=== PATIENT | male | born 1945 | race Native Hawaiian/Other Pacific Islander ===

== ENCOUNTER 2018-11-18 10:58 | Inpatient (IN) | payer BC, MEDICARE ==
[2018-11-18] MEDS ORDERED: SODIUM CHLORIDE 0.9% 1,000 ML IV STA (11:31)
[2018-11-18] MEDS ORDERED: MORPHINE SULFATE 4 MG/ML SYRINGE IVP STA (11:33)
[2018-11-18] MEDS ORDERED: FAMOTIDINE 20 MG/2 ML VIAL IV STA (11:36)
--- NOTE | 2018-11-18 11:38 | ED ---
General Adult HPI - General Chief complaint: Abdominal Pain Stated complaint: WEAKNESS, ABDOMINAL PAIN, Hx STOMACH ULCER Time Seen by Provider: 11/18/18 11:01 Source: patient, RN notes reviewed Mode of arrival: EMS Limitations: no limitations - History of Present Illness Initial comments: 72-year-old male with a past medical history of gastric ulcers presents to the emergency department for a chief complaint of abdominal pain. Patient has had generalized abdominal pain for the past 4 days that is worse than normal. Patient states he has not been able to eat or drink anything for 4 days and feels very dry. States he has been vomiting several times daily as well. Denies diarrhea. He admits he is feeling somewhat weak. He denies any chest pain or shortness of breath. Denies any fevers or chills. Patient has no other complaints at this time including shortness of breath, chest pain, headache, or visual changes. - Related Data Home Medications Medication Instructions Recorded Confirmed Atorvastatin [Lipitor] 20 mg PO DAILY 11/18/18 11/18/18 Doxazosin [Cardura] 4 mg PO DAILY 11/18/18 11/18/18 Losartan Potassium 100 mg PO DAILY 11/18/18 11/18/18 Multivitamins, Thera [Multivitamin 1 tab PO DAILY 11/18/18 11/18/18 (formulary)] Allergies Allergy/AdvReac Type Severity Reaction Status Date / Time No Known Allergies Allergy Verified 11/18/18 11:18 Review of Systems ROS Statement: Those systems with pertinent positive or pertinent negative responses have been documented in the HPI. ROS Other: All systems not noted in ROS Statement are negative. Past Medical History Additional Past Medical History / Comment(s): gastric ulcer History of Any Multi-Drug Resistant Organisms: None Reported Past Surgical History: No Surgical Hx Reported Past Psychological History: No Psychological Hx Reported Smoking Status: Current every day smoker Past Alcohol Use History: None Reported Past Drug Use History: Marijuana General Exam Limitations: no limitations General appearance: alert, in no apparent distress Head exam: Present: atraumatic, normocephalic, normal inspection Eye exam: Present: normal appearance, PERRL, EOMI. Absent: scleral icterus, conjunctival injection, periorbital swelling ENT exam: Present: normal exam, mucous membranes dry. Absent: mucous membranes moist (dry) Neck exam: Present: normal inspection, full ROM. Absent: tenderness, meningismus, lymphadenopathy Respiratory exam: Present: normal lung sounds bilaterally. Absent: respiratory distress, wheezes, rales, rhonchi, stridor Cardiovascular Exam: Present: regular rate, normal rhythm, normal heart sounds. Absent: systolic murmur, diastolic murmur, rubs, gallop, clicks GI/Abdominal exam: Present: soft, tenderness (epigastric and RLQ tenderness on exam), normal bowel sounds. Absent: distended, guarding, rebound, rigid Neurological exam: Present: alert, oriented X3, CN II-XII intact Psychiatric exam: Present: normal affect, normal mood Course Vital Signs 11/18/18 11/18/18 11/18/18 11:06 12:04 12:50 Temperature 98 F 98.7 F Pulse Rate 85 70 61 Respiratory 18 18 18 Rate Blood Pressure 137/86 155/78 151/87 O2 Sat by Pulse 100 100 99 Oximetry Medical Decision Making - Medical Decision Making 72-year-old male with a past medical history of peptic ulcer disease presents to the emergency department for abdominal pain and nausea and vomiting 4 days. Patient states he has had worsening abdominal pain over the past several days to the point where he has been unable to eat or drink anything. States that he tries he is vomiting. Denies any fevers or chills. On exam patient does have generalized abdominal tenderness worse in the right lower quadrant. Patients mucuous membranes appear very dry, does appear dehydrated. CBC did show white count of 15.4, likely reactive to vomiting. CMP unremarkable however BUN is somewhat elevated at 25. CT does show possible esophagitis, patient will be on a PPI. Urinary bladder distention noted. Given inability to tolerate oral intake patient will be admitted for intractable nausea vomiting. - Lab Data Result diagrams: 11/18/18 11:13 11/18/18 11:13 Lab Results 11/18/18 11/18/18 11/18/18 Range/Units 11:13 11:13 12:47 WBC 15.4 H (3.8-10.6) k/uL RBC 5.03 (4.30-5.90) m/uL Hgb 15.1 (13.0-17.5) gm/dL Hct 45.1 (39.0-53.0) % MCV 89.5 (80.0-100.0) fL MCH 30.1 (25.0-35.0) pg MCHC 33.6 (31.0-37.0) g/dL RDW 14.8 (11.5-15.5) % Plt Count 284 (150-450) k/uL Neutrophils % 78 % Lymphocytes % 15 % Monocytes % 5 % Eosinophils % 1 % Basophils % 0 % Neutrophils # 11.9 H (1.3-7.7) k/uL Lymphocytes # 2.3 (1.0-4.8) k/uL Monocytes # 0.8 (0-1.0) k/uL Eosinophils # 0.1 (0-0.7) k/uL Basophils # 0.0 (0-0.2) k/uL Sodium 137 (137-145) mmol/L Potassium 3.6 (3.5-5.1) mmol/L Chloride 102 (98-107) mmol/L Carbon Dioxide 23 (22-30) mmol/L Anion Gap 12 mmol/L BUN 25 H (9-20) mg/dL Creatinine 0.77 (0.66-1.25) mg/dL Est GFR (CKD-EPI)AfAm >90 (>60 ml/min/1.73 sqM) Est GFR (CKD-EPI)NonAf >90 (>60 ml/min/1.73 sqM) Glucose 125 H (74-99) mg/dL Calcium 9.5 (8.4-10.2) mg/dL Magnesium 2.0 (1.6-2.3) mg/dL Total Bilirubin 1.0 (0.2-1.3) mg/dL AST 17 (17-59) U/L ALT 18 L (21-72) U/L Alkaline Phosphatase 44 (38-126) U/L Total Protein 6.6 (6.3-8.2) g/dL Albumin 3.9 (3.5-5.0) g/dL Amylase 54 (30-110) U/L Lipase 46 (23-300) U/L Urine Color Yellow Urine Appearance Clear (Clear) Urine pH 6.5 (5.0-8.0) Ur Specific [place] 1.017 (1.001-1.035) Urine Protein Trace H (Negative) Urine Glucose (UA) Trace H (Negative) Urine Ketones 2+ H (Negative) Urine Blood Negative (Negative) Urine Nitrite Negative (Negative) Urine Bilirubin Negative (Negative) Urine Urobilinogen <2.0 (<2.0) mg/dL Ur Leukocyte Esterase Negative (Negative) Disposition Clinical Impression: Dehydration, Intractable nausea and vomiting Disposition: ADMITTED IP TO THIS HOSP Condition: Fair Is patient prescribed a controlled substance at d/c from ED?: No Referrals: Javier Montes MD [Primary Care Provider] - 1-2 days Time of Disposition: 14:16
[2018-11-18 11:55] LABS: Basophils % (A) 0 %; Eosinophils # (A) 0.1 k/uL (0-0.7); Eosinophils % (A) 1 %; HCT 45.1 % (39.0-53.0); HGB 15.1 gm/dL (13.0-17.5); Lymphocytes # (A) 2.3 k/uL (1.0-4.8); Lymphocytes % (A) 15 %; MCH 30.1 pg (25.0-35.0); MCHC 33.6 g/dL (31.0-37.0); MCV 89.5 fL (80.0-100.0); Mean Platelet Volume 8.6; Monocytes # (A) 0.8 k/uL (0-1.0); Monocytes % (A) 5 %; Neutrophils # (A) 11.9 k/uL (1.3-7.7); Neutrophils % (A) 78 %; Platelet Count 284 k/uL (150-450); RBC 5.03 m/uL (4.30-5.90); RDW 14.8 % (11.5-15.5); WBC 15.4 k/uL (3.8-10.6)
[2018-11-18 12:15] LABS: ALT 18 U/L (21-72); AST 17 U/L (17-59); African American GFR (CKD) >90 (>60 ml/min/1.73 sqM); Albumin 3.9 g/dL (3.5-5.0); Alkaline Phosphatase 44 U/L (38-126); Amylase 54 U/L (30-110); Anion Gap 12 mmol/L; Blood Urea Nitrogen 25 mg/dL (9-20); Calcium 9.5 mg/dL (8.4-10.2); Carbon Dioxide 23 mmol/L (22-30); Chloride 102 mmol/L (98-107); Glucose 125 mg/dL (74-99); Lipase 46 U/L (23-300); Potassium 3.6 mmol/L (3.5-5.1); Sodium 137 mmol/L (137-145); Total Protein 6.6 g/dL (6.3-8.2)
[2018-11-18 12:58] LABS: Appearance,Urine Clear (Clear); Bilirubin,Urine Negative (Negative); Blood,Urine Negative (Negative); Color,Urine Yellow; Glucose,Urine (UA) Trace (Negative); Ketones,Urine 2+ (Negative); Leukocyte Esterase,Urine Negative (Negative); Nitrite,Urine Negative (Negative); PH, Urine 6.5 (5.0-8.0); Protein,Urine Trace (Negative); Specific Gravity,Urine 1.017 (1.001-1.035); Urobilinogen,Urine <2.0 mg/dL (<2.0)
--- NOTE | 2018-11-18 13:52 | CT ---
EXAMINATION TYPE: CT abdomen pelvis w con DATE OF EXAM: 11/18/2018 COMPARISON: 06/07/2014 HISTORY: Weakness, abdominal pain, Hx stomach ulcer CT DLP: 589.1 mGycm CONTRAST: CT scan of the abdomen and pelvis is performed without Oral Contrast and with IV Contrast, patient in jected with 100 ml mL of Isovue 300. FINDINGS: LUNG BASES-: No visible nodule. No infiltrate. Basilar compressive atelectasis. LIVER/GB: No calcified gallstones. No space occupying hepatic lesion. Biliary tree is of normal ca liber. PANCREAS: No inflammation. No distinct mass. SPLEEN: No splenic enlargement. No lesion seen. ADRENALS: No nodule. No thickening. KIDNEYS/BLADDER: No hydronephrosis. No nephrolithiasis. Renal cortical cysts noted. Distention of t he urinary bladder. Urinary bladder is otherwise unremarkable. BOWEL: There is distal esophageal thickening which may reflect esophagitis. Small amount of adjacent fluid noted. Normal appendix. Normal bowel caliber. No inflammation. GENITAL ORGANS: No gross abnormality. LYMPH NODES: No greater than 1cm abdominal or pelvic lymph nodes are appreciated. AORTA: No significant abnormality. OSSEOUS STRUCTURES: No significant abnormality is seen. OTHER: No significant additional abnormality is seen. IMPRESSION: 1. There is distal esophageal thickening which may reflect esophagitis. 2. Urinary bladder distention noted. 3. Renal cortical cysts.
[2018-11-18] MEDS ORDERED: NALOXONE 0.4 MG/ML 1 ML VIAL IV PRN (14:17)
[2018-11-18] MEDS ORDERED: LIDOCAINE URO-JET JELLY 2% 5 ML KIT URETHRAL ONE (14:24)
[2018-11-18] MEDS ORDERED: SODIUM CHLORIDE 0.9% 1,000 ML IV SCH (14:30)
[2018-11-18] MEDS: PANTOPRAZOLE 40 MG/10 ML VIAL IVP SCH ×2 (15:45→20:57)
[2018-11-18] MEDS: MORPHINE SULFATE 4 MG/ML SYRINGE IV PRN ×3 (15:47→21:46)
--- NOTE | 2018-11-18 21:41 | P.HPIM ---
History of Present Illness H&P Date: 11/18/18 Chief Complaint: Abdominal pain History of presenting complaint: This is a pleasant [address] rohit mosley. Chronic stable medical conditions include GERD, hypertension, hyperlipidemia, anxiety depression. Patient is [place]er-speaking percent somewhat limited as . Upper Sorbian explanation of the symptoms. Patient states for over 2 weeks has been having increasing abdominal pain. More so in the lower abdomen. Has bowel movement output is variable. Poor appetite. Able to keep any food down. Trouble eating. He has been losing weight. No fever or chills. He states she's been diagnosed with duodenal/gastric ulcer. Unable to state how that was diagnosed. I'll uncomfortable at rest. Review of systems: GEN.: Tired EYES: None HEENT: Try mouth NECK: None RESPIRATORY: None CARDIOVASCULAR: None GASTROINTESTINAL: As above] GENITOURINARY: None MUSCULOSKELETAL: Some pain in the joints anxious LYMPHATICS: None HEMATOLOGICAL: None PSYCHIATRY: None NEUROLOGICAL: None GERD, GI bleed, hyperlipidemia, hypertension, duodenal ulcer, lower GI bleed, 2 weeks ago had back pain is a deep inspiration diet controlled diabetes Social history: Smokes about 3 marijuana joints a day. No alcohol. Mrs. grandsons. No smoking. Family history: Diabetes mellitus type 2 Physical examination: VITAL SIGNS: 98, 85, 18, 137/86, 100% on room air GENERAL: Thin built, laying in bed somewhat uncomfortable. EYES: [Pupils equal. Conjunctiva pale l. HEENT: External appearance of nose and ears normal, oral cavity grossly dry. NECK: JVD not raised; masses not palpable. HEART: First and second heart sounds are normal; no edema. LUNGS: Respiratory rate normal; clear to auscultation. ABDOMEN: Soft, epigastric, liver spleen not palpable, no masses palpable. LYMPHATICS: No lymph nodes palpable in the axilla and neck. PSYCH: Alert and oriented x3; mood and affect anxiousl. NEUROLOGICAL: Cranial nerves grossly intact; no facial asymmetry, power and sensation grossly intact. Investigations reviewed the clinical context: White count 15.4 hemoglobin 15.1 platelets 284 potassium 3.6 BUN 25 creatinine 0.77 Computed tomography scan of the abdomen shows distal esophageal thickening Assessment: -This is a patient who states he's had duodenal/gastric ulcer presented with increasing pain for last 2 weeks. Not able to keep any food or liquids really down. Constipation. No fever no chills. Has good epigastric tenderness. No guarding or rigidity. Highly suspicious for gastric ulcer peptic ulcer and esophagitis. -GERD -Hypertension -Hyperlipidemia Plan: Patient is put on clear liquids given IV PPIs. Also get given liquid Tums. Put the patient on liquid diet. GI has been consulted. Will need EGD. Lovenox for DVT prophylaxis. Care was discussed with the patient.. Past Medical History Past Medical History: GERD/Reflux, GI Bleed, Hyperlipidemia, Hypertension Additional Past Medical History / Comment(s): Duodenal ulcer, lower GI bleed, past 2 weeks has back pain with deep inspiration, diet controlled diabetic. History of Any Multi-Drug Resistant Organisms: None Reported Past Surgical History: No Surgical Hx Reported Additional Past Surgical History / Comment(s): Laparotomy for duodenal ulcer repair, EGD/colonoscopy, nasal fracture with surgery. Past Anesthesia/Blood Transfusion Reactions: No Reported Reaction Smoking Status: Never smoker - Past Family History Father History Unknown: Yes Mother Family Medical History: Diabetes Mellitus Medications and Allergies Home Medications Medication Instructions Recorded Confirmed Type Atorvastatin [Lipitor] 20 mg PO DAILY 11/18/18 11/18/18 History Doxazosin [Cardura] 4 mg PO DAILY 11/18/18 11/18/18 History Losartan Potassium 100 mg PO DAILY 11/18/18 11/18/18 History Multivitamins, Thera [Multivitamin 1 tab PO DAILY 11/18/18 11/18/18 History (formulary)] Allergies Allergy/AdvReac Type Severity Reaction Status Date / Time No Known Allergies Allergy Verified 11/18/18 11:18 Physical Exam Vitals: Vital Signs Temp Pulse Pulse Resp BP BP Pulse Ox 11/18/18 17:21 98.0 F 67 20 166/79 100 11/18/18 17:18 18 11/18/18 16:58 99.8 F H 67 18 154/80 98 11/18/18 15:48 98.3 F 63 18 165/83 99 11/18/18 12:50 98.7 F 61 18 151/87 99 11/18/18 12:04 70 18 155/78 100 11/18/18 11:06 98 F 85 18 137/86 100 Intake and Output 11/18/18 11/18/18 11/18/18 06:59 14:59 22:59 Output Total 1200 Balance -1200 Output: Urine 1200 Uretheral (Sahu) 1200 Other: Voiding Method Indwelling Catheter Weight 63.049 kg Results CBC & Chem 7: 11/18/18 11:13 11/18/18 11:13 Labs: Abnormal Lab Results - Last 24 Hours (Table) 11/18/18 11/18/18 11/18/18 Range/Units 11:13 11:13 12:47 WBC 15.4 H (3.8-10.6) k/uL Neutrophils # 11.9 H (1.3-7.7) k/uL BUN 25 H (9-20) mg/dL Glucose 125 H (74-99) mg/dL ALT 18 L (21-72) U/L Urine Protein Trace H (Negative) Urine Glucose (UA) Trace H (Negative) Urine Ketones 2+ H (Negative) Thrombosis Risk Factor Assmnt - Choose All That Apply Any of the Below Risk Factors Present?: Yes Other Risk Factors: Yes Each Risk Factor Represents 2 Points: Age 61-74 years Other congenital or acquired thrombophilia - If yes, enter type in comment: No Thrombosis Risk Factor Assessment Total Risk Factor Score: 2 Thrombosis Risk Factor Assessment Level: Low Risk
[2018-11-18] MEDS: LACTATED RINGERS 1,000 ML IV SCH (21:51)
[2018-11-19] MEDS: LACTATED RINGERS 1,000 ML IV SCH ×3 (05:48→22:01)
[2018-11-19] MEDS: LOSARTAN 50 MG TAB PO SCH (07:57)
[2018-11-19] MEDS: MULTIVITAMINS, THERA 1 EACH TAB PO SCH (07:57)
[2018-11-19] MEDS: PANTOPRAZOLE 40 MG/10 ML VIAL IVP SCH ×2 (07:57→21:56)
[2018-11-19] MEDS: ATORVASTATIN 20 MG TAB PO SCH (07:57)
[2018-11-19] MEDS: DOXAZOSIN 4 MG TAB PO SCH (07:57)
[2018-11-19] MEDS: MORPHINE SULFATE 4 MG/ML SYRINGE IV PRN ×3 (07:58→21:56)
[2018-11-19] MEDS: CALCIUM CARBONATE LIQUID 500 MG/5 ML CUP PO SCH ×4 (08:19→21:56)
[2018-11-19 10:01] LABS: Basophils % (A) 0 %; Eosinophils # (A) 0.2 k/uL (0-0.7); Eosinophils % (A) 1 %; HCT 42.6 % (39.0-53.0); Lymphocytes # (A) 1.9 k/uL (1.0-4.8); Lymphocytes % (A) 15 %; MCH 30.2 pg (25.0-35.0); MCHC 32.8 g/dL (31.0-37.0); MCV 92.2 fL (80.0-100.0); Mean Platelet Volume 7.7; Monocytes # (A) 0.6 k/uL (0-1.0); Monocytes % (A) 5 %; Neutrophils # (A) 10.3 k/uL (1.3-7.7); Neutrophils % (A) 78 %; Platelet Count 271 k/uL (150-450); RBC 4.61 m/uL (4.30-5.90); RDW 13.2 % (11.5-15.5); WBC 13.3 k/uL (3.8-10.6)
--- NOTE | 2018-11-19 11:26 | P.CONS ---
History of Present Illness - Reason for Consult Consult date: 11/19/18 Abdominal pain Requesting physician: Lui Crespo - Chief Complaint Abdominal pain - History of Present Illness 72-year-old male with a past medical history peptic ulcer disease admitted with upper abdominal pain 4 days with decreased appetite and nausea vomiting without fever chills hematemesis hematochezia or melena. CT abdomen and pelvis distal esophageal thickening may reflect esophagitis. Patient reports taking NSAIDs ibuprofen at home for pain. No alcohol. No GI prophylaxis. Occasional over the counter Rolaids as needed. No recent EGD. White count 15.4. Hemoglobin 15.1. BUN 25. Creatinine 0.7. LFTs amylase lipase within normal limits. Review of Systems Constitutional: Denies fever, chills, sweats, weight gain, or loss. HEENT: Negative for migraines, blurred vision or loss, earaches, drainage, tinnitus, oral mucosal lesions, dysphagia, or odynophagia. Cardiac: Negative for chest pain, arrhythmias, or palpitation. Respiratory: Negative for shortness of breath, hemoptysis, cough, or sputum production. Gastrointestinal: See HPI for pertinent findings. Genitourinary: Negative for hematuria, urgency, frequency, polyuria, dysuria, or penile discharge. Musculoskeletal: Negative for muscle aches, swelling, arthritis, and arthralgias. Neurologic: Negative for stroke or TIA. Endocrine: Negative for thyroid problems. Skin: Negative for rash or itching. Psychiatric: Negative history for depression and anxiety Past Medical History Past Medical History: GERD/Reflux, GI Bleed, Hyperlipidemia, Hypertension Additional Past Medical History / Comment(s): Duodenal ulcer, lower GI bleed, past 2 weeks has back pain with deep inspiration, diet controlled diabetic. History of Any Multi-Drug Resistant Organisms: None Reported Past Surgical History: No Surgical Hx Reported Additional Past Surgical History / Comment(s): Laparotomy for duodenal ulcer repair, EGD/colonoscopy, nasal fracture with surgery. Past Anesthesia/Blood Transfusion Reactions: No Reported Reaction Smoking Status: Never smoker - Past Family History Father History Unknown: Yes Mother Family Medical History: Diabetes Mellitus Medications and Allergies Home Medications Medication Instructions Recorded Confirmed Type Atorvastatin [Lipitor] 20 mg PO DAILY 11/18/18 11/18/18 History Doxazosin [Cardura] 4 mg PO DAILY 11/18/18 11/18/18 History Losartan Potassium 100 mg PO DAILY 11/18/18 11/18/18 History Multivitamins, Thera [Multivitamin 1 tab PO DAILY 11/18/18 11/18/18 History (formulary)] Allergies Allergy/AdvReac Type Severity Reaction Status Date / Time No Known Allergies Allergy Verified 11/18/18 11:18 Physical Exam Vitals: Vital Signs Temp Pulse Pulse Resp BP BP BP 11/19/18 08:00 59 L 18 151/79 11/19/18 07:19 11/19/18 04:45 97.8 F 63 20 121/67 11/18/18 22:00 98 F 61 20 161/77 11/18/18 17:21 98.0 F 67 20 166/79 11/18/18 17:18 18 11/18/18 16:58 99.8 F H 67 18 154/80 11/18/18 15:48 98.3 F 63 18 165/83 11/18/18 12:50 98.7 F 61 18 151/87 11/18/18 12:04 70 18 155/78 11/18/18 11:06 98 F 85 18 137/86 Pulse Ox 11/19/18 08:00 99 11/19/18 07:19 98 11/19/18 04:45 99 11/18/18 22:00 98 11/18/18 17:21 100 11/18/18 17:18 11/18/18 16:58 98 11/18/18 15:48 99 11/18/18 12:50 99 11/18/18 12:04 100 11/18/18 11:06 100 Intake and Output 11/18/18 11/19/18 11/19/18 22:59 06:59 14:59 Intake Total 500 100 Output Total 1800 Balance 500 -1700 Intake: Intake, IV Titration 500 Amount Lactated Ringers 1,000 ml 500 @ 125 mls/hr IV .Q8H [facility] Rx#:[id number] Oral 100 Output: Urine 1800 Uretheral (Sahu) 900 Other: Voiding Method Indwelling Catheter Indwelling Catheter General appearance: The patient is alert, oriented, in no acute distress. HET: Head is normocephalic and atraumatic. Pupils are equal and reactive. Oropharynx is clear without lesions. Neck: Supple without lymphadenopathy. Trachea midline. Heart: S1 S2. Regular rate and rhythm. Lungs: No crackles or wheezes are heard. Abdomen: Soft, tenderness midepigastrium, nondistended with bowel sounds. No peritoneal signs. No palpable organomegaly or masses. Extremities: Normal skin color and turgor. No cyanosis, rash, ulceration, clubbing, or edema. Radial and pedal pulses are 2/4 bilaterally. Neurological: No focal deficits. Strength and sensation are grossly intact. Results CBC & Chem 7: 11/19/18 09:28 11/18/18 11:13 Labs: Abnormal Lab Results - Last 24 Hours (Table) 11/18/18 11/18/18 11/18/18 Range/Units 11:13 11:13 12:47 WBC 15.4 H (3.8-10.6) k/uL Neutrophils # 11.9 H (1.3-7.7) k/uL BUN 25 H (9-20) mg/dL Glucose 125 H (74-99) mg/dL ALT 18 L (21-72) U/L Urine Protein Trace H (Negative) Urine Glucose (UA) Trace H (Negative) Urine Ketones 2+ H (Negative) CT scan - abdomen: report reviewed (Dr. Ndiaye) Assessment and Plan (1) Abdominal pain Narrative/Plan: 72-year-old male with a history of peptic ulcer disease NSAID therapy admitted with epigastric pain nonbleeding nausea vomiting 4 days possible peptic ulcer disease possible exacerbation of GERD. CT reported distal esophageal thickening possible esophagitis. Current Visit: Yes Status: Acute Code(s): R10.9 - UNSPECIFIED ABDOMINAL PAIN SNOMED Code(s): 85361373 (2) Nausea & vomiting Current Visit: Yes Status: Acute Code(s): R11.2 - NAUSEA WITH VOMITING, UNSPECIFIED SNOMED Code(s): 62559624 Plan: 1. No NSAIDs. Protonix 40 mg twice daily. EGD evaluation. CBC BMP monitoring. 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 The patient has indicated understanding and acceptance of the risks and procedures discussed. Thank you for this kind referral and the opportunity to participate in the care of your patient. This consultation was discussed with Dr. Ndiaye. The impression and plan of care have been directed as dictated.
[2018-11-19 14:22] VITALS: BMI 20.5
--- NOTE | 2018-11-19 23:14 | P.PN ---
Progress Note - Text Progress Note Date: 11/19/18 Chief Complaint: Abdominal pain History of presenting complaint: This is a pleasant [address] rohit mosley. Chronic stable medical conditions include GERD, hypertension, hyperlipidemia, anxiety depression. Patient is [place]-speaking percent somewhat limited as . Vietnamese explanation of the symptoms. Patient states for over 2 weeks has been having increasing abdominal pain. More so in the lower abdomen. Has bowel movement output is variable. Poor appetite. Able to keep any food down. Trouble eating. He has been losing weight. No fever or chills. He states she's been diagnosed with duodenal/gastric ulcer. Unable to state how that was diagnosed. Today-laying in bed. Tired-appearing. Unable to eat much. Seen by GI. Nausea present. Abdominal pain present.. Review of systems: Was done for constitutional, cardiovascular, GI, pulmonary. relevant finding as above Current medications are reviewed and include: Downs, lactated Ringer's, IV Protonix etc. Physical examination: VITAL SIGNS: 98.1, 60, 16, 150/70, 97% room air GENERAL: laying in bed , uncomfortable. EYES: [Pupils equal. Conjunctiva pale l. HEENT: External appearance of nose and ears normal, oral cavity grossly dry. NECK: JVD not raised; masses not palpable. HEART: First and second heart sounds are normal; no edema. LUNGS: Respiratory rate normal; clear to auscultation. ABDOMEN: Soft, epigastric, liver spleen not palpable, no masses palpable. LYMPHATICS: No lymph nodes palpable in the axilla and neck. PSYCH: Alert and oriented x3; mood and affect anxiousl. NEUROLOGICAL: Cranial nerves grossly intact; no facial asymmetry, power and sensation grossly intact. Investigations reviewed the clinical context: White count 30.3, hemoglobin 14 Computed tomography scan of the abdomen shows distal esophageal thickening Assessment: -This is a patient who states he's had duodenal/gastric ulcer presented with increasing pain for last 2 weeks. Not able to keep any food or liquids really down. Constipation. No fever no chills. Has good epigastric tenderness. No guarding or rigidity. Highly suspicious for gastric ulcer peptic ulcer and esophagitis. -GERD -Hypertension -Hyperlipidemia Plan: Continue current medication treatment plan. Discussed with Karmen Jasmine from GI. Patient getting the EGD done. Care was discussed with the patient.
[2018-11-20] MEDS: LACTATED RINGERS 1,000 ML IV SCH ×3 (09:01→21:24)
[2018-11-20] MEDS: CALCIUM CARBONATE LIQUID 500 MG/5 ML CUP PO SCH ×4 (09:01→20:18)
[2018-11-20] MEDS: MULTIVITAMINS, THERA 1 EACH TAB PO SCH (09:02)
[2018-11-20] MEDS: LOSARTAN 50 MG TAB PO SCH (09:03)
[2018-11-20] MEDS: PANTOPRAZOLE 40 MG/10 ML VIAL IVP SCH ×2 (09:04→20:18)
[2018-11-20] MEDS: DOXAZOSIN 4 MG TAB PO SCH (09:04)
[2018-11-20] MEDS: ATORVASTATIN 20 MG TAB PO SCH (09:04)
[2018-11-20] MEDS ORDERED: PROPOFOL 10 MG/ML 20 ML VIAL IV ONE (11:54)
[2018-11-20] MEDS ORDERED: IV FLUID CONTINUATION 300 ML IV ONE (11:56)
--- NOTE | 2018-11-20 12:22 | P.PCN ---
Date of Procedure: 11/20/18 Description of Procedure: BRIEF HISTORY: 72-year-old male with a past medical history peptic ulcer disease admitted with upper abdominal pain 4 days with decreased appetite and nausea vomiting without fever chills hematemesis hematochezia or melena. CT abdomen and pelvis distal esophageal thickening may reflect esophagitis. Patient reports taking NSAIDs ibuprofen at home for pain. No alcohol. No GI prophylaxis. Occasional over the counter Rolaids as needed. No recent EGD. White count 15.4. Hemoglobin 15.1. BUN 25. Creatinine 0.7. LFTs amylase lipase within normal limits. PROCEDURE PERFORMED: Esophagogastroduodenoscopy with biopsy. PREOPERATIVE DIAGNOSIS: Abdominal pain, nausea and vomiting, abnormal computed tomography scan. ESTIMATED BLOOD LOSS: Minimal. IV sedation per anesthesia. PROCEDURE: After informed consent was obtained, the patient was brought into the endoscopy unit. IV sedation was administered by Anesthesia under continuous monitoring. Initially the Olympus GIF-190 video endoscope was inserted into the mouth. Esophagus intubated without any difficulty. It was gradually advanced into the stomach and duodenum and carefully examined. The bulb and the second part of the duodenum were significant for a nonbleeding duodenal bulb ulcer without high- risk stigmata for rebleeding with biopsies of the duodenal ulcer taken as well as of the bulb and second portion. The scope at this time was withdrawn to the stomach, adequately insufflated with air, and upon careful examination, mucosa of the antrum, body, cardia and the fundus were significant for diffuse punctate erythema suggestive of moderate gastritis with biopsies of antrum and body taken. A small hiatal hernia was noted. The scope was then withdrawn into the esophagus. The GE junction was located at 37 cm from the incisors. The esophagus was significant for 7 cm of LA grade D esophagitis in the distal esophagus with biopsies taken. There were no erosions or ulcerations seen and the patient tolerated the procedure well. IMPRESSION: 1. Nonbleeding duodenal bulb ulcer, biopsied. 2. Moderate gastritis, biopsies of antrum and body. 3. LA grade D esophagitis, biopsied. 4. Small hiatal hernia. 5. Duodenal biopsies. RECOMMENDATIONS: The findings of this examination were discussed with the patient. Would recommend Protonix twice daily. Will add Carafate 3 times a day before meals. Avoid NSAIDs. Await pathology from biopsies. Okay for diet.
[2018-11-20] MEDS: SUCRALFATE 1 GM TAB PO SCH ×3 (13:07→20:18)
--- NOTE | 2018-11-20 22:56 | P.PN ---
Progress Note - Text Progress Note Date: 11/20/18 Chief Complaint: Abdominal pain interval history: This is a pleasant [address] rohit mosley. Chronic stable medical conditions include GERD, hypertension, hyperlipidemia, anxiety depression. Patient is Martiniquais-speaking percent somewhat limited as . Spanish explanation of the symptoms. Patient states for over 2 weeks has been having increasing abdominal pain. More so in the lower abdomen. Has bowel movement output is variable. Poor appetite. Able to keep any food down. Trouble eating. He has been losing weight. No fever or chills. He states she's been diagnosed with duodenal/gastric ulcer. Unable to state how that was diagnosed. Today-laying in bed. looks shade better. Having epigastric and some back pain. Tired appearing less nausea vomiting. Awaiting endoscopy. Review of systems: Was done for constitutional, cardiovascular, GI, pulmonary. relevant finding as above Current medications are reviewed and include: lactated Ringer's, IV Protonix etc. Physical examination: VITAL SIGNS: 98.4, 83, 18, 1 27 x 68, 96% room air GENERAL: laying in bed , uncomfortable. EYES: [Pupils equal. Conjunctiva pale l. HEENT: External appearance of nose and ears normal, oral cavity grossly dry. NECK: JVD not raised; masses not palpable. HEART: First and second heart sounds are normal; no edema. LUNGS: Respiratory rate normal; clear to auscultation. ABDOMEN: Soft, epigastric, liver spleen not palpable, no masses palpable. PSYCH: Alert and oriented x3; mood and affect anxiousl. Investigations reviewed the clinical context: white count 13.3, hemoglobin 14 Computed tomography scan of the abdomen shows distal esophageal thickening Assessment: -This is a patient who states he's had duodenal/gastric ulcer presented with increasing pain for last 2 weeks. Not able to keep any food or liquids really down. Constipation. No fever no chills. Has good epigastric tenderness. No guarding or rigidity. Highly suspicious for gastric ulcer peptic ulcer and esophagitis. -GERD -Hypertension -Hyperlipidemia Plan: care was discussed with the patient. Awaiting EGD. No new issues. Repeat labs in the morning.
[2018-11-21 06:44] VITALS: RESP 16; TEMP 98.8
[2018-11-21] MEDS: LOSARTAN 50 MG TAB PO SCH (09:02)
[2018-11-21] MEDS: ATORVASTATIN 20 MG TAB PO SCH (09:02)
[2018-11-21] MEDS: CALCIUM CARBONATE LIQUID 500 MG/5 ML CUP PO SCH ×3 (09:02→16:39)
[2018-11-21] MEDS: MULTIVITAMINS, THERA 1 EACH TAB PO SCH (09:02)
[2018-11-21] MEDS: LACTATED RINGERS 1,000 ML IV SCH ×2 (09:02→13:33)
[2018-11-21] MEDS: DOXAZOSIN 4 MG TAB PO SCH (09:02)
[2018-11-21] MEDS: PANTOPRAZOLE 40 MG/10 ML VIAL IVP SCH (09:02)
[2018-11-21] MEDS: SUCRALFATE 1 GM TAB PO SCH ×3 (09:02→16:39)
[2018-11-21 09:55] LABS: Basophils % (A) 0 %; Eosinophils # (A) 0.2 k/uL (0-0.7); Eosinophils % (A) 2 %; HCT 38.9 % (39.0-53.0); HGB 12.8 gm/dL (13.0-17.5); Lymphocytes # (A) 1.4 k/uL (1.0-4.8); Lymphocytes % (A) 16 %; MCV 90.8 fL (80.0-100.0); Mean Platelet Volume 8.5; Monocytes # (A) 0.4 k/uL (0-1.0); Monocytes % (A) 4 %; Neutrophils # (A) 6.9 k/uL (1.3-7.7); Neutrophils % (A) 76 %; Platelet Count 255 k/uL (150-450); RBC 4.28 m/uL (4.30-5.90); RDW 14.8 % (11.5-15.5)
[2018-11-21] MEDS ORDERED: TAMSULOSIN 0.4 MG CAP.ER.24H PO SCH (11:00)
[2018-11-21 14:41] VITALS: BP 137/73; PULSE 71
--- NOTE | 2018-11-21 21:42 | P.DS ---
Providers Date of admission: 11/20/18 10:13 Expected date of discharge: 11/21/18 Attending physician: Lui Crespo Primary care physician: Javier Montes Hospital Course: Discharge diagnoses: -Duodenal bulb ulcer . LA grade D esophagitis -Moderate gastritis -GERD -Hypertension -Hyperlipidemia Hospital course: This is a pleasant [address] montes medicine. Chronic stable medical conditions include GERD, hypertension, hyperlipidemia, anxiety depression. Patient is Persian-speaking percent somewhat limited as . Faroese explanation of the symptoms. Patient states for over 2 weeks has been having increasing abdominal pain. More so in the lower abdomen. Has bowel movement output is variable. Poor appetite. Able to keep any food down. Trouble eating. He has been losing weight. No fever or chills. He states she's been diagnosed with duodenal/gastric ulcer. Unable to state how that was diagnosed. Patient did undergo EGD. That showed nonbleeding duodenal bulb ulcer, moderate gastritis and a LAgrade D esophagitis Physical examination: VITAL SIGNS: 98.8, 71, 16, 137/73, 99% room air GENERAL: laying in bed , uncomfortable. EYES: [Pupils equal. Conjunctiva pale l. HEENT: External appearance of nose and ears normal, oral cavity grossly dry. NECK: JVD not raised; masses not palpable. HEART: First and second heart sounds are normal; no edema. LUNGS: Respiratory rate normal; clear to auscultation. ABDOMEN: Soft, minimal epigastric tenderness , liver spleen not palpable, no masses palpable. PSYCH: Alert and oriented x3; mood and affect anxiousl. Consultation: GI Investigations reviewed the clinical context: Hemoglobin 12.8 Computed tomography scan of the abdomen shows distal esophageal thickening Disposition: Home Patient Condition at Discharge: Fair Plan - Discharge Summary Discharge Rx Participant: No New Discharge Prescriptions: New Tamsulosin [Flomax] 0.4 mg PO HS #30 cap.er.24h Omeprazole [PriLOSEC] 20 mg PO AC-BID #60 cap Continue Multivitamins, Thera [Multivitamin (formulary)] 1 tab PO DAILY Losartan Potassium 100 mg PO DAILY Atorvastatin [Lipitor] 20 mg PO DAILY Doxazosin [Cardura] 4 mg PO DAILY Discharge Medication List Atorvastatin [Lipitor] 20 mg PO DAILY 11/18/18 [History] Doxazosin [Cardura] 4 mg PO DAILY 11/18/18 [History] Losartan Potassium 100 mg PO DAILY 11/18/18 [History] Multivitamins, Thera [Multivitamin (formulary)] 1 tab PO DAILY 11/18/18 [History] Omeprazole [PriLOSEC] 20 mg PO AC-BID #60 cap 11/21/18 [Rx] Tamsulosin [Flomax] 0.4 mg PO HS #30 cap.er.24h 11/21/18 [Rx] Follow up Appointment(s)/Referral(s): David Cortez MD [STAFF PHYSICIAN] - 1 Week (urinary retention. Follow-up about damon catheter. ) Javier Montes MD [Primary Care Provider] - 1 Week (patient to make appointments related to late discharge) Eliezer Ndiaye MD [STAFF PHYSICIAN] - 2 Weeks (patient to make appointments related to late discharge) Patient Instructions/Handouts: Urinary Retention in Men (GEN), Damon Catheter Placement and Care (DC) Discharge Disposition: HOME SELF-CARE
== END 2018-11-21 18:34 | disposition home or self-care (01) | DRG 384 ==
LOC: EC 10:58 → 4MS4W 14:17 → OBSVTOIN 11-20 10:13
PROVIDERS: ADMIT Hospitalist; ATTEND Hospitalist
PROC: 0DB78ZX Excision of Stomach, Pylorus, Via Natural or Artificial Opening Endoscopic, Diagnostic (ICD-10-PCS; 2018-11-20)
PROC: 0DB58ZX Excision of Esophagus, Via Natural or Artificial Opening Endoscopic, Diagnostic (ICD-10-PCS; 2018-11-20)
PROC: 0DB98ZX Excision of Duodenum, Via Natural or Artificial Opening Endoscopic, Diagnostic (ICD-10-PCS; principal; 2018-11-20 12:00)
DX: K26.9 Duodenal ulcer, unspecified as acute or chronic, without hemorrhage or perforation (principal); F17.210 Nicotine dependence, cigarettes, uncomplicated; F41.8 Other specified anxiety disorders; I10 Essential (primary) hypertension; K21.0 Gastro-esophageal reflux disease with esophagitis; K29.70 Gastritis, unspecified, without bleeding; Z87.11 Personal history of peptic ulcer disease; E11.9 Type 2 diabetes mellitus without complications; E78.5 Hyperlipidemia, unspecified; E86.0 Dehydration; K44.9 Diaphragmatic hernia without obstruction or gangrene; K59.00 Constipation, unspecified; N32.89 Other specified disorders of bladder; Z79.899 Other long term (current) drug therapy; Z83.3 Family history of diabetes mellitus; F32.9 Major depressive disorder, single episode, unspecified; Z79.1 Long term (current) use of non-steroidal anti-inflammatories (NSAID)
CPT/HCPCS: 36415; 43239; 74177; 80053; 81003; 82150; 83690; 83735; 85025; 88305; 88312; 94760; 96361; 96374; 96375; 96376; 99285

== ENCOUNTER 2018-12-11 11:25 | Observation (INO) | payer MEDICARE ==
[2018-12-11] MEDS ORDERED: SODIUM CHLORIDE 0.9% 1,000 ML IV STA (12:01)
--- NOTE | 2018-12-11 12:59 | ED ---
Weakness HPI - General Chief complaint: Weakness Stated complaint: Unknown-Sent by Time Seen by Provider: 12/11/18 11:54 Source: patient, family, RN notes reviewed, old records reviewed Mode of arrival: ambulatory Limitations: no limitations - History of Present Illness Initial comments: This is a 73-year-old male the ER for evaluation presents today for evaluation regarding altered mental status. Patient presenting in condition unable to give history patient's brought to ER by his son, cyanotic bedside at present. Medical record is reviewed and noncontributory. History obtained from prior charting. MD Complaint: generalized weakness, lack of energy (Altered mental status) -: unknown Location: generalized Severity: moderate Severity scale (1-10): 6 Consistency: constant Improves with: none Worsens with: none Context: history of similar (Unknown history) Associated Symptoms: denies other symptoms - Related Data Home Medications Medication Instructions Recorded Confirmed Atorvastatin [Lipitor] 20 mg PO DAILY 11/18/18 12/11/18 Doxazosin [Cardura] 4 mg PO DAILY 11/18/18 12/11/18 Losartan Potassium 100 mg PO DAILY 11/18/18 12/11/18 Multivitamins, Thera [Multivitamin 1 tab PO DAILY 11/18/18 12/11/18 (formulary)] Previous Rx's Medication Instructions Recorded Omeprazole [PriLOSEC] 20 mg PO AC-BID #60 cap 11/21/18 Tamsulosin [Flomax] 0.4 mg PO HS #30 cap.er.24h 11/21/18 Allergies Allergy/AdvReac Type Severity Reaction Status Date / Time No Known Allergies Allergy Verified 12/11/18 12:01 Review of Systems ROS Statement: Those systems with pertinent positive or pertinent negative responses have been documented in the HPI. ROS Other: All systems not noted in ROS Statement are negative. Past Medical History Past Medical History: GERD/Reflux, GI Bleed, Hyperlipidemia, Hypertension Additional Past Medical History / Comment(s): Duodenal ulcer, lower GI bleed, past 2 weeks has back pain with deep inspiration, diet controlled diabetic. History of Any Multi-Drug Resistant Organisms: None Reported Past Surgical History: No Surgical Hx Reported Additional Past Surgical History / Comment(s): Laparotomy for duodenal ulcer repair, EGD/colonoscopy, nasal fracture with surgery. Past Anesthesia/Blood Transfusion Reactions: No Reported Reaction Past Psychological History: Anxiety, Depression Smoking Status: Never smoker - Past Family History Father History Unknown: Yes Mother Family Medical History: Diabetes Mellitus General Exam Limitations: no limitations General appearance: alert, in no apparent distress Head exam: Present: atraumatic, normocephalic, normal inspection Eye exam: Present: normal appearance, PERRL, EOMI. Absent: scleral icterus, conjunctival injection, periorbital swelling ENT exam: Present: normal exam, mucous membranes moist Neck exam: Present: normal inspection. Absent: tenderness, meningismus, l ymphadenopathy Respiratory exam: Present: normal lung sounds bilaterally. Absent: respiratory distress, wheezes, rales, rhonchi, stridor Cardiovascular Exam: Present: regular rate, normal rhythm, normal heart sounds. Absent: systolic murmur, diastolic murmur, rubs, gallop, clicks GI/Abdominal exam: Present: soft, normal bowel sounds. Absent: distended, tenderness, guarding, rebound, rigid Extremities exam: Present: normal inspection, full ROM, normal capillary refill. Absent: tenderness, pedal edema, joint swelling, calf tenderness Back exam: Present: normal inspection Neurological exam: Present: alert, oriented X3, CN II-XII intact Psychiatric exam: Present: normal affect, normal mood Skin exam: Present: warm, dry, intact, normal color. Absent: rash Course Vital Signs 12/11/18 12/11/18 12/11/18 11:42 12:58 14:34 Temperature 99.0 F Pulse Rate 98 58 L 56 L Respiratory 18 16 16 Rate Blood Pressure 163/82 161/85 161/85 O2 Sat by Pulse 97 99 99 Oximetry EKG Findings - EKG Comments: EKG Findings:: EKG shows sinus rhythm rate of 64, RI 124, QRS 04, QTc 455 Medical Decision Making - Medical Decision Making 73 male the ER for evaluation of altered mental status not feeling well. We'll admit patient for treatment of UTI and dehydration, monitoring of mental state - Lab Data Result diagrams: 12/11/18 12:57 12/11/18 12:57 Lab Results 12/11/18 12/11/18 12/11/18 Range/Units 12:57 12:57 12:57 WBC 8.9 (3.8-10.6) k/uL RBC 4.84 (4.30-5.90) m/uL Hgb 14.5 (13.0-17.5) gm/dL Hct 43.8 (39.0-53.0) % MCV 90.5 (80.0-100.0) fL MCH 30.0 (25.0-35.0) pg MCHC 33.1 (31.0-37.0) g/dL RDW 15.4 (11.5-15.5) % Plt Count 288 (150-450) k/uL Neutrophils % 73 % Lymphocytes % 20 % Monocytes % 5 % Eosinophils % 1 % Basophils % 0 % Neutrophils # 6.5 (1.3-7.7) k/uL Lymphocytes # 1.8 (1.0-4.8) k/uL Monocytes # 0.4 (0-1.0) k/uL Eosinophils # 0.1 (0-0.7) k/uL Basophils # 0.0 (0-0.2) k/uL PT (9.0-12.0) sec INR (<1.2) APTT (22.0-30.0) sec Sodium 144 (137-145) mmol/L Potassium 3.7 (3.5-5.1) mmol/L Chloride 108 H (98-107) mmol/L Carbon Dioxide 27 (22-30) mmol/L Anion Gap 9 mmol/L BUN 19 (9-20) mg/dL Creatinine 0.68 (0.66-1.25) mg/dL Est GFR (CKD-EPI)AfAm >90 (>60 ml/min/1.73 sqM) Est GFR (CKD-EPI)NonAf >90 (>60 ml/min/1.73 sqM) Glucose 121 H (74-99) mg/dL Plasma Lactic Acid Geraldo 1.3 (0.7-2.0) mmol/L Calcium 9.8 (8.4-10.2) mg/dL Phosphorus 3.6 (2.5-4.5) mg/dL Magnesium 2.2 (1.6-2.3) mg/dL Total Bilirubin 0.9 (0.2-1.3) mg/dL AST 14 L (17-59) U/L ALT 16 L (21-72) U/L Alkaline Phosphatase 51 (38-126) U/L Ammonia <9 (<30) umol/L Creatine Kinase 31 L (55-170) U/L Troponin I (0.000-0.034) ng/mL NT-Pro-B Natriuret Pep pg/mL Total Protein 7.4 (6.3-8.2) g/dL Albumin 4.4 (3.5-5.0) g/dL TSH 1.730 (0.465-4.680) mIU/L Urine Color Urine Appearance (Clear) Urine pH (5.0-8.0) Ur Specific [place] (1.001-1.035) Urine Protein (Negative) Urine Glucose (UA) (Negative) Urine Ketones (Negative) Urine Blood (Negative) Urine Nitrite (Negative) Urine Bilirubin (Negative) Urine Urobilinogen (<2.0) mg/dL Ur Leukocyte Esterase (Negative) Urine WBC (0-5) /hpf Urine Bacteria (None) /hpf Urine Mucus (None) /hpf Urine Yeast (Budding) (None) /hpf 12/11/18 12/11/18 12/11/18 Range/Units 12:57 12:57 12:57 WBC (3.8-10.6) k/uL RBC (4.30-5.90) m/uL Hgb (13.0-17.5) gm/dL Hct (39.0-53.0) % MCV (80.0-100.0) fL MCH (25.0-35.0) pg MCHC (31.0-37.0) g/dL RDW (11.5-15.5) % Plt Count (150-450) k/uL Neutrophils % % Lymphocytes % % Monocytes % % Eosinophils % % Basophils % % Neutrophils # (1.3-7.7) k/uL Lymphocytes # (1.0-4.8) k/uL Monocytes # (0-1.0) k/uL Eosinophils # (0-0.7) k/uL Basophils # (0-0.2) k/uL PT 10.4 (9.0-12.0) sec INR 1.0 (<1.2) APTT 23.8 (22.0-30.0) sec Sodium (137-145) mmol/L Potassium (3.5-5.1) mmol/L Chloride (98-107) mmol/L Carbon Dioxide (22-30) mmol/L Anion Gap mmol/L BUN (9-20) mg/dL Creatinine (0.66-1.25) mg/dL Est GFR (CKD-EPI)AfAm (>60 ml/min/1.73 sqM) Est GFR (CKD-EPI)NonAf (>60 ml/min/1.73 sqM) Glucose (74-99) mg/dL Plasma Lactic Acid Geraldo (0.7-2.0) mmol/L Calcium (8.4-10.2) mg/dL Phosphorus (2.5-4.5) mg/dL Magnesium (1.6-2.3) mg/dL Total Bilirubin (0.2-1.3) mg/dL AST (17-59) U/L ALT (21-72) U/L Alkaline Phosphatase (38-126) U/L Ammonia (<30) umol/L Creatine Kinase (55-170) U/L Troponin I <0.012 (0.000-0.034) ng/mL NT-Pro-B Natriuret Pep 328 pg/mL Total Protein (6.3-8.2) g/dL Albumin (3.5-5.0) g/dL TSH (0.465-4.680) mIU/L Urine Color Urine Appearance (Clear) Urine pH (5.0-8.0) Ur Specific [place] (1.001-1.035) Urine Protein (Negative) Urine Glucose (UA) (Negative) Urine Ketones (Negative) Urine Blood (Negative) Urine Nitrite (Negative) Urine Bilirubin (Negative) Urine Urobilinogen (<2.0) mg/dL Ur Leukocyte Esterase (Negative) Urine WBC (0-5) /hpf Urine Bacteria (None) /hpf Urine Mucus (None) /hpf Urine Yeast (Budding) (None) /hpf 12/11/18 Range/Units 14:30 WBC (3.8-10.6) k/uL RBC (4.30-5.90) m/uL Hgb (13.0-17.5) gm/dL Hct (39.0-53.0) % MCV (80.0-100.0) fL MCH (25.0-35.0) pg MCHC (31.0-37.0) g/dL RDW (11.5-15.5) % Plt Count (150-450) k/uL Neutrophils % % Lymphocytes % % Monocytes % % Eosinophils % % Basophils % % Neutrophils # (1.3-7.7) k/uL Lymphocytes # (1.0-4.8) k/uL Monocytes # (0-1.0) k/uL Eosinophils # (0-0.7) k/uL Basophils # (0-0.2) k/uL PT (9.0-12.0) sec INR (<1.2) APTT (22.0-30.0) sec Sodium (137-145) mmol/L Potassium (3.5-5.1) mmol/L Chloride (98-107) mmol/L Carbon Dioxide (22-30) mmol/L Anion Gap mmol/L BUN (9-20) mg/dL Creatinine (0.66-1.25) mg/dL Est GFR (CKD-EPI)AfAm (>60 ml/min/1.73 sqM) Est GFR (CKD-EPI)NonAf (>60 ml/min/1.73 sqM) Glucose (74-99) mg/dL Plasma Lactic Acid Geraldo (0.7-2.0) mmol/L Calcium (8.4-10.2) mg/dL Phosphorus (2.5-4.5) mg/dL Magnesium (1.6-2.3) mg/dL Total Bilirubin (0.2-1.3) mg/dL AST (17-59) U/L ALT (21-72) U/L Alkaline Phosphatase (38-126) U/L Ammonia (<30) umol/L Creatine Kinase (55-170) U/L Troponin I (0.000-0.034) ng/mL NT-Pro-B Natriuret Pep pg/mL Total Protein (6.3-8.2) g/dL Albumin (3.5-5.0) g/dL TSH (0.465-4.680) mIU/L Urine Color Yellow Urine Appearance Turbid (Clear) Urine pH 7.5 (5.0-8.0) Ur Specific [place] 1.014 (1.001-1.035) Urine Protein Trace H (Negative) Urine Glucose (UA) Negative (Negative) Urine Ketones 2+ H (Negative) Urine Blood Trace H (Negative) Urine Nitrite Negative (Negative) Urine Bilirubin Negative (Negative) Urine Urobilinogen <2.0 (<2.0) mg/dL Ur Leukocyte Esterase Negative (Negative) Urine WBC 19 H (0-5) /hpf Urine Bacteria Rare H (None) /hpf Urine Mucus Many H (None) /hpf Urine Yeast (Budding) Many H (None) /hpf - Radiology Data Radiology results: report reviewed (The brain and chest x-ray are negative for acute disease), image reviewed Disposition Clinical Impression: Dehydration, UTI (urinary tract infection), Altered mental status Disposition: ADMITTED IP TO THIS HOSP Condition: Good Is patient prescribed a controlled substance at d/c from ED?: No Referrals: Javier Montes MD [Primary Care Provider] - 1-2 days
[2018-12-11 13:12] LABS: Basophils % (A) 0 %; Eosinophils # (A) 0.1 k/uL (0-0.7); Eosinophils % (A) 1 %; HCT 43.8 % (39.0-53.0); HGB 14.5 gm/dL (13.0-17.5); Lymphocytes # (A) 1.8 k/uL (1.0-4.8); Lymphocytes % (A) 20 %; MCHC 33.1 g/dL (31.0-37.0); MCV 90.5 fL (80.0-100.0); Mean Platelet Volume 7.7; Monocytes # (A) 0.4 k/uL (0-1.0); Monocytes % (A) 5 %; Neutrophils # (A) 6.5 k/uL (1.3-7.7); Neutrophils % (A) 73 %; Platelet Count 288 k/uL (150-450); RBC 4.84 m/uL (4.30-5.90); RDW 15.4 % (11.5-15.5); WBC 8.9 k/uL (3.8-10.6)
[2018-12-11 13:19] LABS: Ammonia <9 umol/L (<30); Lactic Acid, Venous 1.3 mmol/L (0.7-2.0)
[2018-12-11 13:21] LABS: ALT 16 U/L (21-72); AST 14 U/L (17-59); African American GFR (CKD) >90 (>60 ml/min/1.73 sqM); Albumin 4.4 g/dL (3.5-5.0); Alkaline Phosphatase 51 U/L (38-126); Anion Gap 9 mmol/L; Blood Urea Nitrogen 19 mg/dL (9-20); Calcium 9.8 mg/dL (8.4-10.2); Carbon Dioxide 27 mmol/L (22-30); Chloride 108 mmol/L (98-107); Creatine Kinase 31 U/L (55-170); Glucose 121 mg/dL (74-99); Magnesium 2.2 mg/dL (1.6-2.3); Phosphorus 3.6 mg/dL (2.5-4.5); Potassium 3.7 mmol/L (3.5-5.1); Sodium 144 mmol/L (137-145); Total Bilirubin 0.9 mg/dL (0.2-1.3); Total Protein 7.4 g/dL (6.3-8.2)
[2018-12-11 13:24] LABS: Partial Thromboplastin Time 23.8 sec (22.0-30.0); Prothrombin Time 10.4 sec (9.0-12.0)
--- NOTE | 2018-12-11 13:25 | CT ---
EXAMINATION TYPE: CT brain wo con DATE OF EXAM: 12/11/2018 COMPARISON: None INDICATION: weakness, malnourishment, fatigue DLP: 1074.4 mGycm, Automated exposure control for dose reduction was used. CONTRAST: None CT of the brain is performed utilizing 3 mm thick sections through the posterior fossa and 3 mm thick sections through the remaining calvarium. Study is performed within 24 hours of arrival to the hosp ital. No abnormal hyperdensity is present to suggest an acute intracranial hemorrhage. No mass lesion is evident. No acute infarcts are evident. Periventricular white matter hypodensity is present, likely on the bas is of chronic white matter ischemic changes. Ventricles and sulci are prominent for the patient age. Paranasal sinuses and mastoid air cells within the [id number] are clear. IMPRESSIONS: 1. Chronic appearing periventricular white matter ischemic type changes with age-related atrophy.
--- NOTE | 2018-12-11 13:39 | XR ---
EXAMINATION TYPE: XR chest 2V DATE OF EXAM: 12/11/2018 COMPARISON: CT chest from 2015. HISTORY: Weakness with nausea and vomiting TECHNIQUE: Frontal and lateral views of the chest are obtained. FINDINGS: There is chronic parenchymal change bilaterally without suspicious focal air space opacity , pleural effusion, or pneumothorax seen. The cardiac silhouette size remains within normal limits. Overlying EKG leads are present currently. The osseous structures are intact. IMPRESSION: No acute cardiopulmonary process.
[2018-12-11 14:53] LABS: Appearance,Urine Turbid (Clear); Bacteria,Urine Rare /hpf; Bilirubin,Urine Negative (Negative); Blood,Urine Trace (Negative); Budding Yeast,Urine Many /hpf; Color,Urine Yellow; Glucose,Urine (UA) Negative (Negative); Ketones,Urine 2+ (Negative); Leukocyte Esterase,Urine Negative (Negative); Mucus,Urine Many /hpf; Nitrite,Urine Negative (Negative); PH, Urine 7.5 (5.0-8.0); Protein,Urine Trace (Negative); Specific Gravity,Urine 1.014 (1.001-1.035); Urobilinogen,Urine <2.0 mg/dL (<2.0); WBC,Urine 19 /hpf (0-5)
[2018-12-11] MEDS ORDERED: SODIUM CHLORIDE 0.9% 1,000 ML IV ONE (15:16)
[2018-12-11 18:18] VITALS: BMI 19.0
[2018-12-11] MEDS ORDERED: KETOROLAC 30 MG/ML 1 ML VIAL IVP PRN (20:25)
[2018-12-11] MEDS ORDERED: TAMSULOSIN 0.4 MG CAP.ER.24H PO SCH (21:00)
[2018-12-11 23:01] VITALS: RESP 20
[2018-12-12 05:28] VITALS: BP 157/72; PULSE 53; TEMP 98.8
[2018-12-12] MEDS ORDERED: PANTOPRAZOLE 40 MG TABLET PO SCH (07:30)
[2018-12-12] MEDS ORDERED: DOXAZOSIN 4 MG TAB PO SCH (09:00)
[2018-12-12] MEDS ORDERED: LOSARTAN 50 MG TAB PO SCH (09:00)
[2018-12-12] MEDS ORDERED: ATORVASTATIN 20 MG TAB PO SCH (09:00)
[2018-12-12] MEDS ORDERED: MULTIVITAMINS, THERA 1 EACH TAB PO SCH (09:00)
[2018-12-12] MEDS ORDERED: ENOXAPARIN 40 MG/0.4 ML SYRINGE SQ SCH (09:00)
[2018-12-12 10:07] LABS: Amylase 48 U/L (30-110); Lipase 139 U/L (23-300)
--- NOTE | 2018-12-12 11:54 | P.HPIM ---
History of Present Illness H&P Date: 12/12/18 Chief Complaint: Abdominal pain History of presenting complaint: This is a pleasant [address] bee from [facility]. Chronic stable medical conditions include GERD, hypertension, hyperlipidemia, anxiety depression. Patient is Maltese-speaking percent somewhat limited physical Portuguese Patient was recently admitted to the hospital and discharged on November 21. He was seen by Dr. Cox from GI. for abdominal pain. Patient did undergo EGD. That showed nonbleeding duodenal bulb ulcer, moderate gastritis and a LAgrade D esophagitis. Patient now presents with some left-sided abdominal pain, just below the left rib cage. No nausea vomiting. Able to tolerate his diet. Having bowel movements. The pain is not necessarily related to his food. Denies any trauma. No fever or chills. Not really worse with activity. Patient is had 100% of his breakfast this morning. Review of systems: GEN.: None EYES: None HEENT: Try mouth NECK: None RESPIRATORY: None CARDIOVASCULAR: None GASTROINTESTINAL: As above] GENITOURINARY: None MUSCULOSKELETAL: Some pain in the joints LYMPHATICS: None HEMATOLOGICAL: None PSYCHIATRY: Some anxiety NEUROLOGICAL: None Past medical history: GERD, GI bleed, hyperlipidemia, hypertension, duodenal bulb ulcer, moderate gas tritis, LA grade D esophagitis lower GI bleed, diet controlled diabetes Social history: Smokes about 3 marijuana joints a day. No alcohol. Lives with grandsons. No smoking. Family history: Diabetes mellitus type 2 Physical examination: VITAL SIGNS: 98.8, 53, 20, 157/72, 96% room air GENERAL: Thin built, laying in bed uncomfortable. EYES: [Pupils equal. Conjunctiva pale l. HEENT: External appearance of nose and ears normal, oral cavity grossly dry. NECK: JVD not raised; masses not palpable. HEART: First and second heart sounds are normal; no edema. LUNGS: Respiratory rate normal; clear to auscultation. ABDOMEN: Soft, no tenderness, liver spleen not palpable, no masses palpable. LYMPHATICS: No lymph nodes palpable in the axilla and neck. PSYCH: Alert and oriented x3; mood and affect anxiousl. NEUROLOGICAL: Cranial nerves grossly intact; no facial asymmetry, power and sensation grossly intact. Investigations reviewed the clinical context: White count 8.9 hemoglobin 14.5 potassium 3.7 bun 19 creatinine 0.68 Amylase and lipase normal Assessment: -This is a patient with recent EGDs that showed severe esophagitis gastritis and duodenal bulb ulcer. Presents with some left-sided upper abdominal pain. No tenderness. Patient has a good appetite having good bowel movement no fever or chills. This pain is felt to be be muscular. -Chronic esophagitis -Duodenal bulb ulcer -Gastritis. -GERD -Hypertension -Hyperlipidemia Plan: Home medications resumed. Had the patient walk about. If congestion improved. Can be discharged home. There was some talk about patient being confused but patient's no different than the last time I saw him recently. Except the p atient is Maltese-speaking and the some limitation to his Portuguese. Patient also denies any urinary symptoms not to be treated for the same. Patient to continue his PPI. Past Medical History Past Medical History: GERD/Reflux, GI Bleed, Hyperlipidemia, Hypertension Additional Past Medical History / Comment(s): Duodenal ulcer, lower GI bleed, past 2 weeks has back pain with deep inspiration, diet controlled diabetic. History of Any Multi-Drug Resistant Organisms: None Reported Past Surgical History: No Surgical Hx Reported Additional Past Surgical History / Comment(s): Laparotomy for duodenal ulcer repair, EGD/colonoscopy, nasal fracture with surgery. Past Anesthesia/Blood Transfusion Reactions: No Reported Reaction Past Psychological History: Anxiety, Depression Additional Psychological History / Comment(s): Pt resides with 2 adult grandsons. He uses no assistive device. He drives. Smoking Status: Never smoker Past Alcohol Use History: None Reported Past Drug Use History: Marijuana Additional Drug Use History / Comment(s): Pt states he smokes 3 joints a day. - Past Family History Father History Unknown: Yes Mother Family Medical History: Diabetes Mellitus Medications and Allergies Home Medications Medication Instructions Recorded Confirmed Type Atorvastatin [Lipitor] 20 mg PO DAILY 11/18/18 12/11/18 History Doxazosin [Cardura] 4 mg PO DAILY 11/18/18 12/11/18 History Losartan Potassium 100 mg PO DAILY 11/18/18 12/11/18 History Multivitamins, Thera [Multivitamin 1 tab PO DAILY 11/18/18 12/11/18 History (formulary)] Omeprazole [PriLOSEC] 20 mg PO AC-BID #60 cap 11/21/18 12/11/18 Rx Tamsulosin [Flomax] 0.4 mg PO HS #30 cap.er.24h 11/21/18 12/11/18 Rx Allergies Allergy/AdvReac Type Severity Reaction Status Date / Time No Known Allergies Allergy Verified 12/11/18 12:01 Physical Exam Vitals: Vital Signs Temp Pulse Pulse Resp BP BP Pulse Ox 12/12/18 04:50 98.8 F 53 L 20 157/72 96 12/11/18 22:00 98.7 F 52 L 20 154/74 97 12/11/18 17:37 99.3 F 55 L 18 168/79 99 12/11/18 16:26 98.9 F 55 L 18 159/85 98 12/11/18 14:34 56 L 16 161/85 99 12/11/18 12:58 58 L 16 161/85 99 12/11/18 11:42 99.0 F 98 18 163/82 97 Intake and Output 12/11/18 12/12/18 12/12/18 22:59 06:59 14:59 Intake Total 100 100 Balance 100 100 Intake: Oral 100 100 Other: Voiding Method Toilet # Voids 1 2 Results CBC & Chem 7: 12/11/18 12:57 12/11/18 12:57 Labs: Abnormal Lab Results - Last 24 Hours (Table) 12/11/18 12/11/18 Range/Units 12:57 14:30 Chloride 108 H (98-107) mmol/L Glucose 121 H (74-99) mg/dL AST 14 L (17-59) U/L ALT 16 L (21-72) U/L Creatine Kinase 31 L (55-170) U/L Urine Protein Trace H (Negative) Urine Ketones 2+ H (Negative) Urine Blood Trace H (Negative) Urine WBC 19 H (0-5) /hpf Urine Bacteria Rare H (None) /hpf Urine Mucus Many H (None) /hpf Urine Yeast (Budding) Many H (None) /hpf Microbiology - Last 24 Hours (Table) 12/11/18 14:30 Urine Culture - Preliminary Urine,Voided Thrombosis Risk Factor Assmnt - Choose All That Apply Any of the Below Risk Factors Present?: No
--- NOTE | 2018-12-14 23:46 | P.DS ---
Providers Date of admission: 12/11/18 15:24 Expected date of discharge: 12/14/18 Attending physician: Lui Crespo Primary care physician: Javier Montes [facility] Course: Hospital course: This is a pleasant [address] montes from [place]. Chronic stable medical conditions include GERD, hypertension, hyperlipidemia, anxiety depression. Patient is Slovenian-speaking percent somewhat limited physical Mexican Patient was recently admitted to the hospital and discharged on November 21. He was seen by Dr. Cox from GI. for abdominal pain. Patient did undergo EGD. That showed nonbleeding duodenal bulb ulcer, moderate gastritis and a LAgrade D esophagitis. Patient now presents with some left-sided abdominal pain, just below the left rib cage. No nausea vomiting. Able to tolerate his diet. Having bowel movements. The pain is not necessarily related to his food. Denies any trauma. No fever or chills. Not really worse with activity. Patient is had 100% of his breakfast . Patient's pain is felt to be muscular. This was discussed with the patient. Physical examination: VITAL SIGNS: 98.8, 53, 20, 157/72, 96% room air GENERAL: Thin built, laying in bed uncomfortable. EYES: [Pupils equal. Conjunctiva pale l. HEENT: External appearance of nose and ears normal, oral cavity grossly dry. NECK: JVD not raised; masses not palpable. HEART: First and second heart sounds are normal; no edema. LUNGS: Respiratory rate normal; clear to auscultation. ABDOMEN: Soft, no tenderness, liver spleen not palpable, no masses palpable. PSYCH: Alert and oriented x3; mood and affect anxiousl. NEUROLOGICAL: Cranial nerves grossly intact; no facial asymmetry, power and sensation grossly intact. Investigations reviewed the clinical context: White count 8.9 hemoglobin 14.5 potassium 3.7 bun 19 creatinine 0.68 Amylase and lipase normal Assessment: -Left upper abdominal pain felt to be muscular -Chronic esophagitis -Duodenal bulb ulcer -Gastritis. -GERD -Hypertension -Hyperlipidemia Disposition: Home Patient Condition at Discharge: Stable Plan - Discharge Summary New Discharge Prescriptions: Continue Multivitamins, Thera [Multivitamin (formulary)] 1 tab PO DAILY Losartan Potassium 100 mg PO DAILY Atorvastatin [Lipitor] 20 mg PO DAILY Doxazosin [Cardura] 4 mg PO DAILY Tamsulosin [Flomax] 0.4 mg PO HS #30 cap.er.24h Omeprazole [PriLOSEC] 20 mg PO AC-BID #60 cap Discharge Medication List Atorvastatin [Lipitor] 20 mg PO DAILY 11/18/18 [History] Doxazosin [Cardura] 4 mg PO DAILY 11/18/18 [History] Losartan Potassium 100 mg PO DAILY 11/18/18 [History] Multivitamins, Thera [Multivitamin (formulary)] 1 tab PO DAILY 11/18/18 [History] Omeprazole [PriLOSEC] 20 mg PO AC-BID #60 cap 11/21/18 [Rx] Tamsulosin [Flomax] 0.4 mg PO HS #30 cap.er.24h 11/21/18 [Rx] Follow up Appointment(s)/Referral(s): Javier Montes MD [Primary Care Provider] - 12/16/18 11:30 am Patient Instructions/Handouts: Dehydration (DC) Activity/Diet/Wound Care/Special Instructions: heating pad as needed Discharge Disposition: HOME SELF-CARE
== END 2018-12-12 13:38 | disposition home or self-care (01) ==
LOC: EC 11:25 → 4MS4W 15:24
PROVIDERS: ADMIT Hospitalist; ATTEND Hospitalist
DX: R10.12 Left upper quadrant pain (principal); K21.0 Gastro-esophageal reflux disease with esophagitis; K26.9 Duodenal ulcer, unspecified as acute or chronic, without hemorrhage or perforation; K29.70 Gastritis, unspecified, without bleeding; I10 Essential (primary) hypertension; E78.5 Hyperlipidemia, unspecified; R41.82 Altered mental status, unspecified; E86.0 Dehydration; F41.9 Anxiety disorder, unspecified; F32.9 Major depressive disorder, single episode, unspecified; N39.0 Urinary tract infection, site not specified; E11.9 Type 2 diabetes mellitus without complications; Z79.899 Other long term (current) drug therapy; Z87.11 Personal history of peptic ulcer disease; Z87.19 Personal history of other diseases of the digestive system; Z83.3 Family history of diabetes mellitus
CPT/HCPCS: 96361 ×2; 96366; 96375; 96372; 96365; 99285; 36415; 93005; 83880; 80053; 82140; 82150; 82550; 83605; 83690; 83735; 84100; 84443; 84484; 85025; 85610; 85730; 81001; 87086; 71046; 70450; G0378 ×2; J0696 ×2; J1650; J1885

== ENCOUNTER 2019-02-20 12:52 | Emergency (ER) | payer MEDICARE ==
[2019-02-20 13:05] VITALS: TEMP 98.4
[2019-02-20] MEDS ORDERED: HYDROmorphone 1 MG/ML 1 ML SYRINGE IVP STA (14:05)
[2019-02-20] MEDS ORDERED: ONDANSETRON 4 MG/2 ML VIAL IVP STA (14:05)
[2019-02-20] MEDS ORDERED: SODIUM CHLORIDE 0.9% 1,000 ML IV STA ×2 (14:05)
[2019-02-20 14:52] LABS: Basophils # (A) 0.1 k/uL (0-0.2); Basophils % (A) 1 %; Eosinophils # (A) 0.1 k/uL (0-0.7); Eosinophils % (A) 1 %; HCT 51.7 % (39.0-53.0); HGB 17.9 gm/dL (13.0-17.5); Lymphocytes # (A) 2.1 k/uL (1.0-4.8); Lymphocytes % (A) 15 %; MCHC 34.6 g/dL (31.0-37.0); MCV 89.7 fL (80.0-100.0); Mean Platelet Volume 8.8; Monocytes # (A) 0.5 k/uL (0-1.0); Monocytes % (A) 4 %; Neutrophils # (A) 10.9 k/uL (1.3-7.7); Neutrophils % (A) 78 %; Platelet Count 293 k/uL (150-450); RBC 5.77 m/uL (4.30-5.90); RDW 13.4 % (11.5-15.5); WBC 13.9 k/uL (3.8-10.6)
[2019-02-20 14:53] LABS: ALT 12 U/L (21-72); AST 27 U/L (17-59); African American GFR (CKD) >90 (>60 ml/min/1.73 sqM); Albumin 4.6 g/dL (3.5-5.0); Alkaline Phosphatase 43 U/L (38-126); Anion Gap 11 mmol/L; Blood Urea Nitrogen 18 mg/dL (9-20); Carbon Dioxide 27 mmol/L (22-30); Chloride 101 mmol/L (98-107); Glucose 118 mg/dL (74-99); Sodium 139 mmol/L (137-145); Total Bilirubin 0.8 mg/dL (0.2-1.3)
[2019-02-20 14:56] LABS: Magnesium 2.3 mg/dL (1.6-2.3); Potassium 4.5 mmol/L (3.5-5.1)
--- NOTE | 2019-02-20 14:58 | ED ---
Weakness HPI - General Chief complaint: Weakness Stated complaint: Abd.pain/not sleepy/sob Time Seen by Provider: 02/20/19 13:48 Source: patient, RN notes reviewed, old records reviewed Mode of arrival: ambulatory Limitations: no limitations - History of Present Illness Initial comments: Patient is a 73-year-old male presents emergency department today with nausea vomiting generalized weakness, and spitting because he is unable to swallow due to abdominal pain. Symptoms started the past 2 days. Patient states that he has diffuse abdominal pain. He states had this happen before. Patient reports also history of prostatitis. He denies any changes in his stools or urination. He has not been eating much due to this abdominal pain. Patient has had no associated fevers or chills. He denies any chest pain at this time. - Related Data Home Medications Medication Instructions Recorded Confirmed Atorvastatin [Lipitor] 20 mg PO DAILY 11/18/18 12/11/18 Doxazosin [Cardura] 4 mg PO DAILY 11/18/18 12/11/18 Losartan Potassium 100 mg PO DAILY 11/18/18 12/11/18 Multivitamins, Thera [Multivitamin 1 tab PO DAILY 11/18/18 12/11/18 (formulary)] Previous Rx's Medication Instructions Recorded Omeprazole [PriLOSEC] 20 mg PO AC-BID #60 cap 11/21/18 Tamsulosin [Flomax] 0.4 mg PO HS #30 cap.er.24h 11/21/18 Ciprofloxacin HCl [Cipro] 500 mg PO Q12H #14 tab 02/20/19 Famotidine [Pepcid] 20 mg PO DAILY #20 tablet 02/20/19 Ondansetron Odt [Zofran Odt] 4 mg PO Q8HR PRN #12 tab 02/20/19 Allergies Allergy/AdvReac Type Severity Reaction Status Date / Time No Known Allergies Allergy Verified 02/20/19 13:05 Review of Systems ROS Statement: Those systems with pertinent positive or pertinent negative responses have been documented in the HPI. ROS Other: All systems not noted in ROS Statement are negative. Past Medical History Past Medical History: GERD/Reflux, GI Bleed, Hyperlipidemia, Hypertension Additional Past Medical History / Comment(s): Duodenal ulcer, lower GI bleed, past 2 weeks has back pain with deep inspiration, diet controlled diabetic. History of Any Multi-Drug Resistant Organisms: None Reported Past Surgical History: No Surgical Hx Reported Additional Past Surgical History / Comment(s): Laparotomy for duodenal ulcer repair, EGD/colonoscopy, nasal fracture with surgery. Past Anesthesia/Blood Transfusion Reactions: No Reported Reaction Past Psychological History: Anxiety, Depression Smoking Status: Never smoker Past Alcohol Use History: None Reported Past Drug Use History: Marijuana - Past Family History Father History Unknown: Yes Mother Family Medical History: Diabetes Mellitus General Exam - General Exam Comments Initial Comments: 73 year old male. Vision appears in moderate distress, breathing heavily due to pain. Limitations: no limitations General appearance: alert, in no apparent distress Head exam: Present: atraumatic Eye exam: Present: normal appearance, PERRL, EOMI. Absent: scleral icterus, conjunctival injection, periorbital swelling ENT exam: Present: normal exam, mucous membranes moist Neck exam: Present: normal inspection. Absent: tenderness, meningismus, lymphadenopathy Respiratory exam: Present: other (shallow breathing in pain). Absent: normal lung sounds bilaterally, respiratory distress, wheezes, rales, rhonchi, stridor Cardiovascular Exam: Present: regular rate, normal rhythm, normal heart sounds. Absent: systolic murmur, diastolic murmur, rubs, gallop, clicks GI/Abdominal exam: Present: soft, tenderness (diffuse abdominal tenderness. scar in mid abdomen. ), normal bowel sounds. Absent: distended, guarding, rebound, rigid Extremities exam: Present: normal inspection, full ROM, normal capillary refill. Absent: tenderness, pedal edema, joint swelling, calf tenderness Back exam: Present: normal inspection Neurological exam: Present: alert, oriented X3, CN II-XII intact Psychiatric exam: Present: normal affect, normal mood Skin exam: Present: warm, dry, intact, normal color. Absent: rash Course Vital Signs 02/20/19 02/20/19 13:03 14:30 Temperature 98.4 F Pulse Rate 82 65 Respiratory 20 22 Rate Blood Pressure 155/91 141/97 O2 Sat by Pulse 99 100 Oximetry - Reevaluation(s) Reevaluation #1: 02/20/19 17:02 is reevaluated time resting comfortably that appears in no significant distress. Medical Decision Making - Medical Decision Making This is a 73-year-old male presents emergency department today for evaluation for nausea and vomiting and generalized weakness. He clinically appeared dehydrated on initial evaluation and quite moderate discomfort. Patient is given IV fluids and lab work obtained. Laboratory was reviewed and shows some mild leukocytosis. Otherwise labs are unremarkable. Patient urinalysis did show a white blood cells and many bacteria. Urine culture will be completed. Patient had diffuse tenderness, CT abdomen and pelvis was completed. There is evidence of gastroenteritis. No other acute findings. Patient at this time was reevaluated and does appear to be resting comfortably bed in significant distress. I discussed that we could admit the Patient for dehydration and vomiting however patient's reports he wants to go home. I discussed putting the Patient on antibiotics for the concern for urinary tract infection. He does have a history of prostatitis. Patient will be discharged at this time with Zofran and antibiotics. - Lab Data Result diagrams: 02/20/19 14:30 02/20/19 14:30 Lab Results 02/20/19 02/20/19 02/20/19 Range/Units 14:30 14:30 14:30 WBC 13.9 H (3.8-10.6) k/uL RBC 5.77 (4.30-5.90) m/uL Hgb 17.9 H (13.0-17.5) gm/dL Hct 51.7 (39.0-53.0) % MCV 89.7 (80.0-100.0) fL MCH 31.0 (25.0-35.0) pg MCHC 34.6 (31.0-37.0) g/dL RDW 13.4 (11.5-15.5) % Plt Count 293 (150-450) k/uL Neutrophils % 78 % Lymphocytes % 15 % Monocytes % 4 % Eosinophils % 1 % Basophils % 1 % Neutrophils # 10.9 H (1.3-7.7) k/uL Lymphocytes # 2.1 (1.0-4.8) k/uL Monocytes # 0.5 (0-1.0) k/uL Eosinophils # 0.1 (0-0.7) k/uL Basophils # 0.1 (0-0.2) k/uL PT (9.0-12.0) sec INR (<1.2) APTT (22.0-30.0) sec Sodium 139 (137-145) mmol/L Potassium 4.5 (3.5-5.1) mmol/L Chloride 101 (98-107) mmol/L Carbon Dioxide 27 (22-30) mmol/L Anion Gap 11 mmol/L BUN 18 (9-20) mg/dL Creatinine 0.67 (0.66-1.25) mg/dL Est GFR (CKD-EPI)AfAm >90 (>60 ml/min/1.73 sqM) Est GFR (CKD-EPI)NonAf >90 (>60 ml/min/1.73 sqM) Glucose 118 H (74-99) mg/dL Plasma Lactic Acid Geraldo 1.7 (0.7-2.0) mmol/L Calcium 10.0 (8.4-10.2) mg/dL Magnesium 2.3 (1.6-2.3) mg/dL Total Bilirubin 0.8 (0.2-1.3) mg/dL AST 27 (17-59) U/L ALT 12 L (21-72) U/L Alkaline Phosphatase 43 (38-126) U/L Troponin I (0.000-0.034) ng/mL Total Protein 8.0 (6.3-8.2) g/dL Albumin 4.6 (3.5-5.0) g/dL Urine Color Urine Appearance (Clear) Urine pH (5.0-8.0) Ur Specific [place] (1.001-1.035) Urine Protein (Negative) Urine Glucose (UA) (Negative) Urine Ketones (Negative) Urine Blood (Negative) Urine Nitrite (Negative) Urine Bilirubin (Negative) Urine Urobilinogen (<2.0) mg/dL Ur Leukocyte Esterase (Negative) Urine WBC (0-5) /hpf Ur Squamous Epith Cells (0-4) /hpf Amorphous Sediment (None) /hpf Urine Bacteria (None) /hpf Urine Mucus (None) /hpf 02/20/19 02/20/19 02/20/19 Range/Units 14:30 14:30 15:00 WBC (3.8-10.6) k/uL RBC (4.30-5.90) m/uL Hgb (13.0-17.5) gm/dL Hct (39.0-53.0) % MCV (80.0-100.0) fL MCH (25.0-35.0) pg MCHC (31.0-37.0) g/dL RDW (11.5-15.5) % Plt Count (150-450) k/uL Neutrophils % % Lymphocytes % % Monocytes % % Eosinophils % % Basophils % % Neutrophils # (1.3-7.7) k/uL Lymphocytes # (1.0-4.8) k/uL Monocytes # (0-1.0) k/uL Eosinophils # (0-0.7) k/uL Basophils # (0-0.2) k/uL PT 10.7 (9.0-12.0) sec INR 1.0 (<1.2) APTT 24.5 (22.0-30.0) sec Sodium (137-145) mmol/L Potassium (3.5-5.1) mmol/L Chloride (98-107) mmol/L Carbon Dioxide (22-30) mmol/L Anion Gap mmol/L BUN (9-20) mg/dL Creatinine (0.66-1.25) mg/dL Est GFR (CKD-EPI)AfAm (>60 ml/min/1.73 sqM) Est GFR (CKD-EPI)NonAf (>60 ml/min/1.73 sqM) Glucose (74-99) mg/dL Plasma Lactic Acid Geraldo (0.7-2.0) mmol/L Calcium (8.4-10.2) mg/dL Magnesium (1.6-2.3) mg/dL Total Bilirubin (0.2-1.3) mg/dL AST (17-59) U/L ALT (21-72) U/L Alkaline Phosphatase (38-126) U/L Troponin I <0.012 (0.000-0.034) ng/mL Total Protein (6.3-8.2) g/dL Albumin (3.5-5.0) g/dL Urine Color Light Yellow Urine Appearance Cloudy (Clear) Urine pH 8.0 (5.0-8.0) Ur Specific [place] 1.009 (1.001-1.035) Urine Protein Trace H (Negative) Urine Glucose (UA) Negative (Negative) Urine Ketones 2+ H (Negative) Urine Blood Negative (Negative) Urine Nitrite Negative (Negative) Urine Bilirubin Negative (Negative) Urine Urobilinogen <2.0 (<2.0) mg/dL Ur Leukocyte Esterase Negative (Negative) Urine WBC 9 H (0-5) /hpf Ur Squamous Epith Cells <1 (0-4) /hpf Amorphous Sediment Few H (None) /hpf Urine Bacteria Rare H (None) /hpf Urine Mucus Rare H (None) /hpf 02/20/19 16:35 EKG performed at 1415 shows normal sinus rhythm, prolonged QT. Abnormal EKG. Ventricular rate of 64 bpm. OK interval is 124 ms. QS duration is 104 ms. QT QTc is 450/472 ms. No evidence of ST elevation. - Radiology Data Radiology results: report reviewed Chest x-rays negative for any acute coronary process. CT abdomen and pelvis shows correlate for possible gastroenteritis. Also Evidence of diverticulosis. Disposition Clinical Impression: Dehydration, UTI (urinary tract infection), Nausea & vomiting Disposition: HOME SELF-CARE Condition: Good Instructions (If sedation given, give patient instructions): Acute Nausea and Vomiting (ED), Urinary Tract Infection in Men (ED) Additional Instructions: Please use medication as discussed. Please follow up with family doctor if symptoms have not improved over the next two days. Please return to the emergency room if your symptoms increase or worsen or for any other concerns. Prescriptions: Ciprofloxacin HCl [Cipro] 500 mg PO Q12H #14 tab Famotidine [Pepcid] 20 mg PO DAILY #20 tablet Ondansetron Odt [Zofran Odt] 4 mg PO Q8HR PRN #12 tab PRN Reason: Nausea Is patient prescribed a controlled substance at d/c from ED?: No Referrals: Javier Montes MD [Primary Care Provider] - 1-2 days Time of Disposition: 17:06
[2019-02-20 15:33] LABS: Partial Thromboplastin Time 24.5 sec (22.0-30.0); Prothrombin Time 10.7 sec (9.0-12.0)
--- NOTE | 2019-02-20 15:36 | CT ---
EXAMINATION TYPE: CT abdomen pelvis w con DATE OF EXAM: 02/20/2019 COMPARISON: HISTORY: Abdominal pain x4 days CT DLP: 568.6 mGycm Automated exposure control for dose reduction was used. TECHNIQUE: Helical acquisition of images from the lung bases through the pelvis have been completed. CONTRAST: Performed without Oral Contrast and with IV Contrast, patient injected with 100 mL of Isovue 300. FINDINGS: There are coronary artery calcifications present. LUNG BASES: No significant abnormality is appreciated. AORTA: No significant abnormality is appreciated. LIVER/GB: No significant abnormality is appreciated. PANCREAS: No significant abnormality is seen. SPLEEN: No significant abnormality is seen. ADRENALS: No significant abnormality is seen. KIDNEYS: Cystic foci present bilaterally within the kidneys, there is a punctate calcification assoc iated with the cyst at the mid to lower pole of the right kidney which measures approximately 15 mm REPRODUCTIVE ORGANS: Prostate shows some associated calcification. BOWEL: No evident bowel obstruction. Extensive diverticular change present in the colon. Fluid-fille d loops of small bowel, partially fluid-filled stomach noted. FREE AIR: No Free Air visible. ASCITES: None visible. PELVIC ADENOPATHY: None visualized. RETROPERITONEAL ADENOPATHY: No Retroperitoneal Adenopathy visible. URINARY BLADDER: No significant abnormality is seen. OSSEOUS STRUCTURES: degenerative disc changes present in the visualized spine.. IMPRESSION: CORRELATE FOR POSSIBLE GASTROENTERITIS. DIVERTICULOSIS.
[2019-02-20 15:38] LABS: Amorphous Sediment,Urine Few /hpf; Appearance,Urine Cloudy (Clear); Bacteria,Urine Rare /hpf; Bilirubin,Urine Negative (Negative); Blood,Urine Negative (Negative); Color,Urine Light Yellow; Glucose,Urine (UA) Negative (Negative); Ketones,Urine 2+ (Negative); Leukocyte Esterase,Urine Negative (Negative); Mucus,Urine Rare /hpf; Nitrite,Urine Negative (Negative); Protein,Urine Trace (Negative); Specific Gravity,Urine 1.009 (1.001-1.035); Squamous Epithelial Cell,Urine <1 /hpf (0-4); Urobilinogen,Urine <2.0 mg/dL (<2.0); WBC,Urine 9 /hpf (0-5)
[2019-02-20] MEDS ORDERED: KETOROLAC 30 MG/ML 1 ML VIAL IVP STA (16:04)
[2019-02-20] MEDS ORDERED: PANTOPRAZOLE 40 MG/10 ML VIAL IVP STA (16:04)
[2019-02-20] MEDS ORDERED: MORPHINE SULFATE 4 MG/ML SYRINGE IVP STA (16:06)
--- NOTE | 2019-02-20 16:28 | XR ---
EXAMINATION TYPE: XR chest 2V DATE OF EXAM: 02/20/2019 COMPARISON: Prior chest x-ray 12/11/2018 HISTORY: Weakness, difficulty breathing TECHNIQUE: Frontal and lateral views of the chest are obtained. FINDINGS: Prominent lung volumes suggest underlying COPD. There are overlying cardiac leads. Punctate metallic density within the soft tissues over the right lower chest is stable and may represent a sm all foreign body. There is no focal air space opacity, pleural effusion, or pneumothorax seen. The c ardiac silhouette size is within normal limits. The osseous structures are intact. IMPRESSION: No acute cardiopulmonary process.
[2019-02-20] MEDS ORDERED: cefTRIAXone IN SWFI 1,000 MG/10 ML SYRINGE IVP STA (16:58)
[2019-02-20 17:49] VITALS: BP 161/85; PULSE 60; RESP 18
== END 2019-02-20 17:59 | disposition home or self-care (01) ==
LOC: EC 12:52
DX: N39.0 Urinary tract infection, site not specified (principal); E86.0 Dehydration; K52.9 Noninfective gastroenteritis and colitis, unspecified; E78.5 Hyperlipidemia, unspecified; I10 Essential (primary) hypertension; E11.9 Type 2 diabetes mellitus without complications; Z79.899 Other long term (current) drug therapy
CPT/HCPCS: 36415; 93005; 80053; 83605; 83735; 84484; 85025; 85610; 85730; 81001; 87040; 71046; 74177; 99285; 96374; 96375 ×5; 96361 ×4; J2270; J2405; J0696; J1885; J1170; C9113; Q9967

== ENCOUNTER 2019-03-08 18:52 | Inpatient (IN) | payer MEDICARE ==
[2019-03-08] MEDS ORDERED: SODIUM CHLORIDE 0.9% 1,000 ML IV STA (19:29)
[2019-03-08] MEDS ORDERED: HYDROmorphone 1 MG/ML 1 ML SYRINGE IVP STA ×2 (19:37→21:17)
[2019-03-08 20:18] LABS: INR 1.5 (<1.2); Partial Thromboplastin Time 25.5 sec (22.0-30.0); Prothrombin Time 15.1 sec (9.0-12.0)
[2019-03-08 20:20] LABS: Basophils # (A) 0.1 k/uL (0-0.2); Basophils % (A) 0 %; Eosinophils % (A) 0 %; Lymphocytes # (A) 1.8 k/uL (1.0-4.8); Lymphocytes % (A) 13 %; MCH 31.7 pg (25.0-35.0); MCHC 33.5 g/dL (31.0-37.0); MCV 94.8 fL (80.0-100.0); Monocytes # (A) 0.3 k/uL (0-1.0); Monocytes % (A) 2 %; Neutrophils # (A) 12.2 k/uL (1.3-7.7); Neutrophils % (A) 84 %; Platelet Count 310 k/uL (150-450); RBC 4.06 m/uL (4.30-5.90); RDW 13.9 % (11.5-15.5); WBC 14.5 k/uL (3.8-10.6)
[2019-03-08 20:21] LABS: Acetaminophen 12.4 ug/mL; African American GFR (CKD) >90 (>60 ml/min/1.73 sqM); Albumin 3.5 g/dL (3.5-5.0); Alkaline Phosphatase 58 U/L (38-126); Anion Gap 9 mmol/L; Blood Urea Nitrogen 56 mg/dL (9-20); Calcium 9.7 mg/dL (8.4-10.2); Carbon Dioxide 31 mmol/L (22-30); Chloride 98 mmol/L (98-107); Glucose 116 mg/dL (74-99); Potassium 3.4 mmol/L (3.5-5.1); Sodium 138 mmol/L (137-145); Total Bilirubin 1.2 mg/dL (0.2-1.3)
[2019-03-08 20:27] LABS: AST 858 U/L (17-59)
[2019-03-08 20:29] LABS: ALT 1317 U/L (21-72); HGB 12.9 gm/dL (13.0-17.5)
[2019-03-08 20:30] LABS: HCT 38.5 % (39.0-53.0)
--- NOTE | 2019-03-08 21:29 | CT ---
EXAMINATION TYPE: CT ChestAbdPelvis w con DATE OF EXAM: 03/08/2019 COMPARISON: CT abdomen and pelvis 02/20/2019, CT neck and chest 06/07/2014 HISTORY: Left upper back and epigastric pain. CT DLP: 710 mGycm Automated exposure control for dose reduction was used. CONTRAST: CT scan of the chest, abdomen and pelvis is performed without Oral Contrast and with IV Contrast, pat ient injected with 100 mL of Isovue 300. FINDINGS: CT chest: No focal airspace consolidation. Stable right upper lobe hyperdense nodule, likely granuloma. No pleu ral effusion or pneumothorax. Tracheobronchial tree is patent. The heart is not enlarged. Coronary artery calcifications. Normal course and caliber of the thoracic aorta; atherosclerotic calcifications present throughout. No pulmonary arterial enlargement. No suspi cious adenopathy. CT abdomen/pelvis: No focal hepatic lesion. Subcentimeter splenic hypodensity is too small to accurately characterize ho wever stable. The gallbladder is distended with a small amount of adjacent fluid tracking along the f undus. No intra or extrahepatic biliary ductal dilatation. Punctate calcifications in the pancreatic parenchyma. The adrenal glands demonstrate limb thickening bilaterally. Symmetric renal enhancement without hydronephrosis. Bilateral low-attenuation renal lesions statistic ally represent cysts. Left renal cortical scarring superiorly. No worrisome distention of the urinary bladder. Enlarged prostate gland with coarse calcifications. The stomach is distended with fluid. Apparent wall thickening of the duodenal bulb with mucosal hyper enhancement. No dilated bowel or free air. Colonic diverticula. Appendix not definitely visualized. P aucity of intra-abdominal fat limits mesenteric assessment. Aortoiliac vascular calcifications without aneurysm. Osseous structures: No osseous destructive lesion. IMPRESSION: 1. Apparent duodenal wall thickening with hyperenhancement as well as markedly distended stomach. Fin dings may represent gastric outlet obstruction with possible duodenitis/duodenal ulcer. Consider dire ct visualization if not recently performed. 2. Distended gallbladder with fluid adjacent to the fundus. Consider right upper quadrant ultrasound for further evaluation if there is clinical concern for acute cholecystitis. No intra or extrahepatic biliary ductal dilatation. 3. Pancreatic calcifications, seen with chronic pancreatitis. 4. Colonic diverticulosis.
[2019-03-08] MEDS ORDERED: PIPERACILLIN-TAZOBACTAM 3.375 GM in SODIUM CHLORIDE 0.9% 100 ML IVPB STA (21:31)
[2019-03-08 21:47] LABS: Appearance,Urine Clear (Clear); Bilirubin,Urine Negative (Negative); Blood,Urine Negative (Negative); Color,Urine Light Yellow; Glucose,Urine (UA) Negative (Negative); Ketones,Urine 1+ (Negative); Leukocyte Esterase,Urine Negative (Negative); Nitrite,Urine Negative (Negative); Protein,Urine Negative (Negative); Specific Gravity,Urine 1.043 (1.001-1.035); Urobilinogen,Urine <2.0 mg/dL (<2.0)
--- NOTE | 2019-03-08 22:04 | US ---
EXAMINATION TYPE: US gallbladder DATE OF EXAM: 03/08/2019 COMPARISON: NONE CLINICAL HISTORY: abdominal pain, transaminitis . right back pain EXAM MEASUREMENTS: Liver Length: 18.3 cm Gallbladder Wall: 0.3 cm CBD: 0.7 cm Right Kidney: 12.2 x 5.5 x 4.4 cm Pancreas: wnl Liver: wnl Gallbladder: hydropic in appearance with no visible stones, 11.9cm in length, no wall thickening Evidence for sonographic Sunshine's sign: no CBD: wnl Right Kidney: 0.6cm showing foci that may represent a small stones, also 1.0cm echogenic linear lesi on seen on posterior cortex of kidney IMPRESSION: Enlarged gallbladder measures almost 5 cm in diameter. No gallstones. This could relate to cholecysti tis. No dilated ducts. Nonobstructing right renal calculi.
--- NOTE | 2019-03-08 22:26 | ED ---
General Adult HPI - General Chief complaint: Back Pain/Injury Stated complaint: Back pain Time Seen by Provider: 03/08/19 19:20 Source: patient, RN notes reviewed, old records reviewed Mode of arrival: wheelchair Limitations: no limitations - History of Present Illness Initial comments: 73-year-old male patient past history significant for prior GI bleed, peptic ulcer, hypertension, hyperlipidemia, gastroesophageal reflux disease: See chief complaint of epigastric, right upper quadrant pain. Patient also has pain radiating to his right posterior scapular area. Patient reports has been ongoing for approximately 5 days. Patient reports that he has been taking many Tylenol. Patient initially told nurses that he took twenty four 325mg tylenol in the last 36 hours. Upon history taking here reports that he took this amount, over one week. Patient denies any chest pain or shortness of breath. Denies any other complaints. Systemic: Pt denies fatigue, fever/chills, rash. Pt denies weakness, night sweats, weight loss. Neuro: Pt denies headache, visual disturbances, syncope or pre-syncope. HEENT: Pt denies ocular discharge or irritation, otalgia, rhinorrhea, pharyngitis or notable lymphadenopathy. Cardiopulmonary: Pt denies chest pain, SOB, heart palpitations, dyspnea on exertion. Abdominal/GI: Pt denies n/v/d. : Pt denies dysuria, burning w/ urination, frequency/urgency. Denies new onset urinary or bowel incontinence. MSK: Pt denies myalgia, loss of strength or function in extremities. Neuro: Pt denies new onset weakness, paresthesias. - Related Data Home Medications Medication Instructions Recorded Confirmed Atorvastatin [Lipitor] 20 mg PO DAILY 11/18/18 03/08/19 Doxazosin [Cardura] 4 mg PO DAILY 11/18/18 03/08/19 Losartan Potassium 100 mg PO DAILY 11/18/18 03/08/19 Previous Rx's Medication Instructions Recorded Famotidine [Pepcid] 20 mg PO DAILY #20 tablet 02/20/19 Allergies Allergy/AdvReac Type Severity Reaction Status Date / Time No Known Allergies Allergy Verified 03/08/19 19:47 Review of Systems ROS Statement: Those systems with pertinent positive or pertinent negative responses have been documented in the HPI. ROS Other: All systems not noted in ROS Statement are negative. Past Medical History Past Medical History: GERD/Reflux, GI Bleed, Hyperlipidemia, Hypertension Additional Past Medical History / Comment(s): Duodenal ulcer, lower GI bleed, past 2 weeks has back pain with deep inspiration, diet controlled diabetic. History of Any Multi-Drug Resistant Organisms: None Reported Past Surgical History: No Surgical Hx Reported Additional Past Surgical History / Comment(s): Laparotomy for duodenal ulcer repair, EGD/colonoscopy, nasal fracture with surgery. Past Anesthesia/Blood Transfusion Reactions: No Reported Reaction Past Psychological History: Anxiety, Depression Smoking Status: Never smoker Past Alcohol Use History: None Reported Past Drug Use History: Marijuana - Past Family History Father History Unknown: Yes Mother Family Medical History: Diabetes Mellitus General Exam - General Exam Comments Initial Comments: Constitutional: NAD, AOX3, Pt has pleasant affect. HEENT: NC/AT, trachea midline, neck supple, no lymphadenopathy. Posterior pharynx non erythematous, without exudates. External ears appear normal, without discharge. Mucous membranes moist. Eyes PERRLA, EOM intact. There is no scleral icterus. No pallor noted. Cardiopulmonary: RRR, no murmurs, rubs or gallops, no JVD noted. Lungs CTAB in anterior and posterior roman. No peripheral edema. Abdominal exam: Abdomen soft and non-distended. Abdomen tender to palpation in epigastric right upper quadrant region. Sunshine sign positive. No other areas of abdominal tenderness. Bowel sounds active in LLQ. No hepatosplenomegaly. No ecchymosis Neuro: CN II-XII grossly intact. No nuchal rigidity. No raccon eyes, no dan sign, no hemotympanum. No cervical spinal tenderness. MSK: No posterior calf tenderness bilaterally, homans sign negative bilaterally. Posterior tibialis and radial pulse +2 bilaterally. Sensation intact in upper and lower extremities. Full active ROM in upper and lower extremities, 5/5 stregnth. Distal pulses intact and equal. Limitations: no limitations Course Vital Signs 03/08/19 03/08/19 03/08/19 19:01 19:24 19:30 Temperature 98.4 F Pulse Rate 97 95 Respiratory 18 20 18 Rate Blood Pressure 136/81 159/81 O2 Sat by Pulse 98 98 Oximetry 03/08/19 03/08/19 03/08/19 20:30 21:30 22:30 Temperature Pulse Rate 91 89 86 Respiratory 20 18 16 Rate Blood Pressure 177/90 142/86 143/76 O2 Sat by Pulse 98 98 99 Oximetry Procedures - [place] Protocol (Time Out) Nurse: Emma Hammer Medical Decision Making - Medical Decision Making 73-year-old male patient presents to ED for chief complaint of right upper quadrant abdominal pain, radiating to his right posterior scapula area. Physical ongoing for 5 days. Patient also took a unspecified large amount of Tylenol over this time. Patient reports that he only took 2 Tylenol today. Patient vital signs stable, afebrile. Physical exam displayed abdominal tenderness in right upper quadrant and epigastric region. Laboratory investigations revealed a film of 12.9. A leukocytosis of 14.5. PT elevated at 15.1. INR elevated at 1.5. BUN elevated at 56. Lactic acid 2.5. AST 858. ALT 1317. Troponin negative. Lipase 310. UA negative. Salicylate level 1.02. Acetaminophen level 12.4. EKG not concerning for acute ischemia. [facility] n control was contacted, they were in agreement with plan, recommended starting patient on N-acetylcysteine. CT chest abdomen pelvis displayed apparent duodenal wall thickening with hyperenhancement as well as marked distended stomach and ribs and gastric outlet obstruction with possible duodenitis last duodenal ulcer. Distended gallbladder with adjacent fluid to the fundus. Ultrasound of right lower quadrant displayed enlarged gallbladder measuring almost 5 cm diameter, no gallstones, this could relate to cholecystitis. Patient was initiated on antibiotics as well as Protonix. Blood culture pain. Patient will be admitted for surgical consult. Case discussed with Dr. Parada and Dr. Stokes. - Lab Data Result diagrams: 03/08/19 19:41 03/08/19 19:41 Lab Results 03/08/19 03/08/19 03/08/19 Range/Units 19:41 19:41 19:41 WBC 14.5 H (3.8-10.6) k/uL RBC 4.06 L (4.30-5.90) m/uL Hgb 12.9 L D (13.0-17.5) gm/dL Hct 38.5 L (39.0-53.0) % MCV 94.8 D (80.0-100.0) fL MCH 31.7 (25.0-35.0) pg MCHC 33.5 (31.0-37.0) g/dL RDW 13.9 (11.5-15.5) % Plt Count 310 (150-450) k/uL Neutrophils % 84 % Lymphocytes % 13 % Monocytes % 2 % Eosinophils % 0 % Basophils % 0 % Neutrophils # 12.2 H (1.3-7.7) k/uL Lymphocytes # 1.8 (1.0-4.8) k/uL Monocytes # 0.3 (0-1.0) k/uL Eosinophils # 0.0 (0-0.7) k/uL Basophils # 0.1 (0-0.2) k/uL PT (9.0-12.0) sec INR (<1.2) APTT (22.0-30.0) sec Sodium 138 (137-145) mmol/L Potassium 3.4 L (3.5-5.1) mmol/L Chloride 98 (98-107) mmol/L Carbon Dioxide 31 H (22-30) mmol/L Anion Gap 9 mmol/L BUN 56 H (9-20) mg/dL Creatinine 0.93 (0.66-1.25) mg/dL Est GFR (CKD-EPI)AfAm >90 (>60 ml/min/1.73 sqM) Est GFR (CKD-EPI)NonAf 81 (>60 ml/min/1.73 sqM) Glucose 116 H (74-99) mg/dL Lactic Ac Sepsis Rflx Plasma Lactic Acid Geraldo 2.5 H* (0.7-2.0) mmol/L Calcium 9.7 (8.4-10.2) mg/dL Total Bilirubin 1.2 (0.2-1.3) mg/dL AST 858 H (17-59) U/L ALT 1317 H (21-72) U/L Alkaline Phosphatase 58 (38-126) U/L Troponin I (0.000-0.034) ng/mL Total Protein 6.0 L (6.3-8.2) g/dL Albumin 3.5 (3.5-5.0) g/dL Lipase 310 H (23-300) U/L Urine Color Urine Appearance (Clear) Urine pH (5.0-8.0) Ur Specific [place] (1.001-1.035) Urine Protein (Negative) Urine Glucose (UA) (Negative) Urine Ketones (Negative) Urine Blood (Negative) Urine Nitrite (Negative) Urine Bilirubin (Negative) Urine Urobilinogen (<2.0) mg/dL Ur Leukocyte Esterase (Negative) Salicylates 1.0 mg/dL Acetaminophen 12.4 ug/mL 03/08/19 03/08/19 03/08/19 Range/Units 19:41 19:41 20:32 WBC (3.8-10.6) k/uL RBC (4.30-5.90) m/uL Hgb (13.0-17.5) gm/dL Hct (39.0-53.0) % MCV (80.0-100.0) fL MCH (25.0-35.0) pg MCHC (31.0-37.0) g/dL RDW (11.5-15.5) % Plt Count (150-450) k/uL Neutrophils % % Lymphocytes % % Monocytes % % Eosinophils % % Basophils % % Neutrophils # (1.3-7.7) k/uL Lymphocytes # (1.0-4.8) k/uL Monocytes # (0-1.0) k/uL Eosinophils # (0-0.7) k/uL Basophils # (0-0.2) k/uL PT 15.1 H (9.0-12.0) sec INR 1.5 H (<1.2) APTT 25.5 (22.0-30.0) sec Sodium (137-145) mmol/L Potassium (3.5-5.1) mmol/L Chloride (98-107) mmol/L Carbon Dioxide (22-30) mmol/L Anion Gap mmol/L BUN (9-20) mg/dL Creatinine (0.66-1.25) mg/dL Est GFR (CKD-EPI)AfAm (>60 ml/min/1.73 sqM) Est GFR (CKD-EPI)NonAf (>60 ml/min/1.73 sqM) Glucose (74-99) mg/dL Lactic Ac Sepsis Rflx Y Plasma Lactic Acid Geraldo (0.7-2.0) mmol/L Calcium (8.4-10.2) mg/dL Total Bilirubin (0.2-1.3) mg/dL AST (17-59) U/L ALT (21-72) U/L Alkaline Phosphatase (38-126) U/L Troponin I <0.012 (0.000-0.034) ng/mL Total Protein (6.3-8.2) g/dL Albumin (3.5-5.0) g/dL Lipase (23-300) U/L Urine Color Urine Appearance (Clear) Urine pH (5.0-8.0) Ur Specific [place] (1.001-1.035) Urine Protein (Negative) Urine Glucose (UA) (Negative) Urine Ketones (Negative) Urine Blood (Negative) Urine Nitrite (Negative) Urine Bilirubin (Negative) Urine Urobilinogen (<2.0) mg/dL Ur Leukocyte Esterase (Negative) Salicylates mg/dL Acetaminophen ug/mL 03/08/19 03/08/19 Range/Units 21:35 22:47 WBC (3.8-10.6) k/uL RBC (4.30-5.90) m/uL Hgb (13.0-17.5) gm/dL Hct (39.0-53.0) % MCV (80.0-100.0) fL MCH (25.0-35.0) pg MCHC (31.0-37.0) g/dL RDW (11.5-15.5) % Plt Count (150-450) k/uL Neutrophils % % Lymphocytes % % Monocytes % % Eosinophils % % Basophils % % Neutrophils # (1.3-7.7) k/uL Lymphocytes # (1.0-4.8) k/uL Monocytes # (0-1.0) k/uL Eosinophils # (0-0.7) k/uL Basophils # (0-0.2) k/uL PT (9.0-12.0) sec INR (<1.2) APTT (22.0-30.0) sec Sodium (137-145) mmol/L Potassium (3.5-5.1) mmol/L Chloride (98-107) mmol/L Carbon Dioxide (22-30) mmol/L Anion Gap mmol/L BUN (9-20) mg/dL Creatinine (0.66-1.25) mg/dL Est GFR (CKD-EPI)AfAm (>60 ml/min/1.73 sqM) Est GFR (CKD-EPI)NonAf (>60 ml/min/1.73 sqM) Glucose (74-99) mg/dL Lactic Ac Sepsis Rflx Plasma Lactic Acid Geraldo (0.7-2.0) mmol/L Calcium (8.4-10.2) mg/dL Total Bilirubin (0.2-1.3) mg/dL AST (17-59) U/L ALT (21-72) U/L Alkaline Phosphatase (38-126) U/L Troponin I (0.000-0.034) ng/mL Total Protein (6.3-8.2) g/dL Albumin (3.5-5.0) g/dL Lipase (23-300) U/L Urine Color Light Yellow Urine Appearance Clear (Clear) Urine pH 7.0 (5.0-8.0) Ur Specific [place] 1.043 H (1.001-1.035) Urine Protein Negative (Negative) Urine Glucose (UA) Negative (Negative) Urine Ketones 1+ H (Negative) Urine Blood Negative (Negative) Urine Nitrite Negative (Negative) Urine Bilirubin Negative (Negative) Urine Urobilinogen <2.0 (<2.0) mg/dL Ur Leukocyte Esterase Negative (Negative) Salicylates 1.0 mg/dL Acetaminophen ug/mL Disposition Clinical Impression: Cholecystitis, Transaminitis, Tylenol toxicity Disposition: ADMITTED IP TO THIS HOSP Condition: Serious Is patient prescribed a controlled substance at d/c from ED?: No Referrals: Javier Montes MD [Primary Care Provider] - 1-2 days
[2019-03-08] MEDS ORDERED: PANTOPRAZOLE 40 MG/10 ML VIAL IVP STA (22:44)
[2019-03-08] MEDS ORDERED: WATER IV ONE ×2 (23:02)
[2019-03-08] MEDS ORDERED: DEXTROSE 5% IV ONE ×2 (23:02)
[2019-03-08] MEDS ORDERED: ACETYLCYSTEINE IV ONE ×2 (23:02)
[2019-03-08] MEDS ORDERED: NALOXONE 0.4 MG/ML 1 ML VIAL IV PRN (23:47)
[2019-03-09] MEDS ORDERED: ACETYLCYSTEINE IV ONE ×6 (00:03→22:45)
[2019-03-09] MEDS ORDERED: DEXTROSE 5% IV ONE ×6 (00:03→22:45)
[2019-03-09] MEDS ORDERED: WATER IV ONE ×6 (00:03→22:45)
--- NOTE | 2019-03-09 00:03 | ED ---
Medical Decision Making - Lab Data Result diagrams: 03/08/19 19:41 03/08/19 19:41 Lab Results 03/08/19 03/08/19 03/08/19 Range/Units 19:41 19:41 19:41 WBC 14.5 H (3.8-10.6) k/uL RBC 4.06 L (4.30-5.90) m/uL Hgb 12.9 L D (13.0-17.5) gm/dL Hct 38.5 L (39.0-53.0) % MCV 94.8 D (80.0-100.0) fL MCH 31.7 (25.0-35.0) pg MCHC 33.5 (31.0-37.0) g/dL RDW 13.9 (11.5-15.5) % Plt Count 310 (150-450) k/uL Neutrophils % 84 % Lymphocytes % 13 % Monocytes % 2 % Eosinophils % 0 % Basophils % 0 % Neutrophils # 12.2 H (1.3-7.7) k/uL Lymphocytes # 1.8 (1.0-4.8) k/uL Monocytes # 0.3 (0-1.0) k/uL Eosinophils # 0.0 (0-0.7) k/uL Basophils # 0.1 (0-0.2) k/uL PT (9.0-12.0) sec INR (<1.2) APTT (22.0-30.0) sec Sodium 138 (137-145) mmol/L Potassium 3.4 L (3.5-5.1) mmol/L Chloride 98 (98-107) mmol/L Carbon Dioxide 31 H (22-30) mmol/L Anion Gap 9 mmol/L BUN 56 H (9-20) mg/dL Creatinine 0.93 (0.66-1.25) mg/dL Est GFR (CKD-EPI)AfAm >90 (>60 ml/min/1.73 sqM) Est GFR (CKD-EPI)NonAf 81 (>60 ml/min/1.73 sqM) Glucose 116 H (74-99) mg/dL Lactic Ac Sepsis Rflx Plasma Lactic Acid Geraldo 2.5 H* (0.7-2.0) mmol/L Calcium 9.7 (8.4-10.2) mg/dL Total Bilirubin 1.2 (0.2-1.3) mg/dL AST 858 H (17-59) U/L ALT 1317 H (21-72) U/L Alkaline Phosphatase 58 (38-126) U/L Troponin I (0.000-0.034) ng/mL Total Protein 6.0 L (6.3-8.2) g/dL Albumin 3.5 (3.5-5.0) g/dL Lipase 310 H (23-300) U/L Urine Color Urine Appearance (Clear) Urine pH (5.0-8.0) Ur Specific [place] (1.001-1.035) Urine Protein (Negative) Urine Glucose (UA) (Negative) Urine Ketones (Negative) Urine Blood (Negative) Urine Nitrite (Negative) Urine Bilirubin (Negative) Urine Urobilinogen (<2.0) mg/dL Ur Leukocyte Esterase (Negative) Salicylates 1.0 mg/dL Acetaminophen 12.4 ug/mL 03/08/19 03/08/19 03/08/19 Range/Units 19:41 19:41 20:32 WBC (3.8-10.6) k/uL RBC (4.30-5.90) m/uL Hgb (13.0-17.5) gm/dL Hct (39.0-53.0) % MCV (80.0-100.0) fL MCH (25.0-35.0) pg MCHC (31.0-37.0) g/dL RDW (11.5-15.5) % Plt Count (150-450) k/uL Neutrophils % % Lymphocytes % % Monocytes % % Eosinophils % % Basophils % % Neutrophils # (1.3-7.7) k/uL Lymphocytes # (1.0-4.8) k/uL Monocytes # (0-1.0) k/uL Eosinophils # (0-0.7) k/uL Basophils # (0-0.2) k/uL PT 15.1 H (9.0-12.0) sec INR 1.5 H (<1.2) APTT 25.5 (22.0-30.0) sec Sodium (137-145) mmol/L Potassium (3.5-5.1) mmol/L Chloride (98-107) mmol/L Carbon Dioxide (22-30) mmol/L Anion Gap mmol/L BUN (9-20) mg/dL Creatinine (0.66-1.25) mg/dL Est GFR (CKD-EPI)AfAm (>60 ml/min/1.73 sqM) Est GFR (CKD-EPI)NonAf (>60 ml/min/1.73 sqM) Glucose (74-99) mg/dL Lactic Ac Sepsis Rflx Y Plasma Lactic Acid Geraldo (0.7-2.0) mmol/L Calcium (8.4-10.2) mg/dL Total Bilirubin (0.2-1.3) mg/dL AST (17-59) U/L ALT (21-72) U/L Alkaline Phosphatase (38-126) U/L Troponin I <0.012 (0.000-0.034) ng/mL Total Protein (6.3-8.2) g/dL Albumin (3.5-5.0) g/dL Lipase (23-300) U/L Urine Color Urine Appearance (Clear) Urine pH (5.0-8.0) Ur Specific [place] (1.001-1.035) Urine Protein (Negative) Urine Glucose (UA) (Negative) Urine Ketones (Negative) Urine Blood (Negative) Urine Nitrite (Negative) Urine Bilirubin (Negative) Urine Urobilinogen (<2.0) mg/dL Ur Leukocyte Esterase (Negative) Salicylates mg/dL Acetaminophen ug/mL 03/08/19 03/08/19 Range/Units 21:35 22:47 WBC (3.8-10.6) k/uL RBC (4.30-5.90) m/uL Hgb (13.0-17.5) gm/dL Hct (39.0-53.0) % MCV (80.0-100.0) fL MCH (25.0-35.0) pg MCHC (31.0-37.0) g/dL RDW (11.5-15.5) % Plt Count (150-450) k/uL Neutrophils % % Lymphocytes % % Monocytes % % Eosinophils % % Basophils % % Neutrophils # (1.3-7.7) k/uL Lymphocytes # (1.0-4.8) k/uL Monocytes # (0-1.0) k/uL Eosinophils # (0-0.7) k/uL Basophils # (0-0.2) k/uL PT (9.0-12.0) sec INR (<1.2) APTT (22.0-30.0) sec Sodium (137-145) mmol/L Potassium (3.5-5.1) mmol/L Chloride (98-107) mmol/L Carbon Dioxide (22-30) mmol/L Anion Gap mmol/L BUN (9-20) mg/dL Creatinine (0.66-1.25) mg/dL Est GFR (CKD-EPI)AfAm (>60 ml/min/1.73 sqM) Est GFR (CKD-EPI)NonAf (>60 ml/min/1.73 sqM) Glucose (74-99) mg/dL Lactic Ac Sepsis Rflx Plasma Lactic Acid Geraldo (0.7-2.0) mmol/L Calcium (8.4-10.2) mg/dL Total Bilirubin (0.2-1.3) mg/dL AST (17-59) U/L ALT (21-72) U/L Alkaline Phosphatase (38-126) U/L Troponin I (0.000-0.034) ng/mL Total Protein (6.3-8.2) g/dL Albumin (3.5-5.0) g/dL Lipase (23-300) U/L Urine Color Light Yellow Urine Appearance Clear (Clear) Urine pH 7.0 (5.0-8.0) Ur Specific [place] 1.043 H (1.001-1.035) Urine Protein Negative (Negative) Urine Glucose (UA) Negative (Negative) Urine Ketones 1+ H (Negative) Urine Blood Negative (Negative) Urine Nitrite Negative (Negative) Urine Bilirubin Negative (Negative) Urine Urobilinogen <2.0 (<2.0) mg/dL Ur Leukocyte Esterase Negative (Negative) Salicylates 1.0 mg/dL Acetaminophen ug/mL - EKG Data -: EKG Interpreted by Me (and Dr. Parada ) EKG Comments: Ventricular rate 90, LA interval 1.2, QRS 92, QT/QTc 352/4:30. Sinus rhythm with occasional PVC. Nonspecific T wave abnormality. Abnormal EKG. No concern for acute ischemia. Disposition Clinical Impression: Cholecystitis, Transaminitis, Tylenol toxicity Disposition: ADMITTED IP TO THIS [facility] Condition: Serious Is patient prescribed a controlled substance at d/c from ED?: No Referrals: Javier Montes MD [Primary Care Provider] - 1-2 days Procedures - [place] Protocol (Time Out) Nurse: Emma Hammer
[2019-03-09] MEDS: SODIUM CHLORIDE 0.9% 1,000 ML IV SCH ×3 (00:17→20:58)
[2019-03-09] MEDS ORDERED: SODIUM CHLORIDE 0.9% 1,000 ML IV ONE (00:50)
--- NOTE | 2019-03-09 00:50 | P.HPIM ---
History of Present Illness H&P Date: 03/08/19 Chief Complaint: abd pain 73-year-old male with history of peptic ulcer disease Of note patient is providing conflicting history to different providers. However overall seems like who brought him to the hospital as abdominal pain mainly right upper quadrant at times dull and sometimes sharp in nature rated at 7 out of 10 in severity radiating to the neck and right shoulder patient felt to mention any aggravating or alleviating factor, he did mention that he was taking acetaminophen for this pain of large amounts initially said he was taking at over a few days and then reported that this was over a week however upon my interview he said this has been going on for a month. Patient denies any vomiting changes in his bowel habits or GI bleeding denies any fevers or chills. Patient denies any history of gallstones, or pancreatitis. Patient denies drinking any alcohol. Patient denies any drugs. At this time patient did not seem to really making an effort in answering my questions and he is just saying no to everything him asking him. In the ED patient was evaluated found to have elevated liver enzymes and due to his conflicting reports of amount of Tylenol that he took chronic Tylenol toxicity was suspected imaging also suggested some changes suggestive of cholecystitis general surgery and poison control both were contacted and patient admitted for further care Review of Systems Pertinent positives as noted in HPI. All other systems were reviewed and are negative Past Medical History Past Medical History: GERD/Reflux, GI Bleed, Hyperlipidemia, Hypertension Additional Past Medical History / Comment(s): Duodenal ulcer, lower GI bleed, past 2 weeks has back pain with deep inspiration, diet controlled diabetic. History of Any Multi-Drug Resistant Organisms: None Reported Past Surgical History: No Surgical Hx Reported Additional Past Surgical History / Comment(s): Laparotomy for duodenal ulcer repair, EGD/colonoscopy, nasal fracture with surgery. Past Anesthesia/Blood Transfusion Reactions: No Reported Reaction Past Psychological History: Anxiety, Depression Smoking Status: Never smoker Past Alcohol Use History: None Reported Past Drug Use History: Marijuana - Past Family History Father History Unknown: Yes Mother Family Medical History: Diabetes Mellitus Medications and Allergies Home Medications Medication Instructions Recorded Confirmed Type Atorvastatin [Lipitor] 20 mg PO DAILY 11/18/18 03/08/19 History Doxazosin [Cardura] 4 mg PO DAILY 11/18/18 03/08/19 History Losartan Potassium 100 mg PO DAILY 11/18/18 03/08/19 History Famotidine [Pepcid] 20 mg PO DAILY #20 tablet 02/20/19 03/08/19 Rx Allergies Allergy/AdvReac Type Severity Reaction Status Date / Time No Known Allergies Allergy Verified 03/08/19 19:47 Physical Exam Vitals: Vital Signs Temp Pulse Resp BP Pulse Ox 03/08/19 22:30 86 16 143/76 99 03/08/19 21:30 89 18 142/86 98 03/08/19 20:30 91 20 177/90 98 03/08/19 19:30 95 18 159/81 98 03/08/19 19:24 20 03/08/19 19:01 98.4 F 97 18 136/81 98 Intake and Output 03/08/19 03/08/19 03/09/19 14:59 22:59 06:59 Other: Weight 63.503 kg Constitutional: No acute distress, conversant, pleasant Eyes: Anicteric sclerae, moist conjunctiva, no lid-lag Pupils equal round reactive to light ENMT: NC/AT Oropharynx clear, no erythema, exudates Neck: Supple, FROM, no masses, or JVD No carotid bruits No thyromegaly Lungs: Clear to auscultation Clear to percussion Normal respiratory effort, no accessory muscle use Cardiovascular: Heart regular in rate and rhythm, No murmurs, gallops, or rubs No peripheral edema Abdominal: Soft tenderness palpation of the abdomen mainly in the epigastric and right upper quadrant, Sunshine sign positive,, no guarding, rebound or rigidity Abdomen moving with respiration Normoactive bowel sounds No hepatomegaly, No splenomegaly No palpable mass No abdominal wall hernia noted Skin: Normal temperature, tone, texture, turgor No induration No subcutaneous nodules No rash, lesions No ulcers Extremities: No digital cyanosis No clubbing Pedal pulses intact and symmetrical Radial pulses intact and symmetrical No calf tenderness Psychiatric: Alert and oriented to person only Appropriate affect fair judgment Neuro Muscles Strength 4/5 in all 4 extremities Sensation to light touch grossly present throughout Cranial nerves II-XII grossly intact No focal sensory deficits Lymphatics: no palpable cervical or supraclavicular , or inguinal lymph nodes Results CBC & Chem 7: 03/08/19 19:41 03/08/19 19:41 Labs: Abnormal Lab Results - Last 24 Hours (Table) 03/08/19 03/08/19 03/08/19 Range/Units 19:41 19:41 19:41 WBC 14.5 H (3.8-10.6) k/uL RBC 4.06 L (4.30-5.90) m/uL Hgb 12.9 L D (13.0-17.5) gm/dL Hct 38.5 L (39.0-53.0) % Neutrophils # 12.2 H (1.3-7.7) k/uL PT (9.0-12.0) sec INR (<1.2) Potassium 3.4 L (3.5-5.1) mmol/L Carbon Dioxide 31 H (22-30) mmol/L BUN 56 H (9-20) mg/dL Glucose 116 H (74-99) mg/dL Plasma Lactic Acid Geraldo 2.5 H* (0.7-2.0) mmol/L AST 858 H (17-59) U/L ALT 1317 H (21-72) U/L Total Protein 6.0 L (6.3-8.2) g/dL Lipase 310 H (23-300) U/L Ur Specific [place] (1.001-1.035) Urine Ketones (Negative) 03/08/19 03/08/19 Range/Units 19:41 21:35 WBC (3.8-10.6) k/uL RBC (4.30-5.90) m/uL Hgb (13.0-17.5) gm/dL Hct (39.0-53.0) % Neutrophils # (1.3-7.7) k/uL PT 15.1 H (9.0-12.0) sec INR 1.5 H (<1.2) Potassium (3.5-5.1) mmol/L Carbon Dioxide (22-30) mmol/L BUN (9-20) mg/dL Glucose (74-99) mg/dL Plasma Lactic Acid Geraldo (0.7-2.0) mmol/L AST (17-59) U/L ALT (21-72) U/L Total Protein (6.3-8.2) g/dL Lipase (23-300) U/L Ur Specific [place] 1.043 H (1.001-1.035) Urine Ketones 1+ H (Negative) Assessment and Plan Assessment: 73 year old male with history of PUD, admitted as inpatient with anticipated length of stay more than two midnights. elevated liver enzymes with differential diagnosis of chronic tylenol liver toxicity, vs acute cholengitis. Plan: chronic tylenol toxicity vs acute cholecystitis with sepsis (elevated white count , and tachycardia) close monitor of vital signs and liver function IVF hydration initial with 2 L bolus NS 0.9% NAC 20 hour protocol drip poison control follow up general surgery consult images reviewed avoid tylenol monitor vital signs IV ABX zosyn follow up cultures lactic acidosis , IVF hydration , follow up LA mild hypokalemia , replace PO mild anemia , continue to monitor choronic conditions hypertension hyperlipidemia hold statin PUD , continue ppi DVT PPX on heparin sc tid CODE STATUS:full code Discussed with: Patient, ER, RN Anticipated length of stay more than [address]: pending clinical course A total of 60 minutes was spent on the care of this complex patient more than 50% of the time was spent in counseling and care coordination.
[2019-03-09] MEDS ORDERED: PANTOPRAZOLE 40 MG/10 ML VIAL IVP ONE (02:05)
[2019-03-09] MEDS ORDERED: ONDANSETRON 4 MG/2 ML VIAL IVP PRN (02:20)
[2019-03-09 04:53] LABS: Basophils % (A) 0 %; Eosinophils % (A) 0 %; HCT 30.8 % (39.0-53.0); HGB 10.3 gm/dL (13.0-17.5); Lymphocytes % (A) 8 %; MCH 31.8 pg (25.0-35.0); MCHC 33.6 g/dL (31.0-37.0); MCV 94.8 fL (80.0-100.0); Mean Platelet Volume 7.4; Monocytes # (A) 0.3 k/uL (0-1.0); Monocytes % (A) 2 %; Neutrophils # (A) 11.1 k/uL (1.3-7.7); Neutrophils % (A) 89 %; Platelet Count 238 k/uL (150-450); RBC 3.25 m/uL (4.30-5.90); RDW 13.7 % (11.5-15.5); WBC 12.5 k/uL (3.8-10.6)
[2019-03-09 05:04] LABS: African American GFR (CKD) >90 (>60 ml/min/1.73 sqM); Anion Gap 6 mmol/L; Blood Urea Nitrogen 43 mg/dL (9-20); Calcium 7.9 mg/dL (8.4-10.2); Carbon Dioxide 27 mmol/L (22-30); Chloride 105 mmol/L (98-107); Glucose 132 mg/dL (74-99); Potassium 3.1 mmol/L (3.5-5.1); Sodium 138 mmol/L (137-145)
[2019-03-09] MEDS: HYDROmorphone 1 MG/ML 1 ML SYRINGE IVP PRN (05:25)
[2019-03-09] MEDS ORDERED: Potassium Replacement Protocol 1 EACH MISC MISCELLANE PRN (05:42)
[2019-03-09] MEDS ORDERED: PIPERACILLIN-TAZOBACTAM 3.375 GM in SODIUM CHLORIDE 0.9% 100 ML IVPB SCH (06:00)
[2019-03-09] MEDS: PIPERACILLIN-TAZOBACTAM 3.375 GM in SODIUM CHLORIDE 0.9% 100 ML IVPB SCH ×3 (06:15→21:33)
[2019-03-09] MEDS: POTASSIUM CHLORIDE 10 MEQ in WATER FOR INJECTION 1 100ML.BAG IVPB SCH ×7 (06:17→23:07)
[2019-03-09] MEDS: PANTOPRAZOLE 40 MG/10 ML VIAL IV SCH ×2 (08:17→20:58)
--- NOTE | 2019-03-09 08:18 | XR ---
EXAMINATION TYPE: XR chest 1V DATE OF EXAM: 03/09/2019 COMPARISON: 02/20/2019 HISTORY: Shortness of breath TECHNIQUE: Single frontal view of the chest is obtained. FINDINGS: Prominence of the upper mediastinum. No overt failure. Heart size normal. Atherosclerotic change aorta. Arthropathy of the right shoulder. IMPRESSION: No acute process.
[2019-03-09 08:33] LABS: Amphetamine Screen,Urine Not Detected (NotDetected); Barbiturate Screen,Urine Not Detected (NotDetected); Benzodiazepines Screen,Urine Not Detected (NotDetected); Cocaine Screen,Urine Not Detected (NotDetected); Methadone Screen, Urine Not Detected (NotDetected); Opiate Screen,Urine Detected (NotDetected); Oxycodone Screen, Urine Not Detected (NotDetected); Phencyclidine Screen,Urine Not Detected (NotDetected); Tricyclic Antidepressant,Urine Not Detected (NotDetected); Urn Cannabinoid Scrn Detected (NotDetected)
[2019-03-09 08:51] LABS: Alcohol <10 mg/dL; Bilirubin, Delta 0.7 mg/dL (0.0-0.2); Bilirubin,Unconjugated 0.4 mg/dL (0.0-1.1); Total Bilirubin 1.1 mg/dL (0.2-1.3)
[2019-03-09] MEDS ORDERED: PANTOPRAZOLE 40 MG/10 ML VIAL IV SCH (09:00)
[2019-03-09 09:05] LABS: Albumin 3.1 g/dL (3.5-5.0); Alkaline Phosphatase 49 U/L (38-126); Total Protein 5.6 g/dL (6.3-8.2)
[2019-03-09 09:20] LABS: ALT 1255 U/L (21-72); AST 707 U/L (17-59)
--- NOTE | 2019-03-09 10:13 | P.PN ---
Subjective Progress Note Date: 03/09/19 Principal diagnosis: The patient is a 73-year-old male with a history of peptic ulcer disease due to duodenal ulcer, esophagitis, gastritis, GERD, essential hypertension, dyslipidemia who was admitted for suspicion of acute cholecystitis and suspected upper GI bleed with acute blood loss anemia after presenting with right upper quadrant pain. 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 There was also concern for sepsis as a patient who presented with a mild leukocytosis and tachycardia and was started on empiric IV antibiotics with IV Zosyn, patient was also initiated on an acetylcysteine 20cc/hr after poison control was contacted. Imaging studies with CT of the chest abdomen pelvis suggested gastric outlet obstruction with possible duodenitis/duodenal ulcer with chronic pancreatic calcifications s uggestive of chronic pancreatitis and colonic diverticulosis. Right upper quadrant ultrasound was consistent with a enlarged gallbladder and non- obstructing right renal calculi. The patient was started on IV Protonix with consultation to Gen. surgery and GI with scheduled monitoring of his hemoglobin. Patient seen and examined follow-up, awake and alert. Reporting mild to moderate pain meds Dilaudid scheduled at 9:30 this a.m. A.m. potassium 3.1 hemoglobin down to 10.3. AST ALT 707/1255. UDS positive for opiates and THC. Patient hemodynamically stable normotensive with no acute events overnight. Objective - Vital Signs Vital signs: Vital Signs Temp 98.5 F 03/09/19 08:00 Pulse 65 03/09/19 09:00 Resp 20 03/09/19 09:00 BP 139/73 03/09/19 09:00 Pulse Ox 96 03/09/19 09:00 Intake & Output 03/08/19 03/09/19 03/09/19 18:59 06:59 18:59 Intake Total 800.0 712.5 Output Total 650 275 Balance 150.0 437.5 Weight 63.503 kg Intake: IV 525.0 Acetylcysteine IV 6,350 125.0 mg In Dextrose 5% in Water 1,000 ml @ 62.5 mls /hr IV ONCE ONE Rx#: [id number] Potassium Chloride 10 meq 200 In Water For Injection 1 100ml.bag @ 100 mls/hr IVPB Q1HR [facility] Rx#: [id number] Sodium Chloride 0.9% 1, 200 000 ml @ 100 mls/hr IV . Q10H [facility] Rx#:[id number] Intake, IV Titration 800.0 187.5 Amount Acetylcysteine IV 3,175 250 mg In Dextrose 5% in Water 500 ml @ 125 mls/hr IV ONCE ONE Rx#: [id number] Acetylcysteine IV 6,350 125.0 62.5 mg In Dextrose 5% in Water 1,000 ml @ 62.5 mls /hr IV ONCE ONE Rx#: [id number] Piperacillin-Tazobactam 3 25 25 .375 gm In Sodium Chloride 0.9% 100 ml @ 25 mls/hr IVPB Q8H [facility] Rx#: [id number] Potassium Chloride 10 meq 100 In Water For Injection 1 100ml.bag @ 100 mls/hr IVPB Q1HR [facility] Rx#: [id number] Sodium Chloride 0.9% 1, 300 100 000 ml @ 100 mls/hr IV . Q10H [facility] Rx#:[id number] Output: Urine 650 275 Other: Voiding Method Urinal Urinal - Exam Constitutional: No acute distress, conversant, pleasant Eyes: Anicteric sclerae, moist conjunctiva, no lid-lag, PERRLA ENMT: NC/AT,Oropharynx clear, no erythema, exudates Neck:Supple, FROM, no masses, or JVD, No carotid bruits; No thyromegaly Lungs: Clear to auscultation, Clear to percussion, Normal respiratory effort, no accessory muscle use Cardiovascular: Heart regular in rate and rhythm, No murmurs, gallops, or rubs no peripheral edema Abdominal: Soft Nontender, nom distended, no guarding, no rebound or rigidity, Normoactive bowel sounds No hepatomegaly, No splenomegaly, No palpable mass No abdominal wall hernia noted Skin: Normal temperature, tone, texture, turgor, No induration No subcutaneous nodules, No rash, lesions, No ulcers Extremities:No digital cyanosis No clubbing, Pedal pulses intact and symmetrical Radial pulses intact and symmetrical Normal gait and station, No calf tenderness Psychiatric: Alert and oriented to person, place and time, Appropriate affect Intact judgement Neuro: Muscles Strength 5/5 in all 4 extremities, Sensation to light touch grossly present throughout, Cranial nerves II-XII grossly intact. No focal sensory deficits - Labs CBC & Chem 7: 03/09/19 04:14 03/09/19 04:17 Labs: Abnormal Lab Results - Last 24 Hours (Table) 03/08/19 03/08/19 03/08/19 Range/Units 19:41 19:41 19:41 WBC 14.5 H (3.8-10.6) k/uL RBC 4.06 L (4.30-5.90) m/uL Hgb 12.9 L D (13.0-17.5) gm/dL Hct 38.5 L (39.0-53.0) % Neutrophils # 12.2 H (1.3-7.7) k/uL PT (9.0-12.0) sec INR (<1.2) Potassium 3.4 L (3.5-5.1) mmol/L Carbon Dioxide 31 H (22-30) mmol/L BUN 56 H (9-20) mg/dL Creatinine (0.66-1.25) mg/dL Glucose 116 H (74-99) mg/dL Plasma Lactic Acid Geraldo 2.5 H* (0.7-2.0) mmol/L Calcium (8.4-10.2) mg/dL Delta Bilirubin (0.0-0.2) mg/dL AST 858 H (17-59) U/L ALT 1317 H (21-72) U/L Total Protein 6.0 L (6.3-8.2) g/dL Albumin (3.5-5.0) g/dL Lipase 310 H (23-300) U/L Ur Specific [place] (1.001-1.035) Urine Ketones (Negative) Urine Opiates Screen (NotDetected) U Marijuana (THC) Screen (NotDetected) 03/08/19 03/08/19 03/09/19 Range/Units 19:41 21:35 04:14 WBC 12.5 H (3.8-10.6) k/uL RBC 3.25 L (4.30-5.90) m/uL Hgb 10.3 L (13.0-17.5) gm/dL Hct 30.8 L (39.0-53.0) % Neutrophils # 11.1 H (1.3-7.7) k/uL PT 15.1 H (9.0-12.0) sec INR 1.5 H (<1.2) Potassium (3.5-5.1) mmol/L Carbon Dioxide (22-30) mmol/L BUN (9-20) mg/dL Creatinine (0.66-1.25) mg/dL Glucose (74-99) mg/dL Plasma Lactic Acid Geraldo (0.7-2.0) mmol/L Calcium (8.4-10.2) mg/dL Delta Bilirubin (0.0-0.2) mg/dL AST (17-59) U/L ALT (21-72) U/L Total Protein (6.3-8.2) g/dL Albumin (3.5-5.0) g/dL Lipase (23-300) U/L Ur Specific [place] 1.043 H (1.001-1.035) Urine Ketones 1+ H (Negative) Urine Opiates Screen (NotDetected) U Marijuana (THC) Screen (NotDetected) 03/09/19 03/09/19 03/09/19 Range/Units 04:17 08:08 08:26 WBC (3.8-10.6) k/uL RBC (4.30-5.90) m/uL Hgb (13.0-17.5) gm/dL Hct (39.0-53.0) % Neutrophils # (1.3-7.7) k/uL PT (9.0-12.0) sec INR (<1.2) Potassium 3.1 L (3.5-5.1) mmol/L Carbon Dioxide (22-30) mmol/L BUN 43 H (9-20) mg/dL Creatinine 0.62 L (0.66-1.25) mg/dL Glucose 132 H (74-99) mg/dL Plasma Lactic Acid Geraldo (0.7-2.0) mmol/L Calcium 7.9 L (8.4-10.2) mg/dL Delta Bilirubin 0.7 H (0.0-0.2) mg/dL AST 707 H (17-59) U/L ALT 1255 H (21-72) U/L Total Protein 5.6 L (6.3-8.2) g/dL Albumin 3.1 L (3.5-5.0) g/dL Lipase (23-300) U/L Ur Specific [place] (1.001-1.035) Urine Ketones (Negative) Urine Opiates Screen Detected H (NotDetected) U Marijuana (THC) Screen Detected H (NotDetected) Assessment and Plan Plan: Upper GI bleed due to suspected duodenal ulcer * Patient HD stable * Hemoglobin dropping to 10.3 continue to trend every 8 hours * Continue IV Protonix 40 mg IV BID * Consult to GI ( Dr. Benson) pending Acute blood loss anemia * Secondary to problem above * Continue to monitor hemoglobin Concern for cholecystitis * Consult to Gen. surgery for possible laparoscopic cholecystectomy * Continue empiric IV antibiotic treatment with Zosyn Acute hepatitis * Suspected secondary acetaminophen toxicity versus cholangitis versus acute viral hepatitis * GI consulted for further recommendations Hypokalemia * Replace and recheck per protocol Concern for acetaminophen toxicity GERD Essential hypertension Hyperlipidemia
[2019-03-09] MEDS: HYDROmorphone 0.5 MG/0.5 ML SYRINGE IVP PRN ×3 (10:30→21:33)
--- NOTE | 2019-03-09 12:04 | P.GSCN ---
<Katia Hopkins - Last Filed: 03/09/19 12:03> History of Present Illness Consult date: 03/09/19 Reason for Consult: Cholecystitis Requesting physician: Terrence Hein History of present illness: CHIEF COMPLAINT: Cholecystitis HISTORY OF PRESENT ILLNESS: 73-year-old male who presented to the emergency room with chief complaint of abdominal pain. Patient examined this morning in the intensive care unit. Atrial fibrillation states he began having left lower quadrant pain about 3 weeks ago. He states the pain radiates around to his back. The pain is worse with deep inspiration. He denies epigastric pain or right upper quadrant pain. He states he has had a decreased appetite over the past 3 weeks and anytime he eats or drinks he begins vomiting. Patient apparently had one episode of coffee-ground emesis overnight. Patient is spitting up small amounts of clear fluid this morning. Patient states he has only been taking Tylenol once in a while. He denies chronic use or overuse of Tylenol. Tylenol level noted to be normal upon admission. It is noted the patient has been admitted a few times over the past few months with similiar symptoms. He underwent EGD on 11/20/[address] Ndiaye revealing nonbleeding duodenal bulb ulcer, moderate gastritis, esophagitis, and small hiatal hernia. PAST MEDICAL HISTORY: See list. PAST SURGICAL HISTORY: See list. SOCIAL HISTORY: No illicit drug use. REVIEW OF SYSTEMS: CONSTITUTIONAL: Denies fever or chills. HEENT: Denies blurred vision, vision changes, or eye pain. ENDOCRINE: Denies heat or cold intolerance. CARDIOVASCULAR: Denies chest pain or pressure. RESPIRATORY: No shortness of breath. GASTROINTESTINAL: See HPI for pertinent findings. NEURO: Denies history of seizures. PSYCH: No depression or suicidal ideation HEMATOLOGIC: Denies bleeding disorders. LYMPHATIC: The patient denies any lumps and bumps around the neck. GENITOURINARY: Denies any blood in urine or increased urinary frequency. MUSCULOSKELETAL: Denies myalgias. Denies joint swelling. Denies decreased range of motion beyond patients baseline. SKIN: Denies pruitis. Denies rash. PHYSICAL EXAM: VITAL SIGNS: Reviewed GENERAL: Well-developed in no acute distress. HEENT: No sclera icterus. Extraocular movements grossly intact. Moist buccal mucosa. Head is atraumatic, normocephalic. Hears conversational speech. No nasal drainage. NECK: Supple without lymphadenopathy. CHEST: Non-labored respirations and equal bilateral excursions. CARDIOVASCULAR: Regular rate with regular rhythm. Palpable 2+ radial pulses. ABDOMEN: Soft. Nondistended. Tenderness upon palpation of left lower quadrant. No peritoneal signs. MUSCULOSKELETAL: No clubbing, cyanosis or edema. NEUROLOGIC: No focal or lateralizing signs. Cranial nerves II through XII grossly intact. PSYCH: Appropriate affect. Alert and oriented to person, place and time. SKIN: Well perfused. Good skin turgor. LABORATORY DATA: WBC on admission 14.5. Repeat 12.5. Hemoglobin 12.9 on admission. Repeat 10.3. Bilirubin 1.1. AST 707. ALT 1255. Lipase [address] abdomen and pelvis: Apparent duodenal wall thickening with hyperenhancement as well as markedly distended stomach. Findings may represent gastric outlet obstruction with possible duodenitis, duodenal ulcer. Distended gallbladder with fluid adjacent fundus. No intra-or extrahepatic ductal dilation. Pancreatic calcifications seen with chronic pancreatitis. Colonic diverticulosis. 2. Ultrasound gallbladder: Enlarged gallbladder measuring 5 cm in diameter. No gallstones. No dilated ducts. ASSESSMENT: 1. Left lower quadrant abdominal pain with radiation to mid back, x 3 weeks 2. Recent EGD revealing nonbleeding duodenal bulb ulcer, moderate gastritis, es ophagitis, and small hiatal hernia. 3. Distended stomach per CT scan 4. Coffee ground emesis x 1 5. Transaminitis PLAN: 1. NPO except ice chips 2. No plans for cholecystectomy at this time. Would recommend continuing IV antibiotics 3. Monitor LFTs. Do not suspect secondary to Tylenol as patient states he has only taken Tylenol occasionally. He denies chronic use or overuse of Tylenol. Acetaminophen level normal upon admission. Hepatic panel ordered. 4. Consult GI for evaluation 5. Monitor hemoglobin 6. Continue protonix 40mg BID IV Nurse practitioner note has been reviewed by physician. Signing provider agrees with the documented findings, assessment, and plan of care. Past Medical History Past Medical History: GERD/Reflux, GI Bleed, Hyperlipidemia, Hypertension Additional Past Medical History / Comment(s): Duodenal ulcer, lower GI bleed, past 2 weeks has back pain with deep inspiration, diet controlled diabetic. History of Any Multi-Drug Resistant Organisms: None Reported Past Surgical History: No Surgical Hx Reported Additional Past Surgical History / Comment(s): Laparotomy for duodenal ulcer repair, EGD/colonoscopy, nasal fracture with surgery. Past Anesthesia/Blood Transfusion Reactions: No Reported Reaction Smoking Status: Current every day smoker - Past Family History Father History Unknown: Yes Mother Family Medical History: Diabetes Mellitus Medications and Allergies Home Medications Medication Instructions Recorded Confirmed Type Atorvastatin [Lipitor] 20 mg PO DAILY 11/18/18 03/08/19 History Doxazosin [Cardura] 4 mg PO DAILY 11/18/18 03/08/19 History Losartan Potassium 100 mg PO DAILY 11/18/18 03/08/19 History Famotidine [Pepcid] 20 mg PO DAILY #20 tablet 02/20/19 03/08/19 Rx Allergies Allergy/AdvReac Type Severity Reaction Status Date / Time No Known Allergies Allergy Verified 03/08/19 19:47 Surgical - Exam Vital Signs Temp Pulse Resp BP Pulse Ox 98.4 F 97 18 136/81 98 03/08/19 19:01 03/08/19 19:01 03/08/19 19:01 03/08/19 19:01 03/08/19 19:01 Results - Labs 03/09/19 04:14 03/09/19 04:17 Abnormal Lab Results - Last 24 Hours (Table) 03/08/19 03/08/19 03/08/19 Range/Units 19:41 19:41 19:41 WBC 14.5 H (3.8-10.6) k/uL RBC 4.06 L (4.30-5.90) m/uL Hgb 12.9 L D (13.0-17.5) gm/dL Hct 38.5 L (39.0-53.0) % Neutrophils # 12.2 H (1.3-7.7) k/uL PT (9.0-12.0) sec INR (<1.2) Potassium 3.4 L (3.5-5.1) mmol/L Carbon Dioxide 31 H (22-30) mmol/L BUN 56 H (9-20) mg/dL Creatinine (0.66-1.25) mg/dL Glucose 116 H (74-99) mg/dL Plasma Lactic Acid Geraldo 2.5 H* (0.7-2.0) mmol/L Calcium (8.4-10.2) mg/dL Delta Bilirubin (0.0-0.2) mg/dL AST 858 H (17-59) U/L ALT 1317 H (21-72) U/L Total Protein 6.0 L (6.3-8.2) g/dL Albumin (3.5-5.0) g/dL Lipase 310 H (23-300) U/L Ur Specific [place] (1.001-1.035) Urine Ketones (Negative) Urine Opiates Screen (NotDetected) U Marijuana (THC) Screen (NotDetected) 03/08/19 03/08/19 03/09/19 Range/Units 19:41 21:35 04:14 WBC 12.5 H (3.8-10.6) k/uL RBC 3.25 L (4.30-5.90) m/uL Hgb 10.3 L (13.0-17.5) gm/dL Hct 30.8 L (39.0-53.0) % Neutrophils # 11.1 H (1.3-7.7) k/uL PT 15.1 H (9.0-12.0) sec INR 1.5 H (<1.2) Potassium (3.5-5.1) mmol/L Carbon Dioxide (22-30) mmol/L BUN (9-20) mg/dL Creatinine (0.66-1.25) mg/dL Glucose (74-99) mg/dL Plasma Lactic Acid Geraldo (0.7-2.0) mmol/L Calcium (8.4-10.2) mg/dL Delta Bilirubin (0.0-0.2) mg/dL AST (17-59) U/L ALT (21-72) U/L Total Protein (6.3-8.2) g/dL Albumin (3.5-5.0) g/dL Lipase (23-300) U/L Ur Specific [place] 1.043 H (1.001-1.035) Urine Ketones 1+ H (Negative) Urine Opiates Screen (NotDetected) U Marijuana (THC) Screen (NotDetected) 03/09/19 03/09/19 03/09/19 Range/Units 04:17 08:08 08:26 WBC (3.8-10.6) k/uL RBC (4.30-5.90) m/uL Hgb (13.0-17.5) gm/dL Hct (39.0-53.0) % Neutrophils # (1.3-7.7) k/uL PT (9.0-12.0) sec INR (<1.2) Potassium 3.1 L (3.5-5.1) mmol/L Carbon Dioxide (22-30) mmol/L BUN 43 H (9-20) mg/dL Creatinine 0.62 L (0.66-1.25) mg/dL Glucose 132 H (74-99) mg/dL Plasma Lactic Acid Geraldo (0.7-2.0) mmol/L Calcium 7.9 L (8.4-10.2) mg/dL Delta Bilirubin 0.7 H (0.0-0.2) mg/dL AST 707 H (17-59) U/L ALT 1255 H (21-72) U/L Total Protein 5.6 L (6.3-8.2) g/dL Albumin 3.1 L (3.5-5.0) g/dL Lipase (23-300) U/L Ur Specific [place] (1.001-1.035) Urine Ketones (Negative) Urine Opiates Screen Detected H (NotDetected) U Marijuana (THC) Screen Detected H (NotDetected) Diabetes panel 03/08/19 03/09/19 03/09/19 Range/Units 19:41 04:17 08:26 Sodium 138 138 (137-145) mmol/L Potassium 3.4 L 3.1 L (3.5-5.1) mmol/L Chloride 98 105 (98-107) mmol/L Carbon Dioxide 31 H 27 (22-30) mmol/L BUN 56 H 43 H (9-20) mg/dL Creatinine 0.93 0.62 L (0.66-1.25) mg/dL Glucose 116 H 132 H (74-99) mg/dL Calcium 9.7 7.9 L (8.4-10.2) mg/dL AST 858 H 707 H (17-59) U/L ALT 1317 H 1255 H (21-72) U/L Alkaline Phosphatase 58 49 (38-126) U/L Total Protein 6.0 L 5.6 L (6.3-8.2) g/dL Albumin 3.5 3.1 L (3.5-5.0) g/dL Calcium panel 03/08/19 03/09/19 03/09/19 Range/Units 19:41 04:17 08:26 Calcium 9.7 7.9 L (8.4-10.2) mg/dL Albumin 3.5 3.1 L (3.5-5.0) g/dL Pituitary panel 03/08/19 03/09/19 Range/Units 19:41 04:17 Sodium 138 138 (137-145) mmol/L Potassium 3.4 L 3.1 L (3.5-5.1) mmol/L Chloride 98 105 (98-107) mmol/L Carbon Dioxide 31 H 27 (22-30) mmol/L BUN 56 H 43 H (9-20) mg/dL Creatinine 0.93 0.62 L (0.66-1.25) mg/dL Glucose 116 H 132 H (74-99) mg/dL Calcium 9.7 7.9 L (8.4-10.2) mg/dL Adrenal panel 03/08/19 03/09/19 03/09/19 Range/Units 19:41 04:17 08:26 Sodium 138 138 (137-145) mmol/L Potassium 3.4 L 3.1 L (3.5-5.1) mmol/L Chloride 98 105 (98-107) mmol/L Carbon Dioxide 31 H 27 (22-30) mmol/L BUN 56 H 43 H (9-20) mg/dL Creatinine 0.93 0.62 L (0.66-1.25) mg/dL Glucose 116 H 132 H (74-99) mg/dL Calcium 9.7 7.9 L (8.4-10.2) mg/dL Total Bilirubin 1.2 1.1 (0.2-1.3) mg/dL AST 858 H 707 H (17-59) U/L ALT 1317 H 1255 H (21-72) U/L Alkaline Phosphatase 58 49 (38-126) U/L Total Protein 6.0 L 5.6 L (6.3-8.2) g/dL Albumin 3.5 3.1 L (3.5-5.0) g/dL Assessment and Plan (1) Transaminitis Current Visit: Yes Status: Acute Code(s): R74.0 - NONSPEC ELEV OF LEVELS OF TRANSAMNS & LACTIC ACID DEHYDRGNSE SNOMED Code(s): 963740400 (2) Abdominal pain Current Visit: No Status: Acute Code(s): R10.9 - UNSPECIFIED ABDOMINAL PAIN SNOMED Code(s): 52711619 <Valeria Sandoval - Last Filed: 03/10/19 08:42> History of Present Illness History of present illness: Patient seen and evaluated. No reports of acute abdominal pain at the time of my evaluation. EGD completed per GI with findings of large duodenal ulcer. No plans cholecystectomy with current findings of active duodenal ulcer. Conservative management with antibiotics Surgical - Exam Vital Signs Temp Pulse Resp BP Pulse Ox 98.4 F 97 18 136/81 98 03/08/19 19:01 03/08/19 19:01 03/08/19 19:01 03/08/19 19:01 03/08/19 19:01 Results - Labs 03/10/19 03:42 03/10/19 03:42 Abnormal Lab Results - Last 24 Hours (Table) 03/09/19 03/09/19 03/09/19 Range/Units 08:26 12:23 20:03 RBC 3.23 L 3.03 L (4.30-5.90) m/uL Hgb 10.1 L 9.3 L (13.0-17.5) gm/dL Hct 31.4 L 29.2 L (39.0-53.0) % Neutrophils # 8.4 H (1.3-7.7) k/uL PT (9.0-12.0) sec INR (<1.2) Potassium (3.5-5.1) mmol/L Chloride (98-107) mmol/L Creatinine (0.66-1.25) mg/dL Calcium (8.4-10.2) mg/dL Delta Bilirubin 0.7 H (0.0-0.2) mg/dL AST 707 H (17-59) U/L ALT 1255 H (21-72) U/L Total Protein 5.6 L (6.3-8.2) g/dL Albumin 3.1 L (3.5-5.0) g/dL 03/09/19 03/09/19 03/09/19 Range/Units 20:03 20:03 23:41 RBC 2.99 L (4.30-5.90) m/uL Hgb 9.1 L (13.0-17.5) gm/dL Hct 28.4 L (39.0-53.0) % Neutrophils # (1.3-7.7) k/uL PT 12.4 H (9.0-12.0) sec INR 1.2 H (<1.2) Potassium 3.1 L (3.5-5.1) mmol/L Chloride (98-107) mmol/L Creatinine (0.66-1.25) mg/dL Calcium (8.4-10.2) mg/dL Delta Bilirubin (0.0-0.2) mg/dL AST 738 H (17-59) U/L ALT 1218 H (21-72) U/L Total Protein (6.3-8.2) g/dL Albumin (3.5-5.0) g/dL 03/10/19 03/10/19 03/10/19 Range/Units 03:42 03:42 03:42 RBC 3.04 L (4.30-5.90) m/uL Hgb 9.7 L (13.0-17.5) gm/dL Hct 29.0 L (39.0-53.0) % Neutrophils # (1.3-7.7) k/uL PT (9.0-12.0) sec INR (<1.2) Potassium 3.4 L 3.4 L (3.5-5.1) mmol/L Chloride 109 H (98-107) mmol/L Creatinine 0.56 L (0.66-1.25) mg/dL Calcium 7.8 L (8.4-10.2) mg/dL Delta Bilirubin (0.0-0.2) mg/dL AST 723 H (17-59) U/L ALT 1254 H (21-72) U/L Total Protein 5.2 L (6.3-8.2) g/dL Albumin 2.8 L (3.5-5.0) g/dL Microbiology - Last 24 Hours (Table) 03/08/19 22:47 Blood Culture - Preliminary Blood No Growth after 24 hours Diabetes panel 03/09/19 03/09/19 03/10/19 Range/Units 08:26 20:03 03:42 Sodium 137 (137-145) mmol/L Potassium 3.1 L 3.4 L (3.5-5.1) mmol/L Chloride 109 H (98-107) mmol/L Carbon Dioxide 23 (22-30) mmol/L BUN 15 (9-20) mg/dL Creatinine 0.56 L (0.66-1.25) mg/dL Glucose 94 (74-99) mg/dL Calcium 7.8 L (8.4-10.2) mg/dL AST 707 H 738 H 723 H (17-59) U/L ALT 1255 H 1218 H 1254 H (21-72) U/L Alkaline Phosphatase 49 56 (38-126) U/L Total Protein 5.6 L 5.2 L (6.3-8.2) g/dL Albumin 3.1 L 2.8 L (3.5-5.0) g/dL 03/10/19 Range/Units 03:42 Sodium (137-145) mmol/L Potassium 3.4 L (3.5-5.1) mmol/L Chloride (98-107) mmol/L Carbon Dioxide (22-30) mmol/L BUN (9-20) mg/dL Creatinine (0.66-1.25) mg/dL Glucose (74-99) mg/dL Calcium (8.4-10.2) mg/dL AST (17-59) U/L ALT (21-72) U/L Alkaline Phosphatase (38-126) U/L Total Protein (6.3-8.2) g/dL Albumin (3.5-5.0) g/dL Calcium panel 03/09/19 03/10/19 Range/Units 08:26 03:42 Calcium 7.8 L (8.4-10.2) mg/dL Albumin 3.1 L 2.8 L (3.5-5.0) g/dL Pituitary panel 03/09/19 03/10/19 03/10/19 Range/Units 20:03 03:42 03:42 Sodium 137 (137-145) mmol/L Potassium 3.1 L 3.4 L 3.4 L (3.5-5.1) mmol/L Chloride 109 H (98-107) mmol/L Carbon Dioxide 23 (22-30) mmol/L BUN 15 (9-20) mg/dL Creatinine 0.56 L (0.66-1.25) mg/dL Glucose 94 (74-99) mg/dL Calcium 7.8 L (8.4-10.2) mg/dL Adrenal panel 03/09/19 03/09/19 03/10/19 Range/Units 08:26 20:03 03:42 Sodium 137 (137-145) mmol/L Potassium 3.1 L 3.4 L (3.5-5.1) mmol/L Chloride 109 H (98-107) mmol/L Carbon Dioxide 23 (22-30) mmol/L BUN 15 (9-20) mg/dL Creatinine 0.56 L (0.66-1.25) mg/dL Glucose 94 (74-99) mg/dL Calcium 7.8 L (8.4-10.2) mg/dL Total Bilirubin 1.1 0.9 (0.2-1.3) mg/dL AST 707 H 738 H 723 H (17-59) U/L ALT 1255 H 1218 H 1254 H (21-72) U/L Alkaline Phosphatase 49 56 (38-126) U/L Total Protein 5.6 L 5.2 L (6.3-8.2) g/dL Albumin 3.1 L 2.8 L (3.5-5.0) g/dL 03/10/19 Range/Units 03:42 Sodium (137-145) mmol/L Potassium 3.4 L (3.5-5.1) mmol/L Chloride (98-107) mmol/L Carbon Dioxide (22-30) mmol/L BUN (9-20) mg/dL Creatinine (0.66-1.25) mg/dL Glucose (74-99) mg/dL Calcium (8.4-10.2) mg/dL Total Bilirubin (0.2-1.3) mg/dL AST (17-59) U/L ALT (21-72) U/L Alkaline Phosphatase (38-126) U/L Total Protein (6.3-8.2) g/dL Albumin (3.5-5.0) g/dL
[2019-03-09 12:43] LABS: Basophils % (A) 0 %; Eosinophils # (A) 0.1 k/uL (0-0.7); Eosinophils % (A) 1 %; HCT 31.4 % (39.0-53.0); HGB 10.1 gm/dL (13.0-17.5); Lymphocytes # (A) 1.3 k/uL (1.0-4.8); Lymphocytes % (A) 13 %; MCH 31.2 pg (25.0-35.0); MCHC 32.1 g/dL (31.0-37.0); MCV 97.2 fL (80.0-100.0); Mean Platelet Volume 7.7; Monocytes # (A) 0.2 k/uL (0-1.0); Monocytes % (A) 2 %; Neutrophils # (A) 8.4 k/uL (1.3-7.7); Neutrophils % (A) 83 %; Platelet Count 237 k/uL (150-450); RBC 3.23 m/uL (4.30-5.90); RDW 14.1 % (11.5-15.5); WBC 10.1 k/uL (3.8-10.6)
[2019-03-09] MEDS ORDERED: LIDOCAINE 1% INJ 10MG/ML (20 ML MDV) ONE (13:26)
[2019-03-09] MEDS ORDERED: PROPOFOL 10 MG/ML 20 ML VIAL IV ONE (13:26)
[2019-03-09] MEDS ORDERED: IV FLUID CONTINUATION 700 ML IV ONE (13:40)
--- NOTE | 2019-03-09 13:58 | P.PCN ---
Date of Procedure: 03/09/19 Procedure(s) Performed: BRIEF HISTORY: Patient is a 73-year-old, pleasant, male, admitted hospital with abdominal pain and coffee-ground emesis for the last [address] of abdomen showed thickening of the duodenum and retained fluid in the stomach suspicious for gastric outlet obstruction. He is scheduled for an upper endoscopy to evaluate further. He did have an upper endoscopy would recommend of 2019 that showed a small nonbleeding duodenal ulcer and severe reflux esophagitis. Since then he has been maintained on Pepcid 20 mg daily. PROCEDURE PERFORMED: Esophagogastroduodenoscopy. PREOPERATIVE DIAGNOSIS: Acute upper GI bleed. IV sedation per anesthesia. PROCEDURE: After informed consent was obtained, the patient was brought into the endoscopy unit. IV sedation was administered by Anesthesia under continuous monitoring. Initially the Olympus GIF-140 video endoscope was inserted into the mouth. Esophagus intubated without any difficulty. It was gradually advanced into the stomach and duodenum and carefully examined. In the bulb of the duodenum there was a 2-3 cm deep ulceration with an adherent clot identified that could not be dislodged. Thorough irrigation was performed in this area there was no active bleeding noted from the base of the ulcer. Sclerotherapy needle was not available during the procedure. Hence no therapeutic endoscopic intervention could be performed. The scope at this time was withdrawn to the stomach, adequately insufflated with air, and upon careful examination, mucosa of the antrum, body, cardia and the fundus appeared normal. The scope was then withdrawn into the esophagus. The GE junction was located at 39 cm from the inc isors. They revealed circumferential ulcerations with linear erosions in the distal esophagus consistent with LA grade D reflux esophagitis. The rest of esophagus appeared normal and the patient tolerated the procedure well. IMPRESSION: 1. 2-3 cm deep duodenal bulbar ulcer with an adherent clot. 2. Severe ulcerative esophagitis. RECOMMENDATIONS: The findings of this examination were discussed with the patient as well as his family. At this time, continue with IV Protonix 40 mg twice daily. Monitor CBC every 6 hours and transfuse as needed.. Obtain surgical consultation..
--- NOTE | 2019-03-09 14:19 | CONS ---
CONSULTATION DATE OF SERVICE: 03/09/2019 REASON FOR CONSULTATION: Acute upper gastrointestinal bleed and elevated LFTs. HISTORY OF PRESENT ILLNESS: The patient is a 73-year-old pleasant while male who was admitted to the hospital when he presented to the emergency room complaining of right upper quadrant abdominal pain associated with nausea, vomiting, on and off for the last 2 week's duration. The pain has been progressively getting worse and he has been having emesis almost on a daily basis. Apparently yesterday, he had a couple of episodes of coffee-ground emesis and he was brought to the emergency room by his grandson. Also, there was some question of an overdose. However, his acetaminophen level in the emergency room was less than 10. He was noted to have elevated serum transaminases with ALT and AST in the range of 800 and 1300 and was started on IV acetylcysteine. Patient is somewhat a poor historian. This morning, as per the nursing staff had one episode of emesis. He still continues to complain of abdominal pain. He denies drinking any alcohol. Patient said that he had prior history of alcohol abuse. He did have an upper endoscopy by Dr. Ndiaye in October of 2018 for upper GI bleed and was noted to have severe grade 4 reflux esophagitis. PAST MEDICAL HISTORY: Significant for severe GERD, hypertension, hyperlipidemia, history of duodenal ulcer, diet-controlled diabetes mellitus. PAST SURGICAL HISTORY: Laparotomy for duodenal ulcer repair, EGD 4 months ago, nasal surgery. MEDICATIONS: At home include Lipitor, Cardura, potassium, Pepcid. ALLERGIES: None. SOCIAL HISTORY: No smoker, history of alcohol use in the past. FAMILY HISTORY: Mother has diabetes mellitus. REVIEW OF SYSTEMS: CARDIOPULMONARY: He denies any chest pain or shortness of breath. GENITOURINARY: No dysuria or hematuria. MUSCULOSKELETAL: Unremarkable. SKIN: Unremarkable. ENDOCRINE: Unremarkable. PSYCHIATRIC: Unremarkable. NEUROLOGY: Unremarkable. ENT: Vision unremarkable. CONSTITUTIONAL: No recent weight loss. No fever, chills, night sweats. PHYSICAL EXAMINATION: He appears comfortable, in no apparent distress. Vital signs are stable, blood pressure 137/69, pulse rate 60, temperature 98.8. HEENT: Examination unremarkable. Conjunctivae are pink. Sclerae are nonicteric. Oral cavity no lesions. NECK: No JVD or lymph node enlargement. CHEST: Clear to auscultation. HEART: Regular rate and rhythm. ABDOMEN: Small, soft. There was mild tenderness in the left upper quadrant and right upper quadrant area. EXTREMITIES: No pedal edema. NEUROLOGIC: Alert and oriented x3. No focal deficits. LABS: At the time of admission to the hospital, WBC was 14.5, hemoglobin 12.9, platelets normal at 310. INR was 1.5. AST and ALT were 858 am and 1317 respectively. Today AST is down to 707 and ALT is down to 1255. Albumin 3.1, lipase 310. Alkaline phosphatase and bilirubin are within normal limits. Serum alcohol level less than 10. CT of the abdomen and pelvis done in the emergency room showed duodenal wall thickening with hyperenhancement as well as markedly distended stomach, suspicious for gastric outlet obstruction/duodenal ulcer. There was evidence of distended gallbladder, pancreatic calcifications/chronic pancreatitis and colonic diverticulosis. IMPRESSION: 1. Upper abdominal pain, coffee-grounds emesis on and off for the last 2-3 days' duration. Dropped hemoglobin from 12-10.3 g/dL. No active bleeding since being in the hospital. CT of the abdomen showed thickening of the duodenum, suspicious for a duodenal ulcer/gastric outlet obstruction. Last upper endoscopy 4 months ago did reveal nonbleeding duodenal ulcer and severe reflux esophagitis. He was maintained on Pepcid 20 mg daily as an outpatient basis. Presently on IV Protonix 40 mg twice daily, most likely dealing with recurrent peptic ulcer disease or severe reflux disease. 2. Acute hepatocellular injury with elevated ALT and AST with questionable history of acetaminophen toxicity. At the time of admission to the hospital, acetaminophen level was less than 10. However, there was questionable history from the patient's family that he had taken a whole bottle of Tylenol. In any event, he was started on IV acetylcysteine and presently on his third dose. Serum transaminases are gradually improving. 3. History of chronic calcific pancreatitis. RECOMMENDATION: 1. Continue with IV Protonix 40 mg q.12 hours. 2. Keep him n.p.o. 3. Will proceed with an upper endoscopy to investigate the upper GI bleed. 4. Monitor the LFTs on a close basis. 5. CBC every 6 hours. 6. Will follow with you closely. Thank you for this consultation. MMODL / IJN: [id number] /
[2019-03-09] MEDS: ENALAPRILAT 1.25 MG/ML 1 ML VIAL IVP PRN ×2 (16:35→23:06)
--- NOTE | 2019-03-09 16:48 | P.CNPUL ---
History of Present Illness Consult date: 03/09/19 Chief complaint: Upper GI bleeding History of present illness: This is a 73-year-old male patient with known history of peptic ulcer disease, who was brought into the hospital because of abdominal pain mainly in the right upper quadrant area, 7 out of 10 in severity radiating to the shoulder which raises concerns for cholecystitis. The patient initially was not having any emesis or nausea. Denied having any fever or chills. He denies having any history of pancreatitis or gallstones. No history of substance abuse. No active alcoholism. He was taken excessive amount of Tylenol and there was a concern of Tylenol toxicity. In emergency department his LFTs were abnormal and elevated. Tylenol level was at 12.4 and initial AST was 858 and ALT was 1317. The patient was started on Mucomyst IV per recommendations given by toxicology. Meanwhile, the patient started having coffee-ground emesis. The patient a chest to the intensive care unit for suspected upper GI bleeding. CAT scan of the abdomen showed thickening of the duodenum and there was retained fluid in the stomach suspicious for a gastric outlet obstruction. Based on that, the patient was taken for an EGD by gastroenterology today afternoon at around 1:40 PM. The patient was found to have a 2-3 cm duodenal bulb ulcer with an adherent clot and there was evidence of severe ulcerative esophagitis. The patient was placed on IV Protonix 40 mg every 12 hours and he is back in the intensive care unit where the CBC is being monitored every 6 hours. Surgical consultation was also obtained. Note that the LFTs are improving. The follow-up Tylenol level is less than 10. Ultrasound of the right upper quadrant showed enlarged gallbladder measuring 5 cm in size and there was no evidence of any gallstone. No dilated ducts. There was a nonobstructing right renal calculus. The patient has history of alcoholism. The patient has been Calcification suggestive of chronic pancreatitis and there was evidence of colonic diverticulosis. The hemoglobin is down to 10.1. The white cell count is at 10.1. Review of Systems Constitutional: Denies chills, Denies fever Eyes: denies as per HPI, denies blurred vision, denies bulging eye, denies decreased vision, denies diplopia, denies discharge, denies dry eye, denies irritation, denies itching, denies pain, denies photophobia, denies loss of peripheral vision, denies loss of vision, denies tunnel vision/blind spots Ears: deny: decreased hearing, ear discharge, earache, tinnitus Ears, nose, mouth and throat: Denies headache, Denies sore throat Breasts: absent: as per HPI, gynecomastia Cardiovascular: Denies chest pain, Denies shortness of breath Respiratory: Denies cough Gastrointestinal: Reports abdominal pain, Reports coffee ground emesis, Reports nausea Genitourinary: Reports as per HPI Musculoskeletal: Denies myalgias Musculoskeletal: absent: ankle pain, ankle stiffness, ankle swelling Integumentary: Denies pruritus, Denies rash Neurological: Reports as per HPI Psychiatric: Reports as per HPI Endocrine: Reports as per HPI Hematologic/Lymphatic: Reports as per HPI Allergic/Immunologic: Reports as per HPI Past Medical History Past Medical History: GERD/Reflux, GI Bleed, Hyperlipidemia, Hypertension Additional Past Medical History / Comment(s): History of peptic ulcer disease/duodenal ulcer, previous history of GI bleed, hyperlipidemia, hypertension, diabetes mellitus not taking any form of oral hypoglycemic medication and the patient has chronic back pain. Diverticulosis. Pancreatic c lassifications chronic. Nonobstructive right renal calculus. History of Any Multi-Drug Resistant Organisms: None Reported Past Surgical History: No Surgical Hx Reported Additional Past Surgical History / Comment(s): Laparotomy for duodenal ulcer repair, EGD/colonoscopy, nasal fracture with surgery. Past Anesthesia/Blood Transfusion Reactions: No Reported Reaction Smoking Status: Current every day smoker - Past Family History Father History Unknown: Yes Mother Family Medical History: Diabetes Mellitus Medications and Allergies Home Medications Medication Instructions Recorded Confirmed Type Atorvastatin [Lipitor] 20 mg PO DAILY 11/18/18 03/08/19 History Doxazosin [Cardura] 4 mg PO DAILY 11/18/18 03/08/19 History Losartan Potassium 100 mg PO DAILY 11/18/18 03/08/19 History Famotidine [Pepcid] 20 mg PO DAILY #20 tablet 02/20/19 03/08/19 Rx Allergies Allergy/AdvReac Type Severity Reaction Status Date / Time No Known Allergies Allergy Verified 03/08/19 19:47 Physical Exam Vitals: Vital Signs Temp Pulse Pulse Resp BP BP Pulse Ox 03/09/19 16:00 68 15 161/79 96 03/09/19 15:00 62 16 162/82 94 L 10/14/19 13:00 67 24 155/85 97 03/09/19 12:00 98.8 F 64 20 137/69 96 03/09/19 11:00 61 22 151/83 96 03/09/19 10:00 65 19 149/85 96 03/09/19 09:00 65 20 139/73 96 03/09/19 08:00 98.5 F 70 15 143/78 96 03/09/19 07:00 68 17 147/73 96 03/09/19 06:00 64 16 142/69 95 03/09/19 05:30 98.4 F 64 14 142/69 96 03/09/19 05:00 72 16 148/81 96 03/09/19 04:30 73 15 145/77 96 03/09/19 04:00 64 14 135/62 97 03/09/19 03:53 87 17 03/09/19 03:30 70 19 140/67 96 03/09/19 03:00 73 17 140/71 95 03/09/19 02:30 74 17 136/71 96 03/09/19 02:00 98.4 F 84 15 165/81 97 03/09/19 01:42 87 18 03/09/19 01:05 97 F L 87 18 108/70 98 03/08/19 22:30 86 16 143/76 99 03/08/19 21:30 89 18 142/86 98 03/08/19 20:30 91 20 177/90 98 03/08/19 19:30 95 18 159/81 98 03/08/19 19:24 20 03/08/19 19:01 98.4 F 97 18 136/81 98 Intake and Output 03/09/19 03/09/19 03/09/19 06:59 14:59 22:59 Intake Total 800.0 1825.0 262.5 Output Total 650 610 175 Balance 150.0 1215.0 87.5 Intake: IV 1637.5 262.5 Acetylcysteine IV 6,350 437.5 62.5 mg In Dextrose 5% in Water 1,000 ml @ 62.5 mls /hr IV ONCE ONE Rx#: [id number] Piperacillin-Tazobactam 3 100 .375 gm In Sodium Chloride 0.9% 100 ml @ 25 mls/hr IVPB Q8H [facility] Rx#: [id number] Potassium Chloride 10 meq 300 In Water For Injection 1 100ml.bag @ 100 mls/hr IVPB Q1HR [facility] Rx#: [id number] Sodium Chloride 0.9% 1, 700 100 000 ml @ 100 mls/hr IV . Q10H [facility] Rx#:[id number] Intake, IV Titration 800.0 187.5 Amount Acetylcysteine IV 3,175 250 mg In Dextrose 5% in Water 500 ml @ 125 mls/hr IV ONCE ONE Rx#: [id number] Acetylcysteine IV 6,350 125.0 62.5 mg In Dextrose 5% in Water 1,000 ml @ 62.5 mls /hr IV ONCE ONE Rx#: [id number] Piperacillin-Tazobactam 3 25 25 .375 gm In Sodium Chloride 0.9% 100 ml @ 25 mls/hr IVPB Q8H [facility] Rx#: [id number] Potassium Chloride 10 meq 100 In Water For Injection 1 100ml.bag @ 100 mls/hr IVPB Q1HR [facility] Rx#: [id number] Sodium Chloride 0.9% 1, 300 100 000 ml @ 100 mls/hr IV . Q10H [facility] Rx#:[id number] Output: Urine 650 610 175 Other: Voiding Method Urinal Urinal Urinal The patient appeared well nourished and normally developed. Vital signs as docum ented. Head exam is unremarkable. No scleral icterus or corneal arcus noted. Neck is without jugular venous distension, thyromegaly, or carotid bruits. Carotid upstrokes are brisk bilaterally. Lungs are clear to auscultation and percussion. Cardiac exam reveals the PMI to be normally sized and situated. Rhythm is regular. First and second heart sounds normal. No murmurs, rubs or gallops. Abdominal exam reveals normal bowel sounds, no masses, no organomegaly and no aortic enlargement. There may be some mild tenderness in the upper quadrants bilaterally and some midepigastric area. No organomegaly. No ascites. Extremities are nonedematous and both femoral and pedal pulses are normal.Examination of the skin revealed no evidence of significant rashes, suspicious appearing nevi or other concerning lesions. Neurologically the patient is awake and alert and there is no focal neurological deficits. Results - Laboratory Findings CBC and BMP: 03/09/19 12:23 03/09/19 04:17 PT/INR, D-dimer PT 15.1 sec (9.0-12.0) H 03/08/19 19:41 INR 1.5 (<1.2) H 03/08/19 19:41 Abnormal lab findings: Abnormal Labs 03/08/19 03/08/19 03/08/19 19:41 19:41 19:41 WBC 14.5 H RBC 4.06 L Hgb 12.9 L D Hct 38.5 L Neutrophils # 12.2 H PT INR Potassium 3.4 L Carbon Dioxide 31 H BUN 56 H Creatinine Glucose 116 H Plasma Lactic Acid Geraldo 2.5 H* Calcium Delta Bilirubin AST 858 H ALT 1317 H Total Protein 6.0 L Albumin Lipase 310 H Ur Specific [place] Urine Ketones Urine Opiates Screen U Marijuana (THC) Screen 03/08/19 03/08/19 03/09/19 19:41 21:35 04:14 WBC 12.5 H RBC 3.25 L Hgb 10.3 L Hct 30.8 L Neutrophils # 11.1 H PT 15.1 H INR 1.5 H Potassium Carbon Dioxide BUN Creatinine Glucose Plasma Lactic Acid Geraldo Calcium Delta Bilirubin AST ALT Total Protein Albumin Lipase Ur Specific [place] 1.043 H Urine Ketones 1+ H Urine Opiates Screen U Marijuana (THC) Screen 03/09/19 03/09/19 03/09/19 04:17 08:08 08:26 WBC RBC Hgb Hct Neutrophils # PT INR Potassium 3.1 L Carbon Dioxide BUN 43 H Creatinine 0.62 L Glucose 132 H Plasma Lactic Acid Geraldo Calcium 7.9 L Delta Bilirubin 0.7 H AST 707 H ALT 1255 H Total Protein 5.6 L Albumin 3.1 L Lipase Ur Specific [place] Urine Ketones Urine Opiates Screen Detected H U Marijuana (THC) Screen Detected H 03/09/19 12:23 WBC RBC 3.23 L Hgb 10.1 L Hct 31.4 L Neutrophils # 8.4 H PT INR Potassium Carbon Dioxide BUN Creatinine Glucose Plasma Lactic Acid Geraldo Calcium Delta Bilirubin AST ALT Total Protein Albumin Lipase Ur Specific [place] Urine Ketones Urine Opiates Screen U Marijuana (THC) Screen Assessment and Plan Plan: 1 upper GI bleed secondary to a 3 cm duodenal ulcer, nonbleeding with formation of a clot based on EGD evaluation. No evidence of any gastric outlet obstruction 2 severe erosive esophagitis 3 upper GI bleed with some limited drop in hemoglobin remains above 10 4 Abdominal pain involving the upper quadrants, no indication for any acute cholecystitis 5 acute Tylenol toxicity with abnormal LFTs. The patient was treated with IV Mucomyst for acute events alert injury and LFTs are improving and atenolol level is less than 10 completed a course of Mucomyst 6 diverticulosis 7 nonobstructive right renal calculus 8 history of chronic pancreatitis with calcification 9 hypertension 10 hyperlipidemia Plan EGD was completed. Monitor CBC. Monitor hemoglobin. IV Protonix. Avoid Tylenol. Avoid hepatotoxic agent. Completed the course of IV Mucomyst. General surgical consultation regarding the duodenal ulcer. For now there is no signs of bleeding. The patient will be maintained on normal saline. Diet will be left up to GI. We'll continue to follow. We'll keep the patient ICU for 24 hours.
[2019-03-09 18:57] LABS: Hepatitis A Antibody IgM Non-Reactive (Non-Reactive); Hepatitis B Core IgM Non-Reactive (Non-Reactive); Hepatitis B Surface Antigen Non-Reactive (Non-Reactive); Hepatitis C IgG Antibody Non-Reactive (Non-Reactive)
[2019-03-09 20:19] LABS: Basophils % (A) 0 %; Eosinophils # (A) 0.1 k/uL (0-0.7); Eosinophils % (A) 1 %; HCT 29.2 % (39.0-53.0); HGB 9.3 gm/dL (13.0-17.5); Lymphocytes # (A) 1.5 k/uL (1.0-4.8); Lymphocytes % (A) 16 %; MCH 30.8 pg (25.0-35.0); MCV 96.4 fL (80.0-100.0); Mean Platelet Volume 7.9; Monocytes # (A) 0.2 k/uL (0-1.0); Monocytes % (A) 2 %; Neutrophils # (A) 7.1 k/uL (1.3-7.7); Neutrophils % (A) 79 %; Platelet Count 211 k/uL (150-450); RBC 3.03 m/uL (4.30-5.90)
[2019-03-09 20:31] LABS: INR 1.2 (<1.2); Prothrombin Time 12.4 sec (9.0-12.0)
[2019-03-09 20:36] LABS: AST 738 U/L (17-59); Acetaminophen <10.0 ug/mL; Potassium 3.1 mmol/L (3.5-5.1)
[2019-03-09 20:45] LABS: ALT 1218 U/L (21-72)
[2019-03-10] MEDS: POTASSIUM CHLORIDE 10 MEQ in WATER FOR INJECTION 1 100ML.BAG IVPB SCH ×5 (00:11→11:32)
[2019-03-10 00:15] LABS: Basophils % (A) 1 %; Eosinophils # (A) 0.2 k/uL (0-0.7); Eosinophils % (A) 2 %; HCT 28.4 % (39.0-53.0); HGB 9.1 gm/dL (13.0-17.5); Lymphocytes # (A) 1.3 k/uL (1.0-4.8); Lymphocytes % (A) 15 %; MCH 30.4 pg (25.0-35.0); MCV 95.1 fL (80.0-100.0); Mean Platelet Volume 7.8; Monocytes # (A) 0.2 k/uL (0-1.0); Monocytes % (A) 2 %; Neutrophils % (A) 80 %; Platelet Count 207 k/uL (150-450); RBC 2.99 m/uL (4.30-5.90); WBC 8.8 k/uL (3.8-10.6)
[2019-03-10] MEDS: HYDROmorphone 1 MG/ML 1 ML SYRINGE IVP PRN ×2 (04:01→08:56)
[2019-03-10 05:04] LABS: AST 723 U/L (17-59); African American GFR (CKD) >90 (>60 ml/min/1.73 sqM); Albumin 2.8 g/dL (3.5-5.0); Alkaline Phosphatase 56 U/L (38-126); Anion Gap 5 mmol/L; Blood Urea Nitrogen 15 mg/dL (9-20); Calcium 7.8 mg/dL (8.4-10.2); Carbon Dioxide 23 mmol/L (22-30); Chloride 109 mmol/L (98-107); Glucose 94 mg/dL (74-99); Potassium 3.4 mmol/L (3.5-5.1); Sodium 137 mmol/L (137-145); Total Bilirubin 0.9 mg/dL (0.2-1.3); Total Protein 5.2 g/dL (6.3-8.2)
[2019-03-10 05:18] LABS: ALT 1254 U/L (21-72)
[2019-03-10] MEDS: PIPERACILLIN-TAZOBACTAM 3.375 GM in SODIUM CHLORIDE 0.9% 100 ML IVPB SCH (06:01)
[2019-03-10] MEDS: SODIUM CHLORIDE 0.9% 1,000 ML IV SCH ×2 (06:01→08:48)
[2019-03-10] MEDS: ENALAPRILAT 1.25 MG/ML 1 ML VIAL IVP PRN (07:06)
[2019-03-10 07:23] LABS: HGB 9.7 gm/dL (13.0-17.5); MCHC 33.5 g/dL (31.0-37.0); MCV 95.5 fL (80.0-100.0); Mean Platelet Volume 8.9; Platelet Count 241 k/uL (150-450); RBC 3.04 m/uL (4.30-5.90); RDW 13.9 % (11.5-15.5); WBC 9.4 k/uL (3.8-10.6)
--- NOTE | 2019-03-10 07:44 | P.PN ---
Subjective Progress Note Date: 03/10/19 On 03/10/2019, the patient is being seen for a follow-up. The patient doing well. Resting comfortably in bed. No abdominal distention. No nausea or vomiting. No abdominal pain. The patient underwent an EGD yesterday and the patient was found to have duodenal bulb ulcer without evidence of any gastric obstruction. The patient has not had any further episodes of upper GI bleed or coffee-ground emesis. Hemoglobin stable at 9.7. The patient was found to have erosive esophagitis and the patient is currently on proton pump inhibitors. At the same time, the patient is a component of Tylenol toxicity. LFTs remain abnormal and ALT and AST remains elevated and not completely normalized. Coagul ation profile is within normal limits. Tylenol level is less than 10. The patient remains on Mucomyst protocol per toxicology recommendations. No signs of any encephalopathy at this point in time. No abdominal pain or distention. Appetite is profile has been negative. Most recently yesterday is at 723 and ALT is 1254. The bilirubin was within normal limits. He has no specific complaints on today's evaluation. He remains on empiric antibiotics with IV Zosyn. He remains nothing by mouth per GI recommendation. There was a nonobstructing right renal calculus. The patient has history of alcoholism. The patient has been Calcification suggestive of chronic pancreatitis and there was evidence of colonic diverticulosis Objective - Vital Signs Vital signs: Vital Signs Temp 99.1 F 03/10/19 04:00 Pulse 55 L 03/10/19 07:00 Resp 19 03/10/19 07:00 BP 167/96 03/10/19 07:00 Pulse Ox 97 03/10/19 07:00 Intake & Output 03/09/19 03/10/19 03/10/19 18:59 06:59 18:59 Intake Total 2412.5 2425.0 262.5 Output Total 1185 1700 200 Balance 1227.5 725.0 62.5 Weight 51.6 kg Intake: IV 2225.0 2425.0 262.5 Acetylcysteine IV 6,350 625.0 750.0 62.5 mg In Dextrose 5% in Water 1,000 ml @ 62.5 mls /hr IV ONCE ONE Rx#: [id number] Piperacillin-Tazobactam 3 100 75 .375 gm In Sodium Chloride 0.9% 100 ml @ 25 mls/hr IVPB Q8H [facility] Rx#: [id number] Potassium Chloride 10 meq 300 600 100 In Water For Injection 1 100ml.bag @ 100 mls/hr IVPB Q1HR [facility] Rx#: [id number] Sodium Chloride 0.9% 1, 1000 1000 100 000 ml @ 100 mls/hr IV . Q10H [facility] Rx#:[id number] Intake, IV Titration 187.5 Amount Acetylcysteine IV 6,350 62.5 mg In Dextrose 5% in Water 1,000 ml @ 62.5 mls /hr IV ONCE ONE Rx#: [id number] Piperacillin-Tazobactam 3 25 .375 gm In Sodium Chloride 0.9% 100 ml @ 25 mls/hr IVPB Q8H [facility] Rx#: [id number] Sodium Chloride 0.9% 1, 100 000 ml @ 100 mls/hr IV . Q10H [facility] Rx#:[id number] Output: Urine 1185 1700 200 Other: Voiding Method Urinal Urinal - Exam The patient appeared well nourished and normally developed. Vital signs as documented. Head exam is unremarkable. No scleral icterus or corneal arcus noted. Neck is without jugular venous distension, thyromegaly, or carotid bruits. Carotid upstrokes are brisk bilaterally. Lungs are clear to auscultation and percussion. Cardiac exam reveals the PMI to be normally sized and situated. Rhythm is regular. First and second heart sounds normal. No murmurs, rubs or gallops. Abdominal exam reveals normal bowel sounds, no masses, no organomegaly and no aortic enlargement. There may be some mild tenderness in the upper quadrants bilaterally and some midepigastric area. No organomegaly. No ascites. Extremities are nonedematous and both femoral and pedal pulses are normal.Examination of the skin revealed no evidence of significant rashes, jared picious appearing nevi or other concerning lesions. Neurologically the patient is awake and alert and there is no focal neurological deficits - Labs CBC & Chem 7: 03/10/19 03:42 03/10/19 03:42 Labs: Abnormal Lab Results - Last 24 Hours (Table) 03/09/19 03/09/19 03/09/19 Range/Units 08:08 08:26 12:23 RBC 3.23 L (4.30-5.90) m/uL Hgb 10.1 L (13.0-17.5) gm/dL Hct 31.4 L (39.0-53.0) % Neutrophils # 8.4 H (1.3-7.7) k/uL PT (9.0-12.0) sec INR (<1.2) Potassium (3.5-5.1) mmol/L Chloride (98-107) mmol/L Creatinine (0.66-1.25) mg/dL Calcium (8.4-10.2) mg/dL Delta Bilirubin 0.7 H (0.0-0.2) mg/dL AST 707 H (17-59) U/L ALT 1255 H (21-72) U/L Total Protein 5.6 L (6.3-8.2) g/dL Albumin 3.1 L (3.5-5.0) g/dL Urine Opiates Screen Detected H (NotDetected) U Marijuana (THC) Screen Detected H (NotDetected) 03/09/19 03/09/19 03/09/19 Range/Units 20:03 20:03 20:03 RBC 3.03 L (4.30-5.90) m/uL Hgb 9.3 L (13.0-17.5) gm/dL Hct 29.2 L (39.0-53.0) % Neutrophils # (1.3-7.7) k/uL PT 12.4 H (9.0-12.0) sec INR 1.2 H (<1.2) Potassium 3.1 L (3.5-5.1) mmol/L Chloride (98-107) mmol/L Creatinine (0.66-1.25) mg/dL Calcium (8.4-10.2) mg/dL Delta Bilirubin (0.0-0.2) mg/dL AST 738 H (17-59) U/L ALT 1218 H (21-72) U/L Total Protein (6.3-8.2) g/dL Albumin (3.5-5.0) g/dL Urine Opiates Screen (NotDetected) U Marijuana (THC) Screen (NotDetected) 03/09/19 03/10/19 03/10/19 Range/Units 23:41 03:42 03:42 RBC 2.99 L (4.30-5.90) m/uL Hgb 9.1 L (13.0-17.5) gm/dL Hct 28.4 L (39.0-53.0) % Neutrophils # (1.3-7.7) k/uL PT (9.0-12.0) sec INR (<1.2) Potassium 3.4 L 3.4 L (3.5-5.1) mmol/L Chloride 109 H (98-107) mmol/L Creatinine 0.56 L (0.66-1.25) mg/dL Calcium 7.8 L (8.4-10.2) mg/dL Delta Bilirubin (0.0-0.2) mg/dL AST 723 H (17-59) U/L ALT 1254 H (21-72) U/L Total Protein 5.2 L (6.3-8.2) g/dL Albumin 2.8 L (3.5-5.0) g/dL Urine Opiates Screen (NotDetected) U Marijuana (THC) Screen (NotDetected) 03/10/19 Range/Units 03:42 RBC 3.04 L (4.30-5.90) m/uL Hgb 9.7 L (13.0-17.5) gm/dL Hct 29.0 L (39.0-53.0) % Neutrophils # (1.3-7.7) k/uL PT (9.0-12.0) sec INR (<1.2) Potassium (3.5-5.1) mmol/L Chloride (98-107) mmol/L Creatinine (0.66-1.25) mg/dL Calcium (8.4-10.2) mg/dL Delta Bilirubin (0.0-0.2) mg/dL AST (17-59) U/L ALT (21-72) U/L Total Protein (6.3-8.2) g/dL Albumin (3.5-5.0) g/dL Urine Opiates Screen (NotDetected) U Marijuana (THC) Screen (NotDetected) Microbiology - Last 24 Hours (Table) 03/08/19 22:47 Blood Culture - Preliminary Blood No Growth after 24 hours Assessment and Plan Plan: 1 upper GI bleed secondary to a 3 cm duodenal ulcer, nonbleeding with formation of a clot based on EGD evaluation. No evidence of any gastric outlet obstruction. The patient remains nothing by mouth. Hemoglobin remains stable at 0.7. Most of the abdominal distention. No ongoing GI bleed and the patient has not had any further episodes of coffee-ground emesis. 2 severe erosive esophagitis, currently on PPI 3 upper GI bleed with some limited drop in hemoglobin remains stable at 9.7 4 Abdominal pain involving the upper quadrants, no indication for any acute cholecystitis 5 acute Tylenol toxicity with abnormal LFTs. The patient is on IV Mucomyst for acute events alert injury and LFTs not completely normalized. Correlation profile is within normal limits. 6 diverticulosis 7 nonobstructive right renal calculus 8 history of chronic pancreatitis with calcification 9 hypertension 10 hyperlipidemia Plan EGD was completed. Monitor CBC. Monitor hemoglobin. IV Protonix. Avoid Tylenol. Avoid hepatotoxic agent. Completed the course of IV Mucomyst. Diet per GI and the patient may be advanced to clear liquid diet. Monitor LFTs. This continued IV Zosyn. We'll continue to follow
[2019-03-10] MEDS: PANTOPRAZOLE 40 MG/10 ML VIAL IV SCH ×2 (08:46→20:06)
[2019-03-10] MEDS: LOSARTAN 50 MG TAB PO SCH (11:32)
--- NOTE | 2019-03-10 12:18 | P.PN ---
Subjective Progress Note Date: 03/10/19 Principal diagnosis: The patient is a 73-year-old male with a history of peptic ulcer disease due to duodenal ulcer, esophagitis, gastritis, GERD, essential hypertension, dyslipidemia who was admitted for suspicion of acute cholecystitis and suspected upper GI bleed with acute blood loss anemia after presenting with right upper quadrant pain. 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 There was also concern for sepsis as a patient who presented with a mild leukocytosis and tachycardia and was started on empiric IV antibiotics with IV Zosyn, patient was also initiated on an acetylcysteine 20cc/hr after poison control was contacted. Imaging studies with CT of the chest abdomen pelvis suggested gastric outlet obstruction with possible duodenitis/duodenal ulcer with chronic pancreatic calcifications s uggestive of chronic pancreatitis and colonic diverticulosis. Right upper quadrant ultrasound was consistent with a enlarged gallbladder and non- obstructing right renal calculi. The patient was started on IV Protonix with consultation to Gen. surgery and GI with scheduled monitoring of his hemoglobin. Patient said exam and follow-up, Reporting of the patient has been reluctant to get up and ambulate except to the restroom and is largely been bedbound. Patient reporting his pain is adequately controlled today potassium is 3.4. AST ALT 723/1257. Hemoglobin stabilizing at 9.7, no indication for transfusion at this time. EGD showing a 2-3 deep duodenal ulcer with adherent clot and severe ulcerative esophagitis. Patient's blood pressure elevated overnight otherwise no acuteevents Objective - Vital Signs Vital signs: Vital Signs Temp 98.9 F 03/10/19 12:00 Pulse 59 L 03/10/19 12:00 Resp 19 03/10/19 12:00 BP 166/91 03/10/19 12:00 Pulse Ox 97 03/10/19 12:00 Intake & Output 03/09/19 03/10/19 03/10/19 18:59 06:59 18:59 Intake Total 2412.5 2425.0 912.5 Output Total 1185 1700 2100 Balance 1227.5 725.0 -1187.5 Weight 51.6 kg Intake: IV 2225.0 2425.0 912.5 Acetylcysteine IV 6,350 625.0 750.0 312.5 mg In Dextrose 5% in Water 1,000 ml @ 62.5 mls /hr IV ONCE ONE Rx#: [id number] Piperacillin-Tazobactam 3 100 75 .375 gm In Sodium Chloride 0.9% 100 ml @ 25 mls/hr IVPB Q8H [facility] Rx#: [id number] Potassium Chloride 10 meq 300 600 100 In Water For Injection 1 100ml.bag @ 100 mls/hr IVPB Q1HR [facility] Rx#: [id number] Potassium Chloride 10 meq 300 In Water For Injection 1 100ml.bag @ 100 mls/hr IVPB Q1HR [facility] Rx#: [id number] Sodium Chloride 0.9% 1, 1000 1000 200 000 ml @ 100 mls/hr IV . Q10H [facility] Rx#:[id number] Intake, IV Titration 187.5 Amount Acetylcysteine IV 6,350 62.5 mg In Dextrose 5% in Water 1,000 ml @ 62.5 mls /hr IV ONCE ONE Rx#: [id number] Piperacillin-Tazobactam 3 25 .375 gm In Sodium Chloride 0.9% 100 ml @ 25 mls/hr IVPB Q8H [facility] Rx#: [id number] Sodium Chloride 0.9% 1, 100 000 ml @ 100 mls/hr IV . Q10H [facility] Rx#:[id number] Output: Urine 1185 1700 2100 Other: Voiding Method Urinal Urinal Urinal # Voids 1 - Exam Constitutional: No acute distress, conversant, pleasant Eyes: Anicteric sclerae, moist conjunctiva, no lid-lag, PERRLA ENMT: NC/AT,Oropharynx clear, no erythema, exudates Neck:Supple, FROM, no masses, or JVD, No carotid bruits; No thyromegaly Lungs: Clear to auscultation, Clear to percussion, Normal respiratory effort, no accessory muscle use Cardiovascular: Heart regular in rate and rhythm, No murmurs, gallops, or rubs no peripheral edema Abdominal: Soft Nontender, nom distended, no guarding, no rebound or rigidity, Normoactive bowel sounds No hepatomegaly, No splenomegaly, No palpable mass No abdominal wall hernia noted Skin: Normal temperature, tone, texture, turgor, No induration No subcutaneous nodules, No rash, lesions, No ulcers Extremities:No digital cyanosis No clubbing, Pedal pulses intact and symmetrical Radial pulses intact and symmetrical Normal gait and station, No ty f tenderness Psychiatric: Alert and oriented to person, place and time, Appropriate affect Intact judgement Neuro: Muscles Strength 5/5 in all 4 extremities, Sensation to light touch grossly present throughout, Cranial nerves II-XII grossly intact. No focal sensory deficits - Labs CBC & Chem 7: 03/10/19 03:42 03/10/19 03:42 Labs: Abnormal Lab Results - Last 24 Hours (Table) 03/09/19 03/09/19 03/09/19 Range/Units 12:23 20:03 20:03 RBC 3.23 L 3.03 L (4.30-5.90) m/uL Hgb 10.1 L 9.3 L (13.0-17.5) gm/dL Hct 31.4 L 29.2 L (39.0-53.0) % Neutrophils # 8.4 H (1.3-7.7) k/uL PT 12.4 H (9.0-12.0) sec INR 1.2 H (<1.2) Potassium (3.5-5.1) mmol/L Chloride (98-107) mmol/L Creatinine (0.66-1.25) mg/dL Calcium (8.4-10.2) mg/dL AST (17-59) U/L ALT (21-72) U/L Total Protein (6.3-8.2) g/dL Albumin (3.5-5.0) g/dL 03/09/19 03/09/19 03/10/19 Range/Units 20:03 23:41 03:42 RBC 2.99 L (4.30-5.90) m/uL Hgb 9.1 L (13.0-17.5) gm/dL Hct 28.4 L (39.0-53.0) % Neutrophils # (1.3-7.7) k/uL PT (9.0-12.0) sec INR (<1.2) Potassium 3.1 L 3.4 L (3.5-5.1) mmol/L Chloride 109 H (98-107) mmol/L Creatinine 0.56 L (0.66-1.25) mg/dL Calcium 7.8 L (8.4-10.2) mg/dL AST 738 H 723 H (17-59) U/L ALT 1218 H 1254 H (21-72) U/L Total Protein 5.2 L (6.3-8.2) g/dL Albumin 2.8 L (3.5-5.0) g/dL 03/10/19 03/10/19 Range/Units 03:42 03:42 RBC 3.04 L (4.30-5.90) m/uL Hgb 9.7 L (13.0-17.5) gm/dL Hct 29.0 L (39.0-53.0) % Neutrophils # (1.3-7.7) k/uL PT (9.0-12.0) sec INR (<1.2) Potassium 3.4 L (3.5-5.1) mmol/L Chloride (98-107) mmol/L Creatinine (0.66-1.25) mg/dL Calcium (8.4-10.2) mg/dL AST (17-59) U/L ALT (21-72) U/L Total Protein (6.3-8.2) g/dL Albumin (3.5-5.0) g/dL Microbiology - Last 24 Hours (Table) 03/08/19 22:47 Blood Culture - Preliminary Blood No Growth after 24 hours Assessment and Plan Plan: Upper GI bleed due to suspected duodenal ulcer * Patient HD stable * Hemoglobin dropping to 9.7 but is stabilizing repeat CBC in the morning * Continue IV Protonix 40 mg IV BID * Consult to GI ( Dr. Benson) pending Acute blood loss anemia * Secondary to problem above * Continue to monitor hemoglobin Peptic ulcer disease * EGD showing 2-3 cm deep duodenal ulcer with adherent clot and severe ulcerative esophagitis * Continue PPI therapy Acute hepatitis * Suspected secondary acetaminophen toxicity versus cholangitis general surgery not planning cholecystectomy at this time * Hepatitis Viral panel negative * Continue empiric IV antibiotic regimen with Zosyn * Appreciate GI recommendations Essential hypertension * Currently not at goal restart his oral anti-hypertensive regimen Hypokalemia * Replace and recheck per protocol Concern for acetaminophen toxicity GERD Hyperlipidemia Continue current management patient's diet advanced to clear liquids will res tart his oral anti-hypertensive regimen
[2019-03-10] MEDS: DOXAZOSIN 4 MG TAB PO SCH (12:19)
--- NOTE | 2019-03-10 13:17 | CDI ---
Documentation Clarification Form Date: 03/10/2019 1:04:53 PM From: Ruth BetancourtHurtadoOBED, CCDS Admit Date: 03/08/2019 11:46:00 PM Patient Name: Fadi Travis Visit Number: [id number] Discharge Date: ATTENTION: The Clinical Documentation Specialists (CDI) and [facility] Coding Staff appreciate your assistance in clarifying documentation. Please respond to the clarification below the line at the bottom and electronically sign. The CDI & [facility] Coding staff will review the response and follow-up if needed. Please note: Queries are made part of the Legal Health Record. If you have any questions, please contact the author of this message via ITS. Dr. Steven Valdivia: Per the pulmonary/critical care progress note on 03/10: "The patient underwent an EGD yesterday and the patient was found to have duodenal bulb ulcer without evidence of any gastric obstruction. The patient has not had any further episodes of upper GI bleed or coffee-ground emesis. Hemoglobin stable at 9.7. The patient was found to have erosive esophagitis and the patient is currently on proton pump inhibitors. At the same time, the patient is a component of Tylenol toxicity. LFTs remain abnormal and ALT and AST remains elevated and not completely normalized." History/Risk Factors: PUD: duodenal ulcer, Lower GI bleed, GERD, Hypertension, Hyperlipidemia, Diet controlled diabetic. History of duodenal ulcer repair, EGD & Colonoscopy. Clinical Indicators: Presented with abdominal pain, RUQ radiating to his neck & right shoulder. Taking large amounts of Tylenol for pain. Elevated liver enzymes, imaging suggestive of cholecystitis. General surgery & poison control contacted. Lab findings: WBC 14.5^, Lactic Acid 2.5^^, AST 858^, ALT 1317^, Total Protein 6.0*, Lipase 310^. Toxicology: Opiates, Marijuana, Acetaminophen 12.4 - <10. RAD: CT A/P: Possible gastric outlet obstruction w/possible duodentitis/duodenal ulcer. Chronic pancreatitis. Vital Signs: Stable Treatment: IV fluid bolus, IV Dilaudid x3, IV Zosyn, IV Portonix, IV Acetylcystein, IV fluid 100 Admit to telemetry initially, transferred to ICU after having bloody emesis. Please clarify if you are treating the patient for the following: Unable to determine (Last Revision: August 2017) MTDD
--- NOTE | 2019-03-10 13:34 | P.PN ---
<Katia Hopkins A - Last Filed: 03/10/19 13:33> Subjective Progress Note Date: 03/10/19 CHIEF COMPLAINT: Cholecystitis HISTORY OF PRESENT ILLNESS: Patient underwent EGD yesterday with Dr. Benson revealing 2-3cm deep duodenal bulb ulcer with adherent clot and severe ulcerative esophagitis. Patient has been tolerating clear liquid diet. Hemoglobin stable at 9.7. AST 723. ALT 1254. PHYSICAL EXAM: VITAL SIGNS: Reviewed GENERAL: Well-developed in no acute distress. HEENT: No sclera icterus. Extraocular movements grossly intact. Moist buccal mucosa. Head is atraumatic, normocephalic. Hears conversational speech. No nasal drainage. NECK: Supple without lymphadenopathy. CHEST: Non-labored respirations and equal bilateral excursions. CARDIOVASCULAR: Regular rate with regular rhythm. Palpable 2+ radial pulses. ABDOMEN: Soft. Nondistended. Nontender.. No peritoneal signs. MUSCULOSKELETAL: No clubbing, cyanosis or edema. NEUROLOGIC: No focal or lateralizing signs. Cranial nerves II through XII grossly intact. PSYCH: Appropriate affect. Alert and oriented to person, place and time. SKIN: Well perfused. Good skin turgor. ASSESSMENT: 1. Left lower quadrant abdominal pain with radiation to mid back, x 3 weeks 2. S/P EGD revealing 2-3cm deep duodenal bulb ulcer with adherent clot and severe ulcerative esophagitis 3. Distended stomach per CT scan 4. Coffee ground emesis x 1 5. Transaminitis PLAN: 1. Continue clear liquid diet 2. No plans for cholecystectomy at this time. Continue conservative management with antibiotics 3. Monitor LFTs. 4. GI on consult. Appreciate recommendations 5. Monitor hemoglobin 6. Continue protonix 40mg BID IV Nurse practitioner note has been reviewed by physician. Signing provider agrees with the documented findings, assessment, and plan of care. Objective - Vital Signs Vital signs: Vital Signs Temp 98.9 F 03/10/19 12:00 Pulse 59 L 03/10/19 12:00 Resp 19 03/10/19 12:00 BP 166/91 03/10/19 12:00 Pulse Ox 97 03/10/19 12:00 Intake & Output 03/09/19 03/10/19 03/10/19 18:59 06:59 18:59 Intake Total 2412.5 2425.0 912.5 Output Total 1185 1700 2100 Balance 1227.5 725.0 -1187.5 Weight 51.6 kg Intake: IV 2225.0 2425.0 912.5 Acetylcysteine IV 6,350 625.0 750.0 312.5 mg In Dextrose 5% in Water 1,000 ml @ 62.5 mls /hr IV ONCE ONE Rx#: [id number] Piperacillin-Tazobactam 3 100 75 .375 gm In Sodium Chloride 0.9% 100 ml @ 25 mls/hr IVPB Q8H [facility] Rx#: [id number] Potassium Chloride 10 meq 300 600 100 In Water For Injection 1 100ml.bag @ 100 mls/hr IVPB Q1HR [facility] Rx#: [id number] Potassium Chloride 10 meq 300 In Water For Injection 1 100ml.bag @ 100 mls/hr IVPB Q1HR [facility] Rx#: [id number] Sodium Chloride 0.9% 1, 1000 1000 200 000 ml @ 100 mls/hr IV . Q10H [facility] Rx#:[id number] Intake, IV Titration 187.5 Amount Acetylcysteine IV 6,350 62.5 mg In Dextrose 5% in Water 1,000 ml @ 62.5 mls /hr IV ONCE ONE Rx#: [id number] Piperacillin-Tazobactam 3 25 .375 gm In Sodium Chloride 0.9% 100 ml @ 25 mls/hr IVPB Q8H [facility] Rx#: [id number] Sodium Chloride 0.9% 1, 100 000 ml @ 100 mls/hr IV . Q10H [facility] Rx#:[id number] Output: Urine 1185 1700 2100 Other: Voiding Method Urinal Urinal Urinal # Voids 1 - Labs CBC & Chem 7: 03/10/19 03:42 03/10/19 03:42 Labs: Abnormal Lab Results - Last 24 Hours (Table) 03/09/19 03/09/19 03/09/19 Range/Units 20:03 20:03 20:03 RBC 3.03 L (4.30-5.90) m/uL Hgb 9.3 L (13.0-17.5) gm/dL Hct 29.2 L (39.0-53.0) % PT 12.4 H (9.0-12.0) sec INR 1.2 H (<1.2) Potassium 3.1 L (3.5-5.1) mmol/L Chloride (98-107) mmol/L Creatinine (0.66-1.25) mg/dL Calcium (8.4-10.2) mg/dL AST 738 H (17-59) U/L ALT 1218 H (21-72) U/L Total Protein (6.3-8.2) g/dL Albumin (3.5-5.0) g/dL 03/09/19 03/10/19 03/10/19 Range/Units 23:41 03:42 03:42 RBC 2.99 L (4.30-5.90) m/uL Hgb 9.1 L (13.0-17.5) gm/dL Hct 28.4 L (39.0-53.0) % PT (9.0-12.0) sec INR (<1.2) Potassium 3.4 L 3.4 L (3.5-5.1) mmol/L Chloride 109 H (98-107) mmol/L Creatinine 0.56 L (0.66-1.25) mg/dL Calcium 7.8 L (8.4-10.2) mg/dL AST 723 H (17-59) U/L ALT 1254 H (21-72) U/L Total Protein 5.2 L (6.3-8.2) g/dL Albumin 2.8 L (3.5-5.0) g/dL 03/10/19 Range/Units 03:42 RBC 3.04 L (4.30-5.90) m/uL Hgb 9.7 L (13.0-17.5) gm/dL Hct 29.0 L (39.0-53.0) % PT (9.0-12.0) sec INR (<1.2) Potassium (3.5-5.1) mmol/L Chloride (98-107) mmol/L Creatinine (0.66-1.25) mg/dL Calcium (8.4-10.2) mg/dL AST (17-59) U/L ALT (21-72) U/L Total Protein (6.3-8.2) g/dL Albumin (3.5-5.0) g/dL Microbiology - Last 24 Hours (Table) 03/08/19 22:47 Blood Culture - Preliminary Blood No Growth after 24 hours Assessment and Plan (1) Transaminitis Current Visit: Yes Status: Acute Code(s): R74.0 - NONSPEC ELEV OF LEVELS OF TRANSAMNS & LACTIC ACID DEHYDRGNSE SNOMED Code(s): 345448630 (2) Abdominal pain Current Visit: No Status: Acute Code(s): R10.9 - UNSPECIFIED ABDOMINAL PAIN SNOMED Code(s): 72135324 <Valeria Sandoval - Last Filed: 03/10/19 22:36> Subjective Patient re-evaluated this evening. He does report epigastric and now right upper quadrant and lower quadrant abdominal pain. LFTs are still elevated. He is tolerating liquid diet. He does have large duodenal ulcer. Recommend conservative management at this time for cholecystitis Objective - Vital Signs Vital signs: Vital Signs Temp 99.5 F 03/10/19 20:00 Pulse 77 03/10/19 22:00 Resp 15 03/10/19 22:00 BP 156/88 03/10/19 22:00 Pulse Ox 98 03/10/19 22:00 Intake & Output 03/10/19 03/10/19 03/11/19 06:59 18:59 06:59 Intake Total 2425.0 1675.0 385.98 Output Total 1700 3600 760 Balance 725.0 -1925.0 -374.02 Weight 51.6 kg 51.6 kg Intake: IV 2425.0 1675.0 385.98 Acetylcysteine IV 6,350 85.98 mg In Dextrose 5% in Water 1,000 ml @ 42.99 mls/hr IV ONCE ONE Rx#: [id number] Acetylcysteine IV 6,350 750.0 375.0 mg In Dextrose 5% in Water 1,000 ml @ 62.5 mls /hr IV ONCE ONE Rx#: [id number] Piperacillin-Tazobactam 3 75 .375 gm In Sodium Chloride 0.9% 100 ml @ 25 mls/hr IVPB Q8H [facility] Rx#: [id number] Potassium Chloride 10 meq 600 100 In Water For Injection 1 100ml.bag @ 100 mls/hr IVPB Q1HR [facility] Rx#: [id number] Potassium Chloride 10 meq 300 In Water For Injection 1 100ml.bag @ 100 mls/hr IVPB Q1HR [facility] Rx#: [id number] Sodium Chloride 0.9% 1, 1000 900 300 000 ml @ 100 mls/hr IV . Q10H [facility] Rx#:[id number] Output: Urine 1700 3600 760 Other: Voiding Method Urinal Urinal Urinal # Voids 1 - Labs CBC & Chem 7: 03/10/19 15:04 03/10/19 15:04 Labs: Abnormal Lab Results - Last 24 Hours (Table) 03/09/19 03/10/19 03/10/19 Range/Units 23:41 03:42 03:42 RBC 2.99 L (4.30-5.90) m/uL Hgb 9.1 L (13.0-17.5) gm/dL Hct 28.4 L (39.0-53.0) % Potassium 3.4 L 3.4 L (3.5-5.1) mmol/L Chloride 109 H (98-107) mmol/L Creatinine 0.56 L (0.66-1.25) mg/dL Calcium 7.8 L (8.4-10.2) mg/dL AST 723 H (17-59) U/L ALT 1254 H (21-72) U/L Total Protein 5.2 L (6.3-8.2) g/dL Albumin 2.8 L (3.5-5.0) g/dL 03/10/19 03/10/19 03/10/19 Range/Units 03:42 15:04 15:04 RBC 3.04 L 2.87 L (4.30-5.90) m/uL Hgb 9.7 L 9.2 L (13.0-17.5) gm/dL Hct 29.0 L 26.8 L (39.0-53.0) % Potassium 3.2 L (3.5-5.1) mmol/L Chloride (98-107) mmol/L Creatinine (0.66-1.25) mg/dL Calcium (8.4-10.2) mg/dL AST 522 H (17-59) U/L ALT 1102 H (21-72) U/L Total Protein (6.3-8.2) g/dL Albumin (3.5-5.0) g/dL Microbiology - Last 24 Hours (Table) 03/08/19 22:47 Blood Culture - Preliminary Blood No Growth after 24 hours
[2019-03-10 15:20] LABS: Basophils % (A) 0 %; Eosinophils # (A) 0.2 k/uL (0-0.7); Eosinophils % (A) 2 %; HCT 26.8 % (39.0-53.0); HGB 9.2 gm/dL (13.0-17.5); Lymphocytes # (A) 1.3 k/uL (1.0-4.8); Lymphocytes % (A) 19 %; MCH 32.2 pg (25.0-35.0); MCHC 34.4 g/dL (31.0-37.0); MCV 93.4 fL (80.0-100.0); Mean Platelet Volume 6.9; Monocytes # (A) 0.2 k/uL (0-1.0); Monocytes % (A) 3 %; Neutrophils # (A) 5.1 k/uL (1.3-7.7); Neutrophils % (A) 75 %; Platelet Count 179 k/uL (150-450); RBC 2.87 m/uL (4.30-5.90); RDW 13.9 % (11.5-15.5); WBC 6.8 k/uL (3.8-10.6)
[2019-03-10 15:28] LABS: Potassium 3.2 mmol/L (3.5-5.1)
[2019-03-10 15:31] LABS: INR 1.1 (<1.2); Prothrombin Time 11.5 sec (9.0-12.0)
--- NOTE | 2019-03-10 16:53 | PN ---
PROGRESS NOTE DATE OF SERVICE: March 10, 2019 Patient is a 73-year-old pleasant white male admitted to hospital with acute upper GI bleed. He underwent an upper endoscopy yesterday that showed a 2 cm deep duodenal bulbar ulcer with a large adherent clot that could not be removed. Since yesterday, he did not have any further episodes of bleeding. No nausea, vomiting. He had some dry heaves. He did not have any further black tarry stools. Hemoglobin remains stable at 9.2 g/dL. He denies any abdominal pain. PHYSICAL EXAMINATION: Blood pressure is 166/91, pulse rate 26, temperature 98.9. HEENT examination unremarkable. Conjunctivae pink. Sclerae anicteric. Oral cavity no lesions. NECK: No JVD or lymph node enlargement. Chest was clear to auscultation. HEART: Regular rate and rhythm. ABDOMEN: Soft. Bowel sounds are positive. Mild tenderness in the epigastric area. Extremities: No pedal edema. Skin no rashes. NEUROLOGIC: Alert and oriented x3. No focal deficits. LABS: WBC 6.8, hemoglobin 9.2, platelets are normal. INR is 1.1. AST is down to 522, ALT is down to 1102. Hepatitis serologies for A, B and C negative. IMPRESSION: 1. Acute upper gastrointestinal bleed, status post EGD yesterday that showed a 2 cm duodenal bulbar ulcer with large adherent clot. Hemoglobin stable at 9.2 g/dL. 2. Elevated LFTs and questionable history of acetaminophen overdose. Patient received 3 doses of IV . Serum transaminases are gradually improving. Hepatitis serologies for A, B and C are negative. 3. Elevated BUN, gradually improving. RECOMMENDATIONS: 1. Clear liquid diet. 2. IV Protonix 40 mg b.i.d. 3. CBC every 6 hours. 4. Continue to watch him closely in the intensive care unit. 5. If he rebleeds, we will consider repeat endoscopy intervention. 6. At this time we will follow with him closely. Thank you for this consultation. MMKEMALL / MILTONN: [id number] /
[2019-03-10] MEDS: POTASSIUM CHLORIDE ER 20 MEQ TAB.ER PO SCH ×2 (18:16→19:37)
[2019-03-10] MEDS ORDERED: ACETYLCYSTEINE IV ONE ×2 (19:00)
[2019-03-10] MEDS ORDERED: WATER IV ONE ×2 (19:00)
[2019-03-10] MEDS ORDERED: DEXTROSE 5% IV ONE ×2 (19:00)
[2019-03-11] MEDS ORDERED: ENALAPRILAT 1.25 MG/ML 1 ML VIAL ONE (02:20)
[2019-03-11] MEDS: PIPERACILLIN-TAZOBACTAM 3.375 GM in SODIUM CHLORIDE 0.9% 100 ML IVPB SCH ×4 (07:31→23:40)
[2019-03-11] MEDS: SODIUM CHLORIDE 0.9% 1,000 ML IV SCH ×2 (07:31→15:19)
[2019-03-11 07:48] LABS: Basophils % (A) 1 %; Eosinophils # (A) 0.3 k/uL (0-0.7); Eosinophils % (A) 4 %; HCT 25.9 % (39.0-53.0); HGB 8.3 gm/dL (13.0-17.5); Lymphocytes # (A) 1.7 k/uL (1.0-4.8); Lymphocytes % (A) 28 %; MCH 30.6 pg (25.0-35.0); MCV 95.8 fL (80.0-100.0); Mean Platelet Volume 8.4; Monocytes # (A) 0.2 k/uL (0-1.0); Monocytes % (A) 4 %; Neutrophils # (A) 3.7 k/uL (1.3-7.7); Neutrophils % (A) 62 %; Platelet Count 230 k/uL (150-450)
[2019-03-11 08:04] LABS: ALT 813 U/L (21-72); AST 309 U/L (17-59); African American GFR (CKD) >90 (>60 ml/min/1.73 sqM); Albumin 2.7 g/dL (3.5-5.0); Alkaline Phosphatase 56 U/L (38-126); Anion Gap 6 mmol/L; Blood Urea Nitrogen 9 mg/dL (9-20); Calcium 7.7 mg/dL (8.4-10.2); Carbon Dioxide 24 mmol/L (22-30); Chloride 107 mmol/L (98-107); Glucose 87 mg/dL (74-99); Potassium 3.4 mmol/L (3.5-5.1); Sodium 137 mmol/L (137-145); Total Bilirubin 1.1 mg/dL (0.2-1.3); Total Protein 5.1 g/dL (6.3-8.2)
[2019-03-11] MEDS: LOSARTAN 50 MG TAB PO SCH (08:15)
[2019-03-11] MEDS: DOXAZOSIN 4 MG TAB PO SCH (08:16)
[2019-03-11] MEDS: PANTOPRAZOLE 40 MG/10 ML VIAL IV SCH ×2 (08:16→20:16)
--- NOTE | 2019-03-11 08:56 | P.PN ---
Subjective Progress Note Date: 03/11/19 Intensive 2019 and seeing this patient for a follow-up. He remains on clear liquid diet. He has not shown any further signs of GI bleeding. No coffee- ground emesis. No melanotic stools. Hemoglobin today is 8.3 which is lower compared to yesterday and has dropped from 9.2. Noted the patient has erosive esophagitis as noted on the EGD and the patient is currently on Protonix 40 mg twice a day. At the same time the patient is being treated with IV Mucomyst and the patient is receiving 42.9 mL/h of Mucomyst. LFTs are improving and the follow-up levels from today shows improvement in the AST and ALT and the levels are down to 3094 AST and 813 for ALT. Ocular phosphatase at 56. Present e lectrodes show a potassium level of 3.4 and this is to be replaced. Otherwise, the patient does not have any abdominal pain. I am considering to discontinue the Zosyn today as there is no signs of any cholecystitis. The patient has a nonobstructing right renal calculus. Also known to have diverticulosis. He has previous history of alcoholism. Objective - Vital Signs Vital signs: Vital Signs Temp 99.2 F 03/11/19 08:00 Pulse 76 03/11/19 08:00 Resp 18 03/11/19 08:00 BP 124/73 03/11/19 08:00 Pulse Ox 98 03/11/19 08:00 Intake & Output 03/10/19 03/11/19 03/11/19 18:59 06:59 18:59 Intake Total 1675.0 1629.90 285.98 Output Total 3600 2560 500 Balance -1925.0 -930.10 -214.02 Weight 51.6 kg 57.5 kg Intake: IV 1675.0 1629.90 285.98 Acetylcysteine IV 6,350 429.90 85.98 mg In Dextrose 5% in Water 1,000 ml @ 42.99 mls/hr IV ONCE ONE Rx#: [id number] Acetylcysteine IV 6,350 375.0 mg In Dextrose 5% in Water 1,000 ml @ 62.5 mls /hr IV ONCE ONE Rx#: [id number] Piperacillin-Tazobactam 3 100 .375 gm In Sodium Chloride 0.9% 100 ml @ 25 mls/hr IVPB Q8H [facility] Rx#: [id number] Potassium Chloride 10 meq 100 In Water For Injection 1 100ml.bag @ 100 mls/hr IVPB Q1HR [facility] Rx#: [id number] Potassium Chloride 10 meq 300 In Water For Injection 1 100ml.bag @ 100 mls/hr IVPB Q1HR [facility] Rx#: [id number] Sodium Chloride 0.9% 1, 900 1100 200 000 ml @ 100 mls/hr IV . Q10H [facility] Rx#:[id number] Output: Urine 3600 2560 500 Other: Voiding Method Urinal Urinal # Voids 1 - Exam The patient appeared well nourished and normally developed. Vital signs as documented. Head exam is unremarkable. No scleral icterus or corneal arcus not ed. Neck is without jugular venous distension, thyromegaly, or carotid bruits. Carotid upstrokes are brisk bilaterally. Lungs are clear to auscultation and percussion. Cardiac exam reveals the PMI to be normally sized and situated. Rhythm is regular. First and second heart sounds normal. No murmurs, rubs or gallops. Abdominal exam reveals normal bowel sounds, no masses, no organomegaly and no aortic enlargement. There may be some mild tenderness in the upper quadrants bilaterally and some midepigastric area. No organomegaly. No ascites. Extremities are nonedematous and both femoral and pedal pulses are normal.Examination of the skin revealed no evidence of significant rashes, suspicious appearing nevi or other concerning lesions. Neurologically the patient is awake and alert and there is no focal neurological deficits - Labs CBC & Chem 7: 03/10/19 15:04 03/10/19 15:04 Labs: Abnormal Lab Results - Last 24 Hours (Table) 03/10/19 03/10/19 Range/Units 15:04 15:04 RBC 2.87 L (4.30-5.90) m/uL Hgb 9.2 L (13.0-17.5) gm/dL Hct 26.8 L (39.0-53.0) % Potassium 3.2 L (3.5-5.1) mmol/L AST 522 H (17-59) U/L ALT 1102 H (21-72) U/L Microbiology - Last 24 Hours (Table) 03/08/19 22:47 Blood Culture - Preliminary Blood No Growth after 48 hours Assessment and Plan Plan: 1 upper GI bleed secondary to a 3 cm duodenal ulcer, nonbleeding with formation of a clot based on EGD evaluation. No evidence of any gastric outlet obstruction. The patient remains nothing by mouth. Hemoglobin remains stable at 8.3. No ongoing GI bleed and the patient has not had any further episodes of coffee-ground emesis. The patient is on 100 mL an hour of normal saline and is producing 100 mL an hour and the patient is on IV Protonix and his taken full liquid diet., Currently on Protonix 40 mg twice a day 2 severe erosive esophagitis, currently on PPI 3 upper GI bleed with some limited drop in hemoglobin remains stable at 8.3 4 Abdominal pain involving the upper quadrants, no indication for any acute cholecystitis 5 acute Tylenol toxicity with abnormal LFTs. The patient is on IV Mucomyst for acute events alert injury and LFTs not completely normalized. Relation profile is within normal limits. LFTs from today are improving. He is on IV Mucomyst. 6 diverticulosis 7 nonobstructive right renal calculus 8 history of chronic pancreatitis with calcification 9 hypertension 10 hyperlipidemia Plan Stop it to soft. The IV Zosyn for His Human Hour. This Continued IV Zosyn. Monitor LFTs. Follow Poison Control's Recommendation regarding the IV Mucomyst. Set Him up on a Chair. We'll Continue to Follow.
[2019-03-11] MEDS ORDERED: ATORVASTATIN 20 MG TAB PO SCH (09:00)
[2019-03-11] MEDS: POTASSIUM CHLORIDE ER 20 MEQ TAB.ER PO SCH ×2 (09:28→10:34)
[2019-03-11] MEDS: ENALAPRILAT 1.25 MG/ML 1 ML VIAL IVP PRN (09:29)
[2019-03-11] MEDS: HYDROmorphone 0.5 MG/0.5 ML SYRINGE IVP PRN (10:34)
--- NOTE | 2019-03-11 12:44 | P.PN ---
<Katia Hopkins A - Last Filed: 03/11/19 12:39> Subjective Progress Note Date: 03/11/19 CHIEF COMPLAINT: Cholecystitis HISTORY OF PRESENT ILLNESS: Patient examined in the ICU with Dr. Sandoval. He is sitting up in the chair. He denies abdominal pain. Denies nausea or vomiting. He reports eating egg salad and tolerating well. AST 309. ALT 813. Hemoglobin 8.3 PHYSICAL EXAM: VITAL SIGNS: Reviewed GENERAL: Well-developed in no acute distress. HEENT: No sclera icterus. Extraocular movements grossly intact. Moist buccal mucosa. Head is atraumatic, normocephalic. Hears conversational speech. No nasal drainage. NECK: Supple without lymphadenopathy. CHEST: Non-labored respirations and equal bilateral excursions. CARDIOVASCULAR: Regular rate with regular rhythm. Palpable 2+ radial pulses. ABDOMEN: Soft. Nondistended. Nontender.. No peritoneal signs. MUSCULOSKELETAL: No clubbing, cyanosis or edema. NEUROLOGIC: No focal or lateralizing signs. Cranial nerves II through XII grossly intact. PSYCH: Appropriate affect. Alert and oriented to person, place and time. SKIN: Well perfused. Good skin turgor. ASSESSMENT: 1. Left lower quadrant abdominal pain with radiation to mid back, x 3 weeks 2. S/P EGD revealing 2-3cm deep duodenal bulb ulcer with adherent clot and severe ulcerative esophagitis 3. Distended stomach per CT scan 4. Coffee ground emesis x 1 5. Transaminitis 6. Cholecystitis PLAN: 1. Continue current diet 2. No plans for cholecystectomy at this time. Continue conservative management with antibiotics 3. Monitor LFTs. 4. GI on consult. Appreciate recommendations 5. Monitor hemoglobin 6. Continue protonix 40mg BID Nurse practitioner note has been reviewed by physician. Signing provider agrees with the documented findings, assessment, and plan of care. Objective - Vital Signs Vital signs: Vital Signs Temp 98.5 F 03/11/19 12:00 Pulse 80 03/11/19 12:00 Resp 14 03/11/19 12:00 BP 144/75 03/11/19 12:00 Pulse Ox 97 03/11/19 12:00 Intake & Output 03/10/19 03/11/19 03/11/19 18:59 06:59 18:59 Intake Total 1675.0 1629.90 1737.94 Output Total 3600 2560 1200 Balance -1925.0 -930.10 537.94 Weight 51.6 kg 57.5 kg Intake: IV 1675.0 1629.90 777.94 Acetylcysteine IV 6,350 429.90 257.94 mg In Dextrose 5% in Water 1,000 ml @ 42.99 mls/hr IV ONCE ONE Rx#: [id number] Acetylcysteine IV 6,350 375.0 mg In Dextrose 5% in Water 1,000 ml @ 62.5 mls /hr IV ONCE ONE Rx#: [id number] Piperacillin-Tazobactam 3 100 100 .375 gm In Sodium Chloride 0.9% 100 ml @ 25 mls/hr IVPB Q8H [facility] Rx#: [id number] Potassium Chloride 10 meq 100 In Water For Injection 1 100ml.bag @ 100 mls/hr IVPB Q1HR [facility] Rx#: [id number] Potassium Chloride 10 meq 300 In Water For Injection 1 100ml.bag @ 100 mls/hr IVPB Q1HR [facility] Rx#: [id number] Sodium Chloride 0.9% 1, 900 1100 420 000 ml @ 40 mls/hr IV . Q24H [facility] Rx#:[id number] Oral 960 Output: Urine 3600 2560 1200 Other: Voiding Method Urinal Urinal Urinal # Voids 1 - Labs CBC & Chem 7: 03/11/19 04:30 03/11/19 04:30 Labs: Abnormal Lab Results - Last 24 Hours (Table) 03/10/19 03/10/19 03/11/19 Range/Units 15:04 15:04 04:30 RBC 2.87 L (4.30-5.90) m/uL Hgb 9.2 L (13.0-17.5) gm/dL Hct 26.8 L (39.0-53.0) % Potassium 3.2 L 3.4 L (3.5-5.1) mmol/L Creatinine 0.48 L (0.66-1.25) mg/dL Calcium 7.7 L (8.4-10.2) mg/dL AST 522 H 309 H (17-59) U/L ALT 1102 H 813 H (21-72) U/L Total Protein 5.1 L (6.3-8.2) g/dL Albumin 2.7 L (3.5-5.0) g/dL 03/11/19 Range/Units 04:30 RBC 2.70 L (4.30-5.90) m/uL Hgb 8.3 L (13.0-17.5) gm/dL Hct 25.9 L (39.0-53.0) % Potassium (3.5-5.1) mmol/L Creatinine (0.66-1.25) mg/dL Calcium (8.4-10.2) mg/dL AST (17-59) U/L ALT (21-72) U/L Total Protein (6.3-8.2) g/dL Albumin (3.5-5.0) g/dL Microbiology - Last 24 Hours (Table) 03/08/19 22:47 Blood Culture - Preliminary Blood No Growth after 48 hours Assessment and Plan (1) Transaminitis Current Visit: Yes Status: Acute Code(s): R74.0 - NONSPEC ELEV OF LEVELS OF TRANSAMNS & LACTIC ACID DEHYDRGNSE SNOMED Code(s): 890014286 (2) Abdominal pain Current Visit: No Status: Acute Code(s): R10.9 - UNSPECIFIED ABDOMINAL PAIN SNOMED Code(s): 66322563 <Valeria Sandoval - Last Filed: 03/11/19 17:52> Subjective For conservative management of his cholecystitis, he was started on Zosyn. With start of zosyn after 2 doses, abdominal pain did improve. He tolerated soft including egg salad. No cholecystectomy at this time was reviewed with him as he has high risk for re-bleed following and during procedure. Also, will await for LFTs to improve. Objective - Vital Signs Vital signs: Vital Signs Temp 98.9 F 03/11/19 16:00 Pulse 61 03/11/19 17:00 Resp 16 03/11/19 17:00 BP 135/67 03/11/19 17:00 Pulse Ox 97 03/11/19 17:00 Intake & Output 03/10/19 03/11/19 03/11/19 18:59 06:59 18:59 Intake Total 1675.0 1629.90 2872.89 Output Total 3600 2560 1500 Balance -1925.0 -930.10 1372.89 Weight 51.6 kg 57.5 kg Intake: IV 1675.0 1629.90 1192.89 Acetylcysteine IV 6,350 429.90 472.89 mg In Dextrose 5% in Water 1,000 ml @ 42.99 mls/hr IV ONCE ONE Rx#: [id number] Acetylcysteine IV 6,350 375.0 mg In Dextrose 5% in Water 1,000 ml @ 62.5 mls /hr IV ONCE ONE Rx#: [id number] Piperacillin-Tazobactam 3 100 100 .375 gm In Sodium Chloride 0.9% 100 ml @ 25 mls/hr IVPB Q8H [facility] Rx#: [id number] Potassium Chloride 10 meq 100 In Water For Injection 1 100ml.bag @ 100 mls/hr IVPB Q1HR [facility] Rx#: [id number] Potassium Chloride 10 meq 300 In Water For Injection 1 100ml.bag @ 100 mls/hr IVPB Q1HR [facility] Rx#: [id number] Sodium Chloride 0.9% 1, 900 1100 620 000 ml @ 40 mls/hr IV . Q24H [facility] Rx#:[id number] Oral 1680 Output: Urine 3600 2560 1500 Other: Voiding Method Urinal Urinal Urinal # Voids 1 - Labs CBC & Chem 7: 03/11/19 04:30 03/11/19 04:30 Labs: Abnormal Lab Results - Last 24 Hours (Table) 03/11/19 03/11/19 03/11/19 Range/Units 04:30 04:30 04:30 RBC 2.70 L (4.30-5.90) m/uL Hgb 8.3 L (13.0-17.5) gm/dL Hct 25.9 L (39.0-53.0) % Potassium 3.4 L (3.5-5.1) mmol/L Creatinine 0.48 L (0.66-1.25) mg/dL Calcium 7.7 L (8.4-10.2) mg/dL AST 309 H 309 H (17-59) U/L ALT 813 H 846 H (21-72) U/L Total Protein 5.1 L (6.3-8.2) g/dL Albumin 2.7 L (3.5-5.0) g/dL Microbiology - Last 24 Hours (Table) 03/08/19 22:47 Blood Culture - Preliminary Blood No Growth after 48 hours
[2019-03-11 14:44] LABS: INR 1.1 (<1.2); Prothrombin Time 11.3 sec (9.0-12.0)
[2019-03-11 14:45] LABS: ALT 846 U/L (21-72); AST 309 U/L (17-59)
--- NOTE | 2019-03-11 16:59 | PN ---
PROGRESS NOTE DATE OF DICTATION: March 11, 2019 The patient is a 73 -year-old pleasant white male, admitted to the hospital with acute upper gastrointestinal bleed. He had an upper endoscopy done 3 days ago that showed 2 cm deep duodenal bulbar ulcer with a large adherent clot noted. The patient since then has been doing well. He had no further episodes of bleeding and in fact, no bowel movements for the last 2 days. Last hemoglobin was 8.3 g/dL. He still has some epigastric discomfort. Presently on a full liquid diet, tolerating well. PHYSICAL EXAMINATION: He appears comfortable. No apparent distress. VITAL SIGNS: Stable. Blood pressure is 153/83, pulse rate 70, and temperature 98. HEENT examination unremarkable. Conjunctivae pink. Sclerae anicteric. Oral cavity no lesions. NECK: No JVD or lymph node enlargement. CHEST: Clear to auscultation. HEART: Regular rate and rhythm. ABDOMEN: Soft. Bowel sounds are positive. No organomegaly. Mild tenderness in the epigastric area. EXTREMITIES: No pedal edema. Skin no rashes. NEUROLOGIC: Alert and oriented x3. No focal deficits. LABS: WBC 6.7, hemoglobin 8.3, platelets are normal. AST is 309, ALT is 846, T bilirubin 1.1 and alkaline phosphatase is 56. IMPRESSION: 1. Acute upper gastrointestinal bleed, status post EGD 2 days ago that showed a duodenal bulbar ulcer with an adherent clot. The patient since then hemoglobin has been hemodynamically stable. No further episodes of bleeding and hemoglobin remains stable at 8.3 g/dL. 2. Acute hepatitis like picture, questionable Tylenol toxicity. Patient is still receiving IV cystine. LFTs are gradually improving. Hepatitis serologies for A, B and C negative. 3. Mild coagulopathy, resolved. 4. History of heavy alcohol abuse. RECOMMENDATION: 1. Continue with Protonix 40 mg twice daily. 2. CBC every 12 hours. 3. Advance diet as tolerated. 4. Repeat LFTs on a daily basis. Thank you for this consultation. MMODL / IJN: [id number] /
--- NOTE | 2019-03-11 20:17 | P.PN ---
Progress Note - Text Progress Note Date: 03/11/19 Interval history: Admitted with epigastric pain and taking large amount of acetaminophen. Initi ally had elevated liver enzymes. Because of acute Tylenol toxicity suspected, patient started on IV Mucomyst. EGD done on March 09 revealed 2-3 cm the daughter bulb ulcer with adherent blood clot. Also found to have severe ulcerative esophagitis. Patient's hemoglobin was 12.9 on admission has now down to 8.3. Patient had been clear liquids. Patient hasn't been smoking cigarettes and marijuana at home Today-laying in bed. Did walk in the hallway. Does get tired. Epigastric pain better. Did tolerate liquid diet. Diet advanced. Review of systems: Was done for constitutional, cardiovascular, GI, pulmonary. relevant finding as above Active Medications Doxazosin Mesylate (Cardura) 4 mg PO DAILY [facility] Last Admin: 03/11/19 08:16 Dose: 4 mg Documented by: Enalaprilat (Vasotec) 1.25 mg IVP Q6HR PRN PRN Reason: SBP > 150 DBP > 90 Last Admin: 03/11/19 09:29 Dose: 1.25 mg Documented by: Hydromorphone HCl (Dilaudid) 1 mg IVP Q4HR PRN PRN Reason: Severe Pain Last Admin: 03/10/19 08:56 Dose: 1 mg Documented by: Hydromorphone HCl (Dilaudid) 0.5 mg IVP Q4HR PRN PRN Reason: Moderate Pain Last Admin: 03/11/19 10:34 Dose: 0.5 mg Documented by: Sodium Chloride (Saline 0.9%) 1,000 mls @ 40 mls/hr IV .Q24H [facility] Last Admin: 03/11/19 15:19 Dose: 40 mls/hr Documented by: Piperacillin Sod/Tazobactam (Sod 3.375 gm/ Sodium Chloride) 100 mls @ 25 mls/hr IVPB Q8HR [facility] Last Admin: 03/11/19 15:20 Dose: 25 mls/hr Documented by: Losartan Potassium (Cozaar) 100 mg PO DAILY [facility] Last Admin: 03/11/19 08:15 Dose: 100 mg Documented by: Miscellaneous Information (Potassium Per Protocol) 1 each MISCELLANE DAILY PRN; Protocol PRN Reason: Per Protocol Naloxone HCl (Narcan) 0.2 mg IV Q2M PRN PRN Reason: Opioid Reversal Ondansetron HCl (Zofran) 4 mg IVP Q8HR PRN PRN Reason: Nausea And Vomiting Last Admin: 03/09/19 02:51 Dose: 4 mg Documented by: Pantoprazole Sodium (Protonix) 40 mg IV BID [facility] Last Admin: 03/11/19 08:16 Dose: 40 mg Documented by: Physical examination: VITAL SIGNS: 98.9, 67, 14, 131/99, 98% room air GENERAL: Propped up in bed, tired. EYES: Pupils equal. Conjunctiva palel. HEENT: External appearance of nose and ears normal, oral cavity grossly normal. NECK: JVD not raised; masses not palpable. HEART: First and second heart sounds are normal; no edema. LUNGS: Respiratory rate increased, decreased breaths mild expiratory wheezing. ABDOMEN: Soft, epigastric tenderness, no guarding or rigidity, liver spleen not palpable, no masses palpable. PSYCH: Alert and oriented x3; mood and affect normal. INVESTIGATIONS, reviewed in the clinical context: White count 6 improvement 8.3 percussion 3.4 creatinine 0.48 AST 309 ALT 846 Albumin 2.7 Assessment: -Acute peptic ulcer disease with duodenal ulcer with stigmata of recent bleed -Severe ulcerative esophagitis -Acute hepatitis from acetaminophen toxicity -COPD in a current smoker -Chronic nicotine dependence patient cigarette smoker -Mild protein calorie malnutrition from decreased oral intake -Essential hypertension -Hyperlipidemia Plan: Current medications are to continue. Patient is on IV Protonix. Switched to by mouth. Patient is completing a course of Mucomyst. Patient stable to go to the ICU. Care was discussed at length with the patient and family the bedside. Smoke cessation counseling: This was done with the patient. Decreased pressure be given. More than 3 minutes was spent with this.
[2019-03-12 05:20] LABS: Basophils % (A) 0 %; Eosinophils # (A) 0.2 k/uL (0-0.7); Eosinophils % (A) 5 %; HCT 25.1 % (39.0-53.0); Lymphocytes # (A) 1.5 k/uL (1.0-4.8); Lymphocytes % (A) 35 %; MCH 30.4 pg (25.0-35.0); MCHC 31.9 g/dL (31.0-37.0); MCV 95.4 fL (80.0-100.0); Mean Platelet Volume 7.9; Monocytes # (A) 0.2 k/uL (0-1.0); Monocytes % (A) 4 %; Neutrophils # (A) 2.3 k/uL (1.3-7.7); Neutrophils % (A) 53 %; Platelet Count 199 k/uL (150-450); RBC 2.63 m/uL (4.30-5.90); RDW 14.8 % (11.5-15.5); WBC 4.3 k/uL (3.8-10.6)
[2019-03-12 05:33] LABS: ALT 587 U/L (21-72); AST 148 U/L (17-59); African American GFR (CKD) >90 (>60 ml/min/1.73 sqM); Albumin 2.7 g/dL (3.5-5.0); Alkaline Phosphatase 47 U/L (38-126); Anion Gap 4 mmol/L; Blood Urea Nitrogen 8 mg/dL (9-20); Calcium 8.1 mg/dL (8.4-10.2); Carbon Dioxide 25 mmol/L (22-30); Chloride 108 mmol/L (98-107); Glucose 99 mg/dL (74-99); Potassium 3.2 mmol/L (3.5-5.1); Sodium 137 mmol/L (137-145); Total Bilirubin 0.8 mg/dL (0.2-1.3)
[2019-03-12] MEDS: PIPERACILLIN-TAZOBACTAM 3.375 GM in SODIUM CHLORIDE 0.9% 100 ML IVPB SCH ×2 (08:37→17:49)
[2019-03-12] MEDS: DOXAZOSIN 4 MG TAB PO SCH (08:37)
[2019-03-12] MEDS: LOSARTAN 50 MG TAB PO SCH (08:37)
[2019-03-12] MEDS: POTASSIUM CHLORIDE ER 20 MEQ TAB.ER PO SCH ×2 (08:37→10:17)
[2019-03-12] MEDS: PANTOPRAZOLE 40 MG/10 ML VIAL IV SCH (08:37)
--- NOTE | 2019-03-12 14:00 | P.PN ---
Subjective Progress Note Date: 03/12/19 CHIEF COMPLAINT: Cholecystitis HISTORY OF PRESENT ILLNESS: Patient examined in the ICU. He is sitting up in the chair. He denies abdominal pain. Denies nausea or vomiting. Tolerating diet. AST 148. ALT 587. PHYSICAL EXAM: VITAL SIGNS: Reviewed GENERAL: Well-developed in no acute distress. HEENT: No sclera icterus. Extraocular movements grossly intact. Moist buccal mucosa. Head is atraumatic, normocephalic. Hears conversational speech. No nasal drainage. NECK: Supple without lymphadenopathy. CHEST: Non-labored respirations and equal bilateral excursions. CARDIOVASCULAR: Regular rate with regular rhythm. Palpable 2+ radial pulses. ABDOMEN: Soft. Nondistended. Nontender.. No peritoneal signs. MUSCULOSKELETAL: No clubbing, cyanosis or edema. NEUROLOGIC: No focal or lateralizing signs. Cranial nerves II through XII mahogany sly intact. PSYCH: Appropriate affect. Alert and oriented to person, place and time. SKIN: Well perfused. Good skin turgor. ASSESSMENT: 1. Left lower quadrant abdominal pain with radiation to mid back, x 3 weeks 2. S/P EGD revealing 2-3cm deep duodenal bulb ulcer with adherent clot and severe ulcerative esophagitis 3. Distended stomach per CT scan 4. Coffee ground emesis x 1 5. Transaminitis 6. Cholecystitis PLAN: 1. Continue current diet 2. No plans for cholecystectomy at this time. Continue conservative management with antibiotics 3. Monitor LFTs 4. Patient to follow up with Dr. Sandoval outpatient after discharge Nurse practitioner note has been reviewed by physician. Signing provider agrees with the documented findings, assessment, and plan of care. Objective - Vital Signs Vital signs: Vital Signs Temp 98.8 F 03/12/19 08:00 Pulse 91 03/12/19 08:00 Resp 16 03/12/19 08:00 BP 140/70 03/12/19 08:00 Pulse Ox 94 L 03/12/19 08:00 Intake & Output 03/11/19 03/12/19 03/12/19 18:59 06:59 18:59 Intake Total 3435.88 622.99 1020 Output Total 1725 1200 950 Balance 1710.88 -577.01 70 Weight 58.2 kg Intake: IV 1275.88 382.99 540 Acetylcysteine IV 6,350 515.88 42.99 mg In Dextrose 5% in Water 1,000 ml @ 42.99 mls/hr IV ONCE ONE Rx#: [id number] Piperacillin-Tazobactam 3 100 100 .375 gm In Sodium Chloride 0.9% 100 ml @ 25 mls/hr IVPB Q8H [facility] Rx#: [id number] Piperacillin-Tazobactam 3 100 .375 gm In Sodium Chloride 0.9% 100 ml @ 25 mls/hr IVPB Q8HR [facility] Rx# :[id number] Sodium Chloride 0.9% 1, 660 240 440 000 ml @ 40 mls/hr IV . Q24H [facility] Rx#:[id number] Oral 2160 240 480 Output: Urine 1725 1200 950 Other: Voiding Method Urinal Urinal Urinal # Voids 3 - Labs CBC & Chem 7: 03/12/19 04:54 03/12/19 04:54 Labs: Abnormal Lab Results - Last 24 Hours (Table) 03/11/19 03/12/19 03/12/19 Range/Units 04:30 04:54 04:54 RBC 2.63 L (4.30-5.90) m/uL Hgb 8.0 L (13.0-17.5) gm/dL Hct 25.1 L (39.0-53.0) % Potassium 3.2 L (3.5-5.1) mmol/L Chloride 108 H (98-107) mmol/L BUN 8 L (9-20) mg/dL Creatinine 0.57 L (0.66-1.25) mg/dL Calcium 8.1 L (8.4-10.2) mg/dL AST 309 H 148 H (17-59) U/L ALT 846 H 587 H (21-72) U/L Total Protein 5.0 L (6.3-8.2) g/dL Albumin 2.7 L (3.5-5.0) g/dL Microbiology - Last 24 Hours (Table) 03/08/19 22:47 Blood Culture - Preliminary Blood No Growth after 72 hours Assessment and Plan (1) Transaminitis Current Visit: Yes Status: Acute Code(s): R74.0 - NONSPEC ELEV OF LEVELS OF TRANSAMNS & LACTIC ACID DEHYDRGNSE SNOMED Code(s): 900396584 (2) Abdominal pain Current Visit: No Status: Acute Code(s): R10.9 - UNSPECIFIED ABDOMINAL PAIN SNOMED Code(s): 71948998
--- NOTE | 2019-03-12 15:29 | P.PN ---
Subjective Progress Note Date: 03/12/19 On 03/12/2019, the patient is resting comfortably in bed and has no specific complaints. He is able to sit up on a chair. He denies having any abdominal pain. No nausea. No vomiting. Fortunately the liver function tests are improving and the patient is currently off the Mucomyst drip. There is a concern for an acute cholecystitis and the patient is still on IV Zosyn. No significant right upper quadrant pain tenderness. The patient also underwent an EGD revealing a 3 cm deep duodenal bulb ulcer with adherent clot and the patient has not demonstrated any further bleeding. The patient also has severe ulcerative esophagitis. The patient has no specific complaints. He is advancing his diet slowly. The hemoglobin stable at 8.0. Renal function is stable. There has been no other significant events overnight. Note that his alkaline phosphatase is nonelevated and the bilirubin level is also at 0.8. He has previous history of alcoholism. Objective - Vital Signs Vital signs: Vital Signs Temp 98.8 F 03/12/19 08:00 Pulse 91 03/12/19 08:00 Resp 16 03/12/19 08:00 BP 140/70 03/12/19 08:00 Pulse Ox 94 L 03/12/19 08:00 Intake & Output 03/11/19 03/12/19 03/12/19 18:59 06:59 18:59 Intake Total 3435.88 622.99 1020 Output Total 1725 1200 950 Balance 1710.88 -577.01 70 Weight 58.2 kg Intake: IV 1275.88 382.99 540 Acetylcysteine IV 6,350 515.88 42.99 mg In Dextrose 5% in Water 1,000 ml @ 42.99 mls/hr IV ONCE ONE Rx#: [id number] Piperacillin-Tazobactam 3 100 100 .375 gm In Sodium Chloride 0.9% 100 ml @ 25 mls/hr IVPB Q8H [facility] Rx#: [id number] Piperacillin-Tazobactam 3 100 .375 gm In Sodium Chloride 0.9% 100 ml @ 25 mls/hr IVPB Q8HR [facility] Rx# :[id number] Sodium Chloride 0.9% 1, 660 240 440 000 ml @ 40 mls/hr IV . Q24H [facility] Rx#:[id number] Oral 2160 240 480 Output: Urine 1725 1200 950 Other: Voiding Method Urinal Urinal Urinal # Voids 3 - Exam The patient appeared well nourished and normally developed. Vital signs as documented. Head exam is unremarkable. No scleral icterus or corneal arcus noted. Neck is without jugular venous distension, thyromegaly, or carotid bru its. Carotid upstrokes are brisk bilaterally. Lungs are clear to auscultation and percussion. Cardiac exam reveals the PMI to be normally sized and situated. Rhythm is regular. First and second heart sounds normal. No murmurs, rubs or gallops. Abdominal exam reveals normal bowel sounds, no masses, no organomegaly and no aortic enlargement. There may be some mild tenderness in the upper quadrants bilaterally and some midepigastric area. No organomegaly. No ascites. Extremities are nonedematous and both femoral and pedal pulses are normal.Examination of the skin revealed no evidence of significant rashes, suspicious appearing nevi or other concerning lesions. Neurologically the patient is awake and alert and there is no focal neurological deficits - Labs CBC & Chem 7: 03/12/19 04:54 03/12/19 04:54 Labs: Abnormal Lab Results - Last 24 Hours (Table) 03/12/19 03/12/19 Range/Units 04:54 04:54 RBC 2.63 L (4.30-5.90) m/uL Hgb 8.0 L (13.0-17.5) gm/dL Hct 25.1 L (39.0-53.0) % Potassium 3.2 L (3.5-5.1) mmol/L Chloride 108 H (98-107) mmol/L BUN 8 L (9-20) mg/dL Creatinine 0.57 L (0.66-1.25) mg/dL Calcium 8.1 L (8.4-10.2) mg/dL AST 148 H (17-59) U/L ALT 587 H (21-72) U/L Total Protein 5.0 L (6.3-8.2) g/dL Albumin 2.7 L (3.5-5.0) g/dL Microbiology - Last 24 Hours (Table) 03/08/19 22:47 Blood Culture - Preliminary Blood No Growth after 72 hours Assessment and Plan Plan: 1 upper GI bleed secondary to a 3 cm duodenal ulcer, nonbleeding with formation of a clot based on EGD evaluation. No evidence of any gastric outlet obstruction. The patient remains nothing by mouth. Hemoglobin remains stable at 8.0. No ongoing GI bleed and the patient has not had any further episodes of coffee-ground emesis. The patient remains on Protonix 40 mg by mouth twice a day and his diet is being gradually advanced. 2 severe erosive esophagitis, currently on PPI 3 upper GI bleed with some limited drop in hemoglobin remains stable at 8.0 4 Abdominal pain involving the upper quadrants, no indication for any acute cholecystitis, still on IV Zosyn 5 acute Tylenol toxicity with abnormal LFTs. The patient iwas treated withMucomyst for acute events alert injury and LFTs are improving and his coagulation profile is within normal limits. LFTs from today are improving. He iis currently off Mucomyst 6 diverticulosis 7 nonobstructive right renal calculus 8 history of chronic pancreatitis with calcification 9 hypertension 10 hyperlipidemia Plan Advance diet. Continue Protonix. Surgical follow-up regarding the questionable gallbladder abnormalities although clinically the patient does not have any supporting evidence for acute cholecystitis. He is currently on Zosyn. Continue PPI with Protonix 40 mg twice a day. Advance diet. Ambulate. May transfer out of the intensive care units.
--- NOTE | 2019-03-12 16:48 | P.PN ---
Progress Note - Text Progress Note Date: 03/12/19 Hospital course: Admitted with epigastric pain and taking large amount of acetaminophen. Todd noriega had elevated liver enzymes. Because of acute Tylenol toxicity suspected, patient started on IV Mucomyst. EGD done on March 09 revealed 2-3 cm the daughter bulb ulcer with adherent blood clot. Also found to have severe ulcerative esophagitis. Patient's hemoglobin was 12.9 on admission has now down to 8.3. Patient had been clear liquids. Patient hasn't been smoking cigarettes and marijuana at home. Also felt to have acute cholecystitis. Seen by Dr. Puente. On IV Zosyn. Not felt to be surgical candidate currently per Dr. Puente. Today-over 4 in the ICU. On a soft diet. Abdominal pain is better. No nausea vomiting. Review of systems: Was done for constitutional, cardiovascular, GI, pulmonary. relevant finding as above Active Medications Doxazosin Mesylate (Cardura) 4 mg PO DAILY [facility] Last Admin: 03/12/19 08:37 Dose: 4 mg Documented by: Enalaprilat (Vasotec) 1.25 mg IVP Q6HR PRN PRN Reason: SBP > 150 DBP > 90 Last Admin: 03/11/19 09:29 Dose: 1.25 mg Documented by: Piperacillin Sod/Tazobactam (Sod 3.375 gm/ Sodium Chloride) 100 mls @ 25 mls/hr IVPB Q8HR [facility] Last Admin: 03/12/19 08:37 Dose: 25 mls/hr Documented by: Losartan Potassium (Cozaar) 100 mg PO DAILY [facility] Last Admin: 03/12/19 08:37 Dose: 100 mg Documented by: Miscellaneous Information (Potassium Per Protocol) 1 each MISCELLANE DAILY PRN; Protocol PRN Reason: Per Protocol Naloxone HCl (Narcan) 0.2 mg IV Q2M PRN PRN Reason: Opioid Reversal Ondansetron HCl (Zofran) 4 mg IVP Q8HR PRN PRN Reason: Nausea And Vomiting Last Admin: 03/09/19 02:51 Dose: 4 mg Documented by: Pantoprazole Sodium (Protonix) 40 mg PO AC-BID [facility] Physical examination: VITAL SIGNS: 98.8, 91, 16, 140/70, 94% room air GENERAL: Propped up in bed, awake EYES: Pupils equal. Conjunctiva pale HEENT: External appearance of nose and ears normal, oral cavity grossly normal. NECK: JVD not raised; masses not palpable. HEART: First and second heart sounds are normal; no edema. LUNGS: Respiratory rate increased, decreased breaths mild expiratory wheezing. ABDOMEN: Soft, decreased epigastric tenderness, no guarding or rigidity, liver spleen not palpable, no masses palpable. PSYCH: Alert and oriented x3; mood and affect normal. INVESTIGATIONS, reviewed in the clinical context: White count 4.3 hemoglobin 8 percussion 3.2 creatinine 0.57 AST 148 ALT 587 albumin 2.7 Previous testing: AST 858 ALT [address] abdomen-distended gallbladder, pancreatic calcification, colonic diverticulosis Assessment: -Acute peptic ulcer disease with duodenal ulcer with stigmata of recent bleed -Severe ulcerative esophagitis -Acute hepatitis from acetaminophen toxicity, received IV Mucomyst -COPD in a current smoker -Chronic nicotine dependence patient cigarette smoker -Mild protein calorie malnutrition from decreased oral intake -Essential hypertension -Hyperlipidemia -Asymptomatic colonic diverticulosis -Chronic pancreatitis with pancreatic calcification -Acute cholecystitis being followed by Dr. Puente. Plan: Patient is being switched over to oral PPI. Remains on IV Zosyn per Dr. Puente. We'll see patient is switched over to by mouth Augmentin.. Hemodynamically stable. Encouraged patient to be out of bed. Hopefully can be discharged tomorrow. If okay with Dr. Puente. LFTs are coming down. Discussed with Dr. Александр Benson from GI. Discussed with the patient.
[2019-03-12] MEDS: PANTOPRAZOLE 40 MG TABLET PO SCH (17:49)
[2019-03-12] MEDS: CALCIUM CARBONATE LIQUID 500 MG/5 ML CUP PO SCH (17:49)
[2019-03-12] MEDS: NICOTINE 14MG/24HR PATCH TRANSDERM SCH (17:49)
--- NOTE | 2019-03-12 18:46 | PN ---
PROGRESS NOTE DATE OF DICTATION: 03/12/2019 The patient is a 73-year-old pleasant white male admitted to the hospital with acute upper GI bleed and elevated LFTs, possibly related to acute Tylenol toxicity. The patient is doing much better today. No further episodes of nausea, vomiting, or bleeding. He denies any symptoms. PHYSICAL EXAMINATION: He appears comfortable. No apparent distress. Vital signs stable. Blood pressure is 140/70, pulse rate 91, temperature 98.8. HEENT examination unremarkable. Conjunctivae pink. Sclerae anicteric. Oral cavity no lesions. NECK: No JVD or lymph node enlargement. CHEST: Clear to auscultation. HEART: Regular rate and rhythm. ABDOMEN: Soft. Bowel sounds are positive. No organomegaly. Mild tenderness in the epigastric area. EXTREMITIES: No pedal edema. Skin no rashes. NEUROLOGIC: Alert and oriented x3. No focal deficits. LABS: From today WBC 4.3, hemoglobin 8. Platelets normal. AST 148, ALT 587, T-bilirubin and alkaline phosphatase are normal. IMPRESSION: 1. Acute upper gastrointestinal bleed, status post EGD 4 days ago, was noted to have a 2 cm bulbar ulcer with a large clot that was adherent to it. No endoscopic intervention was performed. The patient remains stable with no further bleeding since admission to the hospital. Presently on IV Protonix 40 mg twice daily. 2. Elevated LFTs. Acute elevation of LFTs, possibly with an acute hepatocellular injury, possibly related to Tylenol toxicity. He is status post IV . LFTs are gradually improving. RECOMMENDATION: 1. Continue to monitor the patient closely with serial CBCs. 2. Monitor LFTs closely. 3. Continue with IV Protonix 40 mg q.12 hours. Thank you for this consultation. MMODL / IJN: [id number] /
[2019-03-13] MEDS: PIPERACILLIN-TAZOBACTAM 3.375 GM in SODIUM CHLORIDE 0.9% 100 ML IVPB SCH ×2 (01:13→08:21)
[2019-03-13 03:38] VITALS: RESP 16
[2019-03-13] MEDS: NICOTINE 14MG/24HR PATCH TRANSDERM SCH (08:21)
[2019-03-13] MEDS: DOXAZOSIN 4 MG TAB PO SCH (08:21)
[2019-03-13] MEDS: LOSARTAN 50 MG TAB PO SCH (08:21)
[2019-03-13] MEDS: PANTOPRAZOLE 40 MG TABLET PO SCH (08:21)
[2019-03-13] MEDS: CALCIUM CARBONATE LIQUID 500 MG/5 ML CUP PO SCH ×2 (08:21→14:04)
[2019-03-13 08:44] LABS: HCT 22.4 % (39.0-53.0); HGB 7.7 gm/dL (13.0-17.5); MCH 33.3 pg (25.0-35.0); MCHC 34.2 g/dL (31.0-37.0); MCV 97.2 fL (80.0-100.0); Mean Platelet Volume 8.1; Platelet Count 235 k/uL (150-450); RDW 15.5 % (11.5-15.5); WBC 6.5 k/uL (3.8-10.6)
[2019-03-13 09:08] LABS: ALT 424 U/L (21-72); AST 87 U/L (17-59); African American GFR (CKD) >90 (>60 ml/min/1.73 sqM); Albumin 2.9 g/dL (3.5-5.0); Alkaline Phosphatase 35 U/L (38-126); Anion Gap 8 mmol/L; Blood Urea Nitrogen 13 mg/dL (9-20); Calcium 8.3 mg/dL (8.4-10.2); Carbon Dioxide 23 mmol/L (22-30); Chloride 109 mmol/L (98-107); Glucose 135 mg/dL (74-99); Sodium 140 mmol/L (137-145); Total Bilirubin 0.7 mg/dL (0.2-1.3); Total Protein 5.3 g/dL (6.3-8.2)
[2019-03-13 09:19] LABS: Potassium 3.6 mmol/L (3.5-5.1)
--- NOTE | 2019-03-13 09:43 | P.PN ---
Subjective Progress Note Date: 03/13/19 No abdominal pain. He tolerated diet. Reports dark stools. Hgb continues to slowly decline. May need repeat scope prior to discharge. Objective - Vital Signs Vital signs: Vital Signs Temp 98.1 F 03/13/19 07:00 Pulse 67 03/13/19 07:00 Resp 16 03/13/19 07:00 BP 138/68 03/13/19 07:00 Pulse Ox 98 03/13/19 07:00 Intake & Output 03/12/19 03/13/19 03/13/19 18:59 06:59 18:59 Intake Total 1720 Output Total 950 1200 Balance 770 -1200 Intake: IV 760 Piperacillin-Tazobactam 3 200 .375 gm In Sodium Chloride 0.9% 100 ml @ 25 mls/hr IVPB Q8HR [facility] Rx# :[id number] Sodium Chloride 0.9% 1, 560 000 ml @ 40 mls/hr IV . Q24H [facility] Rx#:[id number] Oral 960 Output: Urine 950 1200 Other: Voiding Method Urinal Urinal # Voids 3 3 - Labs CBC & Chem 7: 03/13/19 08:14 03/13/19 08:14 Labs: Abnormal Lab Results - Last 24 Hours (Table) 03/13/19 03/13/19 Range/Units 08:14 08:14 RBC 2.30 L (4.30-5.90) m/uL Hgb 7.7 L (13.0-17.5) gm/dL Hct 22.4 L (39.0-53.0) % Chloride 109 H (98-107) mmol/L Creatinine 0.52 L (0.66-1.25) mg/dL Glucose 135 H (74-99) mg/dL Calcium 8.3 L (8.4-10.2) mg/dL AST 87 H (17-59) U/L ALT 424 H (21-72) U/L Alkaline Phosphatase 35 L (38-126) U/L Total Protein 5.3 L (6.3-8.2) g/dL Albumin 2.9 L (3.5-5.0) g/dL Microbiology - Last 24 Hours (Table) 03/08/19 22:47 Blood Culture - Preliminary Blood No Growth after 96 hours
[2019-03-13 12:05] VITALS: BMI 18.9
[2019-03-13 14:52] VITALS: BP 118/51; PULSE 70; TEMP 98.6
--- NOTE | 2019-03-13 16:13 | P.PN ---
Subjective Progress Note Date: 03/13/19 Principal diagnosis: Upper GI bleeding, duodenal bulb ulcer, severe ulcerative esophagitis, elevated liver enzymes On 03/13/2019 patient seen in follow-up on medical surgical floor. He is awake and alert, no acute distress, he is tolerating regular diet, his appetite is good, no nausea vomiting or diarrhea, today's hemoglobin is 7.7. White count is 6.5, sodium is 140, potassium is 3.6, chloride is 109, CO2 23, BUN of 13 and creatinine 0.52. Vital signs are stable, room air pulse ox is 99%, no fever, no chills, no complaints of abdominal pain. Patient did report of dark stool today, was formed Objective - Vital Signs Vital signs: Vital Signs Temp 98.6 F 03/13/19 14:52 Pulse 70 03/13/19 14:52 Resp 16 03/13/19 14:52 BP 118/51 03/13/19 14:52 Pulse Ox 99 03/13/19 14:52 Intake & Output 03/12/19 03/13/19 03/13/19 18:59 06:59 18:59 Intake Total 1720 Output Total 950 1200 400 Balance 770 -1200 -400 Weight 58.2 kg Intake: IV 760 Piperacillin-Tazobactam 3 200 .375 gm In Sodium Chloride 0.9% 100 ml @ 25 mls/hr IVPB Q8HR [facility] Rx# :[id number] Sodium Chloride 0.9% 1, 560 000 ml @ 40 mls/hr IV . Q24H [facility] Rx#:[id number] Oral 960 Output: Urine 950 1200 400 Other: Voiding Method Urinal Urinal Urinal # Voids 3 3 - Exam GENERAL EXAM: Alert, pleasant, 73-year-old male, on room air, with a pulse ox of 99% comfortable in no apparent distress. HEAD: Normocephalic/atraumatic. EYES: Normal reaction of pupils, equal size. Conjunctiva pink, sclera white. NOSE: Clear with pink turbinates. THROAT: No erythema or exudates. NECK: No masses, no JVD, no thyroid enlargement, no adenopathy. CHEST: No chest wall deformity. Symmetrical expansion. LUNGS: Equal air entry with no crackles, wheeze, rhonchi or dullness. CVS: Regular rate and rhythm, normal S1 and S2, no gallops, no murmurs, no rubs ABDOMEN: Soft, nontender. No hepatosplenomegaly, normal bowel sounds, no guarding or rigidity. EXTREMITIES: No clubbing, no edema, no cyanosis, 2+ pulses and upper and lower extremities. MUSCULOSKELETAL: Muscle strength and tone normal. SPINE: No scoliosis or deformity SKIN: No rashes CENTRAL NERVOUS SYSTEM: Alert and oriented -3. No focal deficits, tone is normal in all 4 extremities. PSYCHIATRIC: Alert and oriented -3. Appropriate affect. Intact judgment and insight. - Labs CBC & Chem 7: 03/13/19 08:14 03/13/19 08:14 Labs: Abnormal Lab Results - Last 24 Hours (Table) 03/13/19 03/13/19 Range/Units 08:14 08:14 RBC 2.30 L (4.30-5.90) m/uL Hgb 7.7 L (13.0-17.5) gm/dL Hct 22.4 L (39.0-53.0) % Chloride 109 H (98-107) mmol/L Creatinine 0.52 L (0.66-1.25) mg/dL Glucose 135 H (74-99) mg/dL Calcium 8.3 L (8.4-10.2) mg/dL AST 87 H (17-59) U/L ALT 424 H (21-72) U/L Alkaline Phosphatase 35 L (38-126) U/L Total Protein 5.3 L (6.3-8.2) g/dL Albumin 2.9 L (3.5-5.0) g/dL Microbiology - Last 24 Hours (Table) 03/08/19 22:47 Blood Culture - Preliminary Blood No Growth after 96 hours Assessment and Plan Plan: 1 upper GI bleed secondary to a 3 cm duodenal ulcer, nonbleeding with formation of a clot based on EGD evaluation. No evidence of any gastric outlet obstruction. The patient remains nothing by mouth. Hemoglobin remains stable at 8.0. No ongoing GI bleed and the patient has not had any further episodes of coffee-ground emesis. The patient remains on Protonix 40 mg by mouth twice a day and his diet is being gradually advanced. 2 severe erosive esophagitis, currently on PPI 3 upper GI bleed with some limited drop in hemoglobin remains stable at 8.0 4 Abdominal pain involving the upper quadrants, no indication for any acute cholecystitis, still on IV Zosyn 5 acute Tylenol toxicity with abnormal LFTs. The patient iwas treated withMucomyst for acute events alert injury and LFTs are improving and his coagulation profile is within normal limits. LFTs from today are improving. He iis currently off Mucomyst 6 diverticulosis 7 nonobstructive right renal calculus 8 history of chronic pancreatitis with calcification 9 hypertension 10 hyperlipidemia Plan: Patient is hemodynamically stable, tolerating regular diet, no complaints of chest pain, shortness of breath, no complaints of abdominal pain, liver enzymes are trending down. No nausea vomiting or diarrhea. No fever or chills. Increase activity as tolerated. No pulmonary issues, we will sign off and follow on as-needed basis. I performed a history & physical examination of the patient and discussed their management with my nurse practitioner, Lilly Meyer. I reviewed the nurse practitioner's note and agree with the documented findings and plan of care. Lung sounds are positive for diminished breath sounds. The findings and the impression was discussed with the patient. I attest to the documentation by the nurse practitioner. Time with Patient: Less than 30
--- NOTE | 2019-03-19 22:07 | P.DS ---
Providers Date of admission: 03/08/19 23:46 Expected date of discharge: 03/13/19 Attending physician: Lui Crespo Consults: 03/08/19 23:47 Consult Physician Stat Consulting Provider: Valeria Sandoval Consult Reason/Comments: cholecystitis Do you want consulting provider notified?: Yes, Notify in am 03/09/19 02:17 Consult Physician Stat Consulting Provider: Sergey Zaragoza Consult Reason/Comments: GI bleed Do you want consulting provider notified?: Already Contacted 03/09/19 03:19 Consult Physician Routine Consulting Provider: Kelsea Benson Consult Reason/Comments: GI bleed Do you want consulting provider notified?: Yes, Notify in am Primary care physician: Javier Montes Hospital Course: Hospital course: Admitted with epigastric pain and taking large amount of acetaminophen. Initially had elevated liver enzymes. Because of acute Tylenol toxicity suspected, patient started on IV Mucomyst. EGD done on March 09 revealed 2-3 cm duodenal bulb ulcer with adherent blood clot. Also found to have severe ulcerative esophagitis. Patient's hemoglobin was 12.9 on admission has now down to 8.3. Patient had been clear liquids. Patient been smoking cigarettes and marijuana at home. Also felt to have acute cholecystitis. Seen by Dr. Puente. On IV Zosyn. Not felt to be surgical candidate currently per Dr. Puente. Eventually doing better by the time of discharge. Tolerating a diet. Epigastric pain much improved. Antibiotics were switched to by mouth. BY GI Dr. Puente to discharge. Patient reminded again not to smoke. Discussion and discharge planning more than 35 minutes Consultation: Dr. Puente from general surgery Dr. Александр Benson from GI Physical examination: VITAL SIGNS: 98.1, 67, 16, 138/68, 98% room air GENERAL: Sitting up comfortable EYES: Pupils equal. Conjunctiva pale HEENT: External appearance of nose and ears normal, oral cavity grossly normal. NECK: JVD not raised; masses not palpable. HEART: First and second heart sounds are normal; no edema. LUNGS: Respiratory rate increased, decreased breaths mild expiratory wheezing. ABDOMEN: Soft, minimal epigastric tenderness, no guarding or rigidity, liver s pleen not palpable, no masses palpable. PSYCH: Alert and oriented x3; mood and affect normal. INVESTIGATIONS, reviewed in the clinical context: Hemoglobin 7.7 creatinine 0.5 to AST 87 ALT 424 Previous testing: AST 858 ALT [address] abdomen-distended gallbladder, pancreatic calcification, colonic diverticulosis Final diagnosis: -Acute peptic ulcer disease with duodenal ulcer with stigmata of recent bleed -Acute blood loss anemia from duodenal ulcer -Severe ulcerative esophagitis -Acute hepatitis from acute acetaminophen toxicity, received IV Mucomyst -COPD in a current smoker -Chronic nicotine dependence patient cigarette smoker -Mild protein calorie malnutrition from decreased oral intake -Essential hypertension -Hyperlipidemia -Asymptomatic colonic diverticulosis -Chronic pancreatitis with pancreatic calcification -Acute cholecystitis being followed by Dr. Puente. Disposition: Home Patient Condition at Discharge: Stable Plan - Discharge Summary Discharge Rx Participant: Yes New Discharge Prescriptions: New Amoxicillin/Potassium Clav [Augmentin 875-125 Tablet] 1 tab PO Q12HR #10 tab Nicotine 14Mg/24Hr Patch [Habitrol] 1 patch TRANSDERM DAILY #14 patch Pantoprazole [Protonix] 40 mg PO AC-BID #60 tablet. Continue Losartan Potassium 100 mg PO DAILY Doxazosin [Cardura] 4 mg PO DAILY Discontinued Atorvastatin [Lipitor] 20 mg PO DAILY Famotidine [Pepcid] 20 mg PO DAILY #20 tablet Discharge Medication List Doxazosin [Cardura] 4 mg PO DAILY 11/18/18 [History] Losartan Potassium 100 mg PO DAILY 11/18/18 [History] Amoxicillin/Potassium Clav [Augmentin 875-125 Tablet] 1 tab PO Q12HR #10 tab 03/13/19 [Rx] Nicotine 14Mg/24Hr Patch [Habitrol] 1 patch TRANSDERM DAILY #14 patch 03/13/19 [Rx] Pantoprazole [Protonix] 40 mg PO AC-BID #60 tablet. 03/13/19 [Rx] Follow up Appointment(s)/Referral(s): Valeria Sandoval MD [STAFF PHYSICIAN] - 04/07/19 1:40 pm [facility], [NON-STAFF] - 1-2 Days Javier Montes MD [Primary Care Provider] - 03/17/19 11:45 am Karmen Kolb NPC [Nurse Practitioner] - 04/08/19 9:45 am Ambulatory/Diagnostic Orders: Comprehensive Metabolic Panel [LAB.AMB] Time Frame: 1 Week, Location: None Selected Activity/Diet/Wound Care/Special Instructions: No acetaminophen No smoking Soft bland diet Discharge Disposition: HOME WITH HOME HEALTH SERVICES
== END 2019-03-13 17:00 | disposition home health service (06) | DRG 441 ==
LOC: EC 18:52 → 4SSUR 23:46 → 3SCARD 03-09 00:29 → 2SICU 03-09 01:58 → 4SSUR 03-12 21:18
PROVIDERS: ADMIT Hospitalist; ATTEND Hospitalist
PROC: 0DJ08ZZ Inspection of Upper Intestinal Tract, Via Natural or Artificial Opening Endoscopic (ICD-10-PCS; principal; 2019-03-09 08:05)
DX: K71.2 Toxic liver disease with acute hepatitis (principal); K22.11 Ulcer of esophagus with bleeding; K26.4 Chronic or unspecified duodenal ulcer with hemorrhage; D68.9 Coagulation defect, unspecified; E44.1 Mild protein-calorie malnutrition; E87.2 Acidosis; K81.0 Acute cholecystitis; K86.1 Other chronic pancreatitis; T39.1X5A Adverse effect of 4-Aminophenol derivatives, initial encounter; D64.9 Anemia, unspecified; E11.9 Type 2 diabetes mellitus without complications; E78.5 Hyperlipidemia, unspecified; E87.6 Hypokalemia; F17.210 Nicotine dependence, cigarettes, uncomplicated; F32.9 Major depressive disorder, single episode, unspecified; F41.9 Anxiety disorder, unspecified; I10 Essential (primary) hypertension; I48.91 Unspecified atrial fibrillation; J44.9 Chronic obstructive pulmonary disease, unspecified; K21.0 Gastro-esophageal reflux disease with esophagitis; Z87.11 Personal history of peptic ulcer disease; K57.30 Diverticulosis of large intestine without perforation or abscess without bleeding; N20.0 Calculus of kidney; Z74.01 Bed confinement status; Z79.899 Other long term (current) drug therapy; Z83.3 Family history of diabetes mellitus; G89.29 Other chronic pain; M54.9 Dorsalgia, unspecified; F10.21 Alcohol dependence, in remission
CPT/HCPCS: 36415; 43235; 71045; 71260; 74177; 76705; 80048; 80053; 80074; 80076; 80306; 80320; 80329; 81003; 82248; 83520; 83605; 83690; 84132; 84450; 84460; 84484; 85025; 85027; 85610; 85730; 87040; 93005; 96361; 96365; 96367; 96375; 96376; 99285

== ENCOUNTER 2020-07-22 15:56 | Inpatient (IN) | payer MEDICARE ==
[2020-07-22] MEDS ORDERED: SODIUM CHLORIDE 0.9% 1,000 ML IV STA ×2 (16:20)
[2020-07-22 16:38] LABS: Basophils % (A) 0 %; Eosinophils # (A) 0.2 k/uL (0-0.7); Eosinophils % (A) 2 %; HCT 43.6 % (39.0-53.0); HGB 14.3 gm/dL (13.0-17.5); Lymphocytes # (A) 1.5 k/uL (1.0-4.8); Lymphocytes % (A) 14 %; MCH 30.2 pg (25.0-35.0); MCHC 32.8 g/dL (31.0-37.0); Monocytes # (A) 0.4 k/uL (0-1.0); Monocytes % (A) 4 %; Neutrophils # (A) 8.5 k/uL (1.3-7.7); Neutrophils % (A) 79 %; Platelet Count 251 k/uL (150-450); RBC 4.74 m/uL (4.30-5.90); RDW 13.7 % (11.5-15.5); WBC 10.8 k/uL (3.8-10.6)
[2020-07-22 16:39] LABS: Appearance,Urine Clear (Clear); Bilirubin,Urine Negative (Negative); Blood,Urine Trace (Negative); Color,Urine Light Yellow; Glucose,Urine (UA) Negative (Negative); Ketones,Urine Negative (Negative); Leukocyte Esterase,Urine Negative (Negative); Nitrite,Urine Negative (Negative); Protein,Urine Negative (Negative); RBC,Urine 9 /hpf (0-5); Specific Gravity,Urine 1.018 (1.001-1.035); Urobilinogen,Urine <2.0 mg/dL (<2.0); WBC,Urine <1 /hpf (0-5)
[2020-07-22 16:47] LABS: Partial Thromboplastin Time 23.4 sec (22.0-30.0); Prothrombin Time 10.4 sec (9.0-12.0)
[2020-07-22 16:52] LABS: ALT 12 U/L (4-49); AST 17 U/L (17-59); African American GFR (CKD) >90 (>60 ml/min/1.73 sqM); Albumin 3.8 g/dL (3.5-5.0); Alkaline Phosphatase 50 U/L (38-126); Anion Gap 9 mmol/L; Blood Urea Nitrogen 24 mg/dL (9-20); Carbon Dioxide 23 mmol/L (22-30); Chloride 109 mmol/L (98-107); Glucose 112 mg/dL (74-99); Magnesium 2.3 mg/dL (1.6-2.3); Non-African American GFR(CKD) 89 (>60 ml/min/1.73 sqM); Phosphorus 3.3 mg/dL (2.5-4.5); Potassium 4.2 mmol/L (3.5-5.1); Sodium 141 mmol/L (137-145); Total Bilirubin 0.4 mg/dL (0.2-1.3); Total Protein 6.7 g/dL (6.3-8.2)
--- NOTE | 2020-07-22 17:45 | ED ---
Weakness HPI - General Chief complaint: Weakness Stated complaint: leg weakness Time Seen by Provider: 07/22/20 16:05 Source: patient, EMS Mode of arrival: EMS - History of Present Illness Initial comments: This 74-year-old male presents with a complaint of weakness which occurred over the last day. He states that it is generalized in nature. It is to the point where he cannot ambulate. It is not localized. He states that he had to crawl to get around the house today. He denies any recent fevers or chills. There is no chest pain or shortness of breath. He denies any recent infections. He does have some slight urinary frequency but no dysuria or hematuria. He is prone to urinary infections in the past. He lives at home with his daughter. No other complaints or modifying factors. No previous similar incidents. - Related Data Home Medications Medication Instructions Recorded Confirmed Doxazosin [Cardura] 4 mg PO DAILY 11/18/18 03/08/19 Losartan Potassium 100 mg PO DAILY 11/18/18 03/08/19 Previous Rx's Medication Instructions Recorded Amoxicillin/Potassium Clav 1 tab PO Q12HR #10 tab 03/13/19 [Augmentin 875-125 Tablet] Nicotine 14Mg/24Hr Patch [Habitrol] 1 patch TRANSDERM DAILY #14 patch 03/13/19 Pantoprazole [Protonix] 40 mg PO AC-BID #60 tablet. 03/13/19 Allergies Allergy/AdvReac Type Severity Reaction Status Date / Time No Known Allergies Allergy Verified 03/08/19 19:47 Review of Systems ROS Statement: Those systems with pertinent positive or pertinent negative responses have been documented in the HPI. ROS Other: All systems not noted in ROS Statement are negative. Past Medical History Past Medical History: GERD/Reflux, GI Bleed, Hyperlipidemia, Hypertension Additional Past Medical History / Comment(s): History of peptic ulcer disease/duodenal ulcer, previous history of GI bleed, hyperlipidemia, hypertension, diabetes mellitus not taking any form of oral hypoglycemic medication and the patient has chronic back pain. Diverticulosis. Pancreatic classifications chronic. Nonobstructive right renal calculus. History of Any Multi-Drug Resistant Organisms: None Reported Past Surgical History: No Surgical Hx Reported Additional Past Surgical History / Comment(s): Laparotomy for duodenal ulcer repair, EGD/colonoscopy, nasal fracture with surgery. Past Anesthesia/Blood Transfusion Reactions: No Reported Reaction Past Psychological History: Anxiety, Depression Past Alcohol Use History: None Reported Past Drug Use History: Marijuana - Past Family History Father History Unknown: Yes Mother Family Medical History: Diabetes Mellitus General Exam - General Exam Comments Initial Comments: Constitutional: Alert and oriented, no apparent distress Vitals: Reviewed, please see nursing notes HEENT: No gross trauma identified, trachea midline, no respiratory distress Neck: No tenderness, good range of motion Heart: Regular rate and rhythm without murmur Lungs: Clear to auscultation bilaterally, no wheezing rhonchi or rales Abdomen: Mild tenderness noted to the right flank/back. Back: No tenderness Neurologic: No gross sensory or motor deficits identified Integumentary: No rash or change in pigmentation Psychiatric: Alert and oriented, appropriate mood and affect Course Vital Signs 07/22/20 07/22/20 16:00 17:23 Temperature 98.1 F 98.0 F Pulse Rate 64 68 Respiratory 16 16 Rate Blood Pressure 140/73 138/78 O2 Sat by Pulse 97 95 Oximetry Procedures - [place] Protocol (Time Out) Nurse: Leola Soto Medical Decision Making - Medical Decision Making The patient was seen and examined. All diagnostics were reviewed. The EKG shows a normal sinus rhythm at a rate of 63. There is some nonspecific ST-T wav e changes noted in V1 through V4. The MT intervals 120, QRS duration is 88, and the QTC intervals 452. The urinalysis does not show any evidence of infection. The lactic acid is slightly elevated. The white blood cell count is only minimally elevated. The exact cause of the generalized weakness and inability to ambulate is not definitively determined. It is felt as though he would benefit from admission and further workup. Slight hydration is also given. Case is discussed with Dr. Barrett and she is agreeable with admission. - Lab Data Result diagrams: 07/22/20 16:32 07/22/20 16:32 Lab Results 07/22/20 07/22/20 07/22/20 Range/Units 16:32 16:32 16:32 WBC 10.8 H (3.8-10.6) k/uL RBC 4.74 (4.30-5.90) m/uL Hgb 14.3 (13.0-17.5) gm/dL Hct 43.6 (39.0-53.0) % MCV 92.0 (80.0-100.0) fL MCH 30.2 (25.0-35.0) pg MCHC 32.8 (31.0-37.0) g/dL RDW 13.7 (11.5-15.5) % Plt Count 251 (150-450) k/uL MPV 9.0 Neutrophils % 79 % Lymphocytes % 14 % Monocytes % 4 % Eosinophils % 2 % Basophils % 0 % Neutrophils # 8.5 H (1.3-7.7) k/uL Lymphocytes # 1.5 (1.0-4.8) k/uL Monocytes # 0.4 (0-1.0) k/uL Eosinophils # 0.2 (0-0.7) k/uL Basophils # 0.0 (0-0.2) k/uL PT 10.4 (9.0-12.0) sec INR 1.0 (<1.2) APTT 23.4 (22.0-30.0) sec Sodium (137-145) mmol/L Potassium (3.5-5.1) mmol/L Chloride (98-107) mmol/L Carbon Dioxide (22-30) mmol/L Anion Gap mmol/L BUN (9-20) mg/dL Creatinine (0.66-1.25) mg/dL Est GFR (CKD-EPI)AfAm (>60 ml/min/1.73 sqM) Est GFR (CKD-EPI)NonAf (>60 ml/min/1.73 sqM) Glucose (74-99) mg/dL Plasma Lactic Acid Geraldo (0.7-2.0) mmol/L Calcium (8.4-10.2) mg/dL Phosphorus (2.5-4.5) mg/dL Magnesium (1.6-2.3) mg/dL Total Bilirubin (0.2-1.3) mg/dL AST (17-59) U/L ALT (4-49) U/L Alkaline Phosphatase (38-126) U/L Troponin I (0.000-0.034) ng/mL Total Protein (6.3-8.2) g/dL Albumin (3.5-5.0) g/dL TSH (0.465-4.680) mIU/L Urine Color Light Yellow Urine Appearance Clear (Clear) Urine pH 6.0 (5.0-8.0) Ur Specific [place] 1.018 (1.001-1.035) Urine Protein Negative (Negative) Urine Glucose (UA) Negative (Negative) Urine Ketones Negative (Negative) Urine Blood Trace H (Negative) Urine Nitrite Negative (Negative) Urine Bilirubin Negative (Negative) Urine Urobilinogen <2.0 (<2.0) mg/dL Ur Leukocyte Esterase Negative (Negative) Urine RBC 9 H (0-5) /hpf Urine WBC <1 (0-5) /hpf 07/22/20 07/22/20 07/22/20 Range/Units 16:32 16:32 16:32 WBC (3.8-10.6) k/uL RBC (4.30-5.90) m/uL Hgb (13.0-17.5) gm/dL Hct (39.0-53.0) % MCV (80.0-100.0) fL MCH (25.0-35.0) pg MCHC (31.0-37.0) g/dL RDW (11.5-15.5) % Plt Count (150-450) k/uL MPV Neutrophils % % Lymphocytes % % Monocytes % % Eosinophils % % Basophils % % Neutrophils # (1.3-7.7) k/uL Lymphocytes # (1.0-4.8) k/uL Monocytes # (0-1.0) k/uL Eosinophils # (0-0.7) k/uL Basophils # (0-0.2) k/uL PT (9.0-12.0) sec INR (<1.2) APTT (22.0-30.0) sec Sodium 141 (137-145) mmol/L Potassium 4.2 (3.5-5.1) mmol/L Chloride 109 H (98-107) mmol/L Carbon Dioxide 23 (22-30) mmol/L Anion Gap 9 mmol/L BUN 24 H (9-20) mg/dL Creatinine 0.76 (0.66-1.25) mg/dL Est GFR (CKD-EPI)AfAm >90 (>60 ml/min/1.73 sqM) Est GFR (CKD-EPI)NonAf 89 (>60 ml/min/1.73 sqM) Glucose 112 H (74-99) mg/dL Plasma Lactic Acid Geraldo 2.9 H* (0.7-2.0) mmol/L Calcium 9.0 (8.4-10.2) mg/dL Phosphorus 3.3 (2.5-4.5) mg/dL Magnesium 2.3 (1.6-2.3) mg/dL Total Bilirubin 0.4 (0.2-1.3) mg/dL AST 17 (17-59) U/L ALT 12 (4-49) U/L Alkaline Phosphatase 50 (38-126) U/L Troponin I 0.028 (0.000-0.034) ng/mL Total Protein 6.7 (6.3-8.2) g/dL Albumin 3.8 (3.5-5.0) g/dL TSH 3.050 (0.465-4.680) mIU/L Urine Color Urine Appearance (Clear) Urine pH (5.0-8.0) Ur Specific [place] (1.001-1.035) Urine Protein (Negative) Urine Glucose (UA) (Negative) Urine Ketones (Negative) Urine Blood (Negative) Urine Nitrite (Negative) Urine Bilirubin (Negative) Urine Urobilinogen (<2.0) mg/dL Ur Leukocyte Esterase (Negative) Urine RBC (0-5) /hpf Urine WBC (0-5) /hpf Disposition Clinical Impression: Generalized weakness, Leukocytosis, Lactic acidosis, Inability to walk Disposition: ADMITTED IP TO THIS [facility] Condition: Fair Is patient prescribed a controlled substance at d/c from ED?: No Referrals: Javier Montes MD [Primary Care Provider] - 1-2 days Time of Disposition: 17:41 Decision Date: 07/22/20 Decision Time: 17:44
[2020-07-22] MEDS ORDERED: ACETAMINOPHEN TAB 325 MG TAB PO PRN (17:53)
[2020-07-22] MEDS ORDERED: ONDANSETRON 4 MG/2 ML VIAL IVP PRN (17:53)
[2020-07-22] MEDS ORDERED: NALOXONE 0.4 MG/ML 1 ML VIAL IV PRN (17:53)
[2020-07-22] MEDS: MEMANTINE 10 MG TAB PO SCH (22:21)
--- NOTE | 2020-07-22 22:39 | P.HPIM ---
History of Present Illness H&P Date: 07/22/20 The patient is 74-year-old male with a PMH of dementia, hypertension, hyperlipidemia, GERD, and history of GI bleeding who was brought in by EMS due to weakness. The history was obtained from the daughter (Ashlie Travis [phone]) since the patient was a poor historian. The patient lives with the above-stated daughter and she notes that he has had gradually worsening dementia over the past year. The patient had reportedly gotten lost twice last year and the family had to go to the neighboring [facility] to get him. The daughter notes that the patient now "sits on the couch and smokes weed all day long". She notes that he is able to walk around the house without much difficulty and that earlier today he was trying to leave the house to buy cigarettes in a fit of confusion when he fell in the garage and subsequently crawled into his bed. When she came home from work, she found him in bed yelling for help. The patient subsequently told her what happened, she tried to help him out of bed when he was unable to stand up. She subsequently activated EMS and the patient was brought into the emergency room. The patient notes that he is unsure why he is here and that he does not have any pain. He recalls falling earlier today while trying to get out his bicycle and notes that he was trying to go buy some cigarettes though the daughter states that he has not used his bicycle for several years now. The patient denied head trauma or pain after the fall. He did report feeling weak in his legs but denied weakness elsewhere. The daughter notes that he he walks with a slow gait in a hunched over posture. Patient further denied chest pain, shortness of breath, fever, chills, cough, nausea, vomiting, abdominal pain, urinary incontinence, headaches, or dizziness. EKG in the emergency room revealed normal sinus rhythm at 63 bpm with T-wave inversions in leads V3 and V4 (TWI not present on EKG from February 2019). Laboratory evaluation revealed lactic acid of 2.9, BUN 24, WBC count 10.8, and troponin 0.028 and subsequently 0.095. Review of Systems Pertinent positives and negatives as discussed in HPI, a complete review of systems was performed and all other systems are negative. Past Medical History Past Medical History: GERD/Reflux, GI Bleed, Hyperlipidemia, Hypertension Additional Past Medical History / Comment(s): History of peptic ulcer disease/duodenal ulcer, previous history of GI bleed, hyperlipidemia, hypertension, diabetes mellitus not taking any form of oral hypoglycemic medication and the patient has chronic back pain. Diverticulosis. Pancreatic classifications chronic. Nonobstructive right renal calculus. History of Any Multi-Drug Resistant Organisms: None Reported Past Surgical History: No Surgical Hx Reported Additional Past Surgical History / Comment(s): Laparotomy for duodenal ulcer repair, EGD/colonoscopy, nasal fracture with surgery. Past Anesthesia/Blood Transfusion Reactions: No Reported Reaction Past Psychological History: Anxiety, Depression Additional Psychological History / Comment(s): Pt resides with 2 adult grandsons. He uses no assistive device. He drives. Smoking Status: Current some day smoker Past Alcohol Use History: None Reported Past Drug Use History: Marijuana Additional Drug Use History / Comment(s): Pt states he smokes 3 joints a day. - Past Family History Father History Unknown: Yes Mother Family Medical History: Diabetes Mellitus Medications and Allergies Home Medications Medication Instructions Recorded Confirmed Type Memantine HCl 10 mg PO BID 07/22/20 07/22/20 History Rivastigmine 4.6MG/24Hr Patch 1 patch TOPICAL DAILY 07/22/20 07/22/20 History [Exelon 4.6MG/24Hr Patch] buPROPion SR [Wellbutrin SR] 100 mg PO DAILY 07/22/20 07/22/20 History Allergies Allergy/AdvReac Type Severity Reaction Status Date / Time No Known Allergies Allergy Verified 07/22/20 17:39 Physical Exam Vitals: Vital Signs Temp Pulse Pulse Resp BP BP Pulse Ox 07/22/20 20:25 98.6 F 62 18 144/72 96 07/22/20 18:39 98.0 F 68 16 138/78 98 07/22/20 17:23 98.0 F 68 16 138/78 95 07/22/20 16:00 98.1 F 64 16 140/73 97 Intake and Output 07/22/20 07/22/20 07/22/20 06:59 14:59 22:59 Other: Weight 72.575 kg General: non toxic, no distress, appears at stated age, normal weight Derm: no unusual rashes/lesions no unusual ecchymoses, warm, dry Head: atraumatic, normocephalic, symmetric Eyes: EOMI, no lid lag, anicteric sclera, pupils equal round reactive to light ENT: Nose and ears atraumatic, no thrush, no pharyngeal erythema Neck: No thyromegaly, no cervical lymphadenopathy, trachea midline, supple Mouth: no lip lesion, mucus membranes moist Cardiovascular: S1S2 reg, no murmur, positive posterior tibial pulse bilateral, no edema, capillary refill less than 2 seconds Lungs: CTA bilateral, no rhonchi, no rales , no accessory muscle use Abdominal: soft, nontender to palpation, no guarding, no appreciable organomegaly, normal bowel sounds Ext: no gross muscle atrophy, muscle strength 3 out of 5 in marisol LEs proximally, strength 5/5 distal marisol LEs and UEs proximally and distally, no contractures, no spinal or paraspinal tenderness noted bilaterally Neuro: CN II-XI grossly intact, light touch intact all 4 extremities, finger to nose within normal limits, Psych: Alert, oriented to person and place, not fully oriented to time Results CBC & Chem 7: 07/22/20 16:32 07/22/20 16:32 Labs: Abnormal Lab Results - Last 24 Hours (Table) 07/22/20 07/22/20 07/22/20 Range/Units 16:32 16:32 16:32 WBC 10.8 H (3.8-10.6) k/uL Neutrophils # 8.5 H (1.3-7.7) k/uL Chloride 109 H (98-107) mmol/L BUN 24 H (9-20) mg/dL Glucose 112 H (74-99) mg/dL Plasma Lactic Acid Geraldo (0.7-2.0) mmol/L Troponin I (0.000-0.034) ng/mL Urine Blood Trace H (Negative) Urine RBC 9 H (0-5) /hpf 07/22/20 07/22/20 Range/Units 16:32 19:43 WBC (3.8-10.6) k/uL Neutrophils # (1.3-7.7) k/uL Chloride (98-107) mmol/L BUN (9-20) mg/dL Glucose (74-99) mg/dL Plasma Lactic Acid Geraldo 2.9 H* (0.7-2.0) mmol/L Troponin I 0.095 H* (0.000-0.034) ng/mL Urine Blood (Negative) Urine RBC (0-5) /hpf Thrombosis Risk Factor Assmnt - Choose All That Apply Any of the Below Risk Factors Present?: Yes Each Factor Represents 1 point: Medical pt on bed rest Other Risk Factors: Yes Each Risk Factor Represents 2 Points: Patient confined to bed Each Risk Factor Represents 3 Points: Age 75 years or older Other congenital or acquired thrombophilia - If yes, enter type in comment: No Thrombosis Risk Factor Assessment Total Risk Factor Score: 6 Thrombosis Risk Factor Assessment Level: High Risk Assessment and Plan Plan: Proximal bilateral lower extremity weakness, possibly secondary to worsening dementia vs spinal stenosis vs NPH -Physical therapy consult -Consult neurology due to the extent of weakness -Fall precautions -Obtain CT thoracic and lumbar spine -Obtain CT head due to fall earlier today and patient being a poor historian -Neurochecks Troponin elevation, unclear etiology - denying chest pain or shortness of breath -Trend for now -Cardiac monitoring Lactic acidosis, resolved Prerenal azotemia -Continue with IV fluids -Monitor BMP DVT prophylaxis -Lovenox The patient is admitted with an anticipated greater than 2 midnight stay for evaluation of marisol LE weakness CODE STATUS: Full Code Discussed with: Patient Anticipated discharge date: 2-[address]: Home A total of 40 minutes was spent on the care of this complex patient more than 50% of the time was spent in counseling and care coordination.
--- NOTE | 2020-07-22 23:13 | CT ---
EXAMINATION TYPE: CT brain wo con DATE OF EXAM: 07/22/2020 COMPARISON: 12/11/2018 HISTORY: Fall. Pain. CT DLP: mGycm Automated exposure control for dose reduction was used. There is cerebral cortical atrophy. There is patchy hypodensity in the periventricular white matter. There is no mass effect nor midline shift. There is no sign of intracranial hemorrhage. The calvarium is intact. There is no evidence of a mass. There is very little pneumatization of the mastoid sinuse s. There is debris in the left external auditory canal. IMPRESSION: Cerebral atrophy and chronic small vessel ischemia with progression of white matter disease compared to old exam. No acute intracranial abnormality.
--- NOTE | 2020-07-22 23:15 | XR ---
EXAMINATION TYPE: XR chest 1V DATE OF EXAM: 07/22/2020 COMPARISON: 03/09/2019 HISTORY: Fall. Chest pain TECHNIQUE: FINDINGS: There is no heart failure nor confluent pneumonic infiltrate. There are chest leads. Costop hrenic angles are clear. Bony thorax is intact. IMPRESSION: No active cardiopulmonary disease. Normal heart.
--- NOTE | 2020-07-23 00:33 | CT ---
EXAM: CT Cervical Spine Without Intravenous Contrast CLINICAL HISTORY: ITS.REASON CT Reason: Fall, marisol LE weakness proximally TECHNIQUE: Axial computed tomography images of the cervical spine without intravenous contrast. CTDI is 16.50 mGy and DLP is 516.60 mGy-cm. This CT exam was performed using one or more of the following dose reduction techniques: automated exposure control, adjustment of the mA and/or kV according to patient size, and/or use of iterative reconstruction technique. COMPARISON: 03/08/2019. FINDINGS: Vertebrae: Osteoporosis/osteopenia. Gentle dextro scoliosis of the thoracic spine. No acute fracture. Discs/spinal canal/neural foramina: Moderate degenerative disc disease of the thoracic spine. Transaxial images of the thoracic spine reveals multilevel disc osteophyte complexes. No spinal canal stenosis. Other bones/joints: Visualized aspect of the ribs are unremarkable. Soft tissues: See below. Lung apices: Subsegmental ectasis posteriorly at the mid lower lung zones bilaterally. Paraspinal and regional soft tissues are unremarkable. Other findings: Spinous processes are unremarkable. IMPRESSION: 1. Osteoporosis/osteopenia. 2. No acute injury to the thoracic spine is detected. EXAM: CT Lumbar Spine Without Intravenous Contrast CLINICAL HISTORY: ITS.REASON CT Reason: Fall, marisol LE weakness proximally TECHNIQUE: Axial computed tomography images of the lumbar spine without intravenous contrast. CTDI is 13.70 mGy and DLP is 537 mGy-cm. This CT exam was performed using one or more of the following dose reduction techniques: automated exposure control, adjustment of the mA and/or kV according to patient size, and/or use of iterative reconstruction technique. COMPARISON: 03/08/2019. FINDINGS: Vertebrae: There is osteoporosis/osteopenia. Spinous processes are unremarkable. Lower thoracic vertebral bodies and the sacrum are unremarkable. Transverse processes of the lumbar spine are unremarkable. No acute fracture. Discs/spinal canal/neural foramina: Mild to moderate degenerative disc disease throughout the lumbar spine. Transaxial images of the lumbar spine reveals findings of moderate degenerative disc disease. No spinal canal stenosis. Soft tissues: Paraspinal and regional soft tissues are unremarkable. Lungs: Minimal subsegmental atelectasis posteriorly at lung bases. Kidneys and ureters: Nonspecific stranding about the perinephric spaces, partially visualized. Atherosclerotic disease of the abdominal aorta. Other findings: Moderate osteoarthritic changes about the sacroiliac joints. Moderate to severe osteoarthritic changes about the sacroiliac joints. IMPRESSION: 1. Degenerative disc disease of the lumbar spine. 2. No acute injury to the lumbar spine is detected.
[2020-07-23] MEDS ORDERED: ENOXAPARIN 40 MG/0.4 ML SYRINGE SQ SCH (09:00)
[2020-07-23] MEDS: MEMANTINE 10 MG TAB PO SCH ×2 (09:26→20:50)
[2020-07-23] MEDS: buPROPion SR 100 MG TABLET.ER PO SCH (09:26)
[2020-07-23] MEDS: PANTOPRAZOLE 40 MG/10 ML VIAL IV SCH (09:26)
[2020-07-23] MEDS: RIVASTIGMINE 4.6MG/24HR PATCH TRANSDERM SCH (09:27)
[2020-07-23] MEDS: ATORVASTATIN 40 MG TAB PO SCH (12:36)
[2020-07-23] MEDS: ASPIRIN 81 MG PO SCH (12:36)
[2020-07-23] MEDS ORDERED: HEPARIN SODIUM,PORCINE 5,000 UNIT/ML 1 ML VIAL IV PRN (12:52)
[2020-07-23] MEDS ORDERED: HEPARIN SODIUM,PORCINE 5,000 UNIT/ML 1 ML VIAL IV ONE (12:52)
--- NOTE | 2020-07-23 12:54 | P.CRDCN ---
History of Present Illness History of present illness: HISTORY OF PRESENTING ILLNESS This is a pleasant 74-year-old male past medical history significant for peptic ulcer disease, dyslipidemia, hypertension and diabetes mellitus is not currently taking medication according to the medical record and chronic nicotine and marijuana dependence. 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 We have been asked to see in consultation for elevated troponin. The patient is confused at baseline and is unsure why he is at the hospital. When reminding him with the emergency room documentation states he does recall that his legs were weak yesterday. According to ER documentation the patient has had increased weakness and inability to ambulate recently. Patient denies having symptoms of chest pain, shortness of breath, dizziness or palpitations. He states his legs were so weak that he has to crawl around his home. He is resting comfortably sitting up in bed in no acute distress. DIAGNOSTICS EKG reveals sinus mechanism with biphasic T-wave in V2 and T-wave inversions anteriorly, these changes are new compared to previous EKGs. Telemetry tracings indicate sinus mechanism. Chest xray negative for an acute cardiopulmonary process. CT of the brain reveals cerebral atrophy and chronic small vessel ischemia with progression of white matter disease compared to old exam. CT of the thoracic spine reveals osteoporosis and osteopenia with no acute injury to the thoracic spine. Laboratory reviewed, troponin 0.028, 0.0 95, 0.106 0.065, WBC 10.8, hgb 14.3, plt 251, sodium 141, potassium 4.2, creatinine 0.76, lactic acid on admission 2.9 and repeat 0.9, TSH 3.05 He takes no daily cardiac medications. REVIEW OF SYSTEMS At the time of my exam: CONSTITUTIONAL: Denies fever or chills. CARDIOVASCULAR: Denies chest pain, shortness of breath, orthopnea, PND or palpitations. RESPIRATORY: Denies cough. GASTROINTESTINAL: Denies abdominal pain, diarrhea, constipation, nausea or vomiting. MUSCULOSKELETAL: Denies myalgias. NEUROLOGIC: Denies numbness, tingling, headacbe or weakness. ENDOCRINE: Denies fatigue, weight change, polydipsia or polyurina. GENITOURINARY: Denies burning, hematuria or urgency with micturation. HEMATOLOGIC: Denies history of anemia or bleeding. PHYSICAL EXAMINATION Blood pressure 152/67 heart rate 54 afebrile and maintaining oxygen saturation on room air. CONSTITUTIONAL: No apparent distress. HEENT: Head is normocephalic. Pupils are equal, round. Sclerae anicteric. Mucous membranes of the mouth are moist. No JVD. No carotid bruit. CHEST EXAMINATION: Lungs are clear to auscultation. No chest wall tenderness is noted on palpation or with deep breathing. HEART EXAMINATION: Regular rate and rhythm. S1, S2 heard. Soft systolic ejection murmur at the base, no gallops or rub. ABDOMEN: Soft, nontender. Positive bowel sounds. EXTREMITIES: 2+ peripheral pulses, no lower extremity edema and no calf tenderness. NEUROLOGIC EXAMINATION: Patient is awake and alert. Confused about presentation to the hospital. ASSESSMENT Weakness Inability to ambulate NSTEMI altered mental status PLAN Initiate aspirin 81 mg daily and atorvastatin 40 mg daily. Initiate heparin infusion. Check lipid profile. Obtain 2-D echocardiogram and Doppler study to assess cardiac structure and function. Hold beta blockers secondary to bradycardia noted on telemetry. NPO after midnight tonight for possible catheterization in the morning. Further recommendations to follow based on clinical course. Thank you kindly for this consultation. Nurse Practitioner note has been reviewed, I agree with a documented findings a nd plan of care. Patient was seen and examined. Past Medical History Past Medical History: GERD/Reflux, GI Bleed, Hyperlipidemia, Hypertension Additional Past Medical History / Comment(s): History of peptic ulcer disease/duodenal ulcer, previous history of GI bleed, hyperlipidemia, hypertension, diabetes mellitus not taking any form of oral hypoglycemic medication and the patient has chronic back pain. Diverticulosis. Pancreatic classifications chronic. Nonobstructive right renal calculus. History of Any Multi-Drug Resistant Organisms: None Reported Past Surgical History: No Surgical Hx Reported Additional Past Surgical History / Comment(s): Laparotomy for duodenal ulcer repair, EGD/colonoscopy, nasal fracture with surgery. Past Anesthesia/Blood Transfusion Reactions: No Reported Reaction Past Psychological History: Anxiety, Depression Additional Psychological History / Comment(s): Pt resides with 2 adult grandsons. He uses no assistive device. He drives. Smoking Status: Current some day smoker Past Alcohol Use History: None Reported Past Drug Use History: Marijuana Additional Drug Use History / Comment(s): Pt states he smokes 3 joints a day. - Past Family History Father History Unknown: Yes Mother Family Medical History: Diabetes Mellitus Medications and Allergies Home Medications Medication Instructions Recorded Confirmed Type Memantine HCl 10 mg PO BID 07/22/20 07/22/20 History Rivastigmine 4.6MG/24Hr Patch 1 patch TOPICAL DAILY 07/22/20 07/22/20 History [Exelon 4.6MG/24Hr Patch] buPROPion SR [Wellbutrin SR] 100 mg PO DAILY 07/22/20 07/22/20 History Allergies Allergy/AdvReac Type Severity Reaction Status Date / Time No Known Allergies Allergy Verified 07/22/20 17:39 Physical Exam Vitals: Vital Signs Temp Pulse Pulse Resp BP BP Pulse Ox 07/23/20 08:15 54 L 16 07/23/20 08:01 54 L 07/23/20 05:00 97.5 F L 49 L 16 152/67 97 07/22/20 20:25 98.6 F 62 18 144/72 96 07/22/20 18:39 98.0 F 68 16 138/78 98 07/22/20 17:23 98.0 F 68 16 138/78 95 07/22/20 16:00 98.1 F 64 16 140/73 97 Intake and Output 07/22/20 07/23/20 07/23/20 22:59 06:59 14:59 Intake Total 675 Output Total 550 2 Balance 125 -2 Intake: Intake, IV Titration 675 Amount Sodium Chloride 0.9% 1, 675 000 ml @ 75 mls/hr IV . [id number] STA Rx#:[id number] Output: Urine 550 2 Other: Voiding Method Urinal Urinal # Voids 4 350 # Bowel Movements 1 Weight 72.575 kg Results 07/22/20 16:32 07/22/20 16:32 Cardiac Enzymes 07/22/20 07/22/20 07/22/20 Range/Units 16:32 16:32 19:43 AST 17 (17-59) U/L Troponin I 0.028 0.095 H* (0.000-0.034) ng/mL 07/22/20 07/23/20 Range/Units 23:18 05:39 AST (17-59) U/L Troponin I 0.106 H* 0.065 H* (0.000-0.034) ng/mL Coagulation 07/22/20 Range/Units 16:32 PT 10.4 (9.0-12.0) sec APTT 23.4 (22.0-30.0) sec CBC 07/22/20 Range/Units 16:32 WBC 10.8 H (3.8-10.6) k/uL RBC 4.74 (4.30-5.90) m/uL Hgb 14.3 (13.0-17.5) gm/dL Hct 43.6 (39.0-53.0) % Plt Count 251 (150-450) k/uL Comprehensive Metabolic Panel 07/22/20 Range/Units 16:32 Sodium 141 (137-145) mmol/L Potassium 4.2 (3.5-5.1) mmol/L Chloride 109 H (98-107) mmol/L Carbon Dioxide 23 (22-30) mmol/L BUN 24 H (9-20) mg/dL Creatinine 0.76 (0.66-1.25) mg/dL Glucose 112 H (74-99) mg/dL Calcium 9.0 (8.4-10.2) mg/dL AST 17 (17-59) U/L ALT 12 (4-49) U/L Alkaline Phosphatase 50 (38-126) U/L Total Protein 6.7 (6.3-8.2) g/dL Albumin 3.8 (3.5-5.0) g/dL Current Medications Generic Name Dose Route Start Last Admin Trade Name Freq PRN Reason Stop Dose Admin Acetaminophen 650 mg 07/22/20 17:53 Acetaminophen Tab 325 Mg Tab PO Q6HR PRN Mild Pain or Fever > 100.5 Bupropion HCl 100 mg 07/23/20 09:00 07/23/20 09:26 Bupropion Sr 100 Mg Tablet.Er PO 100 mg DAILY EMMY Administration Enoxaparin Sodium 40 mg 07/23/20 09:00 07/23/20 09:26 Enoxaparin 40 Mg/0.4 Ml Syringe SQ 40 mg DAILY EMMY Administration Memantine 10 mg 07/22/20 21:00 07/23/20 09:26 Memantine 10 Mg Tab PO 10 mg BID EMMY Administration Naloxone HCl 0.2 mg 07/22/20 17:53 Naloxone 0.4 Mg/Ml 1 Ml Vial IV Q2M PRN Opioid Reversal Ondansetron HCl 4 mg 07/22/20 17:53 Ondansetron 4 Mg/2 Ml Vial IVP Q8HR PRN Nausea And Vomiting Pantoprazole Sodium 40 mg 07/23/20 09:00 07/23/20 09:26 Pantoprazole 40 Mg/10 Ml Vial IV 40 mg DAILY EMMY Administration Rivastigmine 1 patch 07/23/20 09:00 07/23/20 09:27 Rivastigmine 4.6mg/24hr Patch TRANSDERM 1 patch DAILY EMMY Administration Intake and Output 07/22/20 07/23/20 07/23/20 22:59 06:59 14:59 Intake Total 675 Output Total 550 2 Balance 125 -2 Intake: Intake, IV Titration 675 Amount Sodium Chloride 0.9% 1, 675 000 ml @ 75 mls/hr IV . [id number] STA Rx#:[id number] Output: Urine 550 2 Other: Voiding Method Urinal Urinal # Voids 4 350 # Bowel Movements 1 Weight 72.575 kg 07/22/20 16:32 07/22/20 16:32
[2020-07-23 13:35] LABS: Basophils % (A) 1 %; Eosinophils # (A) 0.1 k/uL (0-0.7); Eosinophils % (A) 1 %; HCT 44.8 % (39.0-53.0); HGB 14.8 gm/dL (13.0-17.5); Lymphocytes # (A) 2.5 k/uL (1.0-4.8); Lymphocytes % (A) 30 %; MCH 30.8 pg (25.0-35.0); MCV 93.4 fL (80.0-100.0); Monocytes # (A) 0.4 k/uL (0-1.0); Monocytes % (A) 5 %; Neutrophils # (A) 5.1 k/uL (1.3-7.7); Neutrophils % (A) 62 %; Platelet Count 248 k/uL (150-450); RDW 13.3 % (11.5-15.5); WBC 8.2 k/uL (3.8-10.6)
[2020-07-23 13:46] LABS: Prothrombin Time 10.5 sec (9.0-12.0)
[2020-07-23] MEDS: HEPARIN SOD,PORK IN 0.45% NACL 25,000 UNIT in 0.45% NACL 1 250ML.BAG IV SCH (13:57)
--- NOTE | 2020-07-23 15:46 | P.CNNES ---
History of Present Illness Consult date: 07/23/20 Requesting physician: Lashonda Nesbitt Reason for Consult: Bilateral proximal lower extremity weakness History of Present Illness: This is a tele-neurology consult performed today on this 74-year-old male who came to the hospital by ambulance yesterday at 4 PM with complain of weakness which occurred over the last day. It was generalized in nature. He states he had to crawl to get around the house. No recent fever or chills. No chest pain or shortness of breath. No recent infection. Patient states that he had a fall and was confused, dizzy, could not get up by himself. He remembers falling, did not pass out. However he could not tell the reason why he fell. He crawled "like a dog", through the door, on the stairs open the door. He remembers everything, did not lose consciousness or any loss of memory. He became very emotional about his experience that day. He denies any loss of consciousness, tongue bite or loss of control of urine. This is the first time he ever felt. He tells me that he lives in his house, and his daughter and is granddaughter lives with him. Denies any visual symptoms, speec h difficulty, problem with words. Patient says that his daughter called the ambulance and he was brought to the hospital. Vital signs arrival blood pressure 140/73, pulse rate 64, temperature 98.1. Computed tomography scan of the head showed cerebral atrophy and chronic small vessel ischemia with progression of white matter disease compared to old exam. No acute intracranial abnormality. EKG shows normal sinus rhythm, septal infarct, age undetermined. ST and T-wave abnormality. Chest x-ray showed no active cardiopulmonary disease, normal heart. CT of the thoracic spine showed osteoporosis/osteopenia. No acute injury to the thoracic spine. CT of the lumbar spine showed degenerative disc disease of the lumbar spine. No acute injury to the lumbar spine. Blood test shows WBC 10.8 hemoglobin 14.3, platelets 251. PT/PTT normal, electrolytes are normal, BUN 24, creatinine 0.76. Hepatic panel is normal. Troponin is mildly gone up TSH is normal. UA negative Ring virus PCR negative. According to the report from patient's daughter Ashlie (per her discussion with Dr Gallego), she has noted that patient had gradually worsening dementia over the past year. The patient had reportedly gotten lost twice last year and the family had to go [place] the [place] get [place]. The daughter has mentioned that patient now "sits on the couch and smokes weed all day long". Usually he is able to walk around the house without much difficulty. Earlier on the day of admission he was trying to leave the house to buy cigarettes when he fell in the garage and subsequently crawled into the his bed. When she came in from work, she found him in bed yelling for help. She tried to help him out of bed when he was unable to stand up. Therefore she called EMS and the patient was brought into the ER. Patient was not sure why he is in the hospital and denied any pain. Daughter has mentioned that he walks with a slow gait in a hunched over posture. Patient states that he used a cane before but he mostly sits on the sofa, watches TV, cartoons and enjoys, as he already has done enough. His 12 years ago, and he appears to be depressed. He admits that he does not walk normal. Denies diabetes. Patient states that he smokes 8-9 cigarettes per day and 1 to 2 black and mild cigars a day. He also smokes marijuana every day "whenever I get it". Denies any alcohol use. Patient denies any numbness and tingling in the legs. Denies any pain in the leg. He believes his legs are not strong, both of them. Denies any focal weakness. He has generalized discomfort in the neck and back but nothing out of ordinary or significant. Denies any problem with bowel or bladder control. Review of Systems He denies any recent fever or chills. No chest pain or shortness of breath. Denies any recent infections. Denies any abdominal pain nausea vomiting diarrhea. He does have slight urinary frequency but no dysuria or hematuria. He is prone to urinary tract infections in the past. Please refer to HPI. All other review of systems noncontributory. He has memory problems Past Medical History Past Medical History: GERD/Reflux, GI Bleed, Hyperlipidemia, Hypertension Additional Past Medical History / Comment(s): History of peptic ulcer disease/duodenal ulcer, previous history of GI bleed, hyperlipidemia, hypertension, diabetes mellitus not taking any form of oral hypoglycemic medication and the patient has chronic back pain. Diverticulosis. Pancreatic classifications chronic. Nonobstructive right renal calculus. History of Any Multi-Drug Resistant Organisms: None Reported Past Surgical History: No Surgical Hx Reported Additional Past Surgical History / Comment(s): Laparotomy for duodenal ulcer repair, EGD/colonoscopy, nasal fracture with surgery. Past Anesthesia/Blood Transfusion Reactions: No Reported Reaction Past Psychological History: Anxiety, Depression Additional Psychological History / Comment(s): Pt resides with 2 adult grandsons. He uses no assistive device. He drives. Smoking Status: Current some day smoker Past Alcohol Use History: None Reported Past Drug Use History: Marijuana Additional Drug Use History / Comment(s): Pt states he smokes 3 joints a day. - Past Family History Father History Unknown: Yes Mother Family Medical History: Diabetes Mellitus Medications and Allergies Home Medications Medication Instructions Recorded Confirmed Type Memantine HCl 10 mg PO BID 07/22/20 07/22/20 History Rivastigmine 4.6MG/24Hr Patch 1 patch TOPICAL DAILY 07/22/20 07/22/20 History [Exelon 4.6MG/24Hr Patch] buPROPion SR [Wellbutrin SR] 100 mg PO DAILY 07/22/20 07/22/20 History Allergies Allergy/AdvReac Type Severity Reaction Status Date / Time No Known Allergies Allergy Verified 07/22/20 17:39 Physical Examination - Vital Signs Vital Signs: Vital Signs Temp Pulse Pulse Resp BP BP Pulse Ox 07/23/20 08:15 54 L 16 07/23/20 08:01 54 L 07/23/20 05:00 97.5 F L 49 L 16 152/67 97 07/22/20 20:25 98.6 F 62 18 144/72 96 07/22/20 18:39 98.0 F 68 16 138/78 98 07/22/20 17:23 98.0 F 68 16 138/78 95 07/22/20 16:00 98.1 F 64 16 140/73 97 Intake and Output 07/22/20 07/23/20 07/23/20 22:59 06:59 14:59 Intake Total 675 Output Total 550 2 Balance 125 -2 Intake: Intake, IV Titration 675 Amount Sodium Chloride 0.9% 1, 675 000 ml @ 75 mls/hr IV . [id number] STA Rx#:[id number] Output: Urine 550 2 Other: Voiding Method Urinal Urinal # Voids 4 350 # Bowel Movements 1 Weight 72.575 kg On examination patient is an elderly male, very pleasant, in no acute distress. Patient is alert and awake. Patient knows his name and that he is in [facility]. He knows it is June 2020. He was able to tell Mr. Van is the president. Speech and language functions are normal. Attention, concentration is slightly decreased. On cranial examination pupils are round and reactive to light, visual roman are full on confrontation, extraocular muscles are intact with no nystagmus. Face is symmetric, tongue protrudes to the midline. Palatal elevation and sensation is normal, hearing is decreased, shoulder shrug normal. Facial sensation is normal. On muscle strength testing there is no pronator drift. The strength is completely normal in arms distally and proximally. In the lower limbs, (right/left) hip flexion 4/3, knee extension 4+5-/4+3, hip adduction and abduction also weak about 4/4, ankle dorsiflexion 5/5, plantarflexion 5/5, toe extension 5/5. Reflexes are very hypoactive and plantars are downgoing. Sensory to touch is equal. No ataxia for [id number] testing. He is ataxic for [id number] testing bilaterally. Patient was able to bring his legs down from the bed by himself. He required very minimal assist to get up. He was very unsteady, required almost one or 2 assist. On general examination there is no carotid bruit or murmur, peripheral pulses are present. Abdomen is soft nontender. No peripheral edema. Results - Laboratory Findings CBC and BMP: 07/23/20 13:04 07/22/20 16:32 Abnormal Lab Findings: Abnormal Labs 07/22/20 07/22/20 07/22/20 16:32 16:32 16:32 WBC 10.8 H Neutrophils # 8.5 H Chloride 109 H BUN 24 H Glucose 112 H Plasma Lactic Acid Geraldo Troponin I Urine Blood Trace H Urine RBC 9 H 07/22/20 07/22/20 07/22/20 16:32 19:43 23:18 WBC Neutrophils # Chloride BUN Glucose Plasma Lactic Acid Geraldo 2.9 H* Troponin I 0.095 H* 0.106 H* Urine Blood Urine RBC 07/23/20 05:39 WBC Neutrophils # Chloride BUN Glucose Plasma Lactic Acid Geraldo Troponin I 0.065 H* Urine Blood Urine RBC Assessment and Plan Assessment: * 74-year-old male with history of some mild memory impairment, not very active at baseline, brought to the hospital because of a fall and inability to get up. Examination reveals decreased strength in bilateral proximal lower extremities, with hyporeflexia. Patient denies any significant neck or back pain. Exact cause remains uncertain. CT of the thoracic and lumbar spine cuong wed no significant abnormalities. * Elevated cardiac enzymes, cardiology on board. * Mild cognitive impairment versus early dementia. Plan: * Patient has developed fairly acute onset of difficulty with walking and worsening of gait. We will perform MRI of the brain to rule out any acute stroke, and MRI of the lumbar spine to rule out spinal stenosis. * B12, folate, MMA, RPR, hemoglobin A1c, CPK * TSH is normal. * Patient has mild cognitive impairment vs mild dementia. Patient is already on Namenda 10 mg twice a day and Exelon patch 4.6 mg. * We will follow. Time with Patient: Greater than 30
--- NOTE | 2020-07-23 17:22 | P.PN ---
Subjective Progress Note Date: 07/23/20 Principal diagnosis: weakness Patient denies having any chest pain, shortness of breath, dizziness or palpitations. No fevers. He still is complaining about his legs being weak. Objective - Vital Signs Vital signs: Vital Signs Temp 98.5 F 07/23/20 15:43 Pulse 53 L 07/23/20 15:43 Resp 18 07/23/20 15:43 BP 137/69 07/23/20 15:43 Pulse Ox 97 07/23/20 15:43 Intake & Output 07/22/20 07/23/20 07/23/20 18:59 06:59 18:59 Intake Total 675 700 Output Total 550 2 Balance 125 698 Weight 72.575 kg 72.575 kg Intake: Intake, IV Titration 675 Amount Sodium Chloride 0.9% 1, 675 000 ml @ 75 mls/hr IV . [id number] STA Rx#:[id number] Oral 700 Output: Urine 550 2 Other: Voiding Method Urinal Urinal # Voids 4 3 # Bowel Movements 1 - Exam General: non toxic, no distress, appears at stated age, normal weight Derm: no unusual rashes/lesions no unusual ecchymoses, warm, dry Head: atraumatic, normocephalic, symmetric Eyes: EOMI, no lid lag, anicteric sclera, pupils equal round reactive to light ENT: Nose and ears atraumatic, no thrush, no pharyngeal erythema Neck: No thyromegaly, no cervical lymphadenopathy, trachea midline, supple Mouth: no lip lesion, mucus membranes moist Cardiovascular: S1S2 reg, no murmur, positive posterior tibial pulse bilateral, no edema, capillary refill less than 2 seconds Lungs: CTA bilateral, no rhonchi, no rales , no accessory muscle use Abdominal: soft, nontender to palpation, no guarding, no appreciable organomegaly, normal bowel sounds Ext: no gross muscle atrophy, muscle strength 3 out of 5 in marisol LEs proximally, strength 5/5 distal marisol LEs and UEs proximally and distally, no contractures, no spinal or paraspinal tenderness noted bilaterally Neuro: CN II-XI grossly intact, light touch intact all 4 extremities, finger to nose within normal limits, Psych: Alert, oriented to person and place, not fully oriented to time - Labs CBC & Chem 7: 07/23/20 13:04 07/22/20 16:32 Labs: Abnormal Lab Results - Last 24 Hours (Table) 07/22/20 07/22/20 07/23/20 Range/Units 19:43 23:18 05:39 Troponin I 0.095 H* 0.106 H* 0.065 H* (0.000-0.034) ng/mL Assessment and Plan Plan: Proximal bilateral lower extremity weakness, possibly secondary to worsening dementia vs spinal stenosis vs NPH -Physical therapy consult -Seen by neurology who recommended MRI of the brain to rule out any acute stroke, and MRI of the lumbar spine to rule out spinal stenosis. Also sending B12, folate, MMA, RPR, hemoglobin A1c, CPK. -Fall precautions -CT thoracic and lumbar spine, CT head without acute changes. Troponin elevation, unclear etiology -Denying chest pain or shortness of breath -Seen by cardio, started on heparin and plans for possible cath -Cardiac monitoring Lactic acidosis, resolved Prerenal azotemia -Continue with IV fluids -Monitor BMP DVT prophylaxis -Lovenox Anticipated discharge date: 2-[address]: Home A total of 35 minutes was spent on the care of this complex patient more than 50% of the time was spent in counseling and care coordination.
[2020-07-23 17:44] LABS: Chol/HDL Ratio 4.11; LDL Cholesterol,Calculated 97.4 mg/dL (0.0-131.0); VLDL Calculation 17.6 mg/dL (5.00-40.00)
[2020-07-23 22:08] LABS: Hemoglobin A1C 5.6 % (4.0-6.0)
--- NOTE | 2020-07-23 23:28 | ECHOF ---
Referral Reason:elev trop MEASUREMENTS -------- HEIGHT: 175.3 cm WEIGHT: 72.6 kg BP: 152/67 RVIDd: 4.0 cm (< 3.3) IVSd: 1.3 cm (0.6 - 1.1) LVIDd: 4.1 cm (3.9 - 5.3) LVPWd: 1.4 cm (0.6 - 1.1) IVSs: 1.5 cm LVIDs: 2.8 cm LVPWs: 1.8 cm LAESV Index (A-L): 36.91 ml/m Ao Diam: 3.8 cm (2.0 - 3.7) AV Cusp: 1.9 cm (1.5 - 2.6) MV EXCURSION: 22.198 mm (> 18.000) MV EF SLOPE: 196 mm/s (70 - 150) EPSS: 1.4 cm MV E Onel: 0.84 m/s MV DecT: 243 ms MV A Onel: 0.91 m/s MV E/A Ratio: 0.93 RAP: 5.00 mmHg RVSP: 34.76 mmHg FINDINGS -------- Sinus rhythm. This was a technically adequate study. The left ventricular size is normal. There is mild concentric left ventricular hypertrophy. Overa ll left ventricular systolic function is low-normal with, an EF between 50 - 55 %. The diastolic fi lling pattern is normal for the age of the patient 9.82. The right ventricle is moderately enlarged. LA is moderately dilated 34-39 ml/m2 The right atrium is mildly enlarged. Interatrial and interventricular septum intact. Trace to mild aortic regurgitation. There is no evidence of aortic stenosis. The mitral valve leaflets are mildly thickened. Mild mitral regurgitation is present. The tricuspid valve appears structurally normal. Mild tricuspid regurgitation present. Right vent ricular systolic pressure is normal at < 35 mmHg. The right ventricular systolic pressure, as measu red by Doppler, is 34.76mmHg. There is no pulmonic regurgitation present. The aortic root size is normal. Normal inferior vena cava with normal inspiratory collapse consistent with estimated right atrial pre ssure of 5 mmHg. There is no pericardial effusion. CONCLUSIONS -------- 1. There is mild concentric left ventricular hypertrophy. 2. Overall left ventricular systolic function is low-normal with, an EF between 50 - 55 %. 3. The right ventricle is moderately enlarged. 4. LA is moderately dilated 34-39 ml/m2 5. The right atrium is mildly enlarged. 6. Trace to mild aortic regurgitation. 7. Mild mitral regurgitation is present. 8. Mild tricuspid regurgitation present. 9. There is no pericardial effusion. NUTRITIONALIST: Ariella Irwin RDCS
[2020-07-24 07:54] LABS: Basophils % (A) 0 %; Eosinophils # (A) 0.2 k/uL (0-0.7); Eosinophils % (A) 2 %; HCT 42.4 % (39.0-53.0); HGB 14.4 gm/dL (13.0-17.5); Lymphocytes # (A) 2.3 k/uL (1.0-4.8); Lymphocytes % (A) 26 %; MCH 31.3 pg (25.0-35.0); MCHC 33.8 g/dL (31.0-37.0); MCV 92.4 fL (80.0-100.0); Mean Platelet Volume 8.8; Monocytes # (A) 0.4 k/uL (0-1.0); Monocytes % (A) 5 %; Neutrophils # (A) 5.7 k/uL (1.3-7.7); Neutrophils % (A) 65 %; Platelet Count 234 k/uL (150-450); RBC 4.59 m/uL (4.30-5.90); RDW 13.3 % (11.5-15.5); WBC 8.9 k/uL (3.8-10.6)
[2020-07-24 08:01] LABS: African American GFR (CKD) >90 (>60 ml/min/1.73 sqM); Anion Gap 6 mmol/L; Blood Urea Nitrogen 12 mg/dL (9-20); Calcium 8.9 mg/dL (8.4-10.2); Carbon Dioxide 26 mmol/L (22-30); Chloride 107 mmol/L (98-107); Glucose 100 mg/dL (74-99); Magnesium 2.1 mg/dL (1.6-2.3); Non-African American GFR(CKD) 88 (>60 ml/min/1.73 sqM); Potassium 3.8 mmol/L (3.5-5.1); Sodium 139 mmol/L (137-145)
[2020-07-24] MEDS: MEMANTINE 10 MG TAB PO SCH ×2 (08:09→20:10)
[2020-07-24] MEDS: buPROPion SR 100 MG TABLET.ER PO SCH (08:09)
[2020-07-24] MEDS: ASPIRIN 81 MG PO SCH (08:09)
[2020-07-24] MEDS: ATORVASTATIN 40 MG TAB PO SCH (08:09)
[2020-07-24] MEDS: RIVASTIGMINE 4.6MG/24HR PATCH TRANSDERM SCH (08:10)
[2020-07-24] MEDS: PANTOPRAZOLE 40 MG/10 ML VIAL IV SCH (08:10)
[2020-07-24 10:08] LABS: Folate, Serum 8.5 ng/mL
--- NOTE | 2020-07-24 10:13 | P.PN ---
Subjective HISTORY OF PRESENTING ILLNESS This is a pleasant 74-year-old male past medical history significant for peptic ulcer disease, dyslipidemia, hypertension and diabetes mellitus is not currently taking medication according to the medical record and chronic nicotine and marijuana dependence. He does not follow in the office with a nc manager. We have been asked to see in consultation for elevated troponin. The patient is confused at baseline and is unsure why he is at the hospital. When reminding him with the emergency room documentation states he does recall that his legs were weak yesterday. According to ER documentation the patient has had increased weakness and inability to ambulate recently. Patient denies having symptoms of chest pain, shortness of breath, dizziness or palpitations. He states his legs were so weak that he has to crawl around his home. He is resting comfortably sitting up in bed in no acute distress. 07/24/2020 Patient seen and examined resting comfortably laying flat in bed in no acute distress. He has no symptoms of chest pain or shortness of breath. He states he slept through the night without difficulty. Lengthy discussion had with the patient's daughter, Ashlie, regarding proceeding with cardiac catheterization versus medical therapy. The patient himself states he does not want to undergo any further aggressive testing. The daughter is in agreement at this time. She would like to discuss with more family members and make a definitive decision later today or tomorrow. Blood pressure 146/71 heart rate 54 afebrile maintaining oxygen saturation on room air. Laboratory data reviewed, CBC unremarkable, sodium 139, potassium 3.8, creatinine 0.79. Currently maintained on heparin infusion, aspirin 81 mg daily, atorvastatin 40 mg daily and lisinopril 5 mg twice a day. Echocardiogram obtained reveals preserved LV systolic function with ejection fraction 55-60%. PHYSICAL EXAMINATION CONSTITUTIONAL: No apparent distress. HEENT: Head is normocephalic. Pupils are equal, round. Sclerae anicteric. Mucous membranes of the mouth are moist. No JVD. No carotid bruit. CHEST EXAMINATION: Lungs are clear to auscultation. No chest wall tenderness is noted on palpation or with deep breathing. HEART EXAMINATION: Regular rate and rhythm. S1, S2 heard. Soft systolic ejection murmur at the base, no gallops or rub. EXTREMITIES: 2+ peripheral pulses, no lower extremity edema and no calf tende rness. ASSESSMENT Weakness Inability to ambulate NSTEMI Altered mental status Chronic nicotine dependence Daily marijuana use Dementia PLAN Recommend continuing maximal medical therapy at this time. Continue heparin infusion for another 24 hours. The family is in agreement at this time with medical therapy. Further recommendations to follow based upon family discussion and clinical course. The daughter is concerned about the patient's daily have the marijuana use and she states that when she does not supply him with the marijuana he needs he becomes angry and agitated. Nurse Practitioner note has been reviewed, I agree with a documented findings and plan of care. Patient was seen and examined. Objective - Vital Signs Vital signs: Vital Signs Temp 98.7 F 07/24/20 08:08 Pulse 54 L 07/24/20 08:08 Resp 18 07/24/20 08:08 BP 146/71 07/24/20 08:08 Pulse Ox 98 07/24/20 08:08 Intake & Output 07/23/20 07/24/20 07/24/20 18:59 06:59 18:59 Intake Total 825 64.447 Output Total 302 990 Balance 523 -925.553 Weight 72.2 kg Intake: Intake, IV Titration 64.447 Amount Heparin Sod,Pork in 0.45% 64.447 NaCl 25,000 unit In 0.45 % NaCl 1 250ml.bag @ 12 UNITS/KG/HR 8.709 mls/hr IV .Q24H [facility] Rx#: [id number] Oral 825 Output: Urine 302 990 Other: Voiding Method Urinal Urinal Urinal # Voids 3 2 # Bowel Movements 1 - Labs CBC & Chem 7: 07/24/20 07:40 07/24/20 07:40 Labs: Abnormal Lab Results - Last 24 Hours (Table) 07/23/20 07/23/20 07/24/20 Range/Units 05:39 20:28 07:40 APTT 46.8 H (22.0-30.0) sec Glucose 100 H (74-99) mg/dL HDL Cholesterol 37.0 L (40.0-60.0) mg/dL 07/24/20 Range/Units 07:40 APTT 52.1 H (22.0-30.0) sec Glucose (74-99) mg/dL HDL Cholesterol (40.0-60.0) mg/dL
--- NOTE | 2020-07-24 12:43 | P.PN ---
Subjective Progress Note Date: 07/24/20 Patient was seen for a follow-up. Offers no new complaints. Very pleasant. Appears depressed, as he often expresses hopeless feelings, particularly since his 12 years ago. Patient again started talking about his experience of walking/crawling from the grass to the door through the stairs to his. As mentioned previously. He again became emotional. No new numbness tingling or focal weakness no pain. Objective - Vital Signs Vital signs: Vital Signs Temp 98.7 F 07/24/20 11:42 Pulse 59 L 07/24/20 11:42 Resp 18 07/24/20 11:42 BP 136/79 07/24/20 11:42 Pulse Ox 97 07/24/20 11:42 Intake & Output 07/23/20 07/24/20 07/24/20 18:59 06:59 18:59 Intake Total 825 64.447 Output Total 302 990 Balance 523 -925.553 Weight 72.2 kg Intake: Intake, IV Titration 64.447 Amount Heparin Sod,Pork in 0.45% 64.447 NaCl 25,000 unit In 0.45 % NaCl 1 250ml.bag @ 12 UNITS/KG/HR 8.709 mls/hr IV .Q24H [facility] Rx#: [id number] Oral 825 Output: Urine 302 990 Other: Voiding Method Urinal Urinal Urinal # Voids 3 2 # Bowel Movements 1 - Exam Patient's mental status is stable. Cranial nerves are normal. Muscle strength is completely normal in the arms distally and proximally. In the lower limbs (right/left) hip flexion 5/5-, hip adduction 5/5, hip abduction 5/5, knee extension 5/5-, ankle dorsiflexion 5/5, toe extension 5/5. Reflexes are absent. Patient has some atrophy of the intrinsic muscles of the hand and feet. Patient has no very mild dysmetria for [id number] on the left. He has moderate ataxia for [id number]-[id number] testing on the left, mild on the right side. Gait deferred. - Labs CBC & Chem 7: 07/24/20 07:40 07/24/20 07:40 Labs: Abnormal Lab Results - Last 24 Hours (Table) 07/23/20 07/23/20 07/24/20 Range/Units 05:39 20:28 07:40 APTT 46.8 H (22.0-30.0) sec Glucose 100 H (74-99) mg/dL HDL Cholesterol 37.0 L (40.0-60.0) mg/dL 07/24/20 Range/Units 07:40 APTT 52.1 H (22.0-30.0) sec Glucose (74-99) mg/dL HDL Cholesterol (40.0-60.0) mg/dL Assessment and Plan Assessment: * 74-year-old male with history of some mild memory impairment, not very active at baseline, brought to the hospital because of a fall and inability to get up. Examination reveals fairly normal strength, but hyperreflexia and slight ataxia on the left side. Rule out CVA. Patient denies any significant neck or back pain. Exact cause remains uncertain. CT of the thoracic and lumbar spine showed no significant abnormalities. * Elevated cardiac enzymes, cardiology on board. * Mild cognitive impairment versus early dementia. Plan: * Await MRI of the brain, rule out CVA. We will cancel MRI of the lumbar spine, as it does not appears to be indicated. * B12 497, folate 8.5, MMA pending, RPR pending, hemoglobin A1c 5.6, CPK 166, normal TSH. * Patient has mild cognitive impairment vs mild dementia. Patient is already on Namenda 10 mg twice a day and Exelon patch 4.6 mg. * PT OT evaluate gait. May need subacute rehab. * Dr. Fabricio Zaragoza Will resume neurology service in the morning.
--- NOTE | 2020-07-24 13:48 | P.PN ---
Subjective Progress Note Date: 07/24/20 Principal diagnosis: weakness Patient has profound memory impairment, he doesn't remember what happened to him at home. He doesn't remember having heart issues that he was told about yesterday. No pain, no fevers or chills. Objective - Vital Signs Vital signs: Vital Signs Temp 98.7 F 07/24/20 11:42 Pulse 59 L 07/24/20 11:42 Resp 18 07/24/20 11:42 BP 136/79 07/24/20 11:42 Pulse Ox 97 07/24/20 11:42 Intake & Output 07/23/20 07/24/20 07/24/20 18:59 06:59 18:59 Intake Total 825 64.447 Output Total 302 990 Balance 523 -925.553 Weight 72.2 kg Intake: Intake, IV Titration 64.447 Amount Heparin Sod,Pork in 0.45% 64.447 NaCl 25,000 unit In 0.45 % NaCl 1 250ml.bag @ 12 UNITS/KG/HR 8.709 mls/hr IV .Q24H [facility] Rx#: [id number] Oral 825 Output: Urine 302 990 Other: Voiding Method Urinal Urinal Urinal # Voids 3 2 # Bowel Movements 1 - Exam General: non toxic, no distress, appears at stated age, normal weight Derm: no unusual rashes/lesions no unusual ecchymoses, warm, dry Head: atraumatic, normocephalic, symmetric Eyes: EOMI, no lid lag, anicteric sclera, pupils equal round reactive to light ENT: Nose and ears atraumatic, no thrush, no pharyngeal erythema Neck: No thyromegaly, no cervical lymphadenopathy, trachea midline, supple Mouth: no lip lesion, mucus membranes moist Cardiovascular: S1S2 reg, no murmur, positive posterior tibial pulse bilateral, no edema, capillary refill less than 2 seconds Lungs: CTA bilateral, no rhonchi, no rales , no accessory muscle use Abdominal: soft, nontender to palpation, no guarding, no appreciable organomegaly, normal bowel sounds Ext: no gross muscle atrophy, muscle strength 3 out of 5 in marisol LEs proximally, strength 5/5 distal marisol LEs and UEs proximally and distally, no contractures, no spinal or paraspinal tenderness noted bilaterally Neuro: CN II-XI grossly intact, light touch intact all 4 extremities, finger to nose within normal limits, Psych: Alert, oriented to person and place, not fully oriented to time - Labs CBC & Chem 7: 07/24/20 07:40 07/24/20 07:40 Labs: Abnormal Lab Results - Last 24 Hours (Table) 07/23/20 07/23/20 07/24/20 Range/Units 05:39 20:28 07:40 APTT 46.8 H (22.0-30.0) sec Glucose 100 H (74-99) mg/dL HDL Cholesterol 37.0 L (40.0-60.0) mg/dL 07/24/20 Range/Units 07:40 APTT 52.1 H (22.0-30.0) sec Glucose (74-99) mg/dL HDL Cholesterol (40.0-60.0) mg/dL Assessment and Plan Plan: Proximal bilateral lower extremity weakness, possibly secondary to worsening dementia vs spinal stenosis vs NPH -Physical therapy consult -Seen by neurology who recommended MRI of the brain to rule out any acute stroke, pending. Also sent B12, folate, MMA, RPR, hemoglobin A1c, CPK. -Fall precautions -CT thoracic and lumbar spine, CT head without acute changes. Troponin elevation, unclear etiology -Denying chest pain or shortness of breath -Seen by cardio, continue on heparin for another 24 hours, planning for maximal medical therapy at this time, no cath planned -Cardiac monitoring Lactic acidosis, resolved Prerenal azotemia -Continue with IV fluids -Monitor BMP Marijuana abuse -Counseled to quit, daughter stated that he lacks motivation to quit. DVT prophylaxis -Lovenox Anticipated discharge date: [address]: Home A total of 35 minutes was spent on the care of this complex patient more than 50% of the time was spent in counseling and care coordination.
[2020-07-24] MEDS: HEPARIN SOD,PORK IN 0.45% NACL 25,000 UNIT in 0.45% NACL 1 250ML.BAG IV SCH (14:13)
[2020-07-24] MEDS: lisinopriL 5 MG TAB PO SCH (20:10)
[2020-07-25] MEDS: PANTOPRAZOLE 40 MG TABLET PO SCH (06:38)
[2020-07-25 07:52] LABS: Basophils % (A) 0 %; Eosinophils # (A) 0.3 k/uL (0-0.7); Eosinophils % (A) 4 %; HGB 14.1 gm/dL (13.0-17.5); Lymphocytes # (A) 1.9 k/uL (1.0-4.8); Lymphocytes % (A) 24 %; MCH 30.1 pg (25.0-35.0); MCHC 32.8 g/dL (31.0-37.0); Mean Platelet Volume 8.9; Monocytes # (A) 0.5 k/uL (0-1.0); Monocytes % (A) 6 %; Neutrophils # (A) 5.1 k/uL (1.3-7.7); Neutrophils % (A) 65 %; Platelet Count 258 k/uL (150-450); RBC 4.68 m/uL (4.30-5.90); RDW 13.7 % (11.5-15.5); WBC 7.9 k/uL (3.8-10.6)
[2020-07-25] MEDS: buPROPion SR 100 MG TABLET.ER PO SCH (09:03)
[2020-07-25] MEDS: ATORVASTATIN 40 MG TAB PO SCH (09:03)
[2020-07-25] MEDS: MEMANTINE 10 MG TAB PO SCH ×2 (09:03→19:45)
[2020-07-25] MEDS: RIVASTIGMINE 4.6MG/24HR PATCH TRANSDERM SCH (09:03)
[2020-07-25] MEDS: lisinopriL 5 MG TAB PO SCH ×2 (09:03→19:45)
[2020-07-25] MEDS: ASPIRIN 81 MG PO SCH (09:03)
[2020-07-25 09:09] LABS: African American GFR (CKD) >90 (>60 ml/min/1.73 sqM); Anion Gap 6 mmol/L; Blood Urea Nitrogen 13 mg/dL (9-20); Calcium 8.7 mg/dL (8.4-10.2); Carbon Dioxide 26 mmol/L (22-30); Chloride 108 mmol/L (98-107); Glucose 92 mg/dL (74-99); Non-African American GFR(CKD) 90 (>60 ml/min/1.73 sqM); Potassium 3.5 mmol/L (3.5-5.1); Sodium 140 mmol/L (137-145)
[2020-07-25] MEDS ORDERED: Potassium Replacement Protocol 1 EACH MISC MISCELLANE PRN (09:13)
--- NOTE | 2020-07-25 10:29 | P.PN ---
Subjective HISTORY OF PRESENTING ILLNESS This is a pleasant 74-year-old male past medical history significant for peptic ulcer disease, dyslipidemia, hypertension and diabetes mellitus is not currently taking medication according to the medical record and chronic nicotine and marijuana dependence. 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 We have been asked to see in consultation for elevated troponin. The patient is confused at baseline and is unsure why he is at the hospital. When reminding him with the emergency room documentation states he does recall that his legs were weak yesterday. According to ER documentation the patient has had increased weakness and inability to ambulate recently. Patient denies having symptoms of chest pain, shortness of breath, dizziness or palpitations. He states his legs were so weak that he has to crawl around his home. He is resting comfortably sitting up in bed in no acute distress. 07/25/2020 Pt seen and examined sitting up in bed in no acute distress. He denies chest pain, shortness of breath, dizziness or palpitations. He is more alert today and states he remembers his reason for coming in. He remembers being in his garage and falling backwards after feeling light headed. He then was unable to get himself up and had to crawl around the house. He does not recall feeling chest pain or palpitations. Blood pressure 122/62 heart rate 53 afebrile and maintaining oxygen saturation on room air. Laboratory data reviewed, CBC unremarkable, sodium 140, potassium 3.5, creatinine 0.7. Currently maintained on IV heparin infusion, aspirin 81 mg daily, atorvastatin 40 mg daily and lisino pril 5 mg twice a day. PHYSICAL EXAMINATION CONSTITUTIONAL: No apparent distress. HEENT: Head is normocephalic. Pupils are equal, round. Sclerae anicteric. Mucous membranes of the mouth are moist. No JVD. No carotid bruit. CHEST EXAMINATION: Lungs are clear to auscultation. No chest wall tenderness is noted on palpation or with deep breathing. HEART EXAMINATION: Regular rate and rhythm. S1, S2 heard. Soft systolic ejection murmur at the base, no gallops or rub. EXTREMITIES: 2+ peripheral pulses, no lower extremity edema and no calf tenderness. ASSESSMENT Weakness Inability to ambulate NSTEMI Altered mental status Chronic nicotine dependence Daily marijuana use Dementia PLAN He is scheduled to undergo an MRI today per neurology. The daughter has communicated with the nurse that she would like her father to proceed with [facility]. This was also discussed with him and he is agreeable. Given his MRI scheduled for today and the concern for CVA we will not do the cath today. Pending MRI results we will keep him NPO after midnight tonight and make further recommendations pending clinical course. Nurse Practitioner note has been reviewed, I agree with a documented findings and plan of care. Patient was seen and examined. Objective - Vital Signs Vital signs: Vital Signs Temp 98.6 F 07/25/20 04:00 Pulse 53 L 07/25/20 04:00 Resp 18 07/25/20 04:00 BP 122/62 07/25/20 04:00 Pulse Ox 97 07/25/20 04:00 Intake & Output 07/24/20 07/25/20 07/25/20 18:59 06:59 18:59 Intake Total 493.892 164.019 Output Total 400 840 125 Balance 93.892 -840 39.019 Weight 72 kg Intake: Intake, IV Titration 146.892 164.019 Amount Heparin Sod,Pork in 0.45% 146.892 164.019 NaCl 25,000 unit In 0.45 % NaCl 1 250ml.bag @ 12 UNITS/KG/HR 8.709 mls/hr IV .Q24H [facility] Rx#: [id number] Oral 347 Output: Urine 400 840 125 Other: Voiding Method Urinal Urinal # Voids 2 1 # Bowel Movements 1 - Labs CBC & Chem 7: 07/25/20 07:26 07/25/20 07:26 Labs: Abnormal Lab Results - Last 24 Hours (Table) 07/25/20 07/25/20 Range/Units 07:26 07:26 APTT 66.7 H (22.0-30.0) sec Chloride 108 H (98-107) mmol/L
[2020-07-25] MEDS: POTASSIUM CHLORIDE ER 20 MEQ TAB.ER PO SCH ×2 (11:48→17:28)
--- NOTE | 2020-07-25 12:04 | P.PN ---
Subjective Progress Note Date: 07/25/20 Principal diagnosis: weakness Patient seems to be more oriented today, less confused. He states that he is chronically depressed. He states that ''you have to be Christian to make it in this life''. He denied having any pain or shortness of breath. No overnight event. Objective - Vital Signs Vital signs: Vital Signs Temp 98.6 F 07/25/20 04:00 Pulse 53 L 07/25/20 04:00 Resp 18 07/25/20 04:00 BP 122/62 07/25/20 04:00 Pulse Ox 97 07/25/20 04:00 Intake & Output 07/24/20 07/25/20 07/25/20 18:59 06:59 18:59 Intake Total 493.892 164.019 Output Total 400 840 125 Balance 93.892 -840 39.019 Weight 72 kg Intake: Intake, IV Titration 146.892 164.019 Amount Heparin Sod,Pork in 0.45% 146.892 164.019 NaCl 25,000 unit In 0.45 % NaCl 1 250ml.bag @ 12 UNITS/KG/HR 8.709 mls/hr IV .Q24H [facility] Rx#: [id number] Oral 347 Output: Urine 400 840 125 Other: Voiding Method Urinal Urinal # Voids 2 1 # Bowel Movements 1 - Exam General: non toxic, no distress, appears at stated age, normal weight Derm: no unusual rashes/lesions no unusual ecchymoses, warm, dry Head: atraumatic, normocephalic, symmetric Eyes: EOMI, no lid lag, anicteric sclera, pupils equal round reactive to light ENT: Nose and ears atraumatic, no thrush, no pharyngeal erythema Neck: No thyromegaly, no cervical lymphadenopathy, trachea midline, supple Mouth: no lip lesion, mucus membranes moist Cardiovascular: S1S2 reg, no murmur, positive posterior tibial pulse bilateral, no edema, capillary refill less than 2 seconds Lungs: CTA bilateral, no rhonchi, no rales , no accessory muscle use Abdominal: soft, nontender to palpation, no guarding, no appreciable organomegaly, normal bowel sounds Ext: no gross muscle atrophy, muscle strength 3 out of 5 in marisol LEs proximally, strength 5/5 distal marisol LEs and UEs proximally and distally, no contractures, no spinal or paraspinal tenderness noted bilaterally Neuro: CN II-XI grossly intact, light touch intact all 4 extremities, finger to nose within normal limits, Psych: Alert, oriented to person and place, not fully oriented to time - Labs CBC & Chem 7: 07/25/20 07:26 07/25/20 07:26 Labs: Abnormal Lab Results - Last 24 Hours (Table) 07/25/20 07/25/20 Range/Units 07:26 07:26 APTT 66.7 H (22.0-30.0) sec Chloride 108 H (98-107) mmol/L Assessment and Plan Plan: Proximal bilateral lower extremity weakness, possibly secondary to worsening dementia vs spinal stenosis vs NPH -Physical therapy consult -Seen by neurology who recommended MRI of the brain to rule out any acute stroke, pending. -B12 497, folate 8.5, MMA pending, RPR pending, hemoglobin A1c 5.6, CPK 166, normal TSH. -Fall precautions -CT thoracic and lumbar spine, CT head without acute changes. Troponin elevation, unclear etiology -Denying chest pain or shortness of breath -Seen by cardio, treated with heparin. cath planned -Cardiac monitoring Lactic acidosis, resolved Prerenal azotemia -D/c IV fluids -Resolved Marijuana abuse -Counseled to quit, daughter stated that he lacks motivation to quit. Chronic depression -Will consult psych DVT prophylaxis -Lovenox Anticipated discharge date: [address]: Home A total of 35 minutes was spent on the care of this complex patient more than 50% of the time was spent in counseling and care coordination.
--- NOTE | 2020-07-25 13:55 | P.CN ---
Psychiatric Consult - . Consult date: 07/25/20 Consult:: 07/25/20 13:46 IDENTIFYING DATA: This patient is a 74-year-old male with a history of dementia and depression who currently lives at home with his daughter, has 2 kids and 2 grandchildren. REASON FOR REFERRAL: Psychiatry was consulted for "depression and drug use". HISTORY OF PRESENT ILLNESS: The patient presented to the hospital on 07/22 with complaints of generalized weakness. According to ER report patient was claiming that he was not able to ambulate and was crawling around the house before coming into the hospital. Patient was found to have leukocytosis and lactic acidosis and was admitted to the medical floors. Patient was found to have elevated troponins. Patient was fairly confused initially however improved. He had mentioned to the medicine team that he is feeling chronically depressed. Learning And Development Analyst spoke with patient at the bedside and patient was attempting to cooperate during the interview. Patient spoke about coming into the hospital and feeling "scared about my life" stating that he was on his way to the store and going to ride his bike when he fell backwards and was not able to ambulate any longer. He claims that his daughter called the ambulance to bring him in the hospital. He states that he has been dealing with depression since his 12 years ago. He states that she in his arms and was fairly tearful when describing the story. He claims that they were for 38 years. He states that he is scared about his condition and that he won't be able to walk any longer. He also mentioned feeling lonely at home and spoke about people in the world "not knowing who they are". He states that he worries about several different things about the world "how people are killing each other and being mean to each other". Patient was fairly cooperative with conventional mortgage underwriter and made several jokes. At this time patient denies any suicidal or homical ideations, intent or plan. Patient denies any auditory, visual hallucinations and denies any paranoia or delusions. Patients admits to using marijuana frequently for anxiety. He states that he also smokes cigarettes. PAST PSYCHIATRIC HISTORY: Patient has a a history of depression and dementia. Patient was on Namenda, rivastigmine patch and Wellbutrin. Patient denies any previous psychiatric hospitalizations. Patient denies any psychiatric outpatient follow-up. Patient denies any history of suicide attempts in the past. PAST MEDICAL HISTORY: GERD, hyperlipidemia, hypertension, GI bleed, dementia. ALLERGIES: as per EMR. CHEMICAL DEPENDENCY HISTORY: as per HPI. FAMILY PSYCHIATRIC/SUBSTANCE USE HISTORY: denies SOCIAL HISTORY: Patient was born and raised in [facility] [place]. He states that he completed high school. He states that he worked at [employer] for over 30 years. He claims that she is currently and lives with his daughter and has a son and 2 grandkids. He denies any legal history. MENTAL STATUS EXAM: General Appearance: Patient appears to be elderly, thin, stated age is alert, pleasant, and attempting to be cooperative. Patient appears to have fair hygiene and grooming wearing hospital gown with fair eye contact. Behavior: Patient is calmly lying in bed without any agitated behavior. Tearful at times. Speech: Patient's speech is fluent and nonpressured. Mood/Affect: Patient reports their mood is "depressed and anxious", affect is congruent and tearful at times. Expansive affect. Suicidality/Homicidality: Patient denies having any suicidal or homicidal ideation intent or plan. Perceptions: Patient denies any visual hallucinations and denies any auditory hallucinations Though content/process: Patient rambles at times, is tangential/circumstantial. Logical. Over valued ideas. Memory and concentration: AOX3, cannot spell "WORLD" backwards. Fair attention span. Poor memory recall. Judgment and insight: Limited chronically IMPRESSIONS: Major depressive disorder, mild Generalized anxiety disorder Cannabis use disorder Nicotine dependence PLAN: -At this time patient DOES NOT meet criteria for inpatient psychiatric admission. -Delirium precautions recommended with patient including - avoiding use of narcotics and GUN PROFILER sedatives, limit anticholinergic medications when possible, frequent re-orientation, minimize use of restraints, open window shades during the day and close them at night -Would recommend the following medication changes/additions: Added Zoloft 25 mg daily for mood/anxiety. Melatonin 3 mg daily at bedtime for insomnia. -Neurology on board and recommending MRI. -B12 level was 497, folic acid level was 8.5. TSH within normal limits. -farmworker general to provide patient with outpatient mental health/psychiatry resources for appropriate follow up upon discharge -Learning And Development Analyst spoke with patient about substance abuse including marijuana use and the harmful effects on medical and mental health, patient verbally understood and agreed. -Communicated plan to patient's nurse -Will continue to follow along -Please contact with any questions.
--- NOTE | 2020-07-25 15:15 | MR ---
EXAMINATION TYPE: MR brain wo con DATE OF EXAM: 07/25/2020 COMPARISON: CT brain 3 days ago. HISTORY: BLE weakness, fall, worsening gait TECHNIQUE: Multiplanar, multisequence imaging of the brain and brainstem is performed without IV cont rast. FINDINGS: Diffusion weighted images demonstrate no evidence of a recent infarct or other diffusion abnormality. There is mild to moderate diffuse ventricular and sulcal prominence redemonstrated. Areas of T2 hyper intensity throughout the superficial deep and periventricular white matter bilaterally is present. Co nfluent findings noted at the periventricular levels. Midline structures demonstrate normal morphology. The craniocervical junction appears within normal limits. Normal vascular flow voids are present. The visualized sinuses are clear and the globes are i ntact. IMPRESSION: No MRI evidence for recent infarct. Mild to moderate diffuse cerebral atrophy with more a dvanced nonspecific white matter changes presumed on basis of product of chronic small vessel ischemi c change in patient of this age.
[2020-07-25] MEDS ORDERED: NITROGLYCERIN SL TABS 0.4 MG TAB SUBLINGUAL PRN (15:40)
[2020-07-25] MEDS ORDERED: SODIUM CHLORIDE 0.9% 1,000 ML in EMPTY BAG 1 BAG IV ONE (15:40)
--- NOTE | 2020-07-25 17:06 | P.PN ---
Subjective Progress Note Date: 07/25/20 I'm seeing the patient for the first time, please refer to Dr. Beavers's note for further neurological history as well as workup. MRI of the brain was done to rule out stroke and it's reported as no MRI eviden ce for recent infarct. Mild to moderate diffuse cerebral atrophy with more advanced nonspecific white matter changes presumably on the basis of product of chronic small vessel ischemic change in the patient's of this age. Upon seeing the patient he was crying then made a small prayer then said he was doing good. He denies of any weakness or numbness. He denies of visual disturbance. Per the patient nurse he has been having episode of crying and psychiatry is consulted. Objective - Vital Signs Vital signs: Vital Signs Temp 98.4 F 07/25/20 08:00 Pulse 54 L 07/25/20 13:53 Resp 18 07/25/20 13:53 BP 137/67 07/25/20 12:00 Pulse Ox 97 07/25/20 12:00 Intake & Output 07/24/20 07/25/20 07/25/20 18:59 06:59 18:59 Intake Total 493.892 644.019 Output Total 400 840 125 Balance 93.892 -840 519.019 Weight 72 kg Intake: Intake, IV Titration 146.892 164.019 Amount Heparin Sod,Pork in 0.45% 146.892 164.019 NaCl 25,000 unit In 0.45 % NaCl 1 250ml.bag @ 12 UNITS/KG/HR 8.709 mls/hr IV .Q24H [facility] Rx#: [id number] Oral 347 480 Output: Urine 400 840 125 Other: Voiding Method Urinal Urinal Urinal # Voids 2 1 # Bowel Movements 1 - Exam Patient's mental status is stable. Cranial nerves are normal. Motor: Gait deferred. Muscle strength is completely normal in the arms distally and proximally. In the lower limbs (right/left) hip flexion 5/5-, hip adduction 5/5, hip abduction 5/5, knee extension 5/5-, ankle dorsiflexion 5/5, toe extension 5/5. Patient has some atrophy of the intrinsic muscles of the hand and feet. Patient has no ataxia with finger to nose bilaterally. He has moderate ataxia for [id number] testing on the left, mild on the right side. Reflexes are absent except at ankles possibly 0-1 bilaterally. - Labs CBC & Chem 7: 07/25/20 07:26 07/25/20 07:26 Labs: Abnormal Lab Results - Last 24 Hours (Table) 07/25/20 07/25/20 Range/Units 07:26 07:26 APTT 66.7 H (22.0-30.0) sec Chloride 108 H (98-107) mmol/L Assessment and Plan Assessment: * 74-year-old male with history of some mild memory impairment, not very active at baseline, brought to the hospital because of a fall and inability to get up. Examination reveals fairly normal strength, but hyporreflexia and slight ataxia on the left side. MRI Brain is negative for stroke. Patient denies any significant neck or back pain. Exact cause remains uncertain. CT of the thoracic and lumbar spine showed no significant abnormalities. * Elevated cardiac enzymes, cardiology on board. * Mild cognitive impairment versus early dementia. Plan: * MRI Brain is negative for stroke * B12 497, folate 8.5, MMA pending, RPR pending, hemoglobin A1c 5.6, CPK 166, normal TSH. * Patient has mild cognitive impairment vs mild dementia. Patient is already on Namenda 10 mg twice a day and Exelon patch 4.6 mg. * PT OT evaluate gait. May need subacute rehab. * Recommend EMG with nerve conduction as an outpatient. * Patient needs to follow-up with a neurologist within 1 week upon discharge. * I recommend the patient to be accompanied for assistance especially with dementia and episodes of falls. THe plan is discussed with the patient's nurse. There is no further work-up is needed. Fabricio Zaragoza MD Neuro-Hospitalist Time with Patient: Less than 30
[2020-07-25] MEDS: HEPARIN SOD,PORK IN 0.45% NACL 25,000 UNIT in 0.45% NACL 1 250ML.BAG IV SCH (17:25)
[2020-07-25] MEDS: SERTRALINE 25 MG TAB PO SCH (17:28)
[2020-07-25] MEDS: MELATONIN 3 MG TABLET PO SCH (19:45)
[2020-07-26] MEDS: ATORVASTATIN 40 MG TAB PO SCH (06:42)
[2020-07-26] MEDS: lisinopriL 5 MG TAB PO SCH (06:42)
[2020-07-26] MEDS: PANTOPRAZOLE 40 MG TABLET PO SCH (06:42)
[2020-07-26] MEDS: RIVASTIGMINE 4.6MG/24HR PATCH TRANSDERM SCH (06:42)
[2020-07-26] MEDS: MEMANTINE 10 MG TAB PO SCH ×2 (06:42→20:22)
[2020-07-26] MEDS: buPROPion SR 100 MG TABLET.ER PO SCH (06:42)
[2020-07-26] MEDS: SERTRALINE 25 MG TAB PO SCH (06:42)
[2020-07-26] MEDS ORDERED: HEPARIN SODIUM,PORCINE 10,000 UNIT in SODIUM CHLORIDE 0.9% 1,000 ML IRRIGATION PRN (07:00)
[2020-07-26] MEDS ORDERED: HEPARIN SODIUM,PORCINE 2,500 UNIT in SODIUM CHLORIDE 0.9% 250 ML IRRIGATION PRN (07:00)
[2020-07-26 07:42] LABS: Basophils % (A) 0 %; Eosinophils # (A) 0.4 k/uL (0-0.7); Eosinophils % (A) 4 %; HCT 42.8 % (39.0-53.0); HGB 14.2 gm/dL (13.0-17.5); Lymphocytes # (A) 2.8 k/uL (1.0-4.8); Lymphocytes % (A) 29 %; MCH 30.8 pg (25.0-35.0); MCHC 33.1 g/dL (31.0-37.0); MCV 93.1 fL (80.0-100.0); Monocytes # (A) 0.5 k/uL (0-1.0); Monocytes % (A) 5 %; Neutrophils # (A) 5.9 k/uL (1.3-7.7); Neutrophils % (A) 60 %; Platelet Count 242 k/uL (150-450); RDW 13.4 % (11.5-15.5); WBC 9.7 k/uL (3.8-10.6)
[2020-07-26] MEDS ORDERED: ASPIRIN 325 MG TAB PO ONE (09:00)
[2020-07-26] MEDS ORDERED: LIDOCAINE 1% INJ 10MG/ML (20 ML MDV) ONE (11:15)
[2020-07-26] MEDS ORDERED: VERAPAMIL 2.5 MG/ML 2 ML AMP ONE (11:15)
[2020-07-26] MEDS ORDERED: fentaNYL (PF) 50 MCG/ML 2 ML AMP ONE (11:28)
[2020-07-26] MEDS ORDERED: SODIUM CHLORIDE 0.9% 1,000 ML IV ONE (11:44)
[2020-07-26] MEDS: fentaNYL (PF) 50 MCG/ML 2 ML AMP IVP ONE ×2 (11:44→12:42)
[2020-07-26] MEDS ORDERED: LIDOCAINE 1% INJ 10MG/ML (20 ML MDV) SQ ONE (11:47)
[2020-07-26] MEDS ORDERED: VERAPAMIL SYRINGE (5 MG/10 ML) INTRAARTER ONE (11:48)
[2020-07-26] MEDS ORDERED: HEPARIN SODIUM 1,000 UN/ML (10ML VL) ONE (11:51)
[2020-07-26] MEDS: HEPARIN SODIUM 1,000 UN/ML (10ML VL) IV ONE ×3 (11:53→12:52)
[2020-07-26] MEDS ORDERED: CLOPIDOGREL 75 MG TAB ONE (12:01)
[2020-07-26] MEDS ORDERED: CLOPIDOGREL 75 MG TAB PO ONE (12:07)
[2020-07-26] MEDS: MIDAZOLAM 2 MG/2 ML VIAL IV ONE ×2 (12:11→12:30)
[2020-07-26] MEDS ORDERED: IOPAMIDOL-370 125ML BTL INJ ONE (12:32)
[2020-07-26] MEDS ORDERED: NITROGLYCERIN 1000MCG/10ML SYRINGE INTRACORON ONE (12:47)
[2020-07-26] MEDS ORDERED: IOPAMIDOL-370 100ML BTL INJ ONE ×2 (12:57→13:38)
--- NOTE | 2020-07-26 13:24 | P.PN ---
Progress Note - Text Progress Note Date: 07/26/20 Explosive Operator Bomb attempted to see patient twice today however patient was away receiving his heart cath. Can continue on with current medications and will attempt to see patient tomorrow for further adjustments of medications if needed.
[2020-07-26] MEDS ORDERED: MAG HYDROX/AL HYDROX/SIMETH 30 ML CUP PO PRN (13:55)
[2020-07-26] MEDS ORDERED: RX INFO: IV CONTRAST WAS GIVEN 1 EACH MISC MISCELLANE PRN (13:55)
[2020-07-26] MEDS ORDERED: ATROPINE SULFATE 0.1 MG/ML 10ML SYRINGE IV PRN (13:55)
[2020-07-26] MEDS ORDERED: ZOLPIDEM 5 MG TAB PO PRN (13:55)
[2020-07-26] MEDS ORDERED: NITROGLYCERIN SL TABS 0.4 MG TAB SUBLINGUAL PRN (13:55)
[2020-07-26] MEDS ORDERED: SODIUM CHLORIDE 0.9% 1,000 ML IV SCH (14:00)
--- NOTE | 2020-07-26 14:25 | CC ---
CARDIAC CATHETERIZATION REPORT Mr. Travis is a 74-year-old male with known history of chronic tobacco use, history of hypertension who presented with symptoms of abdominal and chest discomfort with troponin elevation and T-wave inversion anteriorly. His findings were consistent with non STEMI. After discussion with the patient and his daughter, they agree to proceed With coronary angiography. The procedure as well as the risks and the complications were discussed with the patient in full understanding and agreement. PROCEDURE: Patient was brought to shop laborer in a fasting semi-sedated state after receiving fentanyl and Benadryl and achieving moderate conscious sedated state. Using Xylocaine anesthesia and Seldinger technique, a 6-Emirati sheath was introduced in the right radial artery. Selective right and left coronary angiography was performed using 5- Emirati and 3.5 bend right and left Martha catheter. Multiple views of the coronary artery including hemiaxial views views were obtained. Following that, the right Martha catheter was used to cross the aortic valve and left ventricular end-diastolic pressure was calculated. Following that catheter and sheath were removed. Images were reviewed. FINDINGS: FLUOROSCOPY: There was severe calcification involving all the coronary arteries. LEFT MAIN: This is a short size vessel, bifurcating into left circumflex, left anterior descending artery. Left main coronary artery has no evidence of high-grade stenosis. LEFT ANTERIOR DESCENDING ARTERY: This vessel has an 80% stenosis in the ostium. Following that in a very calcified segment, it has a 99% stenosis in the mid segment and another area of stenosis of 70% beyond that with minimal antegrade flow. LEFT CIRCUMFLEX: This is a large-sized vessel nondominant giving rise to a large obtuse marginal branch. The left circumflex has 30% to 40% plaque in the obtuse marginal branch. The rest of the vessel has no high-grade stenosis. RIGHT CORONARY ARTERY: This is a large dominant vessel bifurcating distally PDA and posterolateral segment and branches. The right coronary artery has diffuse intimal disease throughout its course with area stenosis distally of about 40%. COLLATERALS: There is collateral from the right PDA toward the distal LAD. LEFT VENTRICULOGRAM: The ventriculogram was not performed. HEMODYNAMICS: There was no gradient across the aortic valve. The left ventricular end-diastolic pressure was 12-14 mmHg. CONCLUSION: 1. Heavily calcified coronary arteries. 2. Diffuse severe stenosis involving the proximal and mid left anterior descending artery. 3. Mild disease in the circumflex and the right coronary artery. 4. Collaterals from the left coronary system toward the LAD. RECOMMENDATION: In view of finding anatomy, I recommend proceeding with angioplasty and stenting of the LAD. The procedure as well as the risks and the complications were discussed with the patient who is in full understanding and agreement. MMEMBER / MYA: [id number] /
--- NOTE | 2020-07-26 14:40 | PTCA ---
PERCUTANEOUSTRANS CORORONARY ANGIOGRAPHY Mr. Travis 74-year-old male with a known history of chronic tobacco use and hypertension who presented with non STEMI, underwent cardiac catheterization was found to have severely calcified vessels with critical stenosis involving the proximal and mid LAD in a long segment. In view of that, recommendation was regarding angioplasty and stenting, the procedure as well as the risks and the complications were discussed with the patient who is in full understanding and agreement. PROCEDURE: A 6-Comoran EBU 3.75 guiding catheter introduced in the system. After cannulating the left main, multiple attempts to advance the wire into the LAD were unsuccessful because of the direction of the guiding catheter. That guiding catheter was removed and a 6- Com[place]an FL3.5 guiding catheter introduced in the system. After cannulating the left main, a 0.014 balanced medium weight J-wire was advanced in the proximal LAD. With a straight FineCross, there was inability to cross the mid subtotal occlusion. That wire was removed and a 0.014 Whisper J-wire was advanced and was able to cross the total occlusion and positioned distally. Subsequently, using the FineCross, the wire was exchanged to a 0.014 Whisper J-wire. Following that, a 1.5 x 6 mm Trek balloon was advanced. Multiple inflations at 10 atmospheres were done. Following that, the balloon was removed and a 2.25 x 15 mm NC Trek balloon was advanced and multiple inflations were done at a maximum of 14 atmospheres. Following that, the balloon was removed and a 2.5 x 15 mm NC Trek balloon was advanced and multiple inflations at maximum of 14 atmospheres were done. Following that, the balloon was removed and a 2.75 x 38 mm Xience Xochilt stent was deployed in the mid segment, deployed and postdilated at 16 atmospheres. After removing the balloon, attempts to advance a 2.5 x 15 mm Xience Xochilt stent distal to the first stent were unsuccessful. At that point, the stent was removed and another 0.014 balanced medium weight J-wire was advanced next to the first wire positioned distally and the stent was advanced, deployed and postdilated at 16 atmospheres. A 3.0 x 15 mm NC Emerge balloon was advanced and inflations in the stent up to 14 atmospheres were done. After removing the balloon, a 3.25 x 23 mm Xience Xochilt stent was deployed proximally and postdilated at 16 atmospheres. Following that, the balloon was removed and a 3.5 x 20 mm NC Trek balloon was advanced and multiple inflations of proximal stent up to 14 atmospheres were done. After the last inflation, after appropriate wait, the balloon and the guidewire were withdrawn back in the guiding catheter. Images were obtained, repeated. Those images reveal stable successful stenting. At that point, the guiding catheter, the balloon and the guidewire were removed. The sheath was removed. Hemostasis was obtained with deployment of a TR band. There was no immediate complication. Patient was returned to his room in stable condition. Of note, the patient received a total of 6500 units of intravenous heparin throughout the procedure. His ACT was followed. He received an oral loading dose of clopidogrel. He had EKG changes that resolved, but he had no chest discomfort. He was complaining predominantly of back discomfort that resolved as well. RESULTS: 1. Successful stenting of the mid LAD with reduction of stenosis from 99% to 0%. 2. Successful stenting of the proximal LAD with reduction of stenosis from 80% to less than 5%. RECOMMENDATION: Patient will be continued on aspirin, Plavix, beta mendy, ROBEL inhibitor, statin. The importance of dual antiplatelet treatment as well as smoking cessation were discussed with the patient and his daughter over the phone. They are in full understanding and agreement. Duration of sedation is 105 minutes. MMODL / IJN: [id number] /
--- NOTE | 2020-07-26 15:32 | P.PN ---
Subjective Progress Note Date: 07/26/20 (delayed charting seen at 0945) Principal diagnosis: lower extremity weakness Patient is a 74-year-old male past medical history of dementia, hypertension, dyslipidemia, GERD, and GI bleeding was brought to the ER secondary to weakness. In the ER he underwent a extensive evaluation. He was found have an elevated white blood cell count at 10.2, elevated lactic acid of 2.9, and escalating troponin of 0.106 at its max. COVID testing was negative, Chest xray without acute process. CT brain showed small vessel ischemia, cerebral atrophy, and progression of white matter disease compared to old with no acute abnormality. He was admitted for dementia with progressive weakness. CT thoracic and lumbar spine showed no acute process within the thoracic spine and degenerative disc disease of the lumbar spine. He was seen by neurology and noted to have some hypo-reflexia and decreased strength in the bilateral lower extremities. A B12, MMA,folic acid, and RPR were checked which were all normal, TSH normal. CK was normal at 166. MRI brain showed no recent infarct with mild to moderate diffuse cerebral atrophy with more advanced nonspecific white matter changes presumed to be from chronic small vessel ischemic changes. He was seen by cardiology and echocardiogram was performed which showed an ejection fraction of 50-55% with moderately enlarged right ventricle. They recommended cardiac catheterization, this was completed on 07/26 after he had been neurologically cleared. He did require stenting of the mid LAD and proximal LAD. He was started on aspirin, Plavix, beta mendy, ROBEL inhibitor, and statin. His lower extremity weakness was improving throughout his hospital stay. Patient seen and examined at bedside. He states his lower extremity weakness is getting better and he has been up and walking within her system. He denies any overt chest pain or shortness of breath. He is feeling overall improved. General: non toxic, no distress, appears at stated age Derm: warm, dry Head: atraumatic, normocephalic, symmetric Eyes: EOMI, no lid lag, anicteric sclera Mouth: no lip lesion, mucus membranes moist Cardiovascular: S1S2 reg, no murmur, positive posterior tibial pulse bilateral, Lungs: CTA bilateral, no rhonchi, no rales , no accessory muscle use Abdominal: soft, nontender to palpation, no guarding, no appreciable organome lucrecia Ext: no gross muscle atrophy, no edema, no contractures Neuro: CN II-XI grossly intact, no focal neuro deficits, muscle strength bilateral lower extremities 4 out of 5 Psych: Alert, oriented, appropriate affect Assessment and Plan Coronary artery disease status post stenting times to the LAD with elevated troponin -Aspirin, Plavix, beta mendy, lisinopril, statin -Cardiology recommendations appreciated Bilateral lower extremity weakness -MRI brain normal, CT thoracic and lumbar spine without significant foraminal stenosis or spinal stenosis -Vitamin B-12, MMA, folic acid CK and RPR all within normal ranges -Continue with PT and OT Dementia -Continue with Namenda and Exelon Hyperglycemia -Improved -Hemoglobin A1c 5.6 Major depressive disorder -Appreciate psychiatry recommendations -Continue with Zoloft and melatonin -Outpatient psychiatric treatment Marijuana abuse -Consult with Lactic acidosis, resolved Prerenal azotemia, resolved Leukocytosis, resolved DVT prophylaxis: Heparin Discussed with: patient, nursing Anticipated discharge: in AM Anticipated discharge place: vs [facility] A total of 45 minutes was spent on the care of this complex patient more than 50% of the time was spent in counseling and care coordination. Objective - Vital Signs Vital signs: Vital Signs Temp 98.1 F 07/26/20 08:00 Pulse 52 L 07/26/20 14:00 Resp 16 07/26/20 14:00 BP 169/74 07/26/20 08:00 Pulse Ox 98 07/26/20 08:00 Intake & Output 07/25/20 07/26/20 07/26/20 18:59 06:59 18:59 Intake Total 1244.919 580 200 Output Total 275 850 Balance 969.919 -270 200 Weight 62.596 kg Intake: IV 200 Intake, IV Titration 224.919 Amount Heparin Sod,Pork in 0.45% 224.919 NaCl 25,000 unit In 0.45 % NaCl 1 250ml.bag @ 12 UNITS/KG/HR 8.709 mls/hr IV .Q24H [facility] Rx#: [id number] Oral 1020 580 Output: Urine 275 850 Other: Voiding Method Urinal Urinal Urinal # Voids 1 1 # Bowel Movements 1 2 - Labs CBC & Chem 7: 07/26/20 07:08 07/25/20 07:26 Labs: Abnormal Lab Results - Last 24 Hours (Table) 07/25/20 07/26/20 Range/Units 22:25 07:08 APTT 53.3 H 66.9 H (22.0-30.0) sec
--- NOTE | 2020-07-26 16:30 | CDI ---
Documentation Clarification Form Date: 07/26/2020 03:52:00 PM From: Rosemarie Matos Phone: Admit Date: 07/22/2020 10:40:00 PM Patient Name: Fadi Travis Visit Number: [id number] Discharge Date: ATTENTION: The Clinical Documentation Specialists (CDI) and [facility] Coding Staff appreciate your assistance in clarifying documentation. Please respond to the clarification below the line at the bottom and electronically sign. The CDI & [facility] Coding staff will review the response and follow-up if needed. Please note: Queries are made part of the Legal Health Record. If you have any questions, please contact the author of this message via ITS. Dr. Kait Barrett [id number] Myocardial infarction is documented in the cardiology consult and progress notes starting on 07/23/20. 07/26 attending progress note: Coronary artery disease status post stenting times two to the LAD with elevated troponin Please render your opinion on the NSTEMI diagnosis. Patient History/Risk Factors: Hypertension, Diabetes mellitus, Dyslipidemia, Clinical Indicators: 74-year-old female present to ED on 07/02 with weakness. Cardiology was consulted on 07/02 for elevated troponin. He denies chest pain. The patient is confused at baseline and has dementia. 07/22 Troponin: 0,095, 0.106 07/23 Troponin 0.065 07/22 EKG Results: Sinus mechanism with biphasic T-wave in V2 and T-wave inversions anteriorly, these changes are new compared to previous EKGs. 07/22 Labs WBC 10.8, Lactic acid on admission 2.9 Treatment: Lipitor 40 mg po daily ASA 81 mg daily Heparin drip 07/23 ECHO: Overall left ventricular systolic function is low-normal, with EF between 50-55 % Right ventricle is moderately enlarged 3/2 Left heart Catherization, PTCA mid and proximal LAD Plavix 75 mg po daily In order to capture the severity of condition and necessary documentation specificity, please clarify if you are treating: Coronary artery disease with acute NSTEMI (POA) Coronary artery disease with unstable angina (POA) Other Condition, please specify Unable to determine (Last Revision: February 2017) Coronary artery disease with acute NSTEMI (AJITH) MTDD
[2020-07-26] MEDS: HEPARIN SOD,PORK IN 0.45% NACL 25,000 UNIT in 0.45% NACL 1 250ML.BAG IV SCH (18:35)
[2020-07-26] MEDS: MELATONIN 3 MG TABLET PO SCH (20:21)
[2020-07-26] MEDS: lisinopriL 10 MG TAB PO SCH (20:21)
[2020-07-26 23:36] VITALS: RESP 17
[2020-07-27] MEDS: PANTOPRAZOLE 40 MG TABLET PO SCH (06:41)
[2020-07-27 07:28] LABS: HCT 42.1 % (39.0-53.0); HGB 13.9 gm/dL (13.0-17.5); MCHC 33.1 g/dL (31.0-37.0); MCV 93.7 fL (80.0-100.0); Platelet Count 246 k/uL (150-450); RBC 4.49 m/uL (4.30-5.90); RDW 13.4 % (11.5-15.5); WBC 10.9 k/uL (3.8-10.6)
[2020-07-27 07:39] LABS: African American GFR (CKD) >90 (>60 ml/min/1.73 sqM); Anion Gap 9 mmol/L; Blood Urea Nitrogen 11 mg/dL (9-20); Carbon Dioxide 23 mmol/L (22-30); Chloride 107 mmol/L (98-107); Glucose 94 mg/dL (74-99); Non-African American GFR(CKD) >90 (>60 ml/min/1.73 sqM); Potassium 3.8 mmol/L (3.5-5.1); Sodium 139 mmol/L (137-145)
[2020-07-27] MEDS ORDERED: ASPIRIN 81 MG PO SCH (09:00)
[2020-07-27] MEDS: SERTRALINE 25 MG TAB PO SCH (09:36)
[2020-07-27] MEDS: buPROPion SR 100 MG TABLET.ER PO SCH (09:36)
[2020-07-27] MEDS: RIVASTIGMINE 4.6MG/24HR PATCH TRANSDERM SCH (09:36)
[2020-07-27] MEDS: lisinopriL 10 MG TAB PO SCH (09:36)
[2020-07-27] MEDS: ATORVASTATIN 40 MG TAB PO SCH (09:36)
[2020-07-27] MEDS: MEMANTINE 10 MG TAB PO SCH (09:36)
--- NOTE | 2020-07-27 11:57 | P.PN ---
Subjective HISTORY OF PRESENTING ILLNESS This is a pleasant 74-year-old male past medical history significant for peptic ulcer disease, dyslipidemia, hypertension and diabetes mellitus is not currently taking medication according to the medical record and chronic nicotine and marijuana dependence. 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 We have been asked to see in consultation for elevated troponin. The patient is confused at baseline and is unsure why he is at the hospital. When reminding him with the emergency room documentation states he does recall that his legs were weak yesterday. According to ER documentation the patient has had increased weakness and inability to ambulate recently. Patient denies having symptoms of chest pain, shortness of breath, dizziness or palpitations. He states his legs were so weak that he has to crawl around his home. He is resting comfortably sitting up in bed in no acute distress. 07/27/2020 Patient is seen and examined resting comfortably laying flat in bed in no acute distress. He has no symptoms of chest pain, shortness of breath, dizziness or palpitations. He underwent successful PCI of the mid and proximal LAD yesterday with Dr. Baez. Blood pressure 140/68 heart rate 63 afebrile maintaining oxygen saturation on room air. Laboratory data reviewed, WBC 10.9, hemoglobin 13.9, platelets 246, sodium 139, potassium 3.8, creatinine 0.68. Currently maintained on aspirin 81 mg daily, atorvastatin 40 mg daily, Plavix 75 mg daily and lisinopril 10 mg twice a day. PHYSICAL EXAMINATION CONSTITUTIONAL: No apparent distress. HEENT: Head is normocephalic. Pupils are equal, round. Sclerae anicteric. Mucous membranes of the mouth are moist. No JVD. No carotid bruit. CHEST EXAMINATION: Lungs are clear to auscultation. No chest wall tenderness is noted on palpation or with deep breathing. HEART EXAMINATION: Regular rate and rhythm. S1, S2 heard. Soft systolic ejection murmur at the base, no gallops or rub. EXTREMITIES: 2+ peripheral pulses, no lower extremity edema and no calf tenderness. Right radial access site soft, nontender with very mild ecchymosis noted at the point of insertion with strong distal pulses. ASSESSMENT Weakness Inability to ambulate NSTEMI Altered mental status Chronic nicotine dependence Daily marijuana use Dementia PLAN Stable for discharge from a cardiac perspective. The patient has been instructed to continue dual antiplatelet therapy as prescribed for one year. He is not a beta mendy on discharge secondary to bradycardia. Follow-up in the office with Dr. Baez in one week. Nurse Practitioner note has been reviewed, I agree with a documented findings and plan of care. Patient was seen and examined. Objective - Vital Signs Vital signs: Vital Signs Temp 98.4 F 07/27/20 08:00 Pulse 63 07/27/20 08:00 Resp 17 07/27/20 08:00 BP 140/68 07/27/20 08:00 Pulse Ox 99 07/27/20 08:00 Intake & Output 07/26/20 07/27/20 07/27/20 18:59 06:59 18:59 Intake Total 200 200 Output Total 450 750 Balance 200 -250 -750 Weight 61.2 kg Intake: IV 200 Intake, IV Titration 200 Amount Sodium Chloride 0.9% 1, 200 000 ml @ 0 mls/hr IV .[facility] Rx#:[id number] Output: Urine 450 750 Other: Voiding Method Urinal Urinal Urinal # Voids 1 1 # Bowel Movements 1 - Labs CBC & Chem 7: 07/27/20 06:56 07/27/20 06:56 Labs: Abnormal Lab Results - Last 24 Hours (Table) 07/27/20 Range/Units 06:56 WBC 10.9 H (3.8-10.6) k/uL
[2020-07-27] MEDS ORDERED: CLOPIDOGREL 75 MG TAB PO SCH (12:00)
--- NOTE | 2020-07-27 12:23 | P.PN ---
Progress Note - Text Progress Note Date: 07/27/20 Interval History: Patient was seen today for psychiatric follow-up regarding patient's depression and anxiety. Patient was taken to the Claims Adjuster Supervisor yesterday and had 2 stents placed in the LAD for CAD and TX. Patients nurse claims that patient has been doing better and has not been emotional or endorsing any depression today. Patient was seen at the bedside and recognized principal technical writer from the other day. He appears to be more cooperative today during conversation and did not offer any complaints. He spoke about the procedure yesterday and about his heart condition. He claims that his daughter will be here to pick him up later on today however he has not spoken with her for a few days now. He states that his mood has been gradually improving and denies any anxiety today. He states that he was able to sleep fairly throughout the night. At this time patient denies any suicidal or homical ideations, intent or plan. Patient denies any auditory, visual hallucinations and denies any paranoia or delusions. Patient denies any side effects from the medications and has been compliant with meds. Mental Status Exam: General Appearance: Patient appears to be elderly, thin, stated age is alert, pleasant, and attempting to be cooperative. Patient appears to have fair hygiene and grooming wearing hospital gown with fair eye contact. Behavior: Patient is calmly lying in bed without any agitated behavior. More cooperative today Speech: Patient's speech is fluent and nonpressured. Mood/Affect: Patient reports their mood is "better", affect is congruent and brighter affect Suicidality/Homicidality: Patient denies having any suicidal or homicidal ideation intent or plan. Perceptions: Patient denies any visual hallucinations and denies any auditory hallucinations Though content/process: Patient is tangential/circumstantial. Logical. Memory and concentration: AOX3, improved attention span. Fair attention span. Poor memory recall. Judgment and insight: Limited chronically, improving mildly Assessment Major depressive disorder, mild Generalized anxiety disorder Cannabis use disorder Nicotine dependence Plan: -At this time patient DOES NOT meet criteria for inpatient psychiatric admission. -Delirium precautions recommended with patient including - avoiding use of narc otics and FOOD SCIENCE TECHNICIAN sedatives, limit anticholinergic medications when possible, frequent re-orientation, minimize use of restraints, open window shades during the day and close them at night -Would recommend the following medication changes/additions: Continue with Zoloft 25 mg daily for mood/anxiety. Continue with Melatonin 3 mg daily at bedtime for insomnia. -B12 level was 497, folic acid level was 8.5. TSH within normal limits. -garage worker to provide patient with outpatient mental health/psychiatry resources for appropriate follow up upon discharge -Foundation Relations Manager spoke with patient about substance abuse including marijuana use and the harmful effects on medical and mental health, patient verbally understood and agreed. -Communicated plan to patient's nurse -At this time psychiatry will sign off. -Please contact with any questions.
[2020-07-27 12:35] VITALS: PULSE 58
[2020-07-27 14:01] VITALS: BMI 19.9
[2020-07-27 15:55] VITALS: BP 151/72; TEMP 97.8
--- NOTE | 2020-07-28 06:42 | P.DS ---
Providers Date of admission: 07/22/20 22:40 Expected date of discharge: 07/27/20 Attending physician: Kait Barrett, Consults: 07/22/20 22:32 Consult Physician Routine Consulting Provider: Rashaad Beavers Consult Reason/Comments: [place] proximal LE weakness Do you want consulting provider notified?: Yes Consult Physician Urgent Consulting Provider: Anjum Pryor Consult Reason/Comments: elev trop Do you want consulting provider notified?: Yes 07/25/20 11:55 Consult Physician Routine Consulting Provider: Deric Ward Consult Reason/Comments: depression, drug use Do you want consulting provider notified?: Yes 07/26/20 13:55 Consult Physician Routine Consulting Provider: [facility] Consult Reason/Comments: Post Interventional patient Do you want consulting provider notified?: Already Contacted Primary care physician: Javier Montes MD Hospital Course: Discharge Diagnosis: NSTEMI Coronary artery disease status post stenting times to the LAD with elevated troponin Bilateral lower extremity weakness Dementia Hyperglycemia Major depressive disorder with Dementia Marijuana abuse Lactic acidosis, resolved Prerenal azotemia, resolved Leukocytosis, resolved Hospital Course: Patient is a 74-year-old male past medical history of dementia, hypertension, dyslipidemia, GERD, and GI bleeding was brought to the ER secondary to weakness. In the ER he underwent a extensive evaluation. He was found have an elevated white blood cell count at 10.2, elevated lactic acid of 2.9, and escalating troponin of 0.106 at its max. COVID testing was negative, Chest xray without acute process. CT brain showed small vessel ischemia, cerebral atrophy, and progression of white matter disease compared to old with no acute abnormality. He was admitted for dementia with progressive weakness. CT thoracic and lumbar spine showed no acute process within the thoracic spine and degenerative disc d isease of the lumbar spine. He was seen by neurology and noted to have some hypo-reflexia and decreased strength in the bilateral lower extremities. A B12, MMA,folic acid, and RPR were checked which were all normal, TSH normal. CK was normal at 166. MRI brain showed no recent infarct with mild to moderate diffuse cerebral atrophy with more advanced nonspecific white matter changes presumed to be from chronic small vessel ischemic changes. He did have an elevated tropnin and was seen by cardiology, echocardiogram was performed which showed an ejection fraction of 50-55% with moderately enlarged right ventricle. They recommended cardiac catheterization, this was completed on 07/26 after he had been neurologically cleared. He did require stenting of the mid LAD and proximal LAD. He was started on aspirin, Plavix, beta mendy, ROBEL inhibitor, and statin. His lower extremity weakness was improving throughout his hospital stay. He was seen by [facility] for depression and dementia and started on Zoloft. He was given physical therapy and was determined okay for 24-hour supervision home health. He did well after cath. Discharged home in stable condition. Patient seen and examined at bedside on 07/27+ throughout 820. He denies any chest pain, chest breath, nausea and vomiting. He states he feels as though his legs are much improved. Vital signs reviewed and stable. General: non toxic, no distress, appears at stated age Derm: warm, dry Head: atraumatic, normocephalic, symmetric Eyes: EOMI, no lid lag, anicteric sclera Mouth: no lip lesion, mucus membranes moist Cardiovascular: S1S2 reg, no murmur, positive posterior tibial pulse bilateral, Lungs: CTA bilateral, no rhonchi, no rales , no accessory muscle use Abdominal: soft, nontender to palpation, no guarding, no appreciable organomegaly Ext: no gross muscle atrophy, no edema, no contractures Neuro: CN II-XI grossly intact, no focal neuro deficits 4 out of 5 in bilateral lower extremities Psych: Alert, oriented, appropriate affect A total of 35 minutes of time were spent preparing this complex discharge summary . Patient Condition at Discharge: Stable Plan - Discharge Summary Discharge Rx Participant: No New Discharge Prescriptions: New Aspirin 81 mg PO DAILY #30 chew Atorvastatin [Lipitor] 40 mg PO DAILY #30 tab Melatonin 3 mg PO HS #30 tablet Clopidogrel [Plavix] 75 mg PO DAILY #30 tab lisinopriL [Zestril] 10 mg PO BID #60 tab Sertraline [Zoloft] 25 mg PO DAILY #30 tab Continue buPROPion SR [Wellbutrin SR] 100 mg PO DAILY Memantine HCl 10 mg PO BID Rivastigmine 4.6MG/24Hr Patch [Exelon 4.6MG/24Hr Patch] 1 patch TOPICAL DAILY Discharge Medication List Memantine HCl 10 mg PO BID 07/22/20 [History] Rivastigmine 4.6MG/24Hr Patch [Exelon 4.6MG/24Hr Patch] 1 patch TOPICAL DAILY 07/22/20 [History] buPROPion SR [Wellbutrin SR] 100 mg PO DAILY 07/22/20 [History] Aspirin 81 mg PO DAILY #30 chew 07/27/20 [Rx] Atorvastatin [Lipitor] 40 mg PO DAILY #30 tab 07/27/20 [Rx] Clopidogrel [Plavix] 75 mg PO DAILY #30 tab 07/27/20 [Rx] Melatonin 3 mg PO HS #30 tablet 07/27/20 [Rx] Sertraline [Zoloft] 25 mg PO DAILY #30 tab 07/27/20 [Rx] lisinopriL [Zestril] 10 mg PO BID #60 tab 07/27/20 [Rx] Follow up Appointment(s)/Referral(s): Ivet Baez MD [STAFF PHYSICIAN] - 1 Week (office will call you with appt time ) [facility], [NON-STAFF] - Javier Montes MD [Primary Care Provider] - 1 Week (August 02 10:45) Patient Instructions/Handouts: *Surgery [facility] - After Heart Catheterization - Rn Compliance Instructions, Dehydration (DC) Activity/Diet/Wound Care/Special Instructions: Activity: limit movement of right wrist for 1 week do not submerge wrist in water Diet: heart healthy Special Instructions: Take blood pressure and pulse once daily and make a log Discharge Disposition: HOME WITH HOME HEALTH SERVICES
== END 2020-07-27 16:51 | disposition home health service (06) | DRG 247 ==
LOC: EC 15:56 → 5NMEDONC 17:53 → OBSVTOIN 22:40 → 3SCARD 07-23 15:43
PROVIDERS: ADMIT Internal Medicine; ATTEND Internal Medicine
PROC: 027035Z Dilation of Coronary Artery, One Artery with Two Drug-eluting Intraluminal Devices, Percutaneous Approach (ICD-10-PCS; principal; 2020-07-26 12:00)
PROC: B2111ZZ Fluoroscopy of Multiple Coronary Arteries using Low Osmolar Contrast (ICD-10-PCS; principal; 2020-07-26 12:00)
DX: I21.4 Non-ST elevation (NSTEMI) myocardial infarction (principal); E87.2 Acidosis; I67.89 Other cerebrovascular disease; E11.65 Type 2 diabetes mellitus with hyperglycemia; E78.5 Hyperlipidemia, unspecified; D72.829 Elevated white blood cell count, unspecified; F03.90 Unspecified dementia, unspecified severity, without behavioral disturbance, psychotic disturbance, mood disturbance, and anxiety; I11.9 Hypertensive heart disease without heart failure; I25.10 Atherosclerotic heart disease of native coronary artery without angina pectoris; Z20.822 Contact with and (suspected) exposure to COVID-19; F32.9 Major depressive disorder, single episode, unspecified; K57.90 Diverticulosis of intestine, part unspecified, without perforation or abscess without bleeding; K21.9 Gastro-esophageal reflux disease without esophagitis; M81.0 Age-related osteoporosis without current pathological fracture; G89.29 Other chronic pain; M51.36 Other intervertebral disc degeneration, lumbar region; F41.1 Generalized anxiety disorder; F12.10 Cannabis abuse, uncomplicated; F17.210 Nicotine dependence, cigarettes, uncomplicated; Z71.6 Tobacco abuse counseling; R53.1 Weakness; R26.2 Difficulty in walking, not elsewhere classified; Z79.899 Other long term (current) drug therapy; Z87.19 Personal history of other diseases of the digestive system; Z87.11 Personal history of peptic ulcer disease; Z87.442 Personal history of urinary calculi; Z98.890 Other specified postprocedural states; Z87.81 Personal history of (healed) traumatic fracture; W19.XXXA Unspecified fall, initial encounter; Y92.015 Private garage of single-family (private) house as the place of occurrence of the external cause; Z83.3 Family history of diabetes mellitus
CPT/HCPCS: 36415; 70450; 70551; 71045; 72128; 72131; 80048; 80053; 80061; 81001; 82550; 82607; 82746; 83036; 83605; 83735; 83921; 84100; 84443; 84484; 85025; 85027; 85347; 85610; 85730; 86780; 87635; 93005; 93306; 93458; 96360; 96361; 99285

== ENCOUNTER → 2021-07-06 | Outpatient (CLI) | payer MEDICARE ==
--- NOTE | 2021-07-06 17:21 | MR ---
MR thoracic spine without contrast HISTORY: Chronic pain Multiplanar multisequence imaging obtained through the thoracic spine Correlation to CT thoracic spine 07/23/2020 Thoracic vertebral bodies show preserved height and there is a slight spinal curvature. There is no s ignificant spinal stenosis. No significant foraminal encroachment. There is a small disc protrusion p resent at T3-4. T12 shows a bright focus in the vertebral body on T1 and T2-weighted sequences consis tent with hemangioma. Disc heights are relatively maintained. Some loss of disc signal at the upper i ntervertebral levels is consistent with disc desiccation. Facet arthropathy changes are present throu ghout the lower thoracic spine. Thoracic cord signal is maintained. Descending aorta is ectatic at 3 cm. Degenerative disc changes are noted in the visualized cervical s pine. IMPRESSION: Mild degenerative disc disease. Multilevel facet arthropathy. Slight spinal curvature. Ad ditional findings above.
== END | disposition home or self-care (01) ==
LOC: RADMRIMAIN 14:42
PROVIDERS: ATTEND Family Medicine
DX: M47.894 Other spondylosis, thoracic region (principal); M51.34 Other intervertebral disc degeneration, thoracic region
CPT/HCPCS: 72146

== ENCOUNTER → 2021-07-13 | Outpatient (CLI) | payer MEDICARE ==
--- NOTE | 2021-07-13 14:43 | CT ---
EXAMINATION TYPE: CT chest wo con DATE OF EXAM: 07/13/2021 COMPARISON: 03/08/2019 HISTORY: Pleural Effusion CT DLP: 185.10 mGycm. Automated Exposure Control for Dose Reduction was Utilized. TECHNIQUE: CT scan of the thorax is performed without IV contrast. FINDINGS: LUNGS: The lungs are grossly clear, there is no concerning parenchymal mass or nodule identified. T here is no pleural effusion or pneumothorax seen. The tracheobronchial tree is patent. Emphysematous changes noted. Apical pleural thickening. MEDIASTINUM: Lack of IV contrast is noted to limit evaluation for mediastinal and especially hilar ad enopathy. There are no definitive greater than 1 cm hilar or mediastinal lymph nodes. Coronary artery calcification noted. There is a small hiatal hernia. Atherosclerotic change aorta.. OTHER: Hypertrophic and degenerative changes spine.. Cortical loss and calcifications involving the l eft kidney. Hypertrophic and degenerative change of the spine. IMPRESSION: 1. COPD with no acute intrathoracic process. 2. 4 mm nodule right middle lobe axial image 34 stable from 2019 and therefore likely benign. 3. Dense coronary artery calcification correlate clinically
== END | disposition home or self-care (01) ==
LOC: RADCTMAIN 13:15
PROVIDERS: ATTEND Family Medicine
DX: J44.9 Chronic obstructive pulmonary disease, unspecified (principal); I25.10 Atherosclerotic heart disease of native coronary artery without angina pectoris
CPT/HCPCS: 71250

== ENCOUNTER 2022-08-20 16:39 | Emergency (ER) | payer MEDICARE ==
--- NOTE | 2022-08-20 17:11 | ED ---
General Adult HPI - General Source: patient, family, RN notes reviewed Mode of arrival: ambulatory Limitations: no limitations <Kings Parada - Last Filed: 08/20/22 17:10> <Denny Post - Last Filed: 08/21/22 00:05> <Sergey Mcneil - Last Filed: 08/21/22 01:54> - General Chief complaint: Psychiatric Symptoms Stated complaint: mental health Time Seen by Provider: 08/20/22 16:58 - History of Present Illness Initial comments: Patient is a pleasant 76-year-old male presenting to the emergency Department with daughter with concerns for depression. Patient was kicked out of his assisted living today secondary to aggression multiple times. Patient's daughter states they are afraid of him and she is as well. Patient daughter is concerned that he is a harm to himself and others. Patient denies suicidal or homicidal thoughts. Patient states he feels fine and has no complaints. Patient has been eating and drinking and taking his medication. (Kings Parada) - Related Data Home Medications Medication Instructions Recorded Confirmed Memantine HCl 10 mg PO BID 07/22/20 08/20/22 buPROPion SR [Wellbutrin SR] 100 mg PO DAILY 07/22/20 08/20/22 Escitalopram [Lexapro] 10 mg PO DAILY 08/20/22 08/20/22 Melatonin 3 mg PO HS PRN 08/20/22 08/20/22 Rivastigmine 9.5MG/24Hr Patch 1 patch TRANSDERM Q24HR 08/20/22 08/20/22 [Exelon 9.5MG/24Hr Patch] lisinopriL [Zestril] 10 mg PO DAILY 08/20/22 08/20/22 Previous Rx's Medication Instructions Recorded Aspirin 81 mg PO DAILY #30 chew 07/27/20 Atorvastatin [Lipitor] 40 mg PO DAILY #30 tab 07/27/20 Allergies Allergy/AdvReac Type Severity Reaction Status Date / Time No Known Allergies Allergy Verified 08/20/22 16:56 Review of Systems ROS Other: All systems not noted in ROS Statement are negative. Constitutional: Denies: fever Eyes: Denies: eye pain ENT: Denies: ear pain Respiratory: Denies: cough Cardiovascular: Denies: chest pain Endocrine: Denies: fatigue Gastrointestinal: Denies: abdominal pain Genitourinary: Denies: dysuria Musculoskeletal: Denies: back pain Skin: Denies: rash Neurological: Denies: weakness Psychiatric: Reports: as per HPI <Kings Parada - Last Filed: 08/20/22 17:10> ROS Other: All systems not noted in ROS Statement are negative. <Denny Post - Last Filed: 08/21/22 00:05> ROS Other: All systems not noted in ROS Statement are negative. <EwaSergey Francheska - Last Filed: 08/21/22 01:54> ROS Statement: Those systems with pertinent positive or pertinent negative responses have been documented in the HPI. Past Medical History Past Medical History: Dementia, GERD/Reflux, GI Bleed, Hyperlipidemia, Hypertension Additional Past Medical History / Comment(s): History of peptic ulcer disease/duodenal ulcer, previous history of GI bleed, hyperlipidemia, hypertens ion, diabetes mellitus not taking any form of oral hypoglycemic medication and the patient has chronic back pain. Diverticulosis. Pancreatic classifications chronic. Nonobstructive right renal calculus. History of Any Multi-Drug Resistant Organisms: None Reported Past Surgical History: No Surgical Hx Reported Additional Past Surgical History / Comment(s): Laparotomy for duodenal ulcer repair, EGD/colonoscopy, nasal fracture with surgery. Past Anesthesia/Blood Transfusion Reactions: No Reported Reaction Past Psychological History: Anxiety, Depression Smoking Status: Current some day smoker Past Alcohol Use History: None Reported Past Drug Use History: Marijuana - Past Family History Father History Unknown: Yes Mother Family Medical History: Diabetes Mellitus <Kings Parada - Last Filed: 08/20/22 17:10> General Exam Limitations: no limitations General appearance: alert, in no apparent distress Head exam: Present: normocephalic Eye exam: Present: normal appearance Neck exam: Present: normal inspection Respiratory exam: Present: normal lung sounds bilaterally Cardiovascular Exam: Present: regular rate, normal rhythm GI/Abdominal exam: Present: soft. Absent: tenderness Extremities exam: Present: normal inspection Neurological exam: Present: alert Psychiatric exam: Present: normal affect, normal mood Skin exam: Present: normal color <Kings Parada - Last Filed: 08/20/22 17:10> Course Vital Signs 08/20/22 08/21/22 16:52 01:50 Temperature 98.2 F Pulse Rate 75 56 L Respiratory 18 16 Rate Blood Pressure 152/86 162/77 O2 Sat by Pulse 97 96 Oximetry Medical Decision Making - Lab Data Result diagrams: 08/20/22 17:28 08/20/22 17:28 <Denny Post - Last Filed: 08/21/22 00:05> - Lab Data Result diagrams: 08/20/22 17:28 08/20/22 17:28 <Sergey Mcneil - Last Filed: 08/21/22 01:54> - Medical Decision Making I assumed care of the patient from Dr. Parada. The patient was signed out to me pending EPS evaluation. Was pt. sent in by a medical professional or institution (, PA, JOINER APPRENTICE, urgent care, hospital, or skilled nursing...) When possible be specific @ -No Did you speak to anyone other than the patient for history (EMS, parent, family, police, friend...)? What history was obtained from this source @ -No Did you review nursing and triage notes (agree or disagree)? Why? @ -I reviewed and agree with nursing and triage notes Were old charts reviewed (outside hosp., previous admission, EMS record, old EKG, old radiological studies, urgent care reports/EKG's, skilled nursing records)? Report findings @ -No old charts were reviewed Differential Diagnosis (chest pain, altered mental status, abdominal pain women, abdominal pain men, vaginal bleeding, weakness, fever, dyspnea, syncope, headache, dizziness, GI bleed, back pain, seizure, CVA, palpatations, mental health)? @ -Acute psychosis, progression, homicidal ideation EKG interpreted by me (3pts min.). @ -As above X-rays interpreted by me (1pt min.). @ -None done CT interpreted by me (1pt min.). @ -None done U/S interpreted by me (1pt. min.). @ -None done What testing was considered but not performed or refused? (CT, X-rays, U/S, labs)? Why? @ -None What meds were considered but not given or refused? Why? @ -None Did you discuss the management of the patient with other professionals (professionals i.e. , LASHA, JOINER APPRENTICE, lab, RT, psych nurse, social welfare clerk, grey roll man, teacher, chairman & chief executive officer, community case manager)? Give summary @ -Yes, EPS nurse Was smoking cessation discussed for >3mins.? @ -No Was critical care preformed (if so, how long)? @ -No Were there social determinants of health that impacted care today? How? (Homelessness, low income, unemployed, alcoholism, drug addiction, transportation, low edu. Level, literacy, decrease access to med. care, snf, rehab)? @ -No Was there de-escalation of care discussed even if they declined (Discuss DNR or withdrawal of care, Hospice)? DNR status @ -No What co-morbidities impacted this encounter? (DM, HTN, Smoking, COPD, CAD, Cancer, CVA, ARF, Chemo, Hep., AIDS, mental health diagnosis, sleep apnea, morbid obesity)? @ -None Was patient admitted / discharged? Hospital course, mention meds given and route, prescriptions, significant lab abnormalities, going to OR and other pe rtinent info. @ -The patient was initially seen by Dr. Parada. Please see his note for HPI. The patient remained stable and was evaluated by EPS. The patient was signed out to me pending EPS evaluation for final disposition and management. A safety plan was confirmed with the patient and EPS did state that the patient could be safely discharged back home. The patient was agreeable to this and all of his questions were answered appropriately. The patient was discharged in stable condition. Undiagnosed new problem with uncertain prognosis? @ -No Drug Therapy requiring intensive monitoring for toxicity (Heparin, Nitro, Insulin, Cardizem)? @ -No Were any procedures done? @ -No Diagnosis/symptom? @ -Aggression, NOS Acute, or Chronic, or Acute on Chronic? @ -Acute Uncomplicated (without systemic symptoms) or Complicated (systemic symptoms)? @ -Uncomplicated Side effects of treatment? @ -No Exacerbation, Progression, or Severe Exacerbation? @ -No Poses a threat to life or bodily function? How? (Chest pain, USA, PA, pneumonia, PE, COPD, DKA, ARF, appy, cholecystitis, CVA, Diverticulitis, Homicidal, Suicidal, threat to staff... and all critical care pts) @ -No (Denny Post) Change of disposition: Patient will be admitted to geriatric psychiatric facility. I did complete a clinical certification on this patient after evaluation. (Sergey Mcneil) - Lab Data Lab Results 08/20/22 08/20/22 08/20/22 Range/Units 17:28 17:28 17:28 WBC 7.6 (3.8-10.6) k/uL RBC 5.06 (4.30-5.90) m/uL Hgb 15.0 (13.0-17.5) gm/dL Hct 44.8 (39.0-53.0) % MCV 88.7 (80.0-100.0) fL MCH 29.7 (25.0-35.0) pg MCHC 33.5 (31.0-37.0) g/dL RDW 13.0 (11.5-15.5) % Plt Count 318 (150-450) k/uL MPV 7.8 Neutrophils % 60 % Lymphocytes % 26 % Monocytes % 8 % Eosinophils % 3 % Basophils % 1 % Neutrophils # 4.6 (1.3-7.7) k/uL Lymphocytes # 2.0 (1.0-4.8) k/uL Monocytes # 0.6 (0-1.0) k/uL Eosinophils # 0.3 (0-0.7) k/uL Basophils # 0.0 (0-0.2) k/uL Sodium 138 (137-145) mmol/L Potassium 4.1 (3.5-5.1) mmol/L Chloride 100 (98-107) mmol/L Carbon Dioxide 28 (22-30) mmol/L Anion Gap 10 mmol/L BUN 9 (9-20) mg/dL Creatinine 0.62 L (0.66-1.25) mg/dL Est GFR (CKD-EPI)AfAm >90 (>60 ml/min/1.73 sqM) Est GFR (CKD-EPI)NonAf >90 (>60 ml/min/1.73 sqM) Glucose 136 H (74-99) mg/dL Calcium 8.7 (8.4-10.2) mg/dL Urine Color Light Yellow Urine Appearance Clear (Clear) Urine pH 6.5 (5.0-8.0) Ur Specific [place] 1.006 (1.001-1.035) Urine Protein Negative (Negative) Urine Glucose (UA) Negative (Negative) Urine Ketones Negative (Negative) Urine Blood Negative (Negative) Urine Nitrite Negative (Negative) Urine Bilirubin Negative (Negative) Urine Urobilinogen <2.0 (<2.0) mg/dL Ur Leukocyte Esterase Negative (Negative) Urine Opiates Screen Not Detected (NotDetected) Ur Oxycodone Screen Not Detected (NotDetected) Urine Methadone Screen Not Detected (NotDetected) Ur Propoxyphene Screen Not Detected (NotDetected) Ur Barbiturates Screen Not Detected (NotDetected) U Tricyclic Antidepress Not Detected (NotDetected) Ur Phencyclidine Scrn Not Detected (NotDetected) Ur Amphetamines Screen Not Detected (NotDetected) U Methamphetamines Scrn Not Detected (NotDetected) U Benzodiazepines Scrn Not Detected (NotDetected) Urine Cocaine Screen Not Detected (NotDetected) U Marijuana (THC) Screen Not Detected (NotDetected) Serum Alcohol <10 mg/dL Disposition <Kings Parada - Last Filed: 08/20/22 17:10> Is patient prescribed a controlled substance at d/c from ED?: No Time of Disposition: 23:50 <Denny Post - Last Filed: 08/21/22 00:05> <Sergey Mcneil - Last Filed: 08/21/22 01:54> Clinical Impression: Aggression Disposition: HOME SELF-CARE Condition: Stable Referrals: Javier Montes MD [Primary Care Provider] - 1-2 days
[2022-08-20 17:36] LABS: Basophils % (A) 1 %; Eosinophils # (A) 0.3 k/uL (0-0.7); Eosinophils % (A) 3 %; HCT 44.8 % (39.0-53.0); Lymphocytes % (A) 26 %; MCH 29.7 pg (25.0-35.0); MCHC 33.5 g/dL (31.0-37.0); MCV 88.7 fL (80.0-100.0); Mean Platelet Volume 7.8; Monocytes # (A) 0.6 k/uL (0-1.0); Monocytes % (A) 8 %; Neutrophils # (A) 4.6 k/uL (1.3-7.7); Neutrophils % (A) 60 %; Platelet Count 318 k/uL (150-450); RBC 5.06 m/uL (4.30-5.90); WBC 7.6 k/uL (3.8-10.6)
[2022-08-20 17:40] LABS: Appearance,Urine Clear (Clear); Bilirubin,Urine Negative (Negative); Blood,Urine Negative (Negative); Color,Urine Light Yellow; Glucose,Urine (UA) Negative (Negative); Ketones,Urine Negative (Negative); Leukocyte Esterase,Urine Negative (Negative); Nitrite,Urine Negative (Negative); PH, Urine 6.5 (5.0-8.0); Protein,Urine Negative (Negative); Specific Gravity,Urine 1.006 (1.001-1.035); Urobilinogen,Urine <2.0 mg/dL (<2.0)
[2022-08-20 17:49] LABS: Amphetamine Screen,Urine Not Detected (NotDetected); Barbiturate Screen,Urine Not Detected (NotDetected); Benzodiazepines Screen,Urine Not Detected (NotDetected); Cocaine Screen,Urine Not Detected (NotDetected); Methadone Screen, Urine Not Detected (NotDetected); Opiate Screen,Urine Not Detected (NotDetected); Oxycodone Screen, Urine Not Detected (NotDetected); Phencyclidine Screen,Urine Not Detected (NotDetected); Tricyclic Antidepressant,Urine Not Detected (NotDetected); Urn Cannabinoid Scrn Not Detected (NotDetected)
[2022-08-20 17:50] LABS: African American GFR (CKD) >90 (>60 ml/min/1.73 sqM); Alcohol <10 mg/dL; Anion Gap 10 mmol/L; Blood Urea Nitrogen 9 mg/dL (9-20); Calcium 8.7 mg/dL (8.4-10.2); Carbon Dioxide 28 mmol/L (22-30); Chloride 100 mmol/L (98-107); Glucose 136 mg/dL (74-99); Non-African American GFR(CKD) >90 (>60 ml/min/1.73 sqM); Potassium 4.1 mmol/L (3.5-5.1); Sodium 138 mmol/L (137-145)
[2022-08-21] MEDS: ESCITALOPRAM 10 MG TAB PO SCH (16:16)
[2022-08-21] MEDS: lisinopriL 10 MG TAB PO SCH (16:16)
[2022-08-21] MEDS: buPROPion SR 100 MG TABLET.ER PO SCH (16:16)
[2022-08-21] MEDS: RIVASTIGMINE 9.5MG/24HR PATCH TRANSDERM SCH (16:17)
[2022-08-21] MEDS: MEMANTINE 10 MG TAB PO SCH (20:58)
[2022-08-21] MEDS ORDERED: MELATONIN 3 MG TABLET PO PRN (21:00)
[2022-08-22] MEDS ORDERED: ACETAMINOPHEN TAB 325 MG TAB PO STA (05:08)
[2022-08-22] MEDS: ESCITALOPRAM 10 MG TAB PO SCH (09:18)
[2022-08-22] MEDS: MEMANTINE 10 MG TAB PO SCH ×2 (09:18→20:20)
[2022-08-22] MEDS: buPROPion SR 100 MG TABLET.ER PO SCH (09:18)
[2022-08-22] MEDS: lisinopriL 10 MG TAB PO SCH (09:18)
[2022-08-22] MEDS: RIVASTIGMINE 9.5MG/24HR PATCH TRANSDERM SCH (09:18)
[2022-08-22 14:05] VITALS: TEMP 98.4
[2022-08-23] MEDS ORDERED: ASPIRIN 325 MG TAB PO STA (01:40)
[2022-08-23] MEDS ORDERED: MELATONIN 3 MG TABLET PO PRN (08:41)
[2022-08-23] MEDS ORDERED: ESCITALOPRAM 10 MG TAB PO SCH (09:00)
[2022-08-23] MEDS ORDERED: lisinopriL 10 MG TAB PO SCH (09:00)
[2022-08-23] MEDS ORDERED: MEMANTINE 10 MG TAB PO SCH (09:00)
[2022-08-23 10:43] VITALS: PULSE 64; RESP 18
[2022-08-23] MEDS: RIVASTIGMINE 9.5MG/24HR PATCH TRANSDERM SCH (11:26)
[2022-08-23] MEDS: buPROPion SR 100 MG TABLET.ER PO SCH (11:26)
[2022-08-23 19:35] VITALS: BP 135/81
== END 2022-08-23 19:34 | disposition home or self-care (01) ==
LOC: EC 16:39
DX: R45.6 Violent behavior (principal); E11.9 Type 2 diabetes mellitus without complications; I10 Essential (primary) hypertension; E78.5 Hyperlipidemia, unspecified; F03.90 Unspecified dementia, unspecified severity, without behavioral disturbance, psychotic disturbance, mood disturbance, and anxiety; F32.A Depression, unspecified; F41.9 Anxiety disorder, unspecified; F17.200 Nicotine dependence, unspecified, uncomplicated; F12.90 Cannabis use, unspecified, uncomplicated; Z79.899 Other long term (current) drug therapy; Z20.822 Contact with and (suspected) exposure to COVID-19
CPT/HCPCS: 99285 ×2; 82075; 36415; 93005; 80048; 85025; 81003; 80306; 87635 ×2; G0480; S0106 ×3; 80320